=== PATIENT | male | born 1950 | race Caucasian/White ===

== ENCOUNTER 2016-11-26 15:39 | Inpatient (IN) | payer MEDICARE, MEDICAID ==
[2016-11-26] VITALS (7 sets, daily range): BP systolic 82–107; BP diastolic 47–62
[~2016-11-26] VITALS: Ht 152.4 cm; Wt 61.2 kg
[~2016-11-26 15:39] MED LIST: ALBUTEROL2.5 MG/3 M INH; ASCORBIC ACID500 MG ORAL; ASPIRIN81 M3 PO; ASPIRIN81 MG ORAL; ATORVASTATIN CA20 MG ORAL; ATORVASTATIN CA40 MG ORAL; BRIMONIDINE TART5 ML BOTH EYES; CARDIZEM5 MG/ML IV; CARVEDILOL3.125 MG ORAL; DOCUSATE SODIU250 MG ORAL; DONEPEZIL HCL5 MG ORAL; DUONEB 0.5-3(2.53 ML HHN; ENALAPRIL MALEA10 MG ORAL; FUROSEMIDE IV; GABAPENTIN100 MG ORAL; GERI-TUSSI100 MG/5 M PO; GLUCAGON EMERGEN1 MG IJ; GLUCOSE4 GM PO; ISOSORBIDE MONO60 M1 PO; LACTULOSE20 GM/301 ORAL; LEVEMIR FL100 UNIT/1 SUBQ; LEVOFLOXAC500 MG/100 IVPB; MAXIPIME2 G1 IV; MELATONIN3 M2 PO; METFORMIN HCL500 M1 ORAL; MOM30 ML ORAL; MORPHINE SU2 MG/1 M1 IV; MULTIVITAMINS1 EA11 ORAL; NEURONTIN100 MG ORAL; NITROSTAT0.4 M1 SL; NORCO 5-325 TA1 EAC1 ORAL; NOVOLOG100 UNIT/3 SUBQ; NOVOLOG100 UNIT/4 SQ; PANTOPRAZOLE SO20 MG ORAL; POLYETHYLENE GL17 GM ORAL; SORBITOL 70%30 ML GT; TEMAZEPAM15 MG ORAL; TIMOPTIC 0.25%1 DROP BOTH EYES; TIMOPTIC 0.5%1 DRO1 BOTH EYES; TRAZODONE HCL50 MG ORAL; TYLENOL650 MG/20. ORAL; VANCOMYCIN1 GM/2502 IVPB; VITAMIN A & D113 GM TP; ZOFRAN 4 MG4 MG/2 ML IV; ZOFRAN4 M3 ORAL
[2016-11-26 16:21] LABS: BASOPHILS % (AUTO) 0.6 % (0.0-2.0); EOSINOPHILS % (AUTO) 0.1 % (0.0-3.0); LYMPHOCYTES % (AUTO) 11.5 % (20.0-45.0); MEAN CORPUSCULAR HEMOGLOBIN 25.4 PG (27.0-31.0); MEAN CORPUSCULAR HGB CONC 33.5 G/DL (32.0-36.0); MEAN CORPUSCULAR VOLUME 76 FL (80-99); MEAN PLATELET VOLUME 7.5 FL (6.5-10.1); MONOCYTES % (AUTO) 5.6 % (1.0-10.0); NEUTROPHILS % (AUTO) 82.2 % (45.0-75.0); PLATELET COUNT 187 K/UL (150-450); RED BLOOD COUNT 4.94 M/UL (4.70-6.10); RED CELL DISTRIBUTION WIDTH 11.6 % (11.6-14.8); WHITE BLOOD COUNT 17.5 K/UL (4.8-10.8)
[2016-11-26 16:47] LABS: ALANINE AMINOTRANSFERASE 32 U/L (12-78); ALBUMIN/GLOBULIN RATIO 0.9 (1.0-2.7); ANION GAP 9 mmol/L (5-15); ASPARTATE AMINO TRANSFERASE 154 U/L (15-37); CALCIUM 9.1 MG/DL (8.5-10.1); CARBON DIOXIDE 20 MMOL/L (21-32); CHLORIDE 78 MMOL/L (98-107); CKMB 105.9 NG/ML (0.0-3.6); GLOMERULAR FILTRATION RATE > 60 mL/min (>60); TOTAL PROTEIN 7.4 G/DL (6.4-8.2)
[2016-11-26 16:50] LABS: SODIUM 108 MMOL/L (136-145)
[2016-11-26 17:17] LABS: BILIRUBIN,DIRECT 0.2 MG/DL (0.0-0.3)
[2016-11-26] MEDS ORDERED: DONEPEZIL HCL5 M2 ORAL (17:25)
[2016-11-26] MEDS ORDERED: VITAMIN C250 MG ORAL (17:25)
[2016-11-26] MEDS ORDERED: ALBUTEROL2.5 MG/3 M INH (17:25)
[2016-11-26] MEDS ORDERED: FUROSEMIDE20 M1 ORAL (17:25)
[2016-11-26] MEDS ORDERED: POTASSIUM40 MEQ/11 PO (17:25)
[2016-11-26] MEDS ORDERED: FAMOTIDINE20 MG ORAL (17:25)
[2016-11-26] MEDS ORDERED: MIRALAX17 G2 ORAL (17:25)
--- NOTE | 2016-11-26 17:28 | Diagnostic Imaging Report ---
Indication: Altered mental status Technique: spiral acquisitions obtained through the brain. Angled axial and coronal 5 x 5 mm slices were reconstructed. No IV contrast utilized. Radiation dose was minimized using automated exposure control Total dose length product 1439 mGycm. CTDIvol(s) 70 mGy Comparison: 06/27/2015 FINDINGS: There is some image degradation due to motion artifact No acute hemorrhage or edema. No mass effect or midline shift. There is age-related enlargement of the ventricles and extra axial CSF spaces. There is periventricular deep white matter ischemic change. Normal morse-white differentiation. Visualized orbits are unremarkable. Visualized sinuses are unremarkable. Intact calvarium. Old bilateral basal ganglia lacunar infarcts are incidentally noted. No significant change IMPRESSION: Chronic and age-related changes. Negative for acute intracranial bleed or mass effect Old bilateral basal ganglia lacunar infarcts The CT scanner at [facility] is accredited by the [employer] and the scans are performed using protocols designed to limit radiation exposure to as low as reasonably achievable to attain images of sufficient resolution adequate for diagnostic evaluation
[2016-11-26 17:44] LABS: INR 1.1 (0.9-1.1); PROTHROMBIN TIME 11.2 SEC (9.30-11.50)
[2016-11-26] MEDS ORDERED: Morphine Sulfate 2mg/ml Inj IVP PRN (18:00)
[2016-11-26] MEDS ORDERED: dilTIAZem HCl 25mg/5ml Inj IV PRN (18:00)
[2016-11-26] MEDS ORDERED: Enalaprilat 2.5mg/2ml Inj IV PRN (18:00)
[2016-11-26] MEDS ORDERED: Lactulose 20gm/30ml UDC ORAL PRN (18:00)
[2016-11-26] MEDS ORDERED: Albuterol/Ipratropium 3ml neb HHN PRN (18:00)
[2016-11-26] MEDS ORDERED: Miralax 17gm pkt ORAL PRN (18:00)
[2016-11-26] MEDS ORDERED: Nitroglycerin Subl 0.4mg tab SL PRN (18:00)
[2016-11-26] MEDS ORDERED: TraZODone 50mg tab ORAL PRN (18:00)
[2016-11-26] MEDS ORDERED: Ketorolac 30mg Inj IV PRN (18:00)
--- NOTE | 2016-11-26 18:17 | Diagnostic Imaging Report ---
Indication: Shortness of breath Technique: One view of the chest Comparison: 12/12/2015 Findings: Lungs and pleural spaces are clear. Heart size is normal . No significant interim change Impression: No acute process
[2016-11-26 18:34] LABS: APPEARANCE,URINE CLEAR; KETONES,URINE 3+ (NEGATIVE); LEUKOCYTE ESTERASE ,URINE 1+ (NEGATIVE); NITRITE,URINE NEGATIVE (NEGATIVE); PH,URINE 6 (4.5-8.0); PROTEIN,URINE 1+ (NEGATIVE); UROBILINOGEN,URINE NORMAL MG/DL (0.0-1.0)
[2016-11-26 18:53] LABS: AMORPHOUS SEDIMENT,UR FEW /LPF; BACTERIA,URINE FEW /HPF
[2016-11-26] MEDS ORDERED: Enoxaparin 60mg Inj SUBQ SCH (19:30)
--- NOTE | 2016-11-26 20:24 | Emergency Room Report ---
History of Present Illness General Chief Complaint: Altered Level of Consciousness Source: Patient, Medical Record, EMS Present Illness [facility]PI [facility] The patient himself has no complaints. The patient was sent by the staff at the jail facility for being more confused than usual. The patient himself has no complaints and is alert and oriented x4. When I did ask if the patient has any symptoms, he does state that he has had some acid reflux for the past few days. He denies abdominal pain. He denies nausea or vomiting. He has no other complaints Allergies: Coded Allergies: PENICILLINS (Unverified Allergy, Unknown, 08/18/14) Uncoded Allergies: PENCI (Allergy, Severe, 11/26/16) Patient History Past Medical History: see triage record, DM, HTN, MA, CAD, CHF, GERD, CVA/TIA Past Surgical History: other - Marah WALLER Social History: Denies: smoking, alcohol use, drug use Reviewed Nursing Documentation: PMH: Agreed, PSxH: Agreed Nursing Documentation-PMH Hx Cardiac Problems: Yes Hx COPD: Yes Hx Diabetes: Yes Hx Cancer: No Hx Gastrointestinal Problems: Yes Hx Peripheral Neuropathy: Yes Review of Systems All Other Systems: negative except mentioned in HPI Physical Exam Vital Signs Date Time Temp Pulse Resp B/P (MAP) Pulse Ox O2 Delivery O2 Flow Rate FiO2 11/26/16 15:27 97.9 96 18 116/73 98 11/26/16 16:58 Room Air 11/26/16 19:20 2.0 Sp02 EP Interpretation: reviewed, normal General Appearance: no apparent distress, alert, GCS 15, non-toxic Head: normocephalic, atraumatic Eyes: bilateral eye normal inspection, bilateral eye PERRL ENT: hearing grossly normal, normal pharynx, no angioedema, normal voice Neck: full range of motion, supple/symm/no masses Respiratory: chest non-tender, lungs clear, normal breath sounds, speaking full sentences Cardiovascular #1: regular rate, rhythm, no edema Gastrointestinal: normal bowel sounds, non tender, soft, non-distended, no guarding, no rebound Rectal: deferred Musculoskeletal: back normal, non-tender Neurologic: alert, oriented x3, responsive, motor strength/tone normal, sensory intact, speech normal Psychiatric: judgement/insight normal, memory normal, mood/affect normal, no suicidal/homicidal ideation Skin: normal color, no rash, warm/dry, well hydrated Medical Decision Making Diagnostic Impression: Primary Impression: NSTEMI (non-ST elevated myocardial infarction) Additional Impressions: Hyponatremia Hyperglycemia ER Course This patient presents with an elevated troponin that is concerning for myocardial infarction. EKG is nonspecific without ST elevations that would make me concerned for a STEMI. Further discussion with the patient and likely this patient is several days out from his myocardial infarction. He was also found to be profoundly hyponatremic. I am sure the etiology of this. The patient does have normal vital signs, however, the patient has a critically elevated troponin and is very high risk for sudden cardiac and pathologic arrhythmia, therefore, the patient is admitted to the ICU. Patient was given aspirin, Plavix and Lovenox here in the emergency department. He was admitted. This patient is critically ill. This patient required complex medical decision- making, aggressive intervention, extensive laboratory workup and monitoring. Critical care time: 40 minutes. Laboratory Tests Test 11/26/16 15:46 11/26/16 18:14 White Blood Count 17.5 K/UL (4.8-10.8) H Red Blood Count 4.94 M/UL (4.70-6.10) Hemoglobin 12.6 G/DL (14.2-18.0) L Hematocrit 37.5 % (42.0-52.0) L Mean Corpuscular Volume 76 FL (80-99) L Mean Corpuscular Hemoglobin 25.4 PG (27.0-31.0) L Mean Corpuscular Hemoglobin Concent 33.5 G/DL (32.0-36.0) Red Cell Distribution Width 11.6 % (11.6-14.8) Platelet Count 187 K/UL (150-450) Mean Platelet Volume 7.5 FL (6.5-10.1) Neutrophils (%) (Auto) 82.2 % (45.0-75.0) H Lymphocytes (%) (Auto) 11.5 % (20.0-45.0) L Monocytes (%) (Auto) 5.6 % (1.0-10.0) Eosinophils (%) (Auto) 0.1 % (0.0-3.0) Basophils (%) (Auto) 0.6 % (0.0-2.0) Prothrombin Time 11.2 SEC (9.30-11.50) Prothrombin Time INR 1.1 (0.9-1.1) PTT 35 SEC (23-33) H Sodium Level 108 MMOL/L (136-145) *L Potassium Level 5.0 MMOL/L (3.5-5.1) Chloride Level 78 MMOL/L (98-107) L Carbon Dioxide Level 20 MMOL/L (21-32) L Anion Gap 9 mmol/L (5-15) Blood Urea Nitrogen 18 mg/dL (7-18) Creatinine 1.0 MG/DL (0.55-1.30) Estimate Glomerular Filtration Rate > 60 mL/min (>60) Glucose Level 262 MG/DL (74-106) H Lactic Acid Level 1.80 mmol/L (0.66-2.22) Calcium Level 9.1 MG/DL (8.5-10.1) Total Bilirubin 3.0 MG/DL (0.2-1.0) H Direct Bilirubin 0.2 MG/DL (0.0-0.3) Aspartate Amino Transferase (AST) 154 U/L (15-37) H Alanine Aminotransferase (ALT) 32 U/L (12-78) Alkaline Phosphatase 100 U/L (46-116) Total Creatine Kinase 2146 U/L (26-308) H Creatine Kinase MB 105.9 NG/ML (0.0-3.6) H Creatine Kinase MB Relative Index 4.9 Troponin I 26.060 ng/mL (0.000-0.056) Total Protein 7.4 G/DL (6.4-8.2) Albumin 3.5 G/DL (3.4-5.0) Globulin 3.9 g/dL Albumin/Globulin Ratio 0.9 (1.0-2.7) L Urine Color Pale yellow Urine Appearance Clear Urine pH 6 (4.5-8.0) Urine Specific [place] 1.010 (1.005-1.035) Urine Protein 1+ (NEGATIVE) H Urine Glucose (UA) 3+ (NEGATIVE) H Urine Ketones 3+ (NEGATIVE) H Urine Occult Blood 2+ (NEGATIVE) H Urine Nitrite Negative (NEGATIVE) Urine Bilirubin Negative (NEGATIVE) Urine Urobilinogen Normal MG/DL (0.0-1.0) Urine Leukocyte Esterase 1+ (NEGATIVE) H Urine RBC 5-10 /HPF (0 - 0) H Urine WBC 2-4 /HPF (0 - 0) Urine Squamous Epithelial Cells None /LPF (NONE/OCC) Urine Amorphous Sediment Few /LPF (NONE) H Urine Bacteria Few /HPF (NONE) EKG Diagnostic Results Rate: normal Rhythm: NSR ST Segments: other Other Impression NSST. Q in V1, V2 Rhythm Strip Diag. Results EP Interpretation: yes Rate: 90's Rhythm: NSR, no PVC's, no ectopy Chest X-Ray Diagnostic Results Chest X-Ray Diagnostic Results : Chest X-Ray Ordered: Yes # of Views/Limited/Complete: 1 View Indication: Chest Pain EP Interpretation: No Interpretation: no consolidation, no effusion, no pneumothorax, no acute cardiopulmonary disease Impression: No acute disease Electronically Signed by: Marjorie Last Vital Signs Date Time Temp Pulse Resp B/P (MAP) Pulse Ox O2 Delivery O2 Flow Rate FiO2 11/26/16 19:20 100.0 86 26 96/56 94 Nasal Cannula 2.0 Disposition: ADMITTED INPATIENT Condition: Critical Referrals: PHILIPPE MONTEIRO (PCP) HENRY BLACK D.O. Nov 26, 2016 20:24
[2016-11-26] MEDS ORDERED: Enoxaparin 80mg Inj SUBQ SCH (21:00)
[2016-11-26] MEDS: NovoLOG Insulin Flexpen SUBQ SCH (21:21)
[2016-11-26] MEDS ORDERED: NaCl 3% 500ml 500 ML IV ONE (21:30)
[2016-11-27] VITALS (24 sets, daily range): BP systolic 86–180; BP diastolic 31–79
[2016-11-27] MEDS: NovoLOG Insulin Flexpen SUBQ SCH ×4 (05:59→20:55)
[2016-11-27 06:04] LABS: BASOPHILS % (AUTO) 0.7 % (0.0-2.0); EOSINOPHILS % (AUTO) 0.2 % (0.0-3.0); LYMPHOCYTES % (AUTO) 18.2 % (20.0-45.0); MEAN CORPUSCULAR HEMOGLOBIN 26.9 PG (27.0-31.0); MEAN CORPUSCULAR HGB CONC 35.1 G/DL (32.0-36.0); MEAN CORPUSCULAR VOLUME 77 FL (80-99); MEAN PLATELET VOLUME 8.6 FL (6.5-10.1); NEUTROPHILS % (AUTO) 73.9 % (45.0-75.0); PLATELET COUNT 138 K/UL (150-450); RED BLOOD COUNT 3.91 M/UL (4.70-6.10); RED CELL DISTRIBUTION WIDTH 11.9 % (11.6-14.8); WHITE BLOOD COUNT 9.6 K/UL (4.8-10.8)
[2016-11-27 06:22] LABS: PROTHROMBIN TIME 10.7 SEC (9.30-11.50)
[2016-11-27 06:36] LABS: CHOLESTEROL 87 MG/DL (< 200); CHOLESTEROL/HDL RATIO 1.5 (3.3-4.4); CRP QUANT 4.7 mg/dL (0.00-0.90); THYROID STIMULATING HORMONE 1.374 uiU/mL (0.360-3.740)
[2016-11-27 07:42] LABS: ALANINE AMINOTRANSFERASE 24 U/L (12-78); ALBUMIN/GLOBULIN RATIO 0.9 (1.0-2.7); ANION GAP 13 mmol/L (5-15); ASPARTATE AMINO TRANSFERASE 119 U/L (15-37); CALCIUM 8.2 MG/DL (8.5-10.1); CARBON DIOXIDE 19 MMOL/L (21-32); CHLORIDE 93 MMOL/L (98-107); CREATININE 0.9 MG/DL (0.55-1.30); GLOMERULAR FILTRATION RATE > 60 mL/min (>60); POTASSIUM 4.1 MMOL/L (3.5-5.1); SODIUM 125 MMOL/L (136-145); TOTAL PROTEIN 6.2 G/DL (6.4-8.2)
--- NOTE | 2016-11-27 08:00 | General Progress Note ---
Progress Note Progress Note [id number] patient seen and examined full note dictated VERNON ANN Nov 27, 2016 08:00
[2016-11-27 08:03] LABS: BILIRUBIN,DIRECT 0.3 MG/DL (0.0-0.3)
--- NOTE | 2016-11-27 08:06 | Cardiology Progress Note ---
Assessment/Plan Assessment/Plan The patient is seen and examined, full consult note is dictated. Objective Last 24 Hour Vital Signs Date Time Temp Pulse Resp B/P (MAP) Pulse Ox O2 Delivery O2 Flow Rate FiO2 11/27/16 07:00 85 16 98/60 100 Nasal Cannula 2.0 11/27/16 06:52 Nasal Cannula 2.0 28 11/27/16 06:52 97 Nasal Cannula 2.0 28 11/27/16 06:52 75 20 Nasal Cannula 2.0 28 11/27/16 06:00 85 15 101/58 100 Nasal Cannula 2.0 11/27/16 05:00 84 15 88/56 97 Nasal Cannula 2.0 11/27/16 04:00 98.8 93 18 95/57 96 Nasal Cannula 2.0 11/27/16 04:00 82 11/27/16 03:00 82 15 92/44 98 Nasal Cannula 2.0 11/27/16 02:00 86 15 102/54 100 Nasal Cannula 2.0 11/27/16 01:10 85 16 89/49 96 Nasal Cannula 2.0 11/27/16 00:00 83 16 96/47 99 Nasal Cannula 2.0 11/27/16 00:00 85 11/26/16 23:00 98.2 85 16 82/48 99 Nasal Cannula 2.0 11/26/16 22:00 84 16 107/62 99 Nasal Cannula 2.0 11/26/16 21:00 83 16 96/47 99 Nasal Cannula 2.0 11/26/16 21:00 95 Nasal Cannula 2.0 28 11/26/16 21:00 Nasal Cannula 2.0 28 11/26/16 20:00 88 19 106/53 99 Nasal Cannula 2.0 11/26/16 19:50 85 11/26/16 19:45 98.5 85 20 99/59 99 Nasal Cannula 2.0 11/26/16 19:34 100.0 86 26 96/56 94 Nasal Cannula 2.0 11/26/16 19:20 100.0 86 26 96/56 94 Nasal Cannula 2.0 11/26/16 16:58 100.0 87 20 105/54 94 Room Air 11/26/16 15:27 97.9 96 18 116/73 98 Laboratory Tests Test 11/26/16 15:46 11/26/16 18:14 11/26/16 22:40 10/17/17 04:50 White Blood Count 17.5 K/UL (4.8-10.8) H 9.6 K/UL (4.8-10.8) Red Blood Count 4.94 M/UL (4.70-6.10) 3.91 M/UL (4.70-6.10) L Hemoglobin 12.6 G/DL (14.2-18.0) L 10.5 G/DL (14.2-18.0) L Hematocrit 37.5 % (42.0-52.0) L 30.0 % (42.0-52.0) L Mean Corpuscular Volume 76 FL (80-99) L 77 FL (80-99) L Mean Corpuscular Hemoglobin 25.4 PG (27.0-31.0) L 26.9 PG (27.0-31.0) L Mean Corpuscular Hemoglobin Concent 33.5 G/DL (32.0-36.0) 35.1 G/DL (32.0-36.0) Red Cell Distribution Width 11.6 % (11.6-14.8) 11.9 % (11.6-14.8) Platelet Count 187 K/UL (150-450) 138 K/UL (150-450) L Mean Platelet Volume 7.5 FL (6.5-10.1) 8.6 FL (6.5-10.1) Neutrophils (%) (Auto) 82.2 % (45.0-75.0) H 73.9 % (45.0-75.0) Lymphocytes (%) (Auto) 11.5 % (20.0-45.0) L 18.2 % (20.0-45.0) L Monocytes (%) (Auto) 5.6 % (1.0-10.0) 7.0 % (1.0-10.0) Eosinophils (%) (Auto) 0.1 % (0.0-3.0) 0.2 % (0.0-3.0) Basophils (%) (Auto) 0.6 % (0.0-2.0) 0.7 % (0.0-2.0) Prothrombin Time 11.2 SEC (9.30-11.50) 10.7 SEC (9.30-11.50) Prothromb Time International Ratio 1.1 (0.9-1.1) 1.0 (0.9-1.1) Activated Partial Thromboplast Time 35 SEC (23-33) H 39 SEC (23-33) H Sodium Level 108 MMOL/L (136-145) *L 125 MMOL/L (136-145) #L Potassium Level 5.0 MMOL/L (3.5-5.1) 4.1 MMOL/L (3.5-5.1) Chloride Level 78 MMOL/L (98-107) L 93 MMOL/L (98-107) L Carbon Dioxide Level 20 MMOL/L (21-32) L 19 MMOL/L (21-32) L Anion Gap 9 mmol/L (5-15) 13 mmol/L (5-15) Blood Urea Nitrogen 18 mg/dL (7-18) 12 mg/dL (7-18) Creatinine 1.0 MG/DL (0.55-1.30) 0.9 MG/DL (0.55-1.30) Estimat Glomerular Filtration Rate > 60 mL/min (>60) > 60 mL/min (>60) Glucose Level 262 MG/DL (74-106) H 158 MG/DL (74-106) #H Lactic Acid Level 1.80 mmol/L (0.66-2.22) 1.20 mmol/L (0.66-2.22) Calcium Level 9.1 MG/DL (8.5-10.1) 8.2 MG/DL (8.5-10.1) L Total Bilirubin 3.0 MG/DL (0.2-1.0) H 2.1 MG/DL (0.2-1.0) H Direct Bilirubin 0.2 MG/DL (0.0-0.3) 0.3 MG/DL (0.0-0.3) Aspartate Amino Transf (AST/SGOT) 154 U/L (15-37) H 119 U/L (15-37) H Alanine Aminotransferase (ALT/SGPT) 32 U/L (12-78) 24 U/L (12-78) Alkaline Phosphatase 100 U/L (46-116) 76 U/L (46-116) Total Creatine Kinase 2146 U/L (26-308) H Creatine Kinase MB 105.9 NG/ML (0.0-3.6) H Creatine Kinase MB Relative Index 4.9 Troponin I 26.060 ng/mL (0.000-0.056) 20.471 ng/mL (0.000-0.056) 15.282 ng/mL (0.000-0.056) Total Protein 7.4 G/DL (6.4-8.2) 6.2 G/DL (6.4-8.2) L Albumin 3.5 G/DL (3.4-5.0) 3.0 G/DL (3.4-5.0) L Globulin 3.9 g/dL 3.2 g/dL Albumin/Globulin Ratio 0.9 (1.0-2.7) L 0.9 (1.0-2.7) L Urine Color Pale yellow Urine Appearance Clear Urine pH 6 (4.5-8.0) Urine Specific [place] 1.010 (1.005-1.035) Urine Protein 1+ (NEGATIVE) H Urine Glucose (UA) 3+ (NEGATIVE) H Urine Ketones 3+ (NEGATIVE) H Urine Occult Blood 2+ (NEGATIVE) H Urine Nitrite Negative (NEGATIVE) Urine Bilirubin Negative (NEGATIVE) Urine Urobilinogen Normal MG/DL (0.0-1.0) Urine Leukocyte Esterase 1+ (NEGATIVE) H Urine RBC 5-10 /HPF (0 - 0) H Urine WBC 2-4 /HPF (0 - 0) Urine Squamous Epithelial Cells None /LPF (NONE/OCC) Urine Amorphous Sediment Few /LPF (NONE) H Urine Bacteria Few /HPF (NONE) C-Reactive Protein, Quantitative 4.7 mg/dL (0.00-0.90) H Triglycerides Level 68 MG/DL (0-200) Cholesterol Level 87 MG/DL (< 200) LDL Cholesterol 26 mg/dL (<100) HDL Cholesterol 58 MG/DL (40-60) Cholesterol/HDL Ratio 1.5 (3.3-4.4) L Thyroid Stimulating Hormone (TSH) 1.374 uiU/mL (0.360-3.740) JESS WHITFIELD Nov 27, 2016 08:06
[2016-11-27] MEDS ORDERED: Metoprolol 5mg/5ml Inj IVP ONE (08:15)
[2016-11-27] MEDS ORDERED: Aspirin Baby 81mg ORAL SCH (09:00)
[2016-11-27] MEDS: Metoprolol Tartrate 50mg tab ORAL SCH ×2 (09:00→20:53)
--- NOTE | 2016-11-27 09:18 | Consultation ---
History of Present Illness General Date patient seen: Nov 26, 2016 Chief Complaint: Altered Level of Consciousness Referring physician: Dr Thorne Reason for Consultation: intensive care management Present Illness HPI 66 year old with hx of DM, HTN, [place], CAD, CHF, GERD, CVA/TIA presented from a senior living facility for being more confused than usual. The patient himself has no complaints and is alert and oriented x4. He has had some acid reflux for the past few days. He denies abdominal pain. He denies nausea or vomiting. He has no other complaints. His Na turned out to be very low and very high troponin. He is admitted to ICU. Allergies: Coded Allergies: PENICILLINS (Unverified Allergy, Unknown, 08/18/14) Uncoded Allergies: PENCI (Allergy, Severe, 11/26/16) Medication History Scheduled Ascorbic Acid* (Vitamin C*), 250 MG ORAL TWICE A DAY, (Reported) Aspirin (Aspirin), 81 MG PO DAILY, (Reported) Aspirin* (Aspirin*), 162 MG ORAL DAILY, (Reported) Atorvastatin Calcium* (Atorvastatin Calcium*), 40 MG ORAL BEDTIME, (Reported) Carvedilol* (Carvedilol*), 3.125 MG ORAL BID, (Reported) Carvedilol* (Carvedilol*), 3.125 MG ORAL EVERY 12 HOURS, (Reported) Cefepime Hcl (Maxipime), 2 GM IV Q12HR, (Reported) Cefepime Hcl (Maxipime), 2 GM IV Q12HR, (Reported) Diltiazem HCl (Diltiazem HCl), 10 MG IV Q1HR, (Reported) Donepezil Hcl* (Donepezil Hcl*), 5 MG ORAL QHS, (Reported) Donepezil Hcl* (Donepezil Hcl*), 5 MG ORAL DAILY, (Reported) Famotidine (Famotidine), 20 MG ORAL TWICE A DAY, (Reported) Furosemide In 0.9 % Nacl (Furosemide-0.9% Nacl 100MG/100), 20 MG IV Q8HR, ( Reported) Furosemide* (Lasix*), 10 MG ORAL BID, (Reported) Gabapentin* (Gabapentin*), 100 MG ORAL DAILY, (Reported) Insulin Aspart (Novolog), 100 UNIT SQ QID, (Reported) Insulin Aspart* (Novolog*), 0 SUBQ BEFORE MEALS AND HS, (Reported) Insulin Detemir (Levemir Flexpen), 10 SUBQ DAILY, (Reported) Levofloxacin-D5w 500 Mg/100 Ml* (Levofloxacin-D5w 500 Mg/100 Ml*), 500 MG IVPB Q24H, (Reported) Multivitamin (Multivitamins), 1 CAP ORAL DAILY, (Reported) Pantoprazole (Pantoprazole), 40 MG ORAL DAILY, (Reported) Polyethylene Glycol 3350* (Miralax*), 17 GM ORAL DAILY, (Reported) Temazepam (Temazepam*), 15 MG ORAL BEDTIME, (Reported) Vancomycin Hcl/D5w (Vancomycin-D5w 1 G/250 Ml), 1 GM IVPB Q24H, (Reported) Scheduled PRN Acetaminophen (Acetaminophen), 650 MG ORAL Q4HR PRN for Prn Headache/Temp > 101, (Reported) Acetaminophen (Acetaminophen), 650 MG ORAL Q4HR PRN for Mild Pain/Temp > 100.5, (Reported) Albuterol Sulfate* (Albuterol Sulfate Hhn*), 3 ML INH Q2HR PRN for Shortness of Breath, (Reported) Albuterol Sulfate* (Albuterol Sulfate Hhn*), 3 ML INH Q6H PRN for Shortness of Breath, (Reported) Hydrocodone Bit/Acetaminophen 5-325* ([place] 5-325 Tablet*), 1 TAB ORAL Q6HR PRN for Severe Pain (Pain Scale 7-10), (Reported) Ipratropium/Albuterol Sulfate (DuoNeb 0.5-3(2.5)mg/3ml), 3 ML HHN Q4HR PRN for Shortness of Breath, (Reported) Lactulose (Lactulose*), 30 ML ORAL TID PRN for PRN, (Reported) Morphine Sulfate (Morphine Sulfate), 2 MG IV Q4HR PRN for Severe Pain (Pain Scale 7-10), (Reported) Nitroglycerin (Nitrostat), 0.4 MG SL Q5M X3 DOSES PRN for CHEST PAIN, (Reported) Ondansetron* (Zofran*), 4 MG ORAL Q6H PRN for Nausea & Vomiting, (Reported) Ondansetron* (Zofran*), 4 MG IV Q6H PRN for Nausea & Vomiting, (Reported) Polyethylene Glycol 3350* (Polyethylene Glycol 3350*), 17 GM ORAL DAILY PRN for Constipation, (Reported) Sorbitol (Sorbitol), 30 ML GT TID PRN for PRN, (Reported) Temazepam (Temazepam*), 15 MG ORAL BEDTIME PRN for Insomnia, (Reported) Trazodone Hcl* (Desyrel*), 25 MG ORAL QHS PRN for Insomnia, (Reported) Miscellaneous Medications Insulin Aspart* (Novolog*), 0 SUBQ, (Reported) Potassium Chloride (Potassium Chloride), 40 MEQ PO, (Reported) Patient History Healthcare decision maker self Resuscitation status Full Code Advanced Directive on File No Past Medical/Surgical History Past Medical/Surgical History: (1) HTN (hypertension) (2) CHF (congestive heart failure) (3) Diabetes Review of Systems All Other Systems: negative except mentioned in HPI Physical Exam General Appearance: WD/WN Lines, tubes and drains: peripheral HEENT: normocephalic, atraumatic Neck: non-tender, normal alignment Respiratory/Chest: chest wall non-tender, lungs clear Breasts: no masses Cardiovascular/Chest: normal peripheral pulses Abdomen: normal bowel sounds, non tender Genitourinary/Rectal: normal genital exam Extremities: normal range of motion, other - bilateral amputation Skin Exam: normal pigmentation 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: 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 Last 24 Hour Vital Signs Date Time Temp Pulse Resp B/P (MAP) Pulse Ox O2 Delivery O2 Flow Rate FiO2 11/27/16 08:00 98.3 85 18 99/55 100 Nasal Cannula 2.0 11/27/16 07:00 85 16 98/60 100 Nasal Cannula 2.0 11/27/16 06:52 Nasal Cannula 2.0 28 11/27/16 06:52 97 Nasal Cannula 2.0 28 11/27/16 06:52 75 20 Nasal Cannula 2.0 28 11/27/16 06:00 85 15 101/58 100 Nasal Cannula 2.0 11/27/16 05:00 84 15 88/56 97 Nasal Cannula 2.0 11/27/16 04:00 98.8 93 18 95/57 96 Nasal Cannula 2.0 11/27/16 04:00 82 11/27/16 03:00 82 15 92/44 98 Nasal Cannula 2.0 11/27/16 02:00 86 15 102/54 100 Nasal Cannula 2.0 11/27/16 01:10 85 16 89/49 96 Nasal Cannula 2.0 11/27/16 00:00 83 16 96/47 99 Nasal Cannula 2.0 11/27/16 00:00 85 11/26/16 23:00 98.2 85 16 82/48 99 Nasal Cannula 2.0 11/26/16 22:00 84 16 107/62 99 Nasal Cannula 2.0 11/26/16 21:00 83 16 96/47 99 Nasal Cannula 2.0 11/26/16 21:00 95 Nasal Cannula 2.0 28 11/26/16 21:00 Nasal Cannula 2.0 28 11/26/16 20:00 88 19 106/53 99 Nasal Cannula 2.0 11/26/16 19:50 85 11/26/16 19:45 98.5 85 20 99/59 99 Nasal Cannula 2.0 11/26/16 19:34 100.0 86 26 96/56 94 Nasal Cannula 2.0 11/26/16 19:20 100.0 86 26 96/56 94 Nasal Cannula 2.0 11/26/16 16:58 100.0 87 20 105/54 94 Room Air 11/26/16 15:27 97.9 96 18 116/73 98 Intake and Output 11/27/16 11/28/16 19:00 07:00 Output Total 200 ml Balance -200 ml Output Urine Total 200 ml Laboratory Tests Test 11/26/16 15:46 11/26/16 18:14 11/26/16 22:40 11/27/16 04:50 White Blood Count 17.5 K/UL (4.8-10.8) H 9.6 K/UL (4.8-10.8) Red Blood Count 4.94 M/UL (4.70-6.10) 3.91 M/UL (4.70-6.10) L Hemoglobin 12.6 G/DL (14.2-18.0) L 10.5 G/DL (14.2-18.0) L Hematocrit 37.5 % (42.0-52.0) L 30.0 % (42.0-52.0) L Mean Corpuscular Volume 76 FL (80-99) L 77 FL (80-99) L Mean Corpuscular Hemoglobin 25.4 PG (27.0-31.0) L 26.9 PG (27.0-31.0) L Mean Corpuscular Hemoglobin Concent 33.5 G/DL (32.0-36.0) 35.1 G/DL (32.0-36.0) Red Cell Distribution Width 11.6 % (11.6-14.8) 11.9 % (11.6-14.8) Platelet Count 187 K/UL (150-450) 138 K/UL (150-450) L Mean Platelet Volume 7.5 FL (6.5-10.1) 8.6 FL (6.5-10.1) Neutrophils (%) (Auto) 82.2 % (45.0-75.0) H 73.9 % (45.0-75.0) Lymphocytes (%) (Auto) 11.5 % (20.0-45.0) L 18.2 % (20.0-45.0) L Monocytes (%) (Auto) 5.6 % (1.0-10.0) 7.0 % (1.0-10.0) Eosinophils (%) (Auto) 0.1 % (0.0-3.0) 0.2 % (0.0-3.0) Basophils (%) (Auto) 0.6 % (0.0-2.0) 0.7 % (0.0-2.0) Prothrombin Time 11.2 SEC (9.30-11.50) 10.7 SEC (9.30-11.50) Prothromb Time International Ratio 1.1 (0.9-1.1) 1.0 (0.9-1.1) Activated Partial Thromboplast Time 35 SEC (23-33) H 39 SEC (23-33) H Sodium Level 108 MMOL/L (136-145) *L 125 MMOL/L (136-145) #L Potassium Level 5.0 MMOL/L (3.5-5.1) 4.1 MMOL/L (3.5-5.1) Chloride Level 78 MMOL/L (98-107) L 93 MMOL/L (98-107) L Carbon Dioxide Level 20 MMOL/L (21-32) L 19 MMOL/L (21-32) L Anion Gap 9 mmol/L (5-15) 13 mmol/L (5-15) Blood Urea Nitrogen 18 mg/dL (7-18) 12 mg/dL (7-18) Creatinine 1.0 MG/DL (0.55-1.30) 0.9 MG/DL (0.55-1.30) Estimat Glomerular Filtration Rate > 60 mL/min (>60) > 60 mL/min (>60) Glucose Level 262 MG/DL (74-106) H 158 MG/DL (74-106) #H Lactic Acid Level 1.80 mmol/L (0.66-2.22) 1.20 mmol/L (0.66-2.22) Calcium Level 9.1 MG/DL (8.5-10.1) 8.2 MG/DL (8.5-10.1) L Total Bilirubin 3.0 MG/DL (0.2-1.0) H 2.1 MG/DL (0.2-1.0) H Direct Bilirubin 0.2 MG/DL (0.0-0.3) 0.3 MG/DL (0.0-0.3) Aspartate Amino Transf (AST/SGOT) 154 U/L (15-37) H 119 U/L (15-37) H Alanine Aminotransferase (ALT/SGPT) 32 U/L (12-78) 24 U/L (12-78) Alkaline Phosphatase 100 U/L (46-116) 76 U/L (46-116) Total Creatine Kinase 2146 U/L (26-308) H Creatine Kinase MB 105.9 NG/ML (0.0-3.6) H Creatine Kinase MB Relative Index 4.9 Troponin I 26.060 ng/mL (0.000-0.056) 20.471 ng/mL (0.000-0.056) 15.282 ng/mL (0.000-0.056) Total Protein 7.4 G/DL (6.4-8.2) 6.2 G/DL (6.4-8.2) L Albumin 3.5 G/DL (3.4-5.0) 3.0 G/DL (3.4-5.0) L Globulin 3.9 g/dL 3.2 g/dL Albumin/Globulin Ratio 0.9 (1.0-2.7) L 0.9 (1.0-2.7) L Urine Color Pale yellow Urine Appearance Clear Urine pH 6 (4.5-8.0) Urine Specific [place] 1.010 (1.005-1.035) Urine Protein 1+ (NEGATIVE) H Urine Glucose (UA) 3+ (NEGATIVE) H Urine Ketones 3+ (NEGATIVE) H Urine Occult Blood 2+ (NEGATIVE) H Urine Nitrite Negative (NEGATIVE) Urine Bilirubin Negative (NEGATIVE) Urine Urobilinogen Normal MG/DL (0.0-1.0) Urine Leukocyte Esterase 1+ (NEGATIVE) H Urine RBC 5-10 /HPF (0 - 0) H Urine WBC 2-4 /HPF (0 - 0) Urine Squamous Epithelial Cells None /LPF (NONE/OCC) Urine Amorphous Sediment Few /LPF (NONE) H Urine Bacteria Few /HPF (NONE) C-Reactive Protein, Quantitative 4.7 mg/dL (0.00-0.90) H Triglycerides Level 68 MG/DL (0-200) Cholesterol Level 87 MG/DL (< 200) LDL Cholesterol 26 mg/dL (<100) HDL Cholesterol 58 MG/DL (40-60) Cholesterol/HDL Ratio 1.5 (3.3-4.4) L Thyroid Stimulating Hormone (TSH) 1.374 uiU/mL (0.360-3.740) Height (Feet): 5 Height (Inches): 6.00 Weight (Pounds): 134 Medications Current Medications Medications (Trade) Dose Ordered Sig/Marsha Route PRN Reason Start Time Stop Time Status Last Admin Dose Admin Acetaminophen (Tylenol) 650 mg Q4H PRN ORAL FEVER 11/26/16 18:00 12/26/16 17:59 Albuterol/ Ipratropium (DuoNeb 0.5-3(2.5)mg/3ml) 3 ml Q4H PRN HHN Shortness of Breath 11/26/16 18:00 12/01/16 17:59 Aspirin (ASA) 81 mg DAILY ORAL 11/27/16 09:00 12/27/16 08:59 Clopidogrel Bisulfate (Plavix) 75 mg DAILY ORAL 11/27/16 09:00 12/27/16 08:59 Dextrose (Dextrose 50%) STAT PRN IV Hypoglycemia 11/26/16 18:00 12/26/16 17:59 Diltiazem HCl (Cardizem) 10 mg Q1H PRN IV HR > 120 11/26/16 18:00 12/26/16 17:59 Enalaprilat (Vasotec) 2.5 mg Q6H PRN IV sbp more than 160 11/26/16 18:00 12/26/16 17:59 Gabapentin (Neurontin) 100 mg DAILY ORAL 11/27/16 09:00 12/27/16 08:59 Insulin Aspart (NovoLOG) BEFORE MEALS AND HS SUBQ 11/26/16 21:00 12/26/16 20:59 11/27/16 05:59 Lactulose (Cephulac) 20 gm TIDPRN PRN ORAL AGITATION/CONSTIPATION 11/26/16 18:00 12/26/16 17:59 Metoprolol Tartrate (Lopressor) 50 mg Q12HR ORAL 11/27/16 09:00 12/27/16 08:59 Morphine Sulfate (Morphine Sulfate) 2 mg Q4H PRN IVP severe Pain (Pain Scale 7-10) 11/26/16 18:00 12/03/16 17:59 Nitroglycerin (Ntg) 0.4 mg Every 5 Minutes PRN SL Prn Chest Pain 11/26/16 18:00 12/26/16 17:59 Ondansetron HCl (Zofran) 4 mg Q6H PRN IVP Nausea & Vomiting 11/26/16 18:00 12/26/16 17:59 Pantoprazole (Protonix) 40 mg DAILY ORAL 11/27/16 09:00 12/27/16 08:59 Polyethylene Glycol (Miralax) 17 gm DAILYPRN PRN ORAL Constipation 11/26/16 18:00 12/26/16 17:59 Sodium Chloride 1,000 ml @ 50 mls/hr Q20H IV 11/27/16 08:15 12/27/16 08:14 11/27/16 08:34 Temazepam (Restoril) 15 mg HSPRN PRN ORAL Insomnia 11/26/16 18:00 12/03/16 17:59 Trazodone HCl (Desyrel) 25 mg HSPRN PRN ORAL Insomnia 11/26/16 18:00 12/26/16 17:59 Assessment/Plan Problem List: (1) Hyponatremia ICD Codes: E87.1 - Hypo-osmolality and hyponatremia SNOMED: 19888110 (2) NSTEMI (non-ST elevated myocardial infarction) ICD Codes: I21.4 - Non-ST elevation (NSTEMI) myocardial infarction SNOMED: 933770727 (3) Diabetes ICD Codes: E11.9 - Type 2 diabetes mellitus without complications SNOMED: 18092217 (4) Anemia ICD Codes: D64.9 - Anemia, unspecified SNOMED: 679426015 Respiratory: monitor respiratory rate, adjust FIO2 Cardiac: continue to monitor HR/BP, other - on heparing Renal: F/U I&O Infectious Disease: check cultures Gastrointestinal: continue feedings/current rate Endocrine: monitor blood sugar Hematologic: monitor H/H Neurologic: PRN Ativan Prophylaxis: Protonix, Heparin Disposition: keep in ICU Discussed with: nurses, consultants, high risk case manager CHARLOTTE DAVISON Nov 27, 2016 09:18
[2016-11-27] MEDS: Aspirin Baby 81mg ORAL SCH (09:20)
--- NOTE | 2016-11-27 09:27 | Pulmonolgy Critical Care Note ---
Critical Care - Asmt/Plan Problems: (1) Acute encephalopathy (2) NSTEMI (non-ST elevated myocardial infarction) (3) Diabetes (4) Hyponatremia Respiratory: monitor respiratory rate, adjust FIO2 Cardiac: continue to monitor HR/BP Renal: F/U I&O, keep IV fluid, other - Na is better Infectious Disease: check cultures Gastrointestinal: start feedings Endocrine: monitor blood sugar, continue sliding scale insulin Hematologic: monitor H/H Neurologic: PRN Ativan, keep patient comfortable Affect: PRN ativan Prophylaxis: Heparin Disposition: keep in ICU Notes Reviewed: cardio, renal Discussed with: nurses, consultants Critical Care - Objective Last 24 Hour Vital Signs Date Time Temp Pulse Resp B/P (MAP) Pulse Ox O2 Delivery O2 Flow Rate FiO2 11/27/16 08:00 98.3 85 18 99/55 100 Nasal Cannula 2.0 11/27/16 07:00 85 16 98/60 100 Nasal Cannula 2.0 11/27/16 06:52 Nasal Cannula 2.0 28 11/27/16 06:52 97 Nasal Cannula 2.0 28 11/27/16 06:52 75 20 Nasal Cannula 2.0 28 11/27/16 06:00 85 15 101/58 100 Nasal Cannula 2.0 11/27/16 05:00 84 15 88/56 97 Nasal Cannula 2.0 11/27/16 04:00 98.8 93 18 95/57 96 Nasal Cannula 2.0 11/27/16 04:00 82 11/27/16 03:00 82 15 92/44 98 Nasal Cannula 2.0 11/27/16 02:00 86 15 102/54 100 Nasal Cannula 2.0 11/27/16 01:10 85 16 89/49 96 Nasal Cannula 2.0 11/27/16 00:00 83 16 96/47 99 Nasal Cannula 2.0 11/27/16 00:00 85 11/26/16 23:00 98.2 85 16 82/48 99 Nasal Cannula 2.0 11/26/16 22:00 84 16 107/62 99 Nasal Cannula 2.0 11/26/16 21:00 83 16 96/47 99 Nasal Cannula 2.0 11/26/16 21:00 95 Nasal Cannula 2.0 28 11/26/16 21:00 Nasal Cannula 2.0 28 11/26/16 20:00 88 19 106/53 99 Nasal Cannula 2.0 11/26/16 19:50 85 11/26/16 19:45 98.5 85 20 99/59 99 Nasal Cannula 2.0 11/26/16 19:34 100.0 86 26 96/56 94 Nasal Cannula 2.0 11/26/16 19:20 100.0 86 26 96/56 94 Nasal Cannula 2.0 11/26/16 16:58 100.0 87 20 105/54 94 Room Air 11/26/16 15:27 97.9 96 18 116/73 98 Status: awake Condition: critical, improving HEENT: atraumatic, normocephalic Neck: full ROM Lungs: clear Heart: HR/BP stable Abdomen: soft Extremities: no C/C/E Accucheck: 162 Critical Care - Subjective ICU Day: 2 Condition: critical EKG Rhythm: Sinus Rhythm FI02: 28 I&O: Intake and Output 11/27/16 11/28/16 19:00 07:00 Output Total 200 ml Balance -200 ml Output Urine Total 200 ml CXR: SHABBIR Labs: Laboratory Tests Test 11/26/16 15:46 11/26/16 18:14 11/26/16 22:40 11/27/16 04:50 White Blood Count 17.5 K/UL (4.8-10.8) H 9.6 K/UL (4.8-10.8) Red Blood Count 4.94 M/UL (4.70-6.10) 3.91 M/UL (4.70-6.10) L Hemoglobin 12.6 G/DL (14.2-18.0) L 10.5 G/DL (14.2-18.0) L Hematocrit 37.5 % (42.0-52.0) L 30.0 % (42.0-52.0) L Mean Corpuscular Volume 76 FL (80-99) L 77 FL (80-99) L Mean Corpuscular Hemoglobin 25.4 PG (27.0-31.0) L 26.9 PG (27.0-31.0) L Mean Corpuscular Hemoglobin Concent 33.5 G/DL (32.0-36.0) 35.1 G/DL (32.0-36.0) Red Cell Distribution Width 11.6 % (11.6-14.8) 11.9 % (11.6-14.8) Platelet Count 187 K/UL (150-450) 138 K/UL (150-450) L Mean Platelet Volume 7.5 FL (6.5-10.1) 8.6 FL (6.5-10.1) Neutrophils (%) (Auto) 82.2 % (45.0-75.0) H 73.9 % (45.0-75.0) Lymphocytes (%) (Auto) 11.5 % (20.0-45.0) L 18.2 % (20.0-45.0) L Monocytes (%) (Auto) 5.6 % (1.0-10.0) 7.0 % (1.0-10.0) Eosinophils (%) (Auto) 0.1 % (0.0-3.0) 0.2 % (0.0-3.0) Basophils (%) (Auto) 0.6 % (0.0-2.0) 0.7 % (0.0-2.0) Prothrombin Time 11.2 SEC (9.30-11.50) 10.7 SEC (9.30-11.50) Prothromb Time International Ratio 1.1 (0.9-1.1) 1.0 (0.9-1.1) Activated Partial Thromboplast Time 35 SEC (23-33) H 39 SEC (23-33) H Sodium Level 108 MMOL/L (136-145) *L 125 MMOL/L (136-145) #L Potassium Level 5.0 MMOL/L (3.5-5.1) 4.1 MMOL/L (3.5-5.1) Chloride Level 78 MMOL/L (98-107) L 93 MMOL/L (98-107) L Carbon Dioxide Level 20 MMOL/L (21-32) L 19 MMOL/L (21-32) L Anion Gap 9 mmol/L (5-15) 13 mmol/L (5-15) Blood Urea Nitrogen 18 mg/dL (7-18) 12 mg/dL (7-18) Creatinine 1.0 MG/DL (0.55-1.30) 0.9 MG/DL (0.55-1.30) Estimat Glomerular Filtration Rate > 60 mL/min (>60) > 60 mL/min (>60) Glucose Level 262 MG/DL (74-106) H 158 MG/DL (74-106) #H Lactic Acid Level 1.80 mmol/L (0.66-2.22) 1.20 mmol/L (0.66-2.22) Calcium Level 9.1 MG/DL (8.5-10.1) 8.2 MG/DL (8.5-10.1) L Total Bilirubin 3.0 MG/DL (0.2-1.0) H 2.1 MG/DL (0.2-1.0) H Direct Bilirubin 0.2 MG/DL (0.0-0.3) 0.3 MG/DL (0.0-0.3) Aspartate Amino Transf (AST/SGOT) 154 U/L (15-37) H 119 U/L (15-37) H Alanine Aminotransferase (ALT/SGPT) 32 U/L (12-78) 24 U/L (12-78) Alkaline Phosphatase 100 U/L (46-116) 76 U/L (46-116) Total Creatine Kinase 2146 U/L (26-308) H Creatine Kinase MB 105.9 NG/ML (0.0-3.6) H Creatine Kinase MB Relative Index 4.9 Troponin I 26.060 ng/mL (0.000-0.056) 20.471 ng/mL (0.000-0.056) 15.282 ng/mL (0.000-0.056) Total Protein 7.4 G/DL (6.4-8.2) 6.2 G/DL (6.4-8.2) L Albumin 3.5 G/DL (3.4-5.0) 3.0 G/DL (3.4-5.0) L Globulin 3.9 g/dL 3.2 g/dL Albumin/Globulin Ratio 0.9 (1.0-2.7) L 0.9 (1.0-2.7) L Urine Color Pale yellow Urine Appearance Clear Urine pH 6 (4.5-8.0) Urine Specific [place] 1.010 (1.005-1.035) Urine Protein 1+ (NEGATIVE) H Urine Glucose (UA) 3+ (NEGATIVE) H Urine Ketones 3+ (NEGATIVE) H Urine Occult Blood 2+ (NEGATIVE) H Urine Nitrite Negative (NEGATIVE) Urine Bilirubin Negative (NEGATIVE) Urine Urobilinogen Normal MG/DL (0.0-1.0) Urine Leukocyte Esterase 1+ (NEGATIVE) H Urine RBC 5-10 /HPF (0 - 0) H Urine WBC 2-4 /HPF (0 - 0) Urine Squamous Epithelial Cells None /LPF (NONE/OCC) Urine Amorphous Sediment Few /LPF (NONE) H Urine Bacteria Few /HPF (NONE) C-Reactive Protein, Quantitative 4.7 mg/dL (0.00-0.90) H Triglycerides Level 68 MG/DL (0-200) Cholesterol Level 87 MG/DL (< 200) LDL Cholesterol 26 mg/dL (<100) HDL Cholesterol 58 MG/DL (40-60) Cholesterol/HDL Ratio 1.5 (3.3-4.4) L Thyroid Stimulating Hormone (TSH) 1.374 uiU/mL (0.360-3.740) CHARLOTTE DAVISON Nov 27, 2016 09:27
[2016-11-27] MEDS: Enoxaparin 60mg Inj SUBQ SCH ×2 (11:49→20:54)
--- NOTE | 2016-11-27 18:15 | Consultation ---
DATE OF CONSULTATION: 11/27/2016 CARDIOLOGY CONSULTATION CONSULTING PHYSICIAN: Manolo Meza M.D. REFERRING PHYSICIAN: Ramirez Thorne D.O. REASON FOR CONSULTATION: Acute myocardial infarction. HISTORY OF PRESENT ILLNESS: The patient was admitted to intensive care unit of [facility] for diagnosis of non-ST elevation myocardial infarction. The patient was brought in from a longterm facility. He did not have any complaints of chest pain or shortness of breath. He was found to be more confused than usual in the facility. On arrival to the emergency department, he was found to be alert and oriented x4. A 12-lead electrocardiogram done showed sinus rhythm with some nonspecific ST and T-wave abnormalities. Initial troponin level amongst laboratory findings was 26. The patient was admitted to ICU for further evaluation and management. At the time of arrival to the hospital, blood pressure was stable at 116/73 mmHg and pulse of 96. PAST MEDICAL HISTORY: Includes history of diabetes mellitus, hypertension, history of coronary artery disease, status post myocardial infarction, history of congestive heart failure, history of gastroesophageal reflux disease, history of CVA/TIA, and history of PAD, status post right AKA and left BKA, and COPD. 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 ALLERGIES: Penicillin. MEDICATIONS: List of medications from the nursing facility includes: 1. Acetaminophen 650 mg p.o. q.4 h. p.r.n. for headache and temperature. 2. Albuterol 3 mL inhaler q.2 h. p.r.n. shortness of breath. 3. Ascorbic acid 250 mg twice daily. 4. Aspirin 81 mg p.o. daily. 5. Atorvastatin 40 mg p.o. nightly. 6. Carvedilol 3.125 mg twice daily. 7. Cefepime 2 g IV piggyback q.12 h. 8. Diltiazem 10 mg IV q.1 h. p.r.n. systolic blood pressure of 160. 9. Donepezil 5 mg p.o. nightly. 10. Famotidine 20 mg p.o. twice daily. 11. Furosemide 10 mg p.o. twice daily. 12. Gabapentin 100 mg p.o. daily. 13. [place] 5/325 one tablet q.6 h. p.r.n. severe pain. 14. Insulin aspart sliding scale. 15. Insulin Levemir 10 units subcutaneous daily. 16. DuoNeb 3 mL HHN q.4 h. p.r.n. shortness of breath. 17. Lactulose 30 mL 3 times daily p.r.n. constipation. 18. Morphine sulfate 2 mg IV q.4 h. p.r.n. severe pain. 19. Multivitamin 1 tablet p.o. daily. 20. Nitroglycerin 0.4 mg sublingual every 5 minutes x3 doses. 21. Zofran 4 mg IV q.6 h. p.r.n. nausea and vomiting. 22. Pantoprazole 40 mg p.o. daily. 23. MiraLAX 17 g p.o. daily. 24. Potassium chloride 40 mEq p.o. daily. 25. Sorbitol 30 mL p.o. t.i.d. p.r.n. 26. Temazepam 15 mg p.o. nightly. 27. Trazodone 25 mg nightly p.r.n. insomnia. SOCIAL HISTORY: Denies any use of tobacco, alcohol, or illicit drug use. REVIEW OF SYSTEMS: HEENT: Denies any headache, diplopia, or blurred vision. CONSTITUTIONAL: Denies any fever, chills, night sweats, or weight loss. CARDIOVASCULAR: Denies any chest pain, shortness breath, PND, orthopnea, or syncope. PULMONARY: Denies any cough, hemoptysis, or wheezing. GASTROINTESTINAL: Denies any nausea, vomiting, diarrhea, constipation, abdominal pain, or GI bleed. GENITOURINARY: Denies any hematuria, dysuria, or incontinence. NEUROLOGY: Denies any motor dysfunction, sensory deficit, or altered speech. MUSCULOSKELETAL: Has lost both legs. Nonambulatory. PHYSICAL EXAMINATION: VITAL SIGNS: Blood pressure is 116/73, respirations 18, pulse of 96, temperature 97.9 degrees Fahrenheit, and O2 saturation 98% on room air. GENERAL: The patient is a very unfortunate and anxious 66-year-old gentleman, who was seen in intensive care unit of [facility] in no acute distress, alert and oriented, speaking in Cambodian words. HEENT: Atraumatic and normocephalic. Anicteric. Pupils are equal, round, and reactive to light and accommodation. Extraocular muscles intact. NECK: JVP is less than 5 cm. No carotid bruit. Carotid upstroke is 2+ bilaterally. CARDIOVASCULAR: Normal S1 and S2. Tachycardic. No murmurs, gallops, or rubs. PMI is at 4th intercostal space at midclavicular line. LUNGS: Clear to auscultation bilaterally. ABDOMEN: Soft, nontender, and nondistended. No hepatosplenomegaly. Positive bowel sounds. 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 LABORATORY AND DIAGNOSTIC DATA: Chest x-ray shows no acute cardiopulmonary disease. A 12-lead electrocardiogram shows sinus rhythm at a rate of [address] and T-wave abnormality. There is questionable [address]-segment elevation in the lead V1, questionable RV infarct. No reciprocal changes are seen. Laboratory findings, WBC 17.5, hemoglobin 12.6, hematocrit 37.5, and platelet count is 187,000. Sodium is 108, potassium is 5.0, chloride 78, bicarbonate 20, BUN of 18, creatinine 1.0, and glucose is 262. Calcium is 9.1. Troponin I was 26. Second troponin I was 15.2. Total cholesterol was 87, triglycerides 68, LDL was 76, and HDL of 58. INR is 1.1. ASSESSMENT AND PLAN: The patient is a very unfortunate 66-year-old gentleman, who is brought in to this facility for some altered mental status. 1. Possible non-ST elevation myocardial infarction with troponin I at 26. It has downtrended to around 15. The patient is completely asymptomatic. Despite being asymptomatic, the patient was started on Lovenox 1 mg/kg subcutaneous twice daily, was loaded with Plavix 300 mg in the emergency department and to be continued on 75 mg daily, aspirin 325 mg 1 dose was given and will continue 81 mg daily. A 12-lead electrocardiogram will be done this morning. The patient is chest pain-free this morning. A 2D echocardiography in June 2015, one of his admission to this facility, had shown normal left ventricular systolic function, although the test was technically difficult. The left ventricular ejection fraction value was not determined. There were no other abnormalities. The right ventricular systolic pressure was also measured at 9 mmHg. 2. We will repeat 2D echocardiography for assessment of wall motion and left ventricular ejection fraction. We will discuss with the patient with a enterprise solutions architect whether the patient would agree to left heart catheterization with coronary angiography to assess the coronary anatomy. If agreeable, the patient will be transferred to [facility] [place] for the above procedure. 3. History of diabetes mellitus. 4. History of coronary artery disease, status post myocardial infarction, the details of which is unknown. 5. History of hypertension. 6. History of peripheral artery disease, status post bilateral amputation. 7. The total amount of time spent in the intensive care unit of [facility] for assessment of this patient in cardiology consultation is 45 minutes. I would like to thank, Dr. Thorne, for the courtesy of this consultation. Manolo Meza M.D. DR: TERRENCE JOB#: [id number] CC:
--- NOTE | 2016-11-27 20:54 | Cardiology Report ---
APPROVED REPORT EXAM: Two-dimensional and M-mode echocardiogram with Doppler and color Doppler. INDICATION Left ventricular function M-Mode DIMENSIONS Aortic Root3.0 (2.0-3.7cm) Aortic Cusp Exc.1.8 (1.5-2.0cm) Technically difficult study due to poor acoustical windows. Pt moving. Normal left ventricular chamber size, systolic function and wall motion. M-mode measurements not obtainable due to cardiac structure. Left ventricular ejection fraction estimated to be 60-65%. No evidence of left ventricular hypertrophy. No evidence of pericardial or pleural effusion. Right cardiac chamber sizes are within normal limits. Mild left atrial enlargement by 2D. Focal aortic valve sclerosis with adequate cusp excursion. Calcified mitral valve leaflets with mild reduced excursion. Mild mitral annulus and aortic root calcification. Pulmonic valve not well visualized. Normal tricuspid valve structure. IVC is not obtainable. A color flow and spectral Doppler study was performed and revealed: No aortic regurgitation. Trace mitral regurgitation.PG of 5 mmhg Mitral diastolic velocities suggest reduced left ventricular relaxation c/w diastolic dysfunction grade 2. No tricuspid regurgitation.
[2016-11-28] VITALS (19 sets, daily range): BP systolic 90–142; BP diastolic 27–84
[2016-11-28 05:56] LABS: BASOPHILS % (AUTO) 0.8 % (0.0-2.0); EOSINOPHILS % (AUTO) 0.8 % (0.0-3.0); LYMPHOCYTES % (AUTO) 20.4 % (20.0-45.0); MEAN CORPUSCULAR HEMOGLOBIN 26.1 PG (27.0-31.0); MEAN CORPUSCULAR HGB CONC 33.4 G/DL (32.0-36.0); MEAN CORPUSCULAR VOLUME 78 FL (80-99); MEAN PLATELET VOLUME 7.8 FL (6.5-10.1); PLATELET COUNT 120 K/UL (150-450); RED BLOOD COUNT 3.68 M/UL (4.70-6.10); RED CELL DISTRIBUTION WIDTH 12.2 % (11.6-14.8); WHITE BLOOD COUNT 6.4 K/UL (4.8-10.8)
[2016-11-28 06:03] LABS: ALANINE AMINOTRANSFERASE 28 U/L (12-78); ALBUMIN/GLOBULIN RATIO 0.9 (1.0-2.7); ANION GAP 10 mmol/L (5-15); ASPARTATE AMINO TRANSFERASE 77 U/L (15-37); CALCIUM 8.3 MG/DL (8.5-10.1); CARBON DIOXIDE 21 MMOL/L (21-32); CHLORIDE 99 MMOL/L (98-107); CREATININE 0.7 MG/DL (0.55-1.30); GLOMERULAR FILTRATION RATE > 60 mL/min (>60); POTASSIUM 3.5 MMOL/L (3.5-5.1); SODIUM 130 MMOL/L (136-145)
[2016-11-28 06:34] LABS: BILIRUBIN,DIRECT 0.3 MG/DL (0.0-0.3)
[2016-11-28] MEDS: NovoLOG Insulin Flexpen SUBQ SCH ×4 (06:40→21:46)
--- NOTE | 2016-11-28 07:14 | Wound Care Consultation ---
Wound Assessment Wound Assessment #1: Wound Number: 1 Wound Present on Admission: Yes New Wound: No Status Change of Wound: No Wound Location Body Site Modif: mid Wound Location Body Site: sacral Wound Type: pressure ulcer Fabby Test: Does not Fabby Pressure Ulcer Stage: Deep Tissue Injury Wound Thickness: Full Thickness Wound Length: 5.0 Wound Width: 4.0 Wound Depth: utd Percent of Wound Purple/Maroon: 100 Wound Drainage Amount: None Wound Drainage Odor: None/Absent Tissue Surrounding Wound: Erythemic Wound General Appearance: Reddened - purple Wound Assessment #2: Wound Number: 2 Wound Present on Admission: Yes New Wound: No Status Change of Wound: No Wound Location Body Site Modif: right, upper Wound Location Body Site: back Wound Type: pressure ulcer Fabby Test: Does not Fabby Pressure Ulcer Stage: Deep Tissue Injury - scattered Wound Thickness: Full Thickness Percent of Wound Purple/Maroon: 100 Wound Drainage Amount: None Wound Drainage Odor: None/Absent Tissue Surrounding Wound: Intact Wound General Appearance: Reddened - maroon Wound Assessment #3: Wound Number: 3 Wound Present on Admission: Yes New Wound: No Status Change of Wound: No Wound Location Body Site Modif: right Wound Location Body Site: elbow Wound Type: scab Fabyb Test: Does not Fabby Wound Length: 2.0 Wound Width: 2.5 Percent of Wound Purple/Maroon: 100 Wound Drainage Amount: None Wound Drainage Odor: None/Absent Tissue Surrounding Wound: Erythemic Wound General Appearance: Reddened - maroon Wound Assessment #4: Wound Number: 4 Wound Present on Admission: Yes New Wound: No Status Change of Wound: No Wound Location Body Site Modif: left Wound Location Body Site: elbow Wound Type: scab Fabby Test: Does not Fabby Wound Length: 2.5 Wound Width: 2.5 Percent of Wound Purple/Maroon: 100 Wound Drainage Amount: None Wound Drainage Odor: None/Absent Tissue Surrounding Wound: Erythemic Wound General Appearance: Reddened - maroon Wound Assessment #5: Wound Number: 5 Wound Present on Admission: Yes New Wound: No Status Change of Wound: No Wound Location Body Site Modif: right, anterior Wound Location Body Site: knee Wound Type: scab Fabby Test: Does not Fabby Wound Thickness: Full Thickness Wound Length: 1.0 Wound Width: 1.0 Wound Drainage Amount: None Wound Drainage Odor: None/Absent Tissue Surrounding Wound: Intact Wound General Appearance: Asymptomatic Wound Assessment #6: Wound Number: 6 Wound Present on Admission: Yes New Wound: No Status Change of Wound: No Wound Location Body Site Modif: left, upper Wound Location Body Site: arm Wound Type: ecchymosis - open Fabby Test: Does not Fabby Wound Thickness: Partial Thickness Wound Length: 1.5 Wound Width: 1.5 Wound Depth: 0.1 Percent of Wound [place]/Red: 100 Wound Drainage Description: Serosanguineous Wound Drainage Amount: Scant Wound Drainage Odor: None/Absent Tissue Surrounding Wound: Erythemic Wound General Appearance: Reddened Wound Comment #1 Sacral DTI pressure ulcer #2 Right upper back DTI pressure ulcer #3 Left and right elbow skin tear with dry scab #4 Left arm open ecchymosis #5 Right knee dry scab #6 Right and left stump site with scattered purple/maroon discoloration. At risk for skin breakdown. Recommendation -Local wound care per protocol -Keep clean and dry -Optimize nutrition -Turn and reposition -Avoid shear and friction -Low air loss mattress -Assess and f/u accordingly for any changes TIMUR WISEMAN RN Nov 28, 2016 07:14
--- NOTE | 2016-11-28 07:37 | Infectious Diseases Prog Note ---
Assessment/Plan Problems: (1) SIRS (systemic inflammatory response syndrome) Assessment & Plan: Does have pyuria. Leukocytosis resolved though off antibiotics. Clinically appears stable. (2) Pyuria Assessment & Plan: Follow-up UCx. Asymptomatic bacteriuria? Hold off on antibiotics given WBC normalized. (3) Diabetes mellitus (4) NSTEMI (non-ST elevated myocardial infarction) Assessment/Plan (Late entry for 11/27/2016) Subjective Allergies: Coded Allergies: PENICILLINS (Unverified Allergy, Unknown, 08/18/14) Uncoded Allergies: PENCI (Allergy, Severe, 11/26/16) Objective Vital Signs Last 24 Hour Vital Signs Date Time Temp Pulse Resp B/P (MAP) Pulse Ox O2 Delivery O2 Flow Rate FiO2 11/28/16 07:00 75 16 116/74 98 Nasal Cannula 2.0 11/28/16 06:00 77 15 99/56 98 Nasal Cannula 2.0 11/28/16 05:00 74 15 108/61 100 Nasal Cannula 2.0 11/28/16 04:00 71 11/28/16 04:00 98.3 71 21 90/73 99 Nasal Cannula 2.0 11/28/16 03:00 71 18 132/47 100 Nasal Cannula 2.0 11/28/16 02:00 76 21 125/38 99 Nasal Cannula 2.0 11/28/16 01:00 70 17 131/27 100 Nasal Cannula 2.0 11/28/16 00:00 98.4 70 17 104/45 95 Nasal Cannula 2.0 11/28/16 00:00 70 11/27/16 23:00 67 19 117/31 99 Nasal Cannula 2.0 11/27/16 22:00 70 18 104/45 98 Room Air 11/27/16 21:00 98.7 76 18 87/53 98 Room Air 11/27/16 20:53 77 91/50 11/27/16 20:00 98.7 79 19 91/50 100 Room Air 11/27/16 20:00 79 11/27/16 19:16 97 Room Air 11/27/16 19:16 Room Air 11/27/16 19:16 78 20 Room Air 11/27/16 19:00 75 20 180/62 97 Room Air 11/27/16 18:00 79 21 97/52 97 Room Air 11/27/16 17:00 77 21 108/79 99 Nasal Cannula 2.0 11/27/16 16:00 98.9 83 15 109/58 100 Nasal Cannula 2.0 11/27/16 16:00 82 11/27/16 15:00 82 21 106/62 99 Nasal Cannula 2.0 11/27/16 14:00 79 22 94/56 99 Nasal Cannula 2.0 11/27/16 13:00 87 23 97/56 99 Nasal Cannula 2.0 11/27/16 12:00 77 11/27/16 12:00 98.8 86 18 86/50 97 Nasal Cannula 2.0 11/27/16 11:00 84 20 94/57 100 Nasal Cannula 2.0 11/27/16 10:00 91 16 109/64 100 Nasal Cannula 2.0 11/27/16 09:22 89 97/48 11/27/16 09:00 89 97/55 11/27/16 09:00 91 16 97/48 100 Nasal Cannula 2.0 11/27/16 08:00 98.3 85 18 99/55 100 Nasal Cannula 2.0 11/27/16 08:00 82 Height (Feet): 5 Height (Inches): 6.00 Weight (Pounds): 138 Microbiology Date/Time Source Procedure Growth Status 11/26/16 17:01 Blood Blood Culture - Preliminary NO GROWTH AFTER 24 HOURS Resulted 11/26/16 16:45 Blood Blood Culture - Preliminary NO GROWTH AFTER 24 HOURS Resulted 11/26/16 17:33 Rectum VRE Culture - Final NO VANCOMYCIN RESISTANT ENTEROCOCCUS ... Complete Laboratory Tests Test 11/27/16 12:10 11/28/16 03:10 11/28/16 04:00 Osmolality 273 mOsm/kg (297-317) L Troponin I 11.307 ng/mL (0.000-0.056) 7.613 ng/mL (0.000-0.056) White Blood Count 6.4 K/UL (4.8-10.8) Red Blood Count 3.68 M/UL (4.70-6.10) L Hemoglobin 9.6 G/DL (14.2-18.0) L Hematocrit 28.8 % (42.0-52.0) L Mean Corpuscular Volume 78 FL (80-99) L Mean Corpuscular Hemoglobin 26.1 PG (27.0-31.0) L Mean Corpuscular Hemoglobin Concent 33.4 G/DL (32.0-36.0) Red Cell Distribution Width 12.2 % (11.6-14.8) Platelet Count 120 K/UL (150-450) L Mean Platelet Volume 7.8 FL (6.5-10.1) Neutrophils (%) (Auto) 71.0 % (45.0-75.0) Lymphocytes (%) (Auto) 20.4 % (20.0-45.0) Monocytes (%) (Auto) 7.0 % (1.0-10.0) Eosinophils (%) (Auto) 0.8 % (0.0-3.0) Basophils (%) (Auto) 0.8 % (0.0-2.0) Sodium Level 130 MMOL/L (136-145) L Potassium Level 3.5 MMOL/L (3.5-5.1) Chloride Level 99 MMOL/L (98-107) Carbon Dioxide Level 21 MMOL/L (21-32) Anion Gap 10 mmol/L (5-15) Blood Urea Nitrogen 8 mg/dL (7-18) Creatinine 0.7 MG/DL (0.55-1.30) Estimat Glomerular Filtration Rate > 60 mL/min (>60) Glucose Level 106 MG/DL (74-106) Calcium Level 8.3 MG/DL (8.5-10.1) L Total Bilirubin 1.4 MG/DL (0.2-1.0) H Direct Bilirubin 0.3 MG/DL (0.0-0.3) Aspartate Amino Transf (AST/SGOT) 77 U/L (15-37) H Alanine Aminotransferase (ALT/SGPT) 28 U/L (12-78) Alkaline Phosphatase 65 U/L (46-116) Pro-B-Type Natriuretic Peptide 9044 pg/mL (0-125) H Total Protein 6.0 G/DL (6.4-8.2) L Albumin 2.8 G/DL (3.4-5.0) L Globulin 3.2 g/dL Albumin/Globulin Ratio 0.9 (1.0-2.7) L Urine Eosinophils Pending Urine Osmolality Pending Urine Random Creatinine Pending Urine Random Microalbumin Pending Urine Random Total Protein 6 MG/DL (< 11.9) Urine Random Sodium 24 MEQ/L (20-110) Urine Creatinine Pending Urine Microalbumin/Creatinine Ratio Pending Current Medications Medications (Trade) Dose Ordered Sig/Marsha Route PRN Reason Start Time Stop Time Status Last Admin Dose Admin Acetaminophen (Tylenol) 650 mg Q4H PRN ORAL FEVER 11/26/16 18:00 12/26/16 17:59 Albuterol/ Ipratropium (DuoNeb 0.5-3(2.5)mg/3ml) 3 ml Q4H PRN HHN Shortness of Breath 11/26/16 18:00 12/01/16 17:59 Aspirin (ASA) 81 mg DAILY ORAL 11/27/16 09:00 12/27/16 08:59 11/27/16 09:20 Clopidogrel Bisulfate (Plavix) 75 mg DAILY ORAL 11/27/16 09:00 12/27/16 08:59 11/27/16 09:21 Dextrose (Dextrose 50%) STAT PRN IV Hypoglycemia 11/26/16 18:00 12/26/16 17:59 Diltiazem HCl (Cardizem) 10 mg Q1H PRN IV HR > 120 11/26/16 18:00 12/26/16 17:59 Enalaprilat (Vasotec) 2.5 mg Q6H PRN IV sbp more than 160 11/26/16 18:00 12/26/16 17:59 Enoxaparin Sodium (Lovenox) 60 mg EVERY 12 HOURS SUBQ 11/27/16 11:00 12/27/16 10:59 11/27/16 20:54 Gabapentin (Neurontin) 100 mg DAILY ORAL 11/27/16 09:00 12/27/16 08:59 11/27/16 09:20 Insulin Aspart (NovoLOG) BEFORE MEALS AND HS SUBQ 11/26/16 21:00 12/26/16 20:59 11/28/16 06:40 Lactulose (Cephulac) 20 gm TIDPRN PRN ORAL AGITATION/CONSTIPATION 11/26/16 18:00 12/26/16 17:59 Metoprolol Tartrate (Lopressor) 50 mg Q12HR ORAL 11/27/16 09:00 12/27/16 08:59 11/27/16 20:53 Morphine Sulfate (Morphine Sulfate) 2 mg Q4H PRN IVP severe Pain (Pain Scale 7-10) 11/26/16 18:00 12/03/16 17:59 Nitroglycerin (Ntg) 0.4 mg Every 5 Minutes PRN SL Prn Chest Pain 11/26/16 18:00 12/26/16 17:59 Ondansetron HCl (Zofran) 4 mg Q6H PRN IVP Nausea & Vomiting 11/26/16 18:00 12/26/16 17:59 Pantoprazole (Protonix) 40 mg DAILY ORAL 11/27/16 09:00 12/27/16 08:59 11/27/16 09:21 Polyethylene Glycol (Miralax) 17 gm DAILYPRN PRN ORAL Constipation 11/26/16 18:00 12/26/16 17:59 Sodium Chloride 1,000 ml @ 50 mls/hr Q20H IV 11/27/16 08:15 12/27/16 08:14 11/28/16 01:52 Temazepam (Restoril) 15 mg HSPRN PRN ORAL Insomnia 11/26/16 18:00 12/03/16 17:59 11/27/16 18:52 Trazodone HCl (Desyrel) 25 mg HSPRN PRN ORAL Insomnia 11/26/16 18:00 12/26/16 17:59 11/27/16 18:57 ABIEL HERR Nov 28, 2016 07:37
--- NOTE | 2016-11-28 08:30 | Consultation ---
DATE OF CONSULTATION: 11/27/2016 NEPHROLOGY CONSULTATION CONSULTING PHYSICIAN: Rosalina Mckeon M.D. REFERRING PHYSICIAN: Ramirez Thorne D.O. REASON FOR CONSULTATION: Severe hyponatremia. HISTORY OF PRESENT ILLNESS: The patient is an unfortunate Upper Sor[place]-speaking male with past medical history significant for history of diabetes, hypertension, history of peripheral vascular disease, status post bilateral amputation, history of GERD, CVA, TIA, who originally was transferred [facility] to [facility]. Apparently per nursing staff at the facility, the patient was more confused than his normal. The patient although found to be alert and oriented x4 in the emergency room. Upon initial workup in the ER, the patient was found to have a sodium of 108. The patient also denies having any chest pain, any palpitation, any nausea or vomiting, or any other complaint on admission. As a matter of fact, he is basically symptom-free. The patient was admitted in the ICU. I was called for management of renal function and electrolyte imbalance. PAST MEDICAL HISTORY: 1. Diabetes. 2. Hypertension. 3. Peripheral vascular disease. 4. History of TIA. 5. History of GERD. 6. History of CHF. 7. CAD. PAST SURGICAL HISTORY: History of right and left BKA. MEDICATIONS: Medications at the intermediate are includin. Albuterol and Atrovent. 2. Aricept 5 mg p.o. daily. 3. Lasix 10 mg p.o. daily. 4. Sliding scale. 5. MiraLAX p.r.n. 6. Vitamin C 250 mg p.o. daily. 7. Trazodone 25 mg p.o. at bedtime p.r.n. 8. Aspirin 81 mg p.o. daily. 9. Atorvastatin 40 mg p.o. daily. 10. Carvedilol 3.125 mg p.o. daily. 11. Famotidine 20 mg p.o. daily. 12. Potassium 40 mEq daily. FAMILY HISTORY: Negative for any history of premature heart disease. SOCIAL HISTORY: Remote smoker. Denies any current history of tobacco, alcohol, or drug use. He is a intermediate resident. REVIEW OF SYSTEMS: GENERAL: He complained of generalized weakness. Denied any fever, chills, or night sweats. HEAD AND NECK: Denies any dysphagia, odynophagia, blurry vision, headache, or neck stiffness. PULMONARY: No shortness of breath, cough, or sputum. CARDIOVASCULAR: Denies any chest pain, palpitations, orthopnea, PND, or leg swelling. GASTROINTESTINAL: Denies any nausea, vomiting, diarrhea, hematemesis, or hematochezia. GENITOURINARY: Denies any dysuria, frequency, or hematuria. MUSCULOSKELETAL: Denies any localized weakness or numbness. PHYSICAL EXAMINATION: VITAL SIGNS: The patient has a temperature of 98, pulse of 96, respiratory rate of 18, and blood pressure of 98/75. HEAD AND NECK: No JVP. No LAD. No thyromegaly. Extraocular movement intact. Pupils are reactive to light and accommodation. He has dry mucous membranes. LUNGS: Clear to auscultation. CARDIAC: Regular rate and rhythm. S1, S2. No murmur. No rub. ABDOMEN: Soft, nontender, and nondistended. EXTREMITIES: Bilateral BKA. No clubbing. No cyanosis. LABORATORY AND DIAGNOSTIC DATA: On admission, the patient has a troponin of 26. Chemistry reveals sodium of 108, potassium of 5, 78 chloride, 20 bicarb, BUN of 18, creatinine of 1, and glucose of 262. Total bilirubin of 3. AST of 154 and ALT of 32. Total CPK of 215. Total protein of 7.9, albumin of 3.5, and globulin of 0.9. CBC revealed WBC count of 17,000, hemoglobin of 11.2, hematocrit of 37, and platelet count 186,000. INR was normal. UA revealed specific gravity of 1.010, pH of 6, glucose 3+, ketones 3+, blood 2+, wbc of 2 to 4, and rbc of 5 to 10. ASSESSMENT: 1. Hypovolemic hyponatremia. 2. Non-anion gap acidosis. 3. Non-ST elevation myocardial infarction. 4. Proteinuria. 5. Hematuria. 6. Glucosuria. PLAN: Plan for the patient to repeat the chemistry. Start the patient on normal saline at 100 mL and taken sodium level every four hours. I would check the urine sodium and potassium. urine sodium and potassium less than 150, the patient would benefit from normal saline. Check the urine sodium and creatinine to calculate fractional excretion of sodium. Check the urine osmolality and serum osmolality. Hold the Lasix for now. I will check the TSH level. Again, I would like to thank, Dr. Ramirez Thorne for allowing me to participate in the care of this patient. Rosalina Mckeon M.D. DR: SAV JOB#: [id number] CC:
--- NOTE | 2016-11-28 08:31 | History and Physical Report ---
DATE OF ADMISSION: 11/26/2016 TIME SEEN: 1 p.m. CONSULTANTS: 1. Bonny Wilson M.D. 2. Manolo Meza M.D. 3. Rosalina Mckeon M.D. CHIEF COMPLAINT: Confusion, elevated troponin, NSTEMI. BRIEF HISTORY: This is a 66-year-old male from [facility] presented with above-mentioned diagnoses. The patient was slightly confused and urinated on self. The patient sent to [place], diagnosed with NSTEMI, and admitted to ICU. Currently more alert, O2, NC, slightly anxious in bed, oriented x2, no acute distress. PAST MEDICAL HISTORY: Diabetes, hypertension, CHF. PAST SURGICAL HISTORY: Right BKA, left AKA. MEDICATIONS: Lovenox, Neurontin, Protonix, aspirin, Plavix, Lopressor, insulin, , DuoNeb, nitroglycerin, Tylenol. ALLERGIES: Penicillin. SOCIAL HISTORY: No smoking. No alcohol. No intravenous drug abuse. FAMILY HISTORY: Noncontributory. REVIEW OF SYSTEMS: No chest pain. Slight shortness of breath. No nausea, vomiting, or diarrhea. PHYSICAL EXAMINATION: GENERAL: Calm, slightly anxious in bed, oriented x2, in no acute distress. VITAL SIGNS: Temperature is 98 degrees, pulse 87, respirations 23, and blood pressure 97/56. CARDIOVASCULAR: No murmurs. LUNGS: Poor exchange. ABDOMEN: Bowel sounds are positive. Nontender and nondistended. EXTREMITIES: No cyanosis, clubbing, or edema. NEUROLOGICAL: The patient moves all extremities but slightly weak. LABORATORY AND DIAGNOSTIC DATA: Hemoglobin 10.5, platelets 138 otherwise CBC is normal. BMP shows sodium 125, chloride 93, glucose 158, BUN and creatinine 12 and 0.9. Troponin initially was 15.2 now it 11.3. Albumin 3.0. PTT 39 and INR 1.0. Urinalysis shows 2+ occult blood, 3+ glucose, 1+ leukocyte esterase. ASSESSMENT: 1. Confusion. 2. Non-ST elevation myocardial infarction. 3. Reflux. 4. Anemia. 5. Malnutrition. 6. Hyponatremia. 7. Diabetes. 8. Hypertension. 9. Congestive heart failure. 10. Urinary tract infection. PLAN: 1. Continue premedications. 2. O2, pulmonary treatment. 3. Troponin q. 8 h x3. 4. EKG in the morning. 5. Pain control. 6. OT/PT. 7. Dietary evaluation. 8. CBC and BMP in the morning. 9. Blood pressure and blood sugar control. 10. Nephrology to follow. 11. Dr. Wilson, Dr. Meza, Dr. Brennan, and Linda to consult. 12. We will continue to follow this patient medically. Ramirez Thorne D.O. DR: Jamaal JOB#: [id number] CC:
[2016-11-28] MEDS: Aspirin Baby 81mg ORAL SCH (08:53)
[2016-11-28] MEDS: Enoxaparin 60mg Inj SUBQ SCH (08:55)
[2016-11-28] MEDS: Metoprolol Tartrate 50mg tab ORAL SCH (09:00)
--- NOTE | 2016-11-28 10:37 | Pulmonolgy Critical Care Note ---
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 - Objective Last 24 Hour Vital Signs Date Time Temp Pulse Resp B/P (MAP) Pulse Ox O2 Delivery O2 Flow Rate FiO2 11/28/16 10:00 71 20 110/60 100 Nasal Cannula 2.0 11/28/16 09:00 77 91/59 11/28/16 09:00 82 20 101/37 100 Nasal Cannula 2.0 11/28/16 08:00 83 11/28/16 08:00 82 20 108/64 99 Nasal Cannula 2.0 11/28/16 07:00 75 16 116/74 98 Nasal Cannula 2.0 11/28/16 06:00 77 15 99/56 98 Nasal Cannula 2.0 11/28/16 05:00 74 15 108/61 100 Nasal Cannula 2.0 11/28/16 04:00 71 11/28/16 04:00 98.3 71 21 90/73 99 Nasal Cannula 2.0 11/28/16 03:00 71 18 132/47 100 Nasal Cannula 2.0 11/28/16 02:00 76 21 125/38 99 Nasal Cannula 2.0 11/28/16 01:00 70 17 131/27 100 Nasal Cannula 2.0 11/28/16 00:00 98.4 70 17 104/45 95 Nasal Cannula 2.0 11/28/16 00:00 70 11/27/16 23:00 67 19 117/31 99 Nasal Cannula 2.0 11/27/16 22:00 70 18 104/45 98 Room Air 11/27/16 21:00 98.7 76 18 87/53 98 Room Air 11/27/16 20:53 77 91/50 11/27/16 20:00 98.7 79 19 91/50 100 Room Air 11/27/16 20:00 79 11/27/16 19:16 97 Room Air 11/27/16 19:16 Room Air 11/27/16 19:16 78 20 Room Air 11/27/16 19:00 75 20 180/62 97 Room Air 11/27/16 18:00 79 21 97/52 97 Room Air 11/27/16 17:00 77 21 108/79 99 Nasal Cannula 2.0 11/27/16 16:00 98.9 83 15 109/58 100 Nasal Cannula 2.0 11/27/16 16:00 82 11/27/16 15:00 82 21 106/62 99 Nasal Cannula 2.0 11/27/16 14:00 79 22 94/56 99 Nasal Cannula 2.0 11/27/16 13:00 87 23 97/56 99 Nasal Cannula 2.0 11/27/16 12:00 77 11/27/16 12:00 98.8 86 18 86/50 97 Nasal Cannula 2.0 11/27/16 11:00 84 20 94/57 100 Nasal Cannula 2.0 Status: awake Condition: critical HEENT: atraumatic Lungs: clear Heart: HR/BP stable, regular Abdomen: soft, non-tender, active bowel sounds, feeding tube Extremities: edema Decubiti: location, stage Micro: Microbiology Date/Time Source Procedure Growth Status 11/26/16 17:01 Blood Blood Culture - Preliminary NO GROWTH AFTER 24 HOURS Resulted 11/26/16 16:45 Blood Blood Culture - Preliminary NO GROWTH AFTER 24 HOURS Resulted 11/26/16 17:33 Nasal Nares MRSA Culture - Final NO METHICILLIN RESISTANT STAPH AUREUS... Complete 11/26/16 17:33 Rectum VRE Culture - Final NO VANCOMYCIN RESISTANT ENTEROCOCCUS ... Complete Accucheck: 128 Critical Care - Subjective ROS Limited/Unobtainable: No ICU Day: 3 Condition: critical EKG Rhythm: Sinus Rhythm FI02: 28 Sputum Amount: None Fluids: NS 50 cc/hour I&O: Intake and Output 11/28/16 11/29/16 19:00 07:00 Intake Total 0 ml Balance 0 ml Intake Oral 0 ml CXR: no change Labs: Laboratory Tests Test 11/27/16 12:10 11/28/16 03:10 11/28/16 04:00 Osmolality 273 mOsm/kg (297-317) L Troponin I 11.307 ng/mL (0.000-0.056) 7.613 ng/mL (0.000-0.056) White Blood Count 6.4 K/UL (4.8-10.8) Red Blood Count 3.68 M/UL (4.70-6.10) L Hemoglobin 9.6 G/DL (14.2-18.0) L Hematocrit 28.8 % (42.0-52.0) L Mean Corpuscular Volume 78 FL (80-99) L Mean Corpuscular Hemoglobin 26.1 PG (27.0-31.0) L Mean Corpuscular Hemoglobin Concent 33.4 G/DL (32.0-36.0) Red Cell Distribution Width 12.2 % (11.6-14.8) Platelet Count 120 K/UL (150-450) L Mean Platelet Volume 7.8 FL (6.5-10.1) Neutrophils (%) (Auto) 71.0 % (45.0-75.0) Lymphocytes (%) (Auto) 20.4 % (20.0-45.0) Monocytes (%) (Auto) 7.0 % (1.0-10.0) Eosinophils (%) (Auto) 0.8 % (0.0-3.0) Basophils (%) (Auto) 0.8 % (0.0-2.0) Sodium Level 130 MMOL/L (136-145) L Potassium Level 3.5 MMOL/L (3.5-5.1) Chloride Level 99 MMOL/L (98-107) Carbon Dioxide Level 21 MMOL/L (21-32) Anion Gap 10 mmol/L (5-15) Blood Urea Nitrogen 8 mg/dL (7-18) Creatinine 0.7 MG/DL (0.55-1.30) Estimat Glomerular Filtration Rate > 60 mL/min (>60) Glucose Level 106 MG/DL (74-106) Calcium Level 8.3 MG/DL (8.5-10.1) L Total Bilirubin 1.4 MG/DL (0.2-1.0) H Direct Bilirubin 0.3 MG/DL (0.0-0.3) Aspartate Amino Transf (AST/SGOT) 77 U/L (15-37) H Alanine Aminotransferase (ALT/SGPT) 28 U/L (12-78) Alkaline Phosphatase 65 U/L (46-116) Pro-B-Type Natriuretic Peptide 9044 pg/mL (0-125) H Total Protein 6.0 G/DL (6.4-8.2) L Albumin 2.8 G/DL (3.4-5.0) L Globulin 3.2 g/dL Albumin/Globulin Ratio 0.9 (1.0-2.7) L Urine Eosinophils None seen Urine Osmolality 175 mOsm/kg (429-449) L Urine Random Creatinine Pending Urine Random Microalbumin Pending Urine Random Total Protein 6 MG/DL (< 11.9) Urine Random Sodium 24 MEQ/L (20-110) Urine Creatinine 29.5 MG/DL (30.0-125.0) L Urine Microalbumin/Creatinine Ratio Pending CHARLOTTE DAVISON Nov 28, 2016 10:37
--- NOTE | 2016-11-28 12:00 | Diagnostic Imaging Report ---
Indication: DYSPNEA Technique: One view of the chest Comparison: 11/26/2016 Findings: Lung bases remain clear. Heart size is normal. No significant interim change Impression: Acute process
--- NOTE | 2016-11-28 13:49 | Nephrology Progress Note ---
Assessment/Plan Assessment 1. Hypovolemic hyponatremia. 2. Non-anion gap acidosis. 3. Non-ST elevation myocardial infarction. 4. Proteinuria. 5. Hematuria. 6. Glucosuria. Plan plan to continue ns .9 mix all ivpb with ns replace electrolyte as need it avoid NSAID Subjective Constitutional: Reports: no symptoms HEENT: Reports: no symptoms Genitourinary: Reports: no symptoms Neurologic/Psychiatric: Reports: no symptoms Subjective alert and awake c/o constipation Objective Objective Last 24 Hour Vital Signs Date Time Temp Pulse Resp B/P (MAP) Pulse Ox O2 Delivery O2 Flow Rate FiO2 11/28/16 13:00 74 20 142/84 100 Nasal Cannula 2.0 11/28/16 12:00 98.6 88 20 106/57 99 Nasal Cannula 2.0 11/28/16 12:00 81 11/28/16 11:00 89 20 106/57 100 Nasal Cannula 2.0 11/28/16 10:00 71 20 110/60 100 Nasal Cannula 2.0 11/28/16 09:00 77 91/59 11/28/16 09:00 82 20 101/37 100 Nasal Cannula 2.0 11/28/16 08:00 83 11/28/16 08:00 98.6 82 20 108/64 99 Nasal Cannula 2.0 11/28/16 07:00 75 16 116/74 98 Nasal Cannula 2.0 11/28/16 06:00 77 15 99/56 98 Nasal Cannula 2.0 11/28/16 05:00 74 15 108/61 100 Nasal Cannula 2.0 11/28/16 04:00 71 11/28/16 04:00 98.3 71 21 90/73 99 Nasal Cannula 2.0 11/28/16 03:00 71 18 132/47 100 Nasal Cannula 2.0 11/28/16 02:00 76 21 125/38 99 Nasal Cannula 2.0 11/28/16 01:00 70 17 131/27 100 Nasal Cannula 2.0 11/28/16 00:00 98.4 70 17 104/45 95 Nasal Cannula 2.0 11/28/16 00:00 70 11/27/16 23:00 67 19 117/31 99 Nasal Cannula 2.0 11/27/16 22:00 70 18 104/45 98 Room Air 11/27/16 21:00 98.7 76 18 87/53 98 Room Air 11/27/16 20:53 77 91/50 11/27/16 20:00 98.7 79 19 91/50 100 Room Air 11/27/16 20:00 79 11/27/16 19:16 97 Room Air 11/27/16 19:16 Room Air 11/27/16 19:16 78 20 Room Air 11/27/16 19:00 75 20 180/62 97 Room Air 11/27/16 18:00 79 21 97/52 97 Room Air 11/27/16 17:00 77 21 108/79 99 Nasal Cannula 2.0 11/27/16 16:00 98.9 83 15 109/58 100 Nasal Cannula 2.0 11/27/16 16:00 82 11/27/16 15:00 82 21 106/62 99 Nasal Cannula 2.0 11/27/16 14:00 79 22 94/56 99 Nasal Cannula 2.0 Intake and Output 11/28/16 11/29/16 19:00 07:00 Intake Total 500 ml Output Total 350 ml Balance 150 ml Intake Oral 300 ml IV Total 200 ml Output Urine Total 350 ml # Voids 1 Laboratory Tests 11/28/16 03:10: White Blood Count 6.4, Red Blood Count 3.68L, Hemoglobin 9.6L, Hematocrit 28.8L , Mean Corpuscular Volume 78L, Mean Corpuscular Hemoglobin 26.1L, Mean Corpuscular Hemoglobin Concent 33.4, Red Cell Distribution Width 12.2, Platelet Count 120L, Mean Platelet Volume 7.8, Neutrophils (%) (Auto) 71.0, Lymphocytes ( %) (Auto) 20.4, Monocytes (%) (Auto) 7.0, Eosinophils (%) (Auto) 0.8, Basophils (%) (Auto) 0.8, Sodium Level 130L, Potassium Level 3.5, Chloride Level 99, Carbon Dioxide Level 21, Anion Gap 10, Blood Urea Nitrogen 8, Creatinine 0.7, Estimat Glomerular Filtration Rate > 60, Glucose Level 106, Calcium Level 8.3L, Total Bilirubin 1.4H, Direct Bilirubin 0.3, Aspartate Amino Transf (AST/SGOT) 77H, Alanine Aminotransferase (ALT/SGPT) 28, Alkaline Phosphatase 65, Troponin I 7.613H, Pro-B-Type Natriuretic Peptide 9044H, Total Protein 6.0L, Albumin 2.8L , Globulin 3.2, Albumin/Globulin Ratio 0.9L 11/28/16 04:00: Urine Eosinophils None seen, Urine Osmolality 175L, Urine Random Creatinine [ Pending], Urine Random Microalbumin [Pending], Urine Random Total Protein 6, Urine Random Sodium 24, Urine Creatinine 29.5L, Urine Microalbumin/Creatinine Ratio [Pending] Height (Feet): 5 Height (Inches): 6.00 Weight (Pounds): 138 Objective HEAD AND NECK: No JVP. No LAD. No thyromegaly. Extraocular movement intact. Pupils are reactive to light and accommodation. He has dry mucous membranes. LUNGS: Clear to auscultation. CARDIAC: Regular rate and rhythm. S1, S2. No murmur. No rub. ABDOMEN: Soft, nontender, and nondistended. EXTREMITIES: Bilateral BKA. No clubbing. No cyanosis. VERNON ANN Nov 28, 2016 13:49
--- NOTE | 2016-11-28 14:59 | General Progress Note ---
Assessment/Plan Problem List: (1) NSTEMI (non-ST elevated myocardial infarction) ICD Codes: I21.4 - Non-ST elevation (NSTEMI) myocardial infarction SNOMED: 225140327 (2) CHF (congestive heart failure) ICD Codes: I50.9 - Heart failure, unspecified SNOMED: 24564762 (3) Anemia ICD Codes: D64.9 - Anemia, unspecified SNOMED: 914745229 (4) HTN (hypertension) ICD Codes: I10 - Essential (primary) hypertension SNOMED: 62847317 (5) Acute encephalopathy ICD Codes: G93.40 - Encephalopathy, unspecified SNOMED: 8231854 (6) Diabetes mellitus ICD Codes: E11.9 - Type 2 diabetes mellitus without complications SNOMED: 11391337 (7) Sepsis ICD Codes: A41.9 - Sepsis, unspecified organism SNOMED: 01191052 Status: unchanged Assessment/Plan o2 pulm tx abx cardio f/u ot pt diet cbc bmp am Subjective Constitutional: Reports: weakness Allergies: Coded Allergies: PENICILLINS (Unverified Allergy, Unknown, 08/18/14) Uncoded Allergies: PENCI (Allergy, Severe, 11/26/16) All Systems: reviewed and negative except above Subjective o2nc sleepy in icu Objective Last 24 Hour Vital Signs Date Time Temp Pulse Resp B/P (MAP) Pulse Ox O2 Delivery O2 Flow Rate FiO2 11/28/16 14:00 77 20 115/59 100 Nasal Cannula 2.0 11/28/16 13:00 74 20 142/84 100 Nasal Cannula 2.0 11/28/16 12:00 98.6 88 20 106/57 99 Nasal Cannula 2.0 11/28/16 12:00 81 11/28/16 11:00 89 20 106/57 100 Nasal Cannula 2.0 11/28/16 10:00 71 20 110/60 100 Nasal Cannula 2.0 11/28/16 09:00 77 91/59 11/28/16 09:00 82 20 101/37 100 Nasal Cannula 2.0 11/28/16 08:00 83 11/28/16 08:00 98.6 82 20 108/64 99 Nasal Cannula 2.0 11/28/16 07:00 75 16 116/74 98 Nasal Cannula 2.0 11/28/16 06:00 77 15 99/56 98 Nasal Cannula 2.0 11/28/16 05:00 74 15 108/61 100 Nasal Cannula 2.0 11/28/16 04:00 71 11/28/16 04:00 98.3 71 21 90/73 99 Nasal Cannula 2.0 11/28/16 03:00 71 18 132/47 100 Nasal Cannula 2.0 11/28/16 02:00 76 21 125/38 99 Nasal Cannula 2.0 11/28/16 01:00 70 17 131/27 100 Nasal Cannula 2.0 11/28/16 00:00 98.4 70 17 104/45 95 Nasal Cannula 2.0 11/28/16 00:00 70 11/27/16 23:00 67 19 117/31 99 Nasal Cannula 2.0 11/27/16 22:00 70 18 104/45 98 Room Air 11/27/16 21:00 98.7 76 18 87/53 98 Room Air 11/27/16 20:53 77 91/50 11/27/16 20:00 98.7 79 19 91/50 100 Room Air 11/27/16 20:00 79 11/27/16 19:16 97 Room Air 11/27/16 19:16 Room Air 11/27/16 19:16 78 20 Room Air 11/27/16 19:00 75 20 180/62 97 Room Air 11/27/16 18:00 79 21 97/52 97 Room Air 11/27/16 17:00 77 21 108/79 99 Nasal Cannula 2.0 11/27/16 16:00 98.9 83 15 109/58 100 Nasal Cannula 2.0 11/27/16 16:00 82 11/27/16 15:00 82 21 106/62 99 Nasal Cannula 2.0 Intake and Output 11/28/16 11/29/16 19:00 07:00 Intake Total 600 ml Output Total 350 ml Balance 250 ml Intake Oral 300 ml IV Total 300 ml Output Urine Total 350 ml # Voids 1 Laboratory Tests 11/28/16 03:10: White Blood Count 6.4, Red Blood Count 3.68L, Hemoglobin 9.6L, Hematocrit 28.8L , Mean Corpuscular Volume 78L, Mean Corpuscular Hemoglobin 26.1L, Mean Corpuscular Hemoglobin Concent 33.4, Red Cell Distribution Width 12.2, Platelet Count 120L, Mean Platelet Volume 7.8, Neutrophils (%) (Auto) 71.0, Lymphocytes ( %) (Auto) 20.4, Monocytes (%) (Auto) 7.0, Eosinophils (%) (Auto) 0.8, Basophils (%) (Auto) 0.8, Sodium Level 130L, Potassium Level 3.5, Chloride Level 99, Carbon Dioxide Level 21, Anion Gap 10, Blood Urea Nitrogen 8, Creatinine 0.7, Estimat Glomerular Filtration Rate > 60, Glucose Level 106, Calcium Level 8.3L, Total Bilirubin 1.4H, Direct Bilirubin 0.3, Aspartate Amino Transf (AST/SGOT) 77H, Alanine Aminotransferase (ALT/SGPT) 28, Alkaline Phosphatase 65, Troponin I 7.613H, Pro-B-Type Natriuretic Peptide 9044H, Total Protein 6.0L, Albumin 2.8L , Globulin 3.2, Albumin/Globulin Ratio 0.9L 11/28/16 04:00: Urine Eosinophils None seen, Urine Osmolality 175L, Urine Random Creatinine [ Pending], Urine Random Microalbumin [Pending], Urine Random Total Protein 6, Urine Random Sodium 24, Urine Creatinine 29.5L, Urine Microalbumin/Creatinine Ratio [Pending] Height (Feet): 5 Height (Inches): 6.00 Weight (Pounds): 138 General Appearance: lethargic EENT: normal ENT inspection Neck: normal alignment Cardiovascular: normal peripheral pulses, normal rate, regular rhythm Respiratory/Chest: chest wall non-tender, lungs clear, normal breath sounds Abdomen: normal bowel sounds, non tender, soft Extremities: normal inspection Edema: no edema noted Arm (L), no edema noted Arm (R), no edema noted Leg (L), no edema noted Leg (R), no edema noted Pedal (L), no edema noted Pedal (R), no edema noted Generalized Neurologic: motor weakness Skin: normal pigmentation, warm/dry PHILIPPE MONTEIRO Nov 28, 2016 14:59
--- NOTE | 2016-11-28 15:24 | Cardiology Report ---
APPROVED REPORT EKG Measurement Heart [id number] Normal sinus rhythm Prolonged QT Abnormal ECG
--- NOTE | 2016-11-28 15:51 | Cardiology Report ---
APPROVED REPORT EKG Measurement Heart [id number] Normal sinus rhythm Prolonged QT Abnormal ECG
[2016-11-28] MEDS ORDERED: Nitroglycerin Subl 0.4mg tab SL PRN (16:30)
[2016-11-28] MEDS ORDERED: Enalaprilat 2.5mg/2ml Inj IV PRN (17:00)
[2016-11-28] MEDS ORDERED: dilTIAZem HCl 25mg/5ml Inj IV PRN (17:00)
[2016-11-28] MEDS ORDERED: Albuterol/Ipratropium 3ml neb HHN PRN (17:00)
[2016-11-28] MEDS ORDERED: Morphine Sulfate 2mg/ml Inj IVP PRN (18:00)
[2016-11-28] MEDS ORDERED: TraZODone 50mg tab ORAL PRN (18:00)
[2016-11-28] MEDS ORDERED: Lactulose 20gm/30ml UDC ORAL PRN (18:00)
[2016-11-28] MEDS: Miralax 17gm pkt ORAL PRN (18:11)
[2016-11-28] MEDS ORDERED: Enoxaparin 60mg Inj SUBQ SCH (21:00)
[2016-11-28] MEDS ORDERED: Metoprolol Tartrate 50mg tab ORAL SCH (21:00)
[2016-11-28] MEDS ORDERED: Milk of Magnesia 30ml Ud ORAL PRN (21:30)
--- NOTE | 2016-11-28 23:06 | Infectious Diseases Prog Note ---
Assessment/Plan Problems: (1) SIRS (systemic inflammatory response syndrome) Assessment & Plan: Does have pyuria. Resolved. Clinically appears stable. (2) Pyuria Assessment & Plan: Follow-up UCx. Asymptomatic bacteriuria? Hold off on antibiotics given WBC normalized. (3) Diabetes mellitus (4) NSTEMI (non-ST elevated myocardial infarction) Subjective Allergies: Coded Allergies: PENICILLINS (Unverified Allergy, Unknown, 08/18/14) Uncoded Allergies: PENCI (Allergy, Severe, 11/26/16) Objective Vital Signs Last 24 Hour Vital Signs Date Time Temp Pulse Resp B/P (MAP) Pulse Ox O2 Delivery O2 Flow Rate FiO2 11/28/16 21:44 85 118/67 11/28/16 20:51 Room Air 11/28/16 20:51 82 18 Room Air 11/28/16 20:51 96 Room Air 11/28/16 20:00 97.9 78 20 113/61 99 Room Air 11/28/16 20:00 76 11/28/16 17:54 98.1 83 20 117/72 98 Nasal Cannula 2.0 11/28/16 16:00 98.8 85 20 123/68 99 Nasal Cannula 2.0 11/28/16 16:00 93 11/28/16 15:00 81 20 98/52 100 Nasal Cannula 2.0 11/28/16 14:00 77 20 115/59 100 Nasal Cannula 2.0 11/28/16 13:00 74 20 142/84 100 Nasal Cannula 2.0 11/28/16 12:00 98.6 88 20 106/57 99 Nasal Cannula 2.0 11/28/16 12:00 81 11/28/16 11:00 89 20 106/57 100 Nasal Cannula 2.0 11/28/16 10:00 71 20 110/60 100 Nasal Cannula 2.0 11/28/16 09:00 77 91/59 11/28/16 09:00 82 20 101/37 100 Nasal Cannula 2.0 11/28/16 08:00 83 11/28/16 08:00 98.6 82 20 108/64 99 Nasal Cannula 2.0 11/28/16 07:00 75 16 116/74 98 Nasal Cannula 2.0 11/28/16 06:00 77 15 99/56 98 Nasal Cannula 2.0 11/28/16 05:00 74 15 108/61 100 Nasal Cannula 2.0 11/28/16 04:00 71 11/28/16 04:00 98.3 71 21 90/73 99 Nasal Cannula 2.0 11/28/16 03:00 71 18 132/47 100 Nasal Cannula 2.0 11/28/16 02:00 76 21 125/38 99 Nasal Cannula 2.0 11/28/16 01:00 70 17 131/27 100 Nasal Cannula 2.0 11/28/16 00:00 98.4 70 17 104/45 95 Nasal Cannula 2.0 11/28/16 00:00 70 Height (Feet): 5 Height (Inches): 6.00 Weight (Pounds): 138 Microbiology Date/Time Source Procedure Growth Status 11/26/16 17:01 Blood Blood Culture - Preliminary NO GROWTH AFTER 24 HOURS Resulted 11/26/16 16:45 Blood Blood Culture - Preliminary NO GROWTH AFTER 24 HOURS Resulted 11/26/16 17:33 Nasal Nares MRSA Culture - Final NO METHICILLIN RESISTANT STAPH AUREUS... Complete 11/26/16 17:33 Rectum VRE Culture - Final NO VANCOMYCIN RESISTANT ENTEROCOCCUS ... Complete Laboratory Tests Test 11/28/16 03:10 11/28/16 04:00 11/28/16 18:15 White Blood Count 6.4 K/UL (4.8-10.8) Red Blood Count 3.68 M/UL (4.70-6.10) L Hemoglobin 9.6 G/DL (14.2-18.0) L Hematocrit 28.8 % (42.0-52.0) L Mean Corpuscular Volume 78 FL (80-99) L Mean Corpuscular Hemoglobin 26.1 PG (27.0-31.0) L Mean Corpuscular Hemoglobin Concent 33.4 G/DL (32.0-36.0) Red Cell Distribution Width 12.2 % (11.6-14.8) Platelet Count 120 K/UL (150-450) L Mean Platelet Volume 7.8 FL (6.5-10.1) Neutrophils (%) (Auto) 71.0 % (45.0-75.0) Lymphocytes (%) (Auto) 20.4 % (20.0-45.0) Monocytes (%) (Auto) 7.0 % (1.0-10.0) Eosinophils (%) (Auto) 0.8 % (0.0-3.0) Basophils (%) (Auto) 0.8 % (0.0-2.0) Sodium Level 130 MMOL/L (136-145) L Potassium Level 3.5 MMOL/L (3.5-5.1) Chloride Level 99 MMOL/L (98-107) Carbon Dioxide Level 21 MMOL/L (21-32) Anion Gap 10 mmol/L (5-15) Blood Urea Nitrogen 8 mg/dL (7-18) Creatinine 0.7 MG/DL (0.55-1.30) Estimat Glomerular Filtration Rate > 60 mL/min (>60) Glucose Level 106 MG/DL (74-106) Calcium Level 8.3 MG/DL (8.5-10.1) L Total Bilirubin 1.4 MG/DL (0.2-1.0) H Direct Bilirubin 0.3 MG/DL (0.0-0.3) Aspartate Amino Transf (AST/SGOT) 77 U/L (15-37) H Alanine Aminotransferase (ALT/SGPT) 28 U/L (12-78) Alkaline Phosphatase 65 U/L (46-116) Troponin I 7.613 ng/mL (0.000-0.056) 5.471 ng/mL (0.000-0.056) Pro-B-Type Natriuretic Peptide 9044 pg/mL (0-125) H Total Protein 6.0 G/DL (6.4-8.2) L Albumin 2.8 G/DL (3.4-5.0) L Globulin 3.2 g/dL Albumin/Globulin Ratio 0.9 (1.0-2.7) L Urine Eosinophils None seen Urine Osmolality 175 mOsm/kg (429-449) L Urine Random Creatinine Pending Urine Random Microalbumin Pending Urine Random Total Protein 6 MG/DL (< 11.9) Urine Random Sodium 24 MEQ/L (20-110) Urine Creatinine 29.5 MG/DL (30.0-125.0) L Urine Microalbumin/Creatinine Ratio Pending Current Medications Medications (Trade) Dose Ordered Sig/Marsha Route PRN Reason Start Time Stop Time Status Last Admin Dose Admin Acetaminophen (Tylenol) 650 mg Q4H PRN ORAL FEVER 11/28/16 18:00 12/26/16 17:59 Albuterol/ Ipratropium (DuoNeb 0.5-3(2.5)mg/3ml) 3 ml Q4H PRN HHN Shortness of Breath 11/28/16 17:00 12/01/16 16:59 Aspirin (ASA) 81 mg DAILY ORAL 11/29/16 09:00 12/27/16 08:59 Clopidogrel Bisulfate (Plavix) 75 mg DAILY ORAL 11/29/16 09:00 12/27/16 08:59 Dextrose (Dextrose 50%) STAT PRN IV Hypoglycemia 11/28/16 18:00 12/26/16 17:59 Diltiazem HCl (Cardizem) 10 mg Q1H PRN IV HR > 120 11/28/16 17:00 12/26/16 17:59 Enalaprilat (Vasotec) 2.5 mg Q6H PRN IV sbp more than 160 11/28/16 17:00 12/26/16 16:59 Enoxaparin Sodium (Lovenox) 60 mg EVERY 12 HOURS SUBQ 11/28/16 21:00 12/27/16 10:59 11/28/16 21:47 Gabapentin (Neurontin) 100 mg DAILY ORAL 11/29/16 09:00 12/27/16 08:59 Insulin Aspart (NovoLOG) BEFORE MEALS AND HS SUBQ 11/28/16 21:00 12/26/16 20:59 11/28/16 21:46 Lactulose (Cephulac) 20 gm TIDPRN PRN ORAL AGITATION/CONSTIPATION 11/28/16 18:00 12/26/16 17:59 Metoprolol Tartrate (Lopressor) 50 mg Q12HR ORAL 11/28/16 21:00 12/27/16 08:59 11/28/16 21:44 Morphine Sulfate (Morphine Sulfate) 2 mg Q4H PRN IVP severe Pain (Pain Scale 7-10) 11/28/16 18:00 12/03/16 17:59 Nitroglycerin (Ntg) 0.4 mg Every 5 Minutes PRN SL Prn Chest Pain 11/28/16 16:30 12/26/16 17:59 Ondansetron HCl (Zofran) 4 mg Q6H PRN IVP Nausea & Vomiting 11/28/16 18:00 12/26/16 17:59 Pantoprazole (Protonix) 40 mg DAILY ORAL 11/29/16 09:00 12/27/16 08:59 Polyethylene Glycol (Miralax) 17 gm DAILYPRN PRN ORAL Constipation 11/28/16 18:00 12/26/16 17:59 11/28/16 18:11 Sodium Chloride 1,000 ml @ 50 mls/hr Q20H IV 11/28/16 17:30 12/27/16 17:29 11/28/16 17:30 Temazepam (Restoril) 15 mg HSPRN PRN ORAL Insomnia 11/28/16 18:00 12/03/16 17:59 Trazodone HCl (Desyrel) 25 mg HSPRN PRN ORAL Unrelieved Insomnia 11/28/16 18:00 12/26/16 17:59 ABIEL HERR Nov 28, 2016 23:06
--- NOTE | 2016-11-28 23:31 | Diagnostic Imaging Report ---
APPROVED REPORT CPT Code: 02424 Present Symptoms Shortness of breath Comments: R/O DVT. Bilateral amputee, right mid calf and left knee. Limited study due to bilateral amputation at the right mid-calf and left knee. RIGHT LEG: Venous imaging reveals a patent deep venous system. There is no evidence of thrombus within the femoral, popliteal or proximal tibial segments. The greater saphenous vein is also within normal limits. Doppler indicates normal spontaneous flow within these segments. LEFT LEG: Venous imaging reveals a patent deep venous system. There is no evidence of thrombus within the femoral or proximal popliteal segments. The greater saphenous vein is also within normal limits. Doppler indicates normal spontaneous flow within these segments.
--- NOTE | 2016-11-28 23:40 | Cardiology Progress Note ---
Assessment/Plan Assessment/Plan 1. Possible non-ST elevation myocardial infarction with trop I trending down, no wall motion abnormalities on the echocardiogram, refusing heart cath at this time. 2. History of diabetes mellitus. 3. History of coronary artery disease, status post myocardial infarction, the details of which is unknown. 4. History of hypertension. 5. History of peripheral artery disease, status post bilateralamputation. Subjective Subjective Sinus rhythm at 82. Transferred to the telemetry. Denies chest pain or SOB. Wishes to go back to the [facility]. Objective Last 24 Hour Vital Signs Date Time Temp Pulse Resp B/P (MAP) Pulse Ox O2 Delivery O2 Flow Rate FiO2 11/28/16 21:44 85 118/67 11/28/16 20:51 Room Air 11/28/16 20:51 82 18 Room Air 11/28/16 20:51 96 Room Air 11/28/16 20:00 97.9 78 20 113/61 99 Room Air 11/28/16 20:00 76 11/28/16 17:54 98.1 83 20 117/72 98 Nasal Cannula 2.0 11/28/16 16:00 98.8 85 20 123/68 99 Nasal Cannula 2.0 11/28/16 16:00 93 11/28/16 15:00 81 20 98/52 100 Nasal Cannula 2.0 11/28/16 14:00 77 20 115/59 100 Nasal Cannula 2.0 11/28/16 13:00 74 20 142/84 100 Nasal Cannula 2.0 11/28/16 12:00 98.6 88 20 106/57 99 Nasal Cannula 2.0 11/28/16 12:00 81 11/28/16 11:00 89 20 106/57 100 Nasal Cannula 2.0 11/28/16 10:00 71 20 110/60 100 Nasal Cannula 2.0 11/28/16 09:00 77 91/59 11/28/16 09:00 82 20 101/37 100 Nasal Cannula 2.0 11/28/16 08:00 83 11/28/16 08:00 98.6 82 20 108/64 99 Nasal Cannula 2.0 11/28/16 07:00 75 16 116/74 98 Nasal Cannula 2.0 11/28/16 06:00 77 15 99/56 98 Nasal Cannula 2.0 11/28/16 05:00 74 15 108/61 100 Nasal Cannula 2.0 11/28/16 04:00 71 11/28/16 04:00 98.3 71 21 90/73 99 Nasal Cannula 2.0 11/28/16 03:00 71 18 132/47 100 Nasal Cannula 2.0 11/28/16 02:00 76 21 125/38 99 Nasal Cannula 2.0 11/28/16 01:00 70 17 131/27 100 Nasal Cannula 2.0 11/28/16 00:00 98.4 70 17 104/45 95 Nasal Cannula 2.0 11/28/16 00:00 70 Intake and Output 11/28/16 11/29/16 19:00 07:00 Intake Total 936 ml Output Total 886 ml Balance 50 ml Intake Oral 536 ml IV Total 400 ml Output Urine Total 886 ml # Voids 1 2D Echo: LVEF 60-65%, MIld LAE, Grade II LVDD Laboratory Tests Test 11/28/16 03:10 11/28/16 04:00 11/28/16 18:15 White Blood Count 6.4 K/UL (4.8-10.8) Red Blood Count 3.68 M/UL (4.70-6.10) L Hemoglobin 9.6 G/DL (14.2-18.0) L Hematocrit 28.8 % (42.0-52.0) L Mean Corpuscular Volume 78 FL (80-99) L Mean Corpuscular Hemoglobin 26.1 PG (27.0-31.0) L Mean Corpuscular Hemoglobin Concent 33.4 G/DL (32.0-36.0) Red Cell Distribution Width 12.2 % (11.6-14.8) Platelet Count 120 K/UL (150-450) L Mean Platelet Volume 7.8 FL (6.5-10.1) Neutrophils (%) (Auto) 71.0 % (45.0-75.0) Lymphocytes (%) (Auto) 20.4 % (20.0-45.0) Monocytes (%) (Auto) 7.0 % (1.0-10.0) Eosinophils (%) (Auto) 0.8 % (0.0-3.0) Basophils (%) (Auto) 0.8 % (0.0-2.0) Sodium Level 130 MMOL/L (136-145) L Potassium Level 3.5 MMOL/L (3.5-5.1) Chloride Level 99 MMOL/L (98-107) Carbon Dioxide Level 21 MMOL/L (21-32) Anion Gap 10 mmol/L (5-15) Blood Urea Nitrogen 8 mg/dL (7-18) Creatinine 0.7 MG/DL (0.55-1.30) Estimat Glomerular Filtration Rate > 60 mL/min (>60) Glucose Level 106 MG/DL (74-106) Calcium Level 8.3 MG/DL (8.5-10.1) L Total Bilirubin 1.4 MG/DL (0.2-1.0) H Direct Bilirubin 0.3 MG/DL (0.0-0.3) Aspartate Amino Transf (AST/SGOT) 77 U/L (15-37) H Alanine Aminotransferase (ALT/SGPT) 28 U/L (12-78) Alkaline Phosphatase 65 U/L (46-116) Troponin I 7.613 ng/mL (0.000-0.056) 5.471 ng/mL (0.000-0.056) Pro-B-Type Natriuretic Peptide 9044 pg/mL (0-125) H Total Protein 6.0 G/DL (6.4-8.2) L Albumin 2.8 G/DL (3.4-5.0) L Globulin 3.2 g/dL Albumin/Globulin Ratio 0.9 (1.0-2.7) L Urine Eosinophils None seen Urine Osmolality 175 mOsm/kg (429-449) L Urine Random Creatinine Pending Urine Random Microalbumin Pending Urine Random Total Protein 6 MG/DL (< 11.9) Urine Random Sodium 24 MEQ/L (20-110) Urine Creatinine 29.5 MG/DL (30.0-125.0) L Urine Microalbumin/Creatinine Ratio Pending Microbiology Date/Time Source Procedure Growth Status 11/26/16 17:01 Blood Blood Culture - Preliminary NO GROWTH AFTER 24 HOURS Resulted 11/26/16 16:45 Blood Blood Culture - Preliminary NO GROWTH AFTER 24 HOURS Resulted 11/26/16 17:33 Nasal Nares MRSA Culture - Final NO METHICILLIN RESISTANT STAPH AUREUS... Complete 11/26/16 17:33 Rectum VRE Culture - Final NO VANCOMYCIN RESISTANT ENTEROCOCCUS ... Complete Objective HEENT: Atraumatic and normocephalic. Anicteric. Pupils are equal, round, and reactive to light and accommodation. Extraocular muscles intact. NECK: JVP is less than 5 cm. No carotid bruit. Carotid upstroke is 2+ bilaterally. CARDIOVASCULAR: Normal S1 and S2. Tachycardic. No murmurs, gallops, or rubs. PMI is at 4th intercostal space at midclavicular line. LUNGS: Clear to auscultation bilaterally. ABDOMEN: Soft, nontender, and nondistended. No hepatosplenomegaly. Positive bowel sounds. 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 JESS WHITFIELD Nov 28, 2016 23:40
[2016-11-29 00:27] VITALS: BP 120/68
[2016-11-29 04:11] VITALS: BP 115/66
[2016-11-29] MEDS: NovoLOG Insulin Flexpen SUBQ SCH ×4 (06:37→20:14)
[2016-11-29 08:08] LABS: BASOPHILS % (AUTO) 0.8 % (0.0-2.0); EOSINOPHILS % (AUTO) 0.7 % (0.0-3.0); LYMPHOCYTES % (AUTO) 17.1 % (20.0-45.0); MEAN CORPUSCULAR HEMOGLOBIN 25.8 PG (27.0-31.0); MEAN CORPUSCULAR HGB CONC 32.3 G/DL (32.0-36.0); MEAN CORPUSCULAR VOLUME 80 FL (80-99); MEAN PLATELET VOLUME 8.3 FL (6.5-10.1); MONOCYTES % (AUTO) 6.4 % (1.0-10.0); PLATELET COUNT 134 K/UL (150-450); RED BLOOD COUNT 3.94 M/UL (4.70-6.10); RED CELL DISTRIBUTION WIDTH 12.7 % (11.6-14.8); WHITE BLOOD COUNT 6.4 K/UL (4.8-10.8)
--- NOTE | 2016-11-29 08:10 | Nephrology Progress Note ---
Assessment/Plan Assessment 1. Hypovolemic hyponatremia. 2. Non-anion gap acidosis. 3. Non-ST elevation myocardial infarction. 4. Proteinuria. 5. Hematuria. 6. Glucosuria. Plan plan to continue ns .9 mix all ivpb with ns replace electrolyte as need it avoid NSAID Subjective Constitutional: Reports: no symptoms HEENT: Reports: no symptoms Genitourinary: Reports: no symptoms Neurologic/Psychiatric: Reports: no symptoms Subjective alert and awake c/o constipation Objective Objective Last 24 Hour Vital Signs Date Time Temp Pulse Resp B/P (MAP) Pulse Ox O2 Delivery O2 Flow Rate FiO2 11/29/16 04:11 97.0 75 20 115/66 94 Nasal Cannula 2.0 11/29/16 04:00 72 11/29/16 00:27 98.0 83 20 120/68 97 Room Air 1.0 11/29/16 00:00 83 11/28/16 21:44 85 118/67 11/28/16 20:51 Room Air 11/28/16 20:51 82 18 Room Air 11/28/16 20:51 96 Room Air 11/28/16 20:00 97.9 78 20 113/61 99 Room Air 11/28/16 20:00 76 11/28/16 17:54 98.1 83 20 117/72 98 Nasal Cannula 2.0 11/28/16 16:00 98.8 85 20 123/68 99 Nasal Cannula 2.0 11/28/16 16:00 93 11/28/16 15:00 81 20 98/52 100 Nasal Cannula 2.0 11/28/16 14:00 77 20 115/59 100 Nasal Cannula 2.0 11/28/16 13:00 74 20 142/84 100 Nasal Cannula 2.0 11/28/16 12:00 98.6 88 20 106/57 99 Nasal Cannula 2.0 11/28/16 12:00 81 11/28/16 11:00 89 20 106/57 100 Nasal Cannula 2.0 11/28/16 10:00 71 20 110/60 100 Nasal Cannula 2.0 11/28/16 09:00 77 91/59 11/28/16 09:00 82 20 101/37 100 Nasal Cannula 2.0 Laboratory Tests 11/28/16 18:15: Troponin I 5.471H 11/29/16 07:10: White Blood Count [Pending], Red Blood Count [Pending], Hemoglobin [Pending], Hematocrit [Pending], Mean Corpuscular Volume [Pending], Mean Corpuscular Hemoglobin [Pending], Mean Corpuscular Hemoglobin Concent [Pending], Red Cell Distribution Width [Pending], Platelet Count [Pending], Mean Platelet Volume [ Pending], Neutrophils (%) (Auto) [Pending], Lymphocytes (%) (Auto) [Pending], Monocytes (%) (Auto) [Pending], Eosinophils (%) (Auto) [Pending], Basophils (%) (Auto) [Pending], Sodium Level [Pending], Potassium Level [Pending], Chloride Level [Pending], Carbon Dioxide Level [Pending], Blood Urea Nitrogen [Pending], Creatinine [Pending], Estimat Glomerular Filtration Rate [Pending], Glucose Level [Pending], Calcium Level [Pending], Total Bilirubin [Pending], Aspartate Amino Transf (AST/SGOT) [Pending], Alanine Aminotransferase (ALT/SGPT) [Pending] , Alkaline Phosphatase [Pending], Pro-B-Type Natriuretic Peptide [Pending], Total Protein [Pending], Albumin [Pending], Globulin [Pending] Height (Feet): 5 Height (Inches): 6.00 Weight (Pounds): 138 Objective HEAD AND NECK: No JVP. No LAD. No thyromegaly. Extraocular movement intact. Pupils are reactive to light and accommodation. He has dry mucous membranes. LUNGS: Clear to auscultation. CARDIAC: Regular rate and rhythm. S1, S2. No murmur. No rub. ABDOMEN: Soft, nontender, and nondistended. EXTREMITIES: Bilateral BKA. No clubbing. No cyanosis. DEWAYNE ANNH Nov 29, 2016 08:10
[2016-11-29 08:16] VITALS: BP 119/73
[2016-11-29 08:31] LABS: ALANINE AMINOTRANSFERASE 32 U/L (12-78); ALBUMIN/GLOBULIN RATIO 0.9 (1.0-2.7); ANION GAP 10 mmol/L (5-15); ASPARTATE AMINO TRANSFERASE 81 U/L (15-37); CALCIUM 8.7 MG/DL (8.5-10.1); CARBON DIOXIDE 24 MMOL/L (21-32); CHLORIDE 100 MMOL/L (98-107); CREATININE 0.8 MG/DL (0.55-1.30); GLOMERULAR FILTRATION RATE > 60 mL/min (>60); SODIUM 134 MMOL/L (136-145); TOTAL PROTEIN 6.6 G/DL (6.4-8.2)
[2016-11-29 08:33] LABS: BILIRUBIN,DIRECT 0.4 MG/DL (0.0-0.3)
[2016-11-29] MEDS: Enoxaparin 40mg Inj SUBQ SCH (10:03)
[2016-11-29] MEDS: Aspirin Baby 81mg ORAL SCH (10:04)
[2016-11-29 11:22] VITALS: BP 121/68
--- NOTE | 2016-11-29 12:38 | Diagnostic Imaging Report ---
Indication: Dyspnea Comparison: None A single view chest radiograph was obtained. Findings: Cardiomediastinal appearance is within normal limits for age. Pulmonary vascularity is appropriate. The diaphragmatic contour is smooth and costophrenic angles are sharp. No pleural effusions are identified. The bones are osteopenic. Impression: No acute findings
--- NOTE | 2016-11-29 15:21 | General Progress Note ---
Assessment/Plan Problem List: (1) NSTEMI (non-ST elevated myocardial infarction) ICD Codes: I21.4 - Non-ST elevation (NSTEMI) myocardial infarction SNOMED: 849845818 (2) CHF (congestive heart failure) ICD Codes: I50.9 - Heart failure, unspecified SNOMED: 03612381 (3) Anemia ICD Codes: D64.9 - Anemia, unspecified SNOMED: 665978393 (4) HTN (hypertension) ICD Codes: I10 - Essential (primary) hypertension SNOMED: 75786454 (5) Acute encephalopathy ICD Codes: G93.40 - Encephalopathy, unspecified SNOMED: 1747016 (6) Diabetes mellitus ICD Codes: E11.9 - Type 2 diabetes mellitus without complications SNOMED: 21373617 (7) Sepsis ICD Codes: A41.9 - Sepsis, unspecified organism SNOMED: 69963591 Status: stable, progressing, tolerating diet Assessment/Plan o2 pulm tx abx cardio f/u ot pt diet cbc bmp am promsie ltach eval Subjective Constitutional: Reports: weakness Allergies: Coded Allergies: PENICILLINS (Unverified Allergy, Unknown, 08/18/14) Uncoded Allergies: PENCI (Allergy, Severe, 11/26/16) All Systems: reviewed and negative except above Subjective o2nc sleepy Objective Last 24 Hour Vital Signs Date Time Temp Pulse Resp B/P (MAP) Pulse Ox O2 Delivery O2 Flow Rate FiO2 11/29/16 11:31 81 11/29/16 11:22 98.6 88 20 121/68 100 Room Air 11/29/16 10:06 99 Nasal Cannula 2.0 28 11/29/16 10:06 101 18 Nasal Cannula 2.0 28 11/29/16 10:06 Nasal Cannula 2.0 28 11/29/16 10:04 81 119/73 11/29/16 08:16 98.2 81 20 119/73 99 Room Air 11/29/16 07:58 89 11/29/16 04:11 97.0 75 20 115/66 94 Nasal Cannula 2.0 11/29/16 04:00 72 11/29/16 00:27 98.0 83 20 120/68 97 Room Air 1.0 11/29/16 00:00 83 11/28/16 21:44 85 118/67 11/28/16 20:51 Room Air 11/28/16 20:51 82 18 Room Air 11/28/16 20:51 96 Room Air 11/28/16 20:00 97.9 78 20 113/61 99 Room Air 11/28/16 20:00 76 11/28/16 17:54 98.1 83 20 117/72 98 Nasal Cannula 2.0 11/28/16 16:00 98.8 85 20 123/68 99 Nasal Cannula 2.0 11/28/16 16:00 93 Intake and Output 11/29/16 11/30/16 19:00 07:00 Intake Total 520 ml Output Total 200 ml Balance 320 ml Intake Oral 320 ml IV Total 200 ml Output Urine Total 200 ml # Voids 1 Laboratory Tests 11/28/16 18:15: Troponin I 5.471H 11/29/16 07:10: Troponin I 3.424H, White Blood Count 6.4, Red Blood Count 3.94L, Hemoglobin 10.2L, Hematocrit 31.5L, Mean Corpuscular Volume 80, Mean Corpuscular Hemoglobin 25.8L, Mean Corpuscular Hemoglobin Concent 32.3, Red Cell Distribution Width 12.7, Platelet Count 134L, Mean Platelet Volume 8.3, Neutrophils (%) (Auto) 75.0, Lymphocytes (%) (Auto) 17.1L, Monocytes (%) (Auto) 6.4, Eosinophils (%) (Auto) 0.7, Basophils (%) (Auto) 0.8, Sodium Level 134L, Potassium Level 4.0, Chloride Level 100, Carbon Dioxide Level 24, Anion Gap 10, Blood Urea Nitrogen 5L, Creatinine 0.8, Estimat Glomerular Filtration Rate > 60 , Glucose Level 123H, Calcium Level 8.7, Total Bilirubin 1.5H, Direct Bilirubin 0.4H, Aspartate Amino Transf (AST/SGOT) 81H, Alanine Aminotransferase (ALT/SGPT ) 32, Alkaline Phosphatase 69, Pro-B-Type Natriuretic Peptide 62995R, Total Protein 6.6, Albumin 3.1L, Globulin 3.5, Albumin/Globulin Ratio 0.9L Height (Feet): 5 Height (Inches): 6.00 Weight (Pounds): 138 General Appearance: lethargic EENT: normal ENT inspection Neck: normal alignment Cardiovascular: normal peripheral pulses, normal rate, regular rhythm Respiratory/Chest: chest wall non-tender, lungs clear, normal breath sounds Abdomen: normal bowel sounds, non tender, soft Extremities: normal inspection Edema: no edema noted Arm (L), no edema noted Arm (R), no edema noted Leg (L), no edema noted Leg (R), no edema noted Pedal (L), no edema noted Pedal (R), no edema noted Generalized Neurologic: responsive, motor weakness Skin: normal pigmentation, warm/dry PHILIPPE MONTEIRO Nov 29, 2016 15:21
--- NOTE | 2016-11-29 15:39 | Pulmonology Progress Note ---
Assessment/Plan Problems: (1) Hyponatremia (2) NSTEMI (non-ST elevated myocardial infarction) (3) Diabetes (4) Anemia Assessment/Plan troponin trending down improving sliding scale wants to go back to [facility] prophylaxis all notes and meds reviewed. Subjective ROS Limited/Unobtainable: No Constitutional: Reports: no symptoms HEENT: Repors: no symptoms Respiratory: Reports: no symptoms Allergies: Coded Allergies: PENICILLINS (Unverified Allergy, Unknown, 08/18/14) Uncoded Allergies: PENCI (Allergy, Severe, 11/26/16) Objective Last 24 Hour Vital Signs Date Time Temp Pulse Resp B/P (MAP) Pulse Ox O2 Delivery O2 Flow Rate FiO2 11/29/16 11:31 81 11/29/16 11:22 98.6 88 20 121/68 100 Room Air 11/29/16 10:06 99 Nasal Cannula 2.0 28 11/29/16 10:06 101 18 Nasal Cannula 2.0 28 11/29/16 10:06 Nasal Cannula 2.0 28 11/29/16 10:04 81 119/73 11/29/16 08:16 98.2 81 20 119/73 99 Room Air 11/29/16 07:58 89 11/29/16 04:11 97.0 75 20 115/66 94 Nasal Cannula 2.0 11/29/16 04:00 72 11/29/16 00:27 98.0 83 20 120/68 97 Room Air 1.0 11/29/16 00:00 83 11/28/16 21:44 85 118/67 11/28/16 20:51 Room Air 11/28/16 20:51 82 18 Room Air 11/28/16 20:51 96 Room Air 11/28/16 20:00 97.9 78 20 113/61 99 Room Air 11/28/16 20:00 76 11/28/16 17:54 98.1 83 20 117/72 98 Nasal Cannula 2.0 11/28/16 16:00 98.8 85 20 123/68 99 Nasal Cannula 2.0 11/28/16 16:00 93 Intake and Output 11/29/16 11/30/16 19:00 07:00 Intake Total 520 ml Output Total 200 ml Balance 320 ml Intake Oral 320 ml IV Total 200 ml Output Urine Total 200 ml # Voids 1 Objective no new complains Respiratory/Chest: chest wall non-tender, lungs clear, normal breath sounds Cardiovascular: normal peripheral pulses, regular rhythm Abdomen: normal bowel sounds, no organomegaly Genitourinary: normal external genitalia Skin: no rash, no lesions Microbiology Date/Time Source Procedure Growth Status 11/26/16 17:01 Blood Blood Culture - Preliminary NO GROWTH AFTER 48 HOURS Resulted 11/26/16 16:45 Blood Blood Culture - Preliminary NO GROWTH AFTER 48 HOURS Resulted 11/26/16 17:33 Nasal Nares MRSA Culture - Final NO METHICILLIN RESISTANT STAPH AUREUS... Complete 11/28/16 04:00 Urine,Clean Catch Urine Culture - Preliminary Mixed Urogenital Contaminants Resulted 11/26/16 17:33 Rectum VRE Culture - Final NO VANCOMYCIN RESISTANT ENTEROCOCCUS ... Complete Laboratory Tests 11/28/16 18:15: Troponin I 5.471H 11/29/16 07:10: Troponin I 3.424H, White Blood Count 6.4, Red Blood Count 3.94L, Hemoglobin 10.2L, Hematocrit 31.5L, Mean Corpuscular Volume 80, Mean Corpuscular Hemoglobin 25.8L, Mean Corpuscular Hemoglobin Concent 32.3, Red Cell Distribution Width 12.7, Platelet Count 134L, Mean Platelet Volume 8.3, Neutrophils (%) (Auto) 75.0, Lymphocytes (%) (Auto) 17.1L, Monocytes (%) (Auto) 6.4, Eosinophils (%) (Auto) 0.7, Basophils (%) (Auto) 0.8, Sodium Level 134L, Potassium Level 4.0, Chloride Level 100, Carbon Dioxide Level 24, Anion Gap 10, Blood Urea Nitrogen 5L, Creatinine 0.8, Estimat Glomerular Filtration Rate > 60 , Glucose Level 123H, Calcium Level 8.7, Total Bilirubin 1.5H, Direct Bilirubin 0.4H, Aspartate Amino Transf (AST/SGOT) 81H, Alanine Aminotransferase (ALT/SGPT ) 32, Alkaline Phosphatase 69, Pro-B-Type Natriuretic Peptide 36499X, Total Protein 6.6, Albumin 3.1L, Globulin 3.5, Albumin/Globulin Ratio 0.9L Current Medications Medications (Trade) Dose Ordered Sig/Marsha Route PRN Reason Start Time Stop Time Status Last Admin Dose Admin Acetaminophen (Tylenol) 650 mg Q4H PRN ORAL FEVER 11/28/16 18:00 12/26/16 17:59 Albuterol/ Ipratropium (DuoNeb 0.5-3(2.5)mg/3ml) 3 ml Q4H PRN HHN Shortness of Breath 11/28/16 17:00 12/01/16 16:59 Aspirin (ASA) 81 mg DAILY ORAL 11/29/16 09:00 12/27/16 08:59 11/29/16 10:04 Clopidogrel Bisulfate (Plavix) 75 mg DAILY ORAL 11/29/16 09:00 12/27/16 08:59 11/29/16 10:04 Dextrose (Dextrose 50%) STAT PRN IV Hypoglycemia 11/28/16 18:00 12/26/16 17:59 Diltiazem HCl (Cardizem) 10 mg Q1H PRN IV HR > 120 11/28/16 17:00 12/26/16 17:59 Enalaprilat (Vasotec) 2.5 mg Q6H PRN IV sbp more than 160 11/28/16 17:00 12/26/16 16:59 Enoxaparin Sodium (Lovenox) 40 mg DAILY SUBQ 11/29/16 09:00 12/29/16 08:59 11/29/16 10:03 Gabapentin (Neurontin) 100 mg DAILY ORAL 11/29/16 09:00 12/27/16 08:59 11/29/16 10:04 Insulin Aspart (NovoLOG) BEFORE MEALS AND HS SUBQ 11/28/16 21:00 12/26/16 20:59 11/29/16 06:37 Lactulose (Cephulac) 20 gm TIDPRN PRN ORAL AGITATION/CONSTIPATION 11/28/16 18:00 12/26/16 17:59 Metoprolol Tartrate (Lopressor) 100 mg Q12HR ORAL 11/29/16 09:00 12/29/16 08:59 11/29/16 10:04 Morphine Sulfate (Morphine Sulfate) 2 mg Q4H PRN IVP severe Pain (Pain Scale 7-10) 11/28/16 18:00 12/03/16 17:59 Nitroglycerin (Ntg) 0.4 mg Every 5 Minutes PRN SL Prn Chest Pain 11/28/16 16:30 12/26/16 17:59 Ondansetron HCl (Zofran) 4 mg Q6H PRN IVP Nausea & Vomiting 11/28/16 18:00 12/26/16 17:59 Pantoprazole (Protonix) 40 mg DAILY ORAL 11/29/16 09:00 12/27/16 08:59 11/29/16 10:04 Polyethylene Glycol (Miralax) 17 gm DAILYPRN PRN ORAL Constipation 11/28/16 18:00 12/26/16 17:59 11/28/16 18:11 Sodium Chloride 1,000 ml @ 50 mls/hr Q20H IV 11/28/16 17:30 12/27/16 17:29 11/29/16 12:45 Temazepam (Restoril) 15 mg HSPRN PRN ORAL Insomnia 11/28/16 18:00 12/03/16 17:59 Trazodone HCl (Desyrel) 25 mg HSPRN PRN ORAL Unrelieved Insomnia 11/28/16 18:00 12/26/16 17:59 CHARLOTTE DAVISON Nov 29, 2016 15:39
[2016-11-29 16:00] VITALS: BP 109/62
[2016-11-29] MEDS ORDERED: Morphine Sulfate 4mg/ml Inj IVP PRN (16:00)
[2016-11-29] MEDS ORDERED: Tubing IV Secondary IV ONE (16:29)
[2016-11-29] MEDS ORDERED: 1/2 NS 1000ml IV ONE (16:29)
[2016-11-29 20:00] VITALS: BP 112/60
--- NOTE | 2016-11-29 21:33 | Cardiology Progress Note ---
Assessment/Plan Assessment/Plan 1. Possible non-ST elevation myocardial infarction with trop I trending down, no wall motion abnormalities on the echocardiogram, refusing heart cath at this time. Will discuss again with him regarding transferring to [facility] for heart cath. 2. History of diabetes mellitus. 3. History of coronary artery disease, status post myocardial infarction in the past, the details of which is unknown. 4. History of hypertension.a Subjective Subjective Sinus rhythm at 74. Denies chest pain or SOB. Objective Last 24 Hour Vital Signs Date Time Temp Pulse Resp B/P (MAP) Pulse Ox O2 Delivery O2 Flow Rate FiO2 11/29/16 20:13 89 119/68 11/29/16 20:00 98 Nasal Cannula 2.0 28 11/29/16 20:00 Nasal Cannula 2.0 28 11/29/16 19:59 79 20 Nasal Cannula 2.0 28 11/29/16 16:00 98.1 74 20 109/62 99 Nasal Cannula 2.0 11/29/16 15:47 77 11/29/16 11:31 81 11/29/16 11:22 98.6 88 20 121/68 100 Room Air 11/29/16 10:06 99 Nasal Cannula 2.0 28 11/29/16 10:06 101 18 Nasal Cannula 2.0 28 11/29/16 10:06 Nasal Cannula 2.0 28 11/29/16 10:04 81 119/73 11/29/16 08:16 98.2 81 20 119/73 99 Room Air 11/29/16 07:58 89 11/29/16 04:11 97.0 75 20 115/66 94 Nasal Cannula 2.0 11/29/16 04:00 72 11/29/16 00:27 98.0 83 20 120/68 97 Room Air 1.0 11/29/16 00:00 83 11/28/16 21:44 85 118/67 Intake and Output 11/29/16 11/30/16 19:00 07:00 Intake Total 1400 ml 320 ml Output Total 500 ml 150 ml Balance 900 ml 170 ml Intake Oral 800 ml 320 ml IV Total 600 ml Output Urine Total 500 ml 150 ml # Voids 2 1 2D Echo: LVEF 60-65%, Mild LAE, Grade II LVDD Laboratory Tests Test 11/29/16 07:10 White Blood Count 6.4 K/UL (4.8-10.8) Red Blood Count 3.94 M/UL (4.70-6.10) L Hemoglobin 10.2 G/DL (14.2-18.0) L Hematocrit 31.5 % (42.0-52.0) L Mean Corpuscular Volume 80 FL (80-99) Mean Corpuscular Hemoglobin 25.8 PG (27.0-31.0) L Mean Corpuscular Hemoglobin Concent 32.3 G/DL (32.0-36.0) Red Cell Distribution Width 12.7 % (11.6-14.8) Platelet Count 134 K/UL (150-450) L Mean Platelet Volume 8.3 FL (6.5-10.1) Neutrophils (%) (Auto) 75.0 % (45.0-75.0) Lymphocytes (%) (Auto) 17.1 % (20.0-45.0) L Monocytes (%) (Auto) 6.4 % (1.0-10.0) Eosinophils (%) (Auto) 0.7 % (0.0-3.0) Basophils (%) (Auto) 0.8 % (0.0-2.0) Sodium Level 134 MMOL/L (136-145) L Potassium Level 4.0 MMOL/L (3.5-5.1) Chloride Level 100 MMOL/L (98-107) Carbon Dioxide Level 24 MMOL/L (21-32) Anion Gap 10 mmol/L (5-15) Blood Urea Nitrogen 5 mg/dL (7-18) L Creatinine 0.8 MG/DL (0.55-1.30) Estimat Glomerular Filtration Rate > 60 mL/min (>60) Glucose Level 123 MG/DL (74-106) H Calcium Level 8.7 MG/DL (8.5-10.1) Total Bilirubin 1.5 MG/DL (0.2-1.0) H Direct Bilirubin 0.4 MG/DL (0.0-0.3) H Aspartate Amino Transf (AST/SGOT) 81 U/L (15-37) H Alanine Aminotransferase (ALT/SGPT) 32 U/L (12-78) Alkaline Phosphatase 69 U/L (46-116) Troponin I 3.424 ng/mL (0.000-0.056) Pro-B-Type Natriuretic Peptide 93998 pg/mL (0-125) H Total Protein 6.6 G/DL (6.4-8.2) Albumin 3.1 G/DL (3.4-5.0) L Globulin 3.5 g/dL Albumin/Globulin Ratio 0.9 (1.0-2.7) L Microbiology Date/Time Source Procedure Growth Status 11/28/16 04:00 Urine,Clean Catch Urine Culture - Preliminary Mixed Urogenital Contaminants Resulted Objective HEENT: Atraumatic and normocephalic. Anicteric. Pupils are equal, round, and reactive to light and accommodation. Extraocular muscles intact. NECK: JVP is less than 5 cm. No carotid bruit. Carotid upstroke is 2+ bilaterally. CARDIOVASCULAR: Normal S1 and S2. Tachycardic. No murmurs, gallops, or rubs. PMI is at 4th intercostal space at midclavicular line. LUNGS: Clear to auscultation bilaterally. ABDOMEN: Soft, nontender, and nondistended. No hepatosplenomegaly. Positive bowel sounds. 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 JESS WHITFIELD Nov 29, 2016 21:33
[2016-11-30] VITALS (7 sets, daily range): BP systolic 97–118; BP diastolic 58–70
[2016-11-30] MEDS: NovoLOG Insulin Flexpen SUBQ SCH ×4 (06:12→20:26)
[2016-11-30 07:55] LABS: BASOPHILS % (AUTO) 0.8 % (0.0-2.0); LYMPHOCYTES % (AUTO) 24.3 % (20.0-45.0); MEAN CORPUSCULAR HEMOGLOBIN 26.4 PG (27.0-31.0); MEAN CORPUSCULAR HGB CONC 33.1 G/DL (32.0-36.0); MEAN CORPUSCULAR VOLUME 80 FL (80-99); MEAN PLATELET VOLUME 8.3 FL (6.5-10.1); MONOCYTES % (AUTO) 8.4 % (1.0-10.0); NEUTROPHILS % (AUTO) 65.5 % (45.0-75.0); PLATELET COUNT 152 K/UL (150-450); RED BLOOD COUNT 3.85 M/UL (4.70-6.10); RED CELL DISTRIBUTION WIDTH 12.5 % (11.6-14.8); WHITE BLOOD COUNT 6.4 K/UL (4.8-10.8)
[2016-11-30 08:10] LABS: ANION GAP 10 mmol/L (5-15); CALCIUM 8.7 MG/DL (8.5-10.1); CARBON DIOXIDE 23 MMOL/L (21-32); CHLORIDE 101 MMOL/L (98-107); CREATININE 0.8 MG/DL (0.55-1.30); GLOMERULAR FILTRATION RATE > 60 mL/min (>60); POTASSIUM 3.8 MMOL/L (3.5-5.1); SODIUM 134 MMOL/L (136-145)
[2016-11-30] MEDS: Miralax 17gm pkt ORAL PRN (10:42)
[2016-11-30] MEDS: Aspirin Baby 81mg ORAL SCH (10:42)
[2016-11-30] MEDS: Enoxaparin 40mg Inj SUBQ SCH (10:50)
--- NOTE | 2016-11-30 11:31 | Nephrology Progress Note ---
Assessment/Plan Assessment 1. Hypovolemic hyponatremia. 2. Non-anion gap acidosis. 3. Non-ST elevation myocardial infarction. 4. Proteinuria. 5. Hematuria. 6. Glucosuria. Plan plan to continue ns .9 mix all ivpb with ns replace electrolyte as need it avoid NSAID Subjective Subjective alert and awake c/o constipation Objective Objective Last 24 Hour Vital Signs Date Time Temp Pulse Resp B/P (MAP) Pulse Ox O2 Delivery O2 Flow Rate FiO2 11/30/16 10:41 69 97/58 11/30/16 08:48 97.3 69 18 97/58 97 Nasal Cannula 2.0 11/30/16 08:25 71 18 Nasal Cannula 2.0 11/30/16 08:24 Nasal Cannula 2.0 28 11/30/16 08:23 100 Nasal Cannula 2.0 28 11/30/16 08:00 97.3 69 18 97/58 97 Nasal Cannula 2.0 11/30/16 04:29 97.0 80 20 111/64 94 Room Air 11/30/16 04:00 67 11/30/16 00:28 98.0 78 20 100/58 98 Room Air 11/30/16 00:00 70 11/29/16 20:13 89 119/68 11/29/16 20:00 72 11/29/16 20:00 98 Nasal Cannula 2.0 28 11/29/16 20:00 99.5 80 20 112/60 99 11/29/16 20:00 Nasal Cannula 2.0 28 11/29/16 19:59 79 20 Nasal Cannula 2.0 28 11/29/16 16:00 98.1 74 20 109/62 99 Nasal Cannula 2.0 11/29/16 15:47 77 Intake and Output 11/30/16 12/01/16 19:00 07:00 Intake Total 120 ml Balance 120 ml Intake Oral 120 ml Laboratory Tests 11/30/16 07:25: White Blood Count 6.4, Red Blood Count 3.85L, Hemoglobin 10.2L, Hematocrit 30.7L , Mean Corpuscular Volume 80, Mean Corpuscular Hemoglobin 26.4L, Mean Corpuscular Hemoglobin Concent 33.1, Red Cell Distribution Width 12.5, Platelet Count 152, Mean Platelet Volume 8.3, Neutrophils (%) (Auto) 65.5, Lymphocytes (% ) (Auto) 24.3, Monocytes (%) (Auto) 8.4, Eosinophils (%) (Auto) 1.0, Basophils ( %) (Auto) 0.8, Sodium Level 134L, Potassium Level 3.8, Chloride Level 101, Carbon Dioxide Level 23, Anion Gap 10, Blood Urea Nitrogen 7, Creatinine 0.8, Estimat Glomerular Filtration Rate > 60, Glucose Level 157H, Calcium Level 8.7 Height (Feet): 5 Height (Inches): 6.00 Weight (Pounds): 137 Objective HEAD AND NECK: No JVP. No LAD. No thyromegaly. Extraocular movement intact. Pupils are reactive to light and accommodation. He has dry mucous membranes. LUNGS: Clear to auscultation. CARDIAC: Regular rate and rhythm. S1, S2. No murmur. No rub. ABDOMEN: Soft, nontender, and nondistended. EXTREMITIES: Bilateral BKA. No clubbing. No cyanosis. VERNON ANN Nov 30, 2016 11:31
--- NOTE | 2016-11-30 13:28 | General Progress Note ---
Assessment/Plan Problem List: (1) NSTEMI (non-ST elevated myocardial infarction) ICD Codes: I21.4 - Non-ST elevation (NSTEMI) myocardial infarction SNOMED: 208521784 (2) CHF (congestive heart failure) ICD Codes: I50.9 - Heart failure, unspecified SNOMED: 89328185 (3) Anemia ICD Codes: D64.9 - Anemia, unspecified SNOMED: 376318916 (4) HTN (hypertension) ICD Codes: I10 - Essential (primary) hypertension SNOMED: 99693829 (5) Acute encephalopathy ICD Codes: G93.40 - Encephalopathy, unspecified SNOMED: 4031817 (6) Diabetes mellitus ICD Codes: E11.9 - Type 2 diabetes mellitus without complications SNOMED: 93187440 (7) Sepsis ICD Codes: A41.9 - Sepsis, unspecified organism SNOMED: 30716996 Status: stable Assessment/Plan o2 pulm tx abx cardio f/u ot pt diet cbc bmp am dc plan snf if cardio clear Subjective Constitutional: Reports: weakness Allergies: Coded Allergies: PENICILLINS (Unverified Allergy, Unknown, 08/18/14) Uncoded Allergies: PENCI (Allergy, Severe, 11/26/16) All Systems: reviewed and negative except above Subjective o2nc sleepy Objective Last 24 Hour Vital Signs Date Time Temp Pulse Resp B/P (MAP) Pulse Ox O2 Delivery O2 Flow Rate FiO2 11/30/16 12:10 97.3 75 20 118/70 98 Nasal Cannula 2.0 11/30/16 10:41 69 97/58 11/30/16 09:00 67 11/30/16 08:48 97.3 69 18 97/58 97 Nasal Cannula 2.0 11/30/16 08:25 71 18 Nasal Cannula 2.0 11/30/16 08:24 Nasal Cannula 2.0 28 11/30/16 08:23 100 Nasal Cannula 2.0 28 11/30/16 08:00 97.3 69 18 97/58 97 Nasal Cannula 2.0 11/30/16 04:29 97.0 80 20 111/64 94 Room Air 11/30/16 04:00 67 11/30/16 00:28 98.0 78 20 100/58 98 Room Air 11/30/16 00:00 70 11/29/16 20:13 89 119/68 11/29/16 20:00 72 11/29/16 20:00 98 Nasal Cannula 2.0 28 11/29/16 20:00 99.5 80 20 112/60 99 11/29/16 20:00 Nasal Cannula 2.0 28 11/29/16 19:59 79 20 Nasal Cannula 2.0 28 11/29/16 16:00 98.1 74 20 109/62 99 Nasal Cannula 2.0 11/29/16 15:47 77 Intake and Output 11/30/16 12/01/16 19:00 07:00 Intake Total 240 ml Output Total 150 ml Balance 90 ml Intake Oral 240 ml Output Urine Total 150 ml Laboratory Tests 11/30/16 07:25: White Blood Count 6.4, Red Blood Count 3.85L, Hemoglobin 10.2L, Hematocrit 30.7L , Mean Corpuscular Volume 80, Mean Corpuscular Hemoglobin 26.4L, Mean Corpuscular Hemoglobin Concent 33.1, Red Cell Distribution Width 12.5, Platelet Count 152, Mean Platelet Volume 8.3, Neutrophils (%) (Auto) 65.5, Lymphocytes (% ) (Auto) 24.3, Monocytes (%) (Auto) 8.4, Eosinophils (%) (Auto) 1.0, Basophils ( %) (Auto) 0.8, Sodium Level 134L, Potassium Level 3.8, Chloride Level 101, Carbon Dioxide Level 23, Anion Gap 10, Blood Urea Nitrogen 7, Creatinine 0.8, Estimat Glomerular Filtration Rate > 60, Glucose Level 157H, Calcium Level 8.7 Height (Feet): 5 Height (Inches): 6.00 Weight (Pounds): 137 General Appearance: lethargic EENT: normal ENT inspection Neck: normal alignment Cardiovascular: normal peripheral pulses, normal rate, regular rhythm Respiratory/Chest: chest wall non-tender, lungs clear, normal breath sounds Abdomen: normal bowel sounds, non tender, soft Extremities: normal inspection Edema: no edema noted Arm (L), no edema noted Arm (R), no edema noted Leg (L), no edema noted Leg (R), no edema noted Pedal (L), no edema noted Pedal (R), no edema noted Generalized Neurologic: responsive, motor weakness Skin: normal pigmentation, warm/dry PHILIPPE MONTEIRO Nov 30, 2016 13:28
--- NOTE | 2016-11-30 14:54 | Pulmonology Progress Note ---
Assessment/Plan Problems: (1) Hyponatremia (2) NSTEMI (non-ST elevated myocardial infarction) (3) Diabetes (4) Anemia Assessment/Plan troponin trending down improving sliding scale wants to go back to long term dvt prophylaxis all notes and meds reviewed. refusing cardiac cath. Subjective ROS Limited/Unobtainable: No Constitutional: Reports: no symptoms HEENT: Repors: no symptoms Respiratory: Reports: no symptoms Allergies: Coded Allergies: PENICILLINS (Unverified Allergy, Unknown, 08/18/14) Uncoded Allergies: PENCI (Allergy, Severe, 11/26/16) Objective Last 24 Hour Vital Signs Date Time Temp Pulse Resp B/P (MAP) Pulse Ox O2 Delivery O2 Flow Rate FiO2 11/30/16 12:10 97.3 75 20 118/70 98 Nasal Cannula 2.0 11/30/16 10:41 69 97/58 11/30/16 09:00 67 11/30/16 08:48 97.3 69 18 97/58 97 Nasal Cannula 2.0 11/30/16 08:25 71 18 Nasal Cannula 2.0 11/30/16 08:24 Nasal Cannula 2.0 28 11/30/16 08:23 100 Nasal Cannula 2.0 28 11/30/16 08:00 97.3 69 18 97/58 97 Nasal Cannula 2.0 11/30/16 04:29 97.0 80 20 111/64 94 Room Air 11/30/16 04:00 67 11/30/16 00:28 98.0 78 20 100/58 98 Room Air 11/30/16 00:00 70 11/29/16 20:13 89 119/68 11/29/16 20:00 72 11/29/16 20:00 98 Nasal Cannula 2.0 28 11/29/16 20:00 99.5 80 20 112/60 99 11/29/16 20:00 Nasal Cannula 2.0 28 11/29/16 19:59 79 20 Nasal Cannula 2.0 28 11/29/16 16:00 98.1 74 20 109/62 99 Nasal Cannula 2.0 11/29/16 15:47 77 Intake and Output 11/30/16 12/01/16 19:00 07:00 Intake Total 240 ml Output Total 150 ml Balance 90 ml Intake Oral 240 ml Output Urine Total 150 ml Objective no new complains General Appearance: WD/WN HEENT: normocephalic, atraumatic Respiratory/Chest: chest wall non-tender, normal breath sounds Cardiovascular: normal peripheral pulses, normal rate Abdomen: normal bowel sounds, soft, non tender Genitourinary: normal external genitalia Skin: no rash, no lesions Microbiology Date/Time Source Procedure Growth Status 11/28/16 04:00 Urine,Clean Catch Urine Culture - Final Mixed Urogenital Contaminants Complete Laboratory Tests 11/30/16 07:25: White Blood Count 6.4, Red Blood Count 3.85L, Hemoglobin 10.2L, Hematocrit 30.7L , Mean Corpuscular Volume 80, Mean Corpuscular Hemoglobin 26.4L, Mean Corpuscular Hemoglobin Concent 33.1, Red Cell Distribution Width 12.5, Platelet Count 152, Mean Platelet Volume 8.3, Neutrophils (%) (Auto) 65.5, Lymphocytes (% ) (Auto) 24.3, Monocytes (%) (Auto) 8.4, Eosinophils (%) (Auto) 1.0, Basophils ( %) (Auto) 0.8, Sodium Level 134L, Potassium Level 3.8, Chloride Level 101, Carbon Dioxide Level 23, Anion Gap 10, Blood Urea Nitrogen 7, Creatinine 0.8, Estimat Glomerular Filtration Rate > 60, Glucose Level 157H, Calcium Level 8.7 Current Medications Medications (Trade) Dose Ordered Sig/Marsha Route PRN Reason Start Time Stop Time Status Last Admin Dose Admin Acetaminophen (Tylenol) 650 mg Q4H PRN ORAL FEVER 11/28/16 18:00 12/26/16 17:59 Albuterol/ Ipratropium (DuoNeb 0.5-3(2.5)mg/3ml) 3 ml Q4H PRN HHN Shortness of Breath 11/28/16 17:00 12/01/16 16:59 Aspirin (ASA) 81 mg DAILY ORAL 11/29/16 09:00 12/27/16 08:59 11/30/16 10:42 Clopidogrel Bisulfate (Plavix) 75 mg DAILY ORAL 11/29/16 09:00 12/27/16 08:59 11/30/16 10:41 Dextrose (Dextrose 50%) STAT PRN IV Hypoglycemia 11/28/16 18:00 12/26/16 17:59 Diltiazem HCl (Cardizem) 10 mg Q1H PRN IV HR > 120 11/28/16 17:00 12/26/16 17:59 Enalaprilat (Vasotec) 2.5 mg Q6H PRN IV sbp more than 160 11/28/16 17:00 12/26/16 16:59 Enoxaparin Sodium (Lovenox) 40 mg DAILY SUBQ 11/29/16 09:00 12/29/16 08:59 11/30/16 10:50 Gabapentin (Neurontin) 100 mg DAILY ORAL 11/29/16 09:00 12/27/16 08:59 11/30/16 10:42 Insulin Aspart (NovoLOG) BEFORE MEALS AND HS SUBQ 11/28/16 21:00 12/26/16 20:59 11/29/16 06:37 Lactulose (Cephulac) 20 gm TIDPRN PRN ORAL AGITATION/CONSTIPATION 11/28/16 18:00 12/26/16 17:59 11/30/16 10:42 Metoprolol Tartrate (Lopressor) 100 mg Q12HR ORAL 11/29/16 09:00 12/29/16 08:59 11/30/16 10:41 Morphine Sulfate (Morphine Sulfate) 2 mg Q4H PRN IVP severe Pain (Pain Scale 7-10) 11/29/16 16:00 12/06/16 15:59 Nitroglycerin (Ntg) 0.4 mg Every 5 Minutes PRN SL Prn Chest Pain 11/28/16 16:30 12/26/16 17:59 Ondansetron HCl (Zofran) 4 mg Q6H PRN IVP Nausea & Vomiting 11/28/16 18:00 12/26/16 17:59 Pantoprazole (Protonix) 40 mg DAILY ORAL 11/29/16 09:00 12/27/16 08:59 11/30/16 10:42 Polyethylene Glycol (Miralax) 17 gm DAILYPRN PRN ORAL Constipation 11/28/16 18:00 12/26/16 17:59 11/30/16 10:42 Sodium Chloride 1,000 ml @ 50 mls/hr Q20H IV 11/28/16 17:30 12/27/16 17:29 11/30/16 10:43 Temazepam (Restoril) 15 mg HSPRN PRN ORAL Insomnia 11/28/16 18:00 12/03/16 17:59 Trazodone HCl (Desyrel) 25 mg HSPRN PRN ORAL Unrelieved Insomnia 11/28/16 18:00 12/26/16 17:59 CHARLOTTE DAVISON Nov 30, 2016 14:54
--- NOTE | 2016-11-30 22:39 | Infectious Diseases Prog Note ---
Assessment/Plan Problems: (1) SIRS (systemic inflammatory response syndrome) Assessment & Plan: Does have pyuria. Resolved. Clinically appears stable. (2) Pyuria Assessment & Plan: Follow-up UCx. Asymptomatic bacteriuria? Hold off on antibiotics given WBC normalized. (3) Diabetes mellitus (4) NSTEMI (non-ST elevated myocardial infarction) Subjective Allergies: Coded Allergies: PENICILLINS (Unverified Allergy, Unknown, 08/18/14) Uncoded Allergies: PENCI (Allergy, Severe, 11/26/16) Objective Vital Signs Last 24 Hour Vital Signs Date Time Temp Pulse Resp B/P (MAP) Pulse Ox O2 Delivery O2 Flow Rate FiO2 11/30/16 21:18 99 2.0 28 11/30/16 21:18 66 18 Nasal Cannula 2.0 11/30/16 21:18 Nasal Cannula 2.0 28 11/30/16 20:28 71 116/66 11/30/16 20:00 68 11/30/16 20:00 97.3 71 18 116/66 96 Nasal Cannula 2.0 28 11/30/16 16:00 66 11/30/16 15:57 98.1 67 18 117/64 99 Nasal Cannula 2.0 11/30/16 12:10 97.3 75 20 118/70 98 Nasal Cannula 2.0 11/30/16 12:00 63 11/30/16 10:41 69 97/58 11/30/16 09:00 67 11/30/16 08:48 97.3 69 18 97/58 97 Nasal Cannula 2.0 11/30/16 08:25 71 18 Nasal Cannula 2.0 11/30/16 08:24 Nasal Cannula 2.0 28 11/30/16 08:23 100 Nasal Cannula 2.0 28 11/30/16 08:00 97.3 69 18 97/58 97 Nasal Cannula 2.0 11/30/16 04:29 97.0 80 20 111/64 94 Room Air 11/30/16 04:00 67 11/30/16 00:28 98.0 78 20 100/58 98 Room Air 11/30/16 00:00 70 Height (Feet): 5 Height (Inches): 6.00 Weight (Pounds): 137 Microbiology Date/Time Source Procedure Growth Status 11/28/16 04:00 Urine,Clean Catch Urine Culture - Final Mixed Urogenital Contaminants Complete Laboratory Tests Test 11/30/16 07:25 White Blood Count 6.4 K/UL (4.8-10.8) Red Blood Count 3.85 M/UL (4.70-6.10) L Hemoglobin 10.2 G/DL (14.2-18.0) L Hematocrit 30.7 % (42.0-52.0) L Mean Corpuscular Volume 80 FL (80-99) Mean Corpuscular Hemoglobin 26.4 PG (27.0-31.0) L Mean Corpuscular Hemoglobin Concent 33.1 G/DL (32.0-36.0) Red Cell Distribution Width 12.5 % (11.6-14.8) Platelet Count 152 K/UL (150-450) Mean Platelet Volume 8.3 FL (6.5-10.1) Neutrophils (%) (Auto) 65.5 % (45.0-75.0) Lymphocytes (%) (Auto) 24.3 % (20.0-45.0) Monocytes (%) (Auto) 8.4 % (1.0-10.0) Eosinophils (%) (Auto) 1.0 % (0.0-3.0) Basophils (%) (Auto) 0.8 % (0.0-2.0) Sodium Level 134 MMOL/L (136-145) L Potassium Level 3.8 MMOL/L (3.5-5.1) Chloride Level 101 MMOL/L (98-107) Carbon Dioxide Level 23 MMOL/L (21-32) Anion Gap 10 mmol/L (5-15) Blood Urea Nitrogen 7 mg/dL (7-18) Creatinine 0.8 MG/DL (0.55-1.30) Estimat Glomerular Filtration Rate > 60 mL/min (>60) Glucose Level 157 MG/DL (74-106) H Calcium Level 8.7 MG/DL (8.5-10.1) Current Medications Medications (Trade) Dose Ordered Sig/Marsha Route PRN Reason Start Time Stop Time Status Last Admin Dose Admin Acetaminophen (Tylenol) 650 mg Q4H PRN ORAL FEVER 11/28/16 18:00 12/26/16 17:59 Albuterol/ Ipratropium (DuoNeb 0.5-3(2.5)mg/3ml) 3 ml Q4H PRN HHN Shortness of Breath 11/28/16 17:00 12/01/16 16:59 Aspirin (ASA) 81 mg DAILY ORAL 11/29/16 09:00 12/27/16 08:59 11/30/16 10:42 Clopidogrel Bisulfate (Plavix) 75 mg DAILY ORAL 11/29/16 09:00 12/27/16 08:59 11/30/16 10:41 Dextrose (Dextrose 50%) STAT PRN IV Hypoglycemia 11/28/16 18:00 12/26/16 17:59 Diltiazem HCl (Cardizem) 10 mg Q1H PRN IV HR > 120 11/28/16 17:00 12/26/16 17:59 Enalaprilat (Vasotec) 2.5 mg Q6H PRN IV sbp more than 160 11/28/16 17:00 12/26/16 16:59 Enoxaparin Sodium (Lovenox) 40 mg DAILY SUBQ 11/29/16 09:00 12/29/16 08:59 11/30/16 10:50 Gabapentin (Neurontin) 100 mg DAILY ORAL 11/29/16 09:00 12/27/16 08:59 11/30/16 10:42 Insulin Aspart (NovoLOG) BEFORE MEALS AND HS SUBQ 11/28/16 21:00 12/26/16 20:59 11/29/16 06:37 Lactulose (Cephulac) 20 gm TIDPRN PRN ORAL AGITATION/CONSTIPATION 11/28/16 18:00 12/26/16 17:59 11/30/16 10:42 Metoprolol Tartrate (Lopressor) 100 mg Q12HR ORAL 11/29/16 09:00 12/29/16 08:59 11/30/16 20:28 Morphine Sulfate (Morphine Sulfate) 2 mg Q4H PRN IVP severe Pain (Pain Scale 7-10) 11/29/16 16:00 12/06/16 15:59 Nitroglycerin (Ntg) 0.4 mg Every 5 Minutes PRN SL Prn Chest Pain 11/28/16 16:30 12/26/16 17:59 Ondansetron HCl (Zofran) 4 mg Q6H PRN IVP Nausea & Vomiting 11/28/16 18:00 12/26/16 17:59 Pantoprazole (Protonix) 40 mg DAILY ORAL 11/29/16 09:00 12/27/16 08:59 11/30/16 10:42 Polyethylene Glycol (Miralax) 17 gm DAILYPRN PRN ORAL Constipation 11/28/16 18:00 12/26/16 17:59 11/30/16 10:42 Sodium Chloride 1,000 ml @ 50 mls/hr Q20H IV 11/28/16 17:30 12/27/16 17:29 11/30/16 10:43 Temazepam (Restoril) 15 mg HSPRN PRN ORAL Insomnia 11/28/16 18:00 12/03/16 17:59 11/30/16 20:31 Trazodone HCl (Desyrel) 25 mg HSPRN PRN ORAL Unrelieved Insomnia 11/28/16 18:00 12/26/16 17:59 ABIEL HERR Nov 30, 2016 22:39
--- NOTE | 2016-11-30 23:47 | Cardiology Progress Note ---
Assessment/Plan Assessment/Plan 1. Possible non-ST elevation myocardial infarction with trop I trending down, no wall motion abnormalities on the echocardiogram, refusing heart cath at this time. Will discuss again with him regarding transferring to [facility] for heart cath. 2. History of diabetes mellitus. 3. History of coronary artery disease, status post myocardial infarction in the past, the details of which is unknown. 4. History of hypertension.a Subjective Subjective Sinus rhythm at 66. Denies chest pain or SOB. Objective Last 24 Hour Vital Signs Date Time Temp Pulse Resp B/P (MAP) Pulse Ox O2 Delivery O2 Flow Rate FiO2 11/30/16 21:18 99 2.0 28 11/30/16 21:18 66 18 Nasal Cannula 2.0 11/30/16 21:18 Nasal Cannula 2.0 28 11/30/16 20:28 71 116/66 11/30/16 20:00 68 11/30/16 20:00 97.3 71 18 116/66 96 Nasal Cannula 2.0 28 11/30/16 16:00 66 11/30/16 15:57 98.1 67 18 117/64 99 Nasal Cannula 2.0 11/30/16 12:10 97.3 75 20 118/70 98 Nasal Cannula 2.0 11/30/16 12:00 63 11/30/16 10:41 69 97/58 11/30/16 09:00 67 11/30/16 08:48 97.3 69 18 97/58 97 Nasal Cannula 2.0 11/30/16 08:25 71 18 Nasal Cannula 2.0 11/30/16 08:24 Nasal Cannula 2.0 28 11/30/16 08:23 100 Nasal Cannula 2.0 28 11/30/16 08:00 97.3 69 18 97/58 97 Nasal Cannula 2.0 11/30/16 04:29 97.0 80 20 111/64 94 Room Air 11/30/16 04:00 67 11/30/16 00:28 98.0 78 20 100/58 98 Room Air 11/30/16 00:00 70 Intake and Output 11/30/16 12/01/16 19:00 07:00 Intake Total 410 ml 1350 ml Output Total 150 ml 1360 ml Balance 260 ml -10 ml Intake Oral 360 ml 550 ml IV Total 50 ml 200 ml Other 600 ml Output Urine Total 150 ml 1360 ml 2D Echo: LVEF 60-65%, Mild LAE, Grade II LVDD Laboratory Tests Test 11/30/16 07:25 White Blood Count 6.4 K/UL (4.8-10.8) Red Blood Count 3.85 M/UL (4.70-6.10) L Hemoglobin 10.2 G/DL (14.2-18.0) L Hematocrit 30.7 % (42.0-52.0) L Mean Corpuscular Volume 80 FL (80-99) Mean Corpuscular Hemoglobin 26.4 PG (27.0-31.0) L Mean Corpuscular Hemoglobin Concent 33.1 G/DL (32.0-36.0) Red Cell Distribution Width 12.5 % (11.6-14.8) Platelet Count 152 K/UL (150-450) Mean Platelet Volume 8.3 FL (6.5-10.1) Neutrophils (%) (Auto) 65.5 % (45.0-75.0) Lymphocytes (%) (Auto) 24.3 % (20.0-45.0) Monocytes (%) (Auto) 8.4 % (1.0-10.0) Eosinophils (%) (Auto) 1.0 % (0.0-3.0) Basophils (%) (Auto) 0.8 % (0.0-2.0) Sodium Level 134 MMOL/L (136-145) L Potassium Level 3.8 MMOL/L (3.5-5.1) Chloride Level 101 MMOL/L (98-107) Carbon Dioxide Level 23 MMOL/L (21-32) Anion Gap 10 mmol/L (5-15) Blood Urea Nitrogen 7 mg/dL (7-18) Creatinine 0.8 MG/DL (0.55-1.30) Estimat Glomerular Filtration Rate > 60 mL/min (>60) Glucose Level 157 MG/DL (74-106) H Calcium Level 8.7 MG/DL (8.5-10.1) Microbiology Date/Time Source Procedure Growth Status 11/28/16 04:00 Urine,Clean Catch Urine Culture - Final Mixed Urogenital Contaminants Complete Objective HEENT: Atraumatic and normocephalic. Anicteric. Pupils are equal, round, and reactive to light and accommodation. Extraocular muscles intact. NECK: JVP is less than 5 cm. No carotid bruit. Carotid upstroke is 2+ bilaterally. CARDIOVASCULAR: Normal S1 and S2. Tachycardic. No murmurs, gallops, or rubs. PMI is at 4th intercostal space at midclavicular line. LUNGS: Clear to auscultation bilaterally. ABDOMEN: Soft, nontender, and nondistended. No hepatosplenomegaly. Positive bowel sounds. 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 JESS WHITFIELD Nov 30, 2016 23:47
[2016-12-01] VITALS: BP 119/68
[2016-12-01 04:00] VITALS: BP 116/63
--- NOTE | 2016-12-01 04:30 | Consultation ---
DATE OF CONSULTATION: 11/30/2016 PSYCHOTHERAPY CONSULTATION AND PROGRESS NOTE TREATING ATTENDING PHYSICIAN: Ramirez Thorne D.O. CONSULTING PHYSICIAN: Ana oRque M.D. HISTORY OF PRESENT ILLNESS: The patient is a 66-year-old male. The patient is from [facility]. The patient was initially brought to the hospital for increased confusion, disorganization, elevated troponin, and NSTEMI. He had urinated on himself as well. The patient was admitted to the ICU. The patient was referred for psychotherapeutic services and for treatment for capacity to make medical decisions at this time because of his confusion. This clinician assessed this patient. The patient was able to state his name and his date of ; however, unable to state why he was brought into the hospital. He is very confused and disoriented, altered in his mental status. The patient did not know his symptoms. When told his symptoms, the patient was very forgetful and was unable to repeat back of any symptoms or recall any other symptoms after a period of time. The patient has been refusing some of his treatment, has very poor insight, and no understanding of his current condition or situation. The patient has no appreciation at this time for his diagnosis or any other treatment or medication given to him. The patient has poor insight and poor judgement at this time, very confused, disorganized in thought processes. At this time, the patient does not have the capacity to make medical decisions for himself. PAST MEDICAL HISTORY: History of hypertension, CHF, and diabetes. ALLERGIES: The patient is allergic to penicillin. SUBSTANCE ABUSE HISTORY: The patient denies history of alcohol, illicit substances, or smoking cigarettes. PSYCHIATRIC HISTORY: The patient at this time does not indicate that he has mental illness; however, he is confused at this time. SOCIAL HISTORY: The patient is a 66-year-old male patient from [facility], financially sustained through [employer]. MENTAL STATUS EXAMINATION: The patient is alert and oriented to person and place. Mood is anxious. Affect is congruent. Thought process disorganized. Thought content, confused. The patient has poor attention and concentration. Poor insight, judgment, and impulse control. There is no indication of suicidal or homicidal thoughts or ideation. There is no indication of auditory or visual hallucinations at this time. site interpreter was utilized as the patient is [place]ian-speaking primarily. DIAGNOSES: AXIS I Rule out generalized anxiety disorder, rule out neurocognitive disorder, Alzheimer type without behavioral disturbance. AXIS II Deferred. AXIS III Per History and Physical. PLAN: This clinician assessed this patient. Provided the patient with reality orientation and supportive psychotherapy. Continue with medication management and behavioral management. This clinician has reviewed the patient's chart and discussed the treatment with nursing staff. Ana Roque PsyD. DR: BRITTANY JOB#: [id number] CC:
[2016-12-01] MEDS: NovoLOG Insulin Flexpen SUBQ SCH ×4 (05:52→20:17)
[2016-12-01 07:21] LABS: BASOPHILS % (AUTO) 1.3 % (0.0-2.0); EOSINOPHILS % (AUTO) 2.7 % (0.0-3.0); LYMPHOCYTES % (AUTO) 21.4 % (20.0-45.0); MEAN CORPUSCULAR HEMOGLOBIN 26.2 PG (27.0-31.0); MEAN CORPUSCULAR HGB CONC 32.5 G/DL (32.0-36.0); MEAN CORPUSCULAR VOLUME 81 FL (80-99); NEUTROPHILS % (AUTO) 67.6 % (45.0-75.0); PLATELET COUNT 152 K/UL (150-450); RED BLOOD COUNT 3.64 M/UL (4.70-6.10); RED CELL DISTRIBUTION WIDTH 13.1 % (11.6-14.8); WHITE BLOOD COUNT 5.4 K/UL (4.8-10.8)
[2016-12-01 07:49] LABS: ANION GAP 9 mmol/L (5-15); CARBON DIOXIDE 26 MMOL/L (21-32); CHLORIDE 102 MMOL/L (98-107); CREATININE 0.7 MG/DL (0.55-1.30); GLOMERULAR FILTRATION RATE > 60 mL/min (>60); POTASSIUM 4.5 MMOL/L (3.5-5.1); SODIUM 137 MMOL/L (136-145)
[2016-12-01 08:00] VITALS: BP 103/60
[2016-12-01] MEDS: Aspirin Baby 81mg ORAL SCH (08:54)
[2016-12-01] MEDS: Enoxaparin 40mg Inj SUBQ SCH (08:55)
--- NOTE | 2016-12-01 11:39 | General Progress Note ---
Assessment/Plan Problem List: (1) NSTEMI (non-ST elevated myocardial infarction) ICD Codes: I21.4 - Non-ST elevation (NSTEMI) myocardial infarction SNOMED: 185813730 (2) CHF (congestive heart failure) ICD Codes: I50.9 - Heart failure, unspecified SNOMED: 87867152 (3) Anemia ICD Codes: D64.9 - Anemia, unspecified SNOMED: 303988635 (4) HTN (hypertension) ICD Codes: I10 - Essential (primary) hypertension SNOMED: 75899486 (5) Acute encephalopathy ICD Codes: G93.40 - Encephalopathy, unspecified SNOMED: 8357144 (6) Diabetes mellitus ICD Codes: E11.9 - Type 2 diabetes mellitus without complications SNOMED: 40962025 (7) Sepsis ICD Codes: A41.9 - Sepsis, unspecified organism SNOMED: 23991398 Status: stable, progressing, tolerating diet Assessment/Plan o2 pulm tx abx cardio f/u ot pt diet cbc bmp am dc plan snf if cardio clear Subjective Constitutional: Reports: weakness Allergies: Coded Allergies: PENICILLINS (Unverified Allergy, Unknown, 08/18/14) Uncoded Allergies: PENCI (Allergy, Severe, 11/26/16) All Systems: reviewed and negative except above Subjective o2nc sleepy Objective Last 24 Hour Vital Signs Date Time Temp Pulse Resp B/P (MAP) Pulse Ox O2 Delivery O2 Flow Rate FiO2 12/01/16 08:54 75 116/63 12/01/16 08:12 75 18 Nasal Cannula 2.0 12/01/16 08:12 Nasal Cannula 2.0 28 12/01/16 08:12 99 2.0 28 12/01/16 08:00 97.0 70 20 103/60 99 Nasal Cannula 2.0 12/01/16 04:00 97.0 71 18 116/63 100 Nasal Cannula 2.0 28 12/01/16 04:00 71 12/01/16 00:04 71 12/01/16 00:00 97.0 66 18 119/68 100 Nasal Cannula 2.0 28 11/30/16 21:18 99 2.0 28 11/30/16 21:18 66 18 Nasal Cannula 2.0 11/30/16 21:18 Nasal Cannula 2.0 28 11/30/16 20:28 71 116/66 11/30/16 20:00 68 11/30/16 20:00 97.3 71 18 116/66 96 Nasal Cannula 2.0 28 11/30/16 16:00 66 11/30/16 15:57 98.1 67 18 117/64 99 Nasal Cannula 2.0 11/30/16 12:10 97.3 75 20 118/70 98 Nasal Cannula 2.0 11/30/16 12:00 63 Laboratory Tests 12/01/16 06:00: White Blood Count 5.4, Red Blood Count 3.64L, Hemoglobin 9.5L, Hematocrit 29.4L , Mean Corpuscular Volume 81, Mean Corpuscular Hemoglobin 26.2L, Mean Corpuscular Hemoglobin Concent 32.5, Red Cell Distribution Width 13.1, Platelet Count 152, Mean Platelet Volume 8.0, Neutrophils (%) (Auto) 67.6, Lymphocytes (% ) (Auto) 21.4, Monocytes (%) (Auto) 7.0, Eosinophils (%) (Auto) 2.7, Basophils ( %) (Auto) 1.3, Sodium Level 137, Potassium Level 4.5, Chloride Level 102, Carbon Dioxide Level 26, Anion Gap 9, Blood Urea Nitrogen 6L, Creatinine 0.7, Estimat Glomerular Filtration Rate > 60, Glucose Level 123H, Calcium Level 9.0 Height (Feet): 5 Height (Inches): 6.00 Weight (Pounds): 137 General Appearance: lethargic EENT: normal ENT inspection Neck: normal alignment Cardiovascular: normal peripheral pulses, normal rate, regular rhythm Respiratory/Chest: chest wall non-tender, lungs clear, normal breath sounds Abdomen: normal bowel sounds, non tender, soft Extremities: normal inspection Edema: no edema noted Arm (L), no edema noted Arm (R), no edema noted Leg (L), no edema noted Leg (R), no edema noted Pedal (L), no edema noted Pedal (R), no edema noted Generalized Neurologic: responsive, motor weakness Skin: normal pigmentation, warm/dry PHILIPPE MONTEIRO Dec 01, 2016 11:39
[2016-12-01 12:00] VITALS: BP 133/68
[2016-12-01 16:00] VITALS: BP 135/64
--- NOTE | 2016-12-01 16:35 | Pulmonology Progress Note ---
Assessment/Plan Problems: (1) Hyponatremia (2) NSTEMI (non-ST elevated myocardial infarction) (3) Diabetes (4) Anemia Assessment/Plan troponin trending down improving sliding scale wants to go back to detention dvt prophylaxis all notes and meds reviewed. refusing cardiac cath. f/u cardiac recommendations Subjective ROS Limited/Unobtainable: No Constitutional: Reports: no symptoms HEENT: Repors: no symptoms Respiratory: Reports: no symptoms Allergies: Coded Allergies: PENICILLINS (Unverified Allergy, Unknown, 08/18/14) Uncoded Allergies: PENCI (Allergy, Severe, 11/26/16) Objective Last 24 Hour Vital Signs Date Time Temp Pulse Resp B/P (MAP) Pulse Ox O2 Delivery O2 Flow Rate FiO2 12/01/16 16:00 97.0 75 18 135/64 100 Nasal Cannula 2.0 12/01/16 12:00 97.0 77 18 133/68 99 Nasal Cannula 2.0 12/01/16 12:00 74 12/01/16 08:54 75 116/63 12/01/16 08:12 75 18 Nasal Cannula 2.0 12/01/16 08:12 Nasal Cannula 2.0 28 12/01/16 08:12 99 2.0 28 12/01/16 08:00 97.0 70 20 103/60 99 Nasal Cannula 2.0 12/01/16 08:00 71 12/01/16 04:00 97.0 71 18 116/63 100 Nasal Cannula 2.0 28 12/01/16 04:00 71 12/01/16 00:04 71 12/01/16 00:00 97.0 66 18 119/68 100 Nasal Cannula 2.0 28 11/30/16 21:18 99 2.0 28 11/30/16 21:18 66 18 Nasal Cannula 2.0 11/30/16 21:18 Nasal Cannula 2.0 28 11/30/16 20:28 71 116/66 11/30/16 20:00 68 11/30/16 20:00 97.3 71 18 116/66 96 Nasal Cannula 2.0 28 Objective no new complains General Appearance: WD/WN HEENT: normocephalic, atraumatic, anicteric Respiratory/Chest: chest wall non-tender, lungs clear Cardiovascular: normal peripheral pulses, normal rate Abdomen: normal bowel sounds, no organomegaly Genitourinary: normal external genitalia Skin: no lesions Neurologic/Psychiatric: shoer II-XII grossly normal Laboratory Tests 12/01/16 06:00: White Blood Count 5.4, Red Blood Count 3.64L, Hemoglobin 9.5L, Hematocrit 29.4L , Mean Corpuscular Volume 81, Mean Corpuscular Hemoglobin 26.2L, Mean Corpuscular Hemoglobin Concent 32.5, Red Cell Distribution Width 13.1, Platelet Count 152, Mean Platelet Volume 8.0, Neutrophils (%) (Auto) 67.6, Lymphocytes (% ) (Auto) 21.4, Monocytes (%) (Auto) 7.0, Eosinophils (%) (Auto) 2.7, Basophils ( %) (Auto) 1.3, Sodium Level 137, Potassium Level 4.5, Chloride Level 102, Carbon Dioxide Level 26, Anion Gap 9, Blood Urea Nitrogen 6L, Creatinine 0.7, Estimat Glomerular Filtration Rate > 60, Glucose Level 123H, Calcium Level 9.0 Current Medications Medications (Trade) Dose Ordered Sig/Marsha Route PRN Reason Start Time Stop Time Status Last Admin Dose Admin Acetaminophen (Tylenol) 650 mg Q4H PRN ORAL FEVER 11/28/16 18:00 12/26/16 17:59 Albuterol/ Ipratropium (DuoNeb 0.5-3(2.5)mg/3ml) 3 ml Q4H PRN HHN Shortness of Breath 11/28/16 17:00 12/01/16 16:59 Aspirin (ASA) 81 mg DAILY ORAL 11/29/16 09:00 12/27/16 08:59 12/01/16 08:54 Clopidogrel Bisulfate (Plavix) 75 mg DAILY ORAL 11/29/16 09:00 12/27/16 08:59 12/01/16 08:54 Dextrose (Dextrose 50%) STAT PRN IV Hypoglycemia 11/28/16 18:00 12/26/16 17:59 Diltiazem HCl (Cardizem) 10 mg Q1H PRN IV HR > 120 11/28/16 17:00 12/26/16 17:59 Enalaprilat (Vasotec) 2.5 mg Q6H PRN IV sbp more than 160 11/28/16 17:00 12/26/16 16:59 Enoxaparin Sodium (Lovenox) 40 mg DAILY SUBQ 11/29/16 09:00 12/29/16 08:59 12/01/16 08:55 Gabapentin (Neurontin) 100 mg DAILY ORAL 11/29/16 09:00 12/27/16 08:59 12/01/16 08:54 Insulin Aspart (NovoLOG) BEFORE MEALS AND HS SUBQ 11/28/16 21:00 12/26/16 20:59 12/01/16 12:18 Lactulose (Cephulac) 20 gm TIDPRN PRN ORAL AGITATION/CONSTIPATION 11/28/16 18:00 12/26/16 17:59 11/30/16 10:42 Metoprolol Tartrate (Lopressor) 100 mg Q12HR ORAL 11/29/16 09:00 12/29/16 08:59 12/01/16 08:54 Morphine Sulfate (Morphine Sulfate) 2 mg Q4H PRN IVP severe Pain (Pain Scale 7-10) 11/29/16 16:00 12/06/16 15:59 Nitroglycerin (Ntg) 0.4 mg Every 5 Minutes PRN SL Prn Chest Pain 11/28/16 16:30 12/26/16 17:59 Ondansetron HCl (Zofran) 4 mg Q6H PRN IVP Nausea & Vomiting 11/28/16 18:00 12/26/16 17:59 Pantoprazole (Protonix) 40 mg DAILY ORAL 11/29/16 09:00 12/27/16 08:59 12/01/16 08:54 Polyethylene Glycol (Miralax) 17 gm DAILYPRN PRN ORAL Constipation 11/28/16 18:00 12/26/16 17:59 11/30/16 10:42 Sodium Chloride 1,000 ml @ 50 mls/hr Q20H IV 11/28/16 17:30 12/27/16 17:29 12/01/16 05:03 Temazepam (Restoril) 15 mg HSPRN PRN ORAL Insomnia 11/28/16 18:00 12/03/16 17:59 11/30/16 20:31 Trazodone HCl (Desyrel) 25 mg HSPRN PRN ORAL Unrelieved Insomnia 11/28/16 18:00 12/26/16 17:59 CHARLOTTE DAVISON 21, 2017 16:35
[2016-12-01 20:00] VITALS: BP 135/82
--- NOTE | 2016-12-01 20:36 | Nephrology Progress Note ---
Assessment/Plan Assessment 1. Hypovolemic hyponatremia. 2. Non-anion gap acidosis. 3. Non-ST elevation myocardial infarction. 4. Proteinuria. 5. Hematuria. 6. Glucosuria. Plan plan to continue ns .9 mix all ivpb with ns replace electrolyte as need it avoid NSAID Subjective Constitutional: Reports: no symptoms HEENT: Reports: no symptoms Genitourinary: Reports: no symptoms Neurologic/Psychiatric: Reports: no symptoms Subjective alert and awake no complaints Objective Objective Last 24 Hour Vital Signs Date Time Temp Pulse Resp B/P (MAP) Pulse Ox O2 Delivery O2 Flow Rate FiO2 12/01/16 20:17 79 135/82 12/01/16 20:00 97.5 79 18 135/82 100 Nasal Cannula 2.0 28 12/01/16 16:00 97.0 75 18 135/64 100 Nasal Cannula 2.0 12/01/16 16:00 71 12/01/16 12:00 97.0 77 18 133/68 99 Nasal Cannula 2.0 12/01/16 12:00 74 12/01/16 08:54 75 116/63 12/01/16 08:12 75 18 Nasal Cannula 2.0 12/01/16 08:12 Nasal Cannula 2.0 28 12/01/16 08:12 99 2.0 28 12/01/16 08:00 97.0 70 20 103/60 99 Nasal Cannula 2.0 12/01/16 08:00 71 12/01/16 04:00 97.0 71 18 116/63 100 Nasal Cannula 2.0 28 12/01/16 04:00 71 12/01/16 00:04 71 12/01/16 00:00 97.0 66 18 119/68 100 Nasal Cannula 2.0 28 11/30/16 21:18 99 2.0 28 11/30/16 21:18 66 18 Nasal Cannula 2.0 11/30/16 21:18 Nasal Cannula 2.0 28 Laboratory Tests 12/01/16 06:00: White Blood Count 5.4, Red Blood Count 3.64L, Hemoglobin 9.5L, Hematocrit 29.4L , Mean Corpuscular Volume 81, Mean Corpuscular Hemoglobin 26.2L, Mean Corpuscular Hemoglobin Concent 32.5, Red Cell Distribution Width 13.1, Platelet Count 152, Mean Platelet Volume 8.0, Neutrophils (%) (Auto) 67.6, Lymphocytes (% ) (Auto) 21.4, Monocytes (%) (Auto) 7.0, Eosinophils (%) (Auto) 2.7, Basophils ( %) (Auto) 1.3, Sodium Level 137, Potassium Level 4.5, Chloride Level 102, Carbon Dioxide Level 26, Anion Gap 9, Blood Urea Nitrogen 6L, Creatinine 0.7, Estimat Glomerular Filtration Rate > 60, Glucose Level 123H, Calcium Level 9.0 Height (Feet): 5 Height (Inches): 6.00 Weight (Pounds): 137 Objective HEAD AND NECK: No JVP. No LAD. No thyromegaly. Extraocular movement intact. Pupils are reactive to light and accommodation. He has dry mucous membranes. LUNGS: Clear to auscultation. CARDIAC: Regular rate and rhythm. S1, S2. No murmur. No rub. ABDOMEN: Soft, nontender, and nondistended. EXTREMITIES: Bilateral BKA. No clubbing. No cyanosis. VERNON ANN Dec 01, 2016 20:36
--- NOTE | 2016-12-01 23:03 | Infectious Diseases Prog Note ---
Assessment/Plan Problems: (1) SIRS (systemic inflammatory response syndrome) Assessment & Plan: Does have pyuria. Resolved. Clinically appears stable. (2) Pyuria Assessment & Plan: UCx noted. No symptoms. Does not appear to be UTI. Monitor off antibiotics. (3) Diabetes mellitus (4) NSTEMI (non-ST elevated myocardial infarction) Subjective Allergies: Coded Allergies: PENICILLINS (Unverified Allergy, Unknown, 08/18/14) Uncoded Allergies: PENCI (Allergy, Severe, 11/26/16) Objective Vital Signs Last 24 Hour Vital Signs Date Time Temp Pulse Resp B/P (MAP) Pulse Ox O2 Delivery O2 Flow Rate FiO2 12/01/16 20:39 99 Room Air 12/01/16 20:39 Room Air 12/01/16 20:38 78 18 Room Air 12/01/16 20:17 79 135/82 12/01/16 20:00 97.5 79 18 135/82 100 Nasal Cannula 2.0 28 12/01/16 16:00 97.0 75 18 135/64 100 Nasal Cannula 2.0 12/01/16 16:00 71 12/01/16 12:00 97.0 77 18 133/68 99 Nasal Cannula 2.0 12/01/16 12:00 74 12/01/16 08:54 75 116/63 12/01/16 08:12 75 18 Nasal Cannula 2.0 12/01/16 08:12 Nasal Cannula 2.0 28 12/01/16 08:12 99 2.0 28 12/01/16 08:00 97.0 70 20 103/60 99 Nasal Cannula 2.0 12/01/16 08:00 71 12/01/16 04:00 97.0 71 18 116/63 100 Nasal Cannula 2.0 28 12/01/16 04:00 71 12/01/16 00:04 71 12/01/16 00:00 97.0 66 18 119/68 100 Nasal Cannula 2.0 28 Height (Feet): 5 Height (Inches): 6.00 Weight (Pounds): 137 Laboratory Tests Test 12/01/16 06:00 White Blood Count 5.4 K/UL (4.8-10.8) Red Blood Count 3.64 M/UL (4.70-6.10) L Hemoglobin 9.5 G/DL (14.2-18.0) L Hematocrit 29.4 % (42.0-52.0) L Mean Corpuscular Volume 81 FL (80-99) Mean Corpuscular Hemoglobin 26.2 PG (27.0-31.0) L Mean Corpuscular Hemoglobin Concent 32.5 G/DL (32.0-36.0) Red Cell Distribution Width 13.1 % (11.6-14.8) Platelet Count 152 K/UL (150-450) Mean Platelet Volume 8.0 FL (6.5-10.1) Neutrophils (%) (Auto) 67.6 % (45.0-75.0) Lymphocytes (%) (Auto) 21.4 % (20.0-45.0) Monocytes (%) (Auto) 7.0 % (1.0-10.0) Eosinophils (%) (Auto) 2.7 % (0.0-3.0) Basophils (%) (Auto) 1.3 % (0.0-2.0) Sodium Level 137 MMOL/L (136-145) Potassium Level 4.5 MMOL/L (3.5-5.1) Chloride Level 102 MMOL/L (98-107) Carbon Dioxide Level 26 MMOL/L (21-32) Anion Gap 9 mmol/L (5-15) Blood Urea Nitrogen 6 mg/dL (7-18) L Creatinine 0.7 MG/DL (0.55-1.30) Estimat Glomerular Filtration Rate > 60 mL/min (>60) Glucose Level 123 MG/DL (74-106) H Calcium Level 9.0 MG/DL (8.5-10.1) Current Medications Medications (Trade) Dose Ordered Sig/Marsha Route PRN Reason Start Time Stop Time Status Last Admin Dose Admin Acetaminophen (Tylenol) 650 mg Q4H PRN ORAL FEVER 11/28/16 18:00 12/26/16 17:59 Aspirin (ASA) 81 mg DAILY ORAL 11/29/16 09:00 12/27/16 08:59 12/01/16 08:54 Clopidogrel Bisulfate (Plavix) 75 mg DAILY ORAL 11/29/16 09:00 12/27/16 08:59 12/01/16 08:54 Dextrose (Dextrose 50%) STAT PRN IV Hypoglycemia 11/28/16 18:00 12/26/16 17:59 Diltiazem HCl (Cardizem) 10 mg Q1H PRN IV HR > 120 11/28/16 17:00 12/26/16 17:59 Enalaprilat (Vasotec) 2.5 mg Q6H PRN IV sbp more than 160 11/28/16 17:00 12/26/16 16:59 Enoxaparin Sodium (Lovenox) 40 mg DAILY SUBQ 11/29/16 09:00 12/29/16 08:59 12/01/16 08:55 Gabapentin (Neurontin) 100 mg DAILY ORAL 11/29/16 09:00 12/27/16 08:59 12/01/16 08:54 Insulin Aspart (NovoLOG) BEFORE MEALS AND HS SUBQ 11/28/16 21:00 12/26/16 20:59 12/01/16 12:18 Lactulose (Cephulac) 20 gm TIDPRN PRN ORAL AGITATION/CONSTIPATION 11/28/16 18:00 12/26/16 17:59 11/30/16 10:42 Metoprolol Tartrate (Lopressor) 100 mg Q12HR ORAL 11/29/16 09:00 12/29/16 08:59 12/01/16 20:17 Morphine Sulfate (Morphine Sulfate) 2 mg Q4H PRN IVP severe Pain (Pain Scale 7-10) 11/29/16 16:00 12/06/16 15:59 Nitroglycerin (Ntg) 0.4 mg Every 5 Minutes PRN SL Prn Chest Pain 11/28/16 16:30 12/26/16 17:59 Ondansetron HCl (Zofran) 4 mg Q6H PRN IVP Nausea & Vomiting 11/28/16 18:00 12/26/16 17:59 Pantoprazole (Protonix) 40 mg DAILY ORAL 11/29/16 09:00 12/27/16 08:59 12/01/16 08:54 Polyethylene Glycol (Miralax) 17 gm DAILYPRN PRN ORAL Constipation 11/28/16 18:00 12/26/16 17:59 11/30/16 10:42 Sodium Chloride 1,000 ml @ 50 mls/hr Q20H IV 11/28/16 17:30 12/27/16 17:29 12/01/16 05:03 Temazepam (Restoril) 15 mg HSPRN PRN ORAL Insomnia 11/28/16 18:00 12/03/16 17:59 12/01/16 20:17 Trazodone HCl (Desyrel) 25 mg HSPRN PRN ORAL Unrelieved Insomnia 11/28/16 18:00 12/26/16 17:59 ABIEL HERR Dec 01, 2016 23:03
[2016-12-02] VITALS: BP 131/69
[2016-12-02 04:00] VITALS: BP 129/68
[2016-12-02] MEDS: NovoLOG Insulin Flexpen SUBQ SCH ×4 (06:30→21:00)
[2016-12-02 07:43] LABS: BASOPHILS % (AUTO) 1.5 % (0.0-2.0); EOSINOPHILS % (AUTO) 2.6 % (0.0-3.0); LYMPHOCYTES % (AUTO) 22.2 % (20.0-45.0); MEAN CORPUSCULAR HEMOGLOBIN 26.2 PG (27.0-31.0); MEAN CORPUSCULAR HGB CONC 32.9 G/DL (32.0-36.0); MEAN CORPUSCULAR VOLUME 80 FL (80-99); MONOCYTES % (AUTO) 7.7 % (1.0-10.0); PLATELET COUNT 180 K/UL (150-450); RED BLOOD COUNT 3.99 M/UL (4.70-6.10); RED CELL DISTRIBUTION WIDTH 12.6 % (11.6-14.8)
[2016-12-02] MEDS: Aspirin Baby 81mg ORAL SCH (08:12)
[2016-12-02 08:14] LABS: ANION GAP 9 mmol/L (5-15); CALCIUM 9.4 MG/DL (8.5-10.1); CARBON DIOXIDE 28 MMOL/L (21-32); CHLORIDE 100 MMOL/L (98-107); CREATININE 0.8 MG/DL (0.55-1.30); GLOMERULAR FILTRATION RATE > 60 mL/min (>60); POTASSIUM 4.5 MMOL/L (3.5-5.1); SODIUM 137 MMOL/L (136-145)
[2016-12-02] MEDS: Enoxaparin 40mg Inj SUBQ SCH (08:15)
[2016-12-02 08:17] VITALS: BP 111/55
--- NOTE | 2016-12-02 09:59 | General Progress Note ---
Assessment/Plan Problem List: (1) NSTEMI (non-ST elevated myocardial infarction) ICD Codes: I21.4 - Non-ST elevation (NSTEMI) myocardial infarction SNOMED: 066232901 (2) CHF (congestive heart failure) ICD Codes: I50.9 - Heart failure, unspecified SNOMED: 48411752 (3) Anemia ICD Codes: D64.9 - Anemia, unspecified SNOMED: 808726658 (4) HTN (hypertension) ICD Codes: I10 - Essential (primary) hypertension SNOMED: 30809899 (5) Acute encephalopathy ICD Codes: G93.40 - Encephalopathy, unspecified SNOMED: 7773153 (6) Diabetes mellitus ICD Codes: E11.9 - Type 2 diabetes mellitus without complications SNOMED: 48960315 (7) Sepsis ICD Codes: A41.9 - Sepsis, unspecified organism SNOMED: 99661328 Status: stable Assessment/Plan o2 pulm tx abx cardio f/u ot pt diet cbc bmp am dc snf if cardio clear Subjective Constitutional: Reports: weakness Allergies: Coded Allergies: PENICILLINS (Unverified Allergy, Unknown, 08/18/14) Uncoded Allergies: PENCI (Allergy, Severe, 11/26/16) All Systems: reviewed and negative except above Subjective calm in bed Objective Last 24 Hour Vital Signs Date Time Temp Pulse Resp B/P (MAP) Pulse Ox O2 Delivery O2 Flow Rate FiO2 12/02/16 08:17 97.3 69 18 111/55 99 Room Air 12/02/16 08:12 70 124/67 12/02/16 07:51 99 Room Air 12/02/16 07:51 Room Air 12/02/16 07:50 74 18 Room Air 12/02/16 04:00 73 12/02/16 04:00 97.0 67 18 129/68 98 Room Air 2.0 28 12/02/16 00:00 97.5 71 18 131/69 98 Room Air 2.0 28 12/02/16 00:00 68 12/01/16 20:39 99 Room Air 12/01/16 20:39 Room Air 12/01/16 20:38 78 18 Room Air 12/01/16 20:17 79 135/82 12/01/16 20:00 97.5 79 18 135/82 100 Nasal Cannula 2.0 28 12/01/16 20:00 72 12/01/16 16:00 97.0 75 18 135/64 100 Nasal Cannula 2.0 12/01/16 16:00 71 12/01/16 12:00 97.0 77 18 133/68 99 Nasal Cannula 2.0 12/01/16 12:00 74 Intake and Output 12/02/16 12/03/16 19:00 07:00 Intake Total 120 ml Balance 120 ml Intake Oral 120 ml Laboratory Tests 12/02/16 06:45: White Blood Count 5.0, Red Blood Count 3.99L, Hemoglobin 10.5L, Hematocrit 31.8L , Mean Corpuscular Volume 80, Mean Corpuscular Hemoglobin 26.2L, Mean Corpuscular Hemoglobin Concent 32.9, Red Cell Distribution Width 12.6, Platelet Count 180, Mean Platelet Volume 8.0, Neutrophils (%) (Auto) 66.0, Lymphocytes (% ) (Auto) 22.2, Monocytes (%) (Auto) 7.7, Eosinophils (%) (Auto) 2.6, Basophils ( %) (Auto) 1.5, Sodium Level 137, Potassium Level 4.5, Chloride Level 100, Carbon Dioxide Level 28, Anion Gap 9, Blood Urea Nitrogen 5L, Creatinine 0.8, Estimat Glomerular Filtration Rate > 60, Glucose Level 142H, Calcium Level 9.4 Height (Feet): 5 Height (Inches): 6.00 Weight (Pounds): 136 General Appearance: alert EENT: normal ENT inspection Neck: normal alignment Cardiovascular: normal peripheral pulses, normal rate, regular rhythm Respiratory/Chest: chest wall non-tender, lungs clear, normal breath sounds Abdomen: normal bowel sounds, non tender, soft Extremities: normal inspection Edema: no edema noted Arm (L), no edema noted Arm (R), no edema noted Leg (L), no edema noted Leg (R), no edema noted Pedal (L), no edema noted Pedal (R), no edema noted Generalized Neurologic: motor weakness Skin: normal pigmentation, warm/dry PHILIPPE MONTEIRO Dec 02, 2016 09:59
--- NOTE | 2016-12-02 11:21 | Nephrology Progress Note ---
Assessment/Plan Assessment 1. Hypovolemic hyponatremia. 2. Non-anion gap acidosis. 3. Non-ST elevation myocardial infarction. 4. Proteinuria. 5. Hematuria. 6. Glucosuria. Plan plan to continue ns .9 mix all ivpb with ns replace electrolyte as need it avoid NSAID Subjective Constitutional: Reports: no symptoms HEENT: Reports: no symptoms Genitourinary: Reports: no symptoms Neurologic/Psychiatric: Reports: no symptoms Subjective alert and awake no complaints Objective Objective Last 24 Hour Vital Signs Date Time Temp Pulse Resp B/P (MAP) Pulse Ox O2 Delivery O2 Flow Rate FiO2 12/02/16 08:17 97.3 69 18 111/55 99 Room Air 12/02/16 08:12 70 124/67 12/02/16 07:51 99 Room Air 12/02/16 07:51 Room Air 12/02/16 07:50 74 18 Room Air 12/02/16 04:00 73 12/02/16 04:00 97.0 67 18 129/68 98 Room Air 2.0 28 12/02/16 00:00 97.5 71 18 131/69 98 Room Air 2.0 28 12/02/16 00:00 68 12/01/16 20:39 99 Room Air 12/01/16 20:39 Room Air 12/01/16 20:38 78 18 Room Air 12/01/16 20:17 79 135/82 12/01/16 20:00 97.5 79 18 135/82 100 Nasal Cannula 2.0 28 12/01/16 20:00 72 12/01/16 16:00 97.0 75 18 135/64 100 Nasal Cannula 2.0 12/01/16 16:00 71 12/01/16 12:00 97.0 77 18 133/68 99 Nasal Cannula 2.0 12/01/16 12:00 74 Intake and Output 12/02/16 12/03/16 19:00 07:00 Intake Total 120 ml Balance 120 ml Intake Oral 120 ml Laboratory Tests 12/02/16 06:45: White Blood Count 5.0, Red Blood Count 3.99L, Hemoglobin 10.5L, Hematocrit 31.8L , Mean Corpuscular Volume 80, Mean Corpuscular Hemoglobin 26.2L, Mean Corpuscular Hemoglobin Concent 32.9, Red Cell Distribution Width 12.6, Platelet Count 180, Mean Platelet Volume 8.0, Neutrophils (%) (Auto) 66.0, Lymphocytes (% ) (Auto) 22.2, Monocytes (%) (Auto) 7.7, Eosinophils (%) (Auto) 2.6, Basophils ( %) (Auto) 1.5, Sodium Level 137, Potassium Level 4.5, Chloride Level 100, Carbon Dioxide Level 28, Anion Gap 9, Blood Urea Nitrogen 5L, Creatinine 0.8, Estimat Glomerular Filtration Rate > 60, Glucose Level 142H, Calcium Level 9.4 Height (Feet): 5 Height (Inches): 6.00 Weight (Pounds): 136 Objective HEAD AND NECK: No JVP. No LAD. No thyromegaly. Extraocular movement intact. Pupils are reactive to light and accommodation. He has dry mucous membranes. LUNGS: Clear to auscultation. CARDIAC: Regular rate and rhythm. S1, S2. No murmur. No rub. ABDOMEN: Soft, nontender, and nondistended. EXTREMITIES: Bilateral BKA. No clubbing. No cyanosis. VERNON ANN Dec 02, 2016 11:21
[2016-12-02 11:43] VITALS: BP 136/75
[2016-12-02 15:58] VITALS: BP 133/66
--- NOTE | 2016-12-02 18:29 | Pulmonology Progress Note ---
Assessment/Plan Problems: (1) Hyponatremia (2) NSTEMI (non-ST elevated myocardial infarction) (3) Diabetes (4) Anemia Assessment/Plan troponin trending down improving sliding scale wants to go back to long term dvt prophylaxis all notes and meds reviewed. refusing cardiac cath. f/u cardiac recommendations Subjective ROS Limited/Unobtainable: Yes Constitutional: Reports: no symptoms HEENT: Repors: no symptoms Allergies: Coded Allergies: PENICILLINS (Unverified Allergy, Unknown, 08/18/14) Uncoded Allergies: PENCI (Allergy, Severe, 11/26/16) Objective Last 24 Hour Vital Signs Date Time Temp Pulse Resp B/P (MAP) Pulse Ox O2 Delivery O2 Flow Rate FiO2 12/02/16 15:58 97.9 70 18 133/66 99 Room Air 12/02/16 12:00 69 12/02/16 11:43 97.7 76 18 136/75 99 Room Air 12/02/16 08:17 97.3 69 18 111/55 99 Room Air 12/02/16 08:12 70 124/67 12/02/16 08:00 76 12/02/16 07:51 99 Room Air 12/02/16 07:51 Room Air 12/02/16 07:50 74 18 Room Air 12/02/16 04:00 73 12/02/16 04:00 97.0 67 18 129/68 98 Room Air 2.0 28 12/02/16 00:00 97.5 71 18 131/69 98 Room Air 2.0 28 12/02/16 00:00 68 12/01/16 20:39 99 Room Air 12/01/16 20:39 Room Air 12/01/16 20:38 78 18 Room Air 12/01/16 20:17 79 135/82 12/01/16 20:00 97.5 79 18 135/82 100 Nasal Cannula 2.0 28 12/01/16 20:00 72 Intake and Output 12/02/16 12/03/16 19:00 07:00 Intake Total 240 ml Output Total 1300 ml Balance -1060 ml Intake Oral 240 ml Output Urine Total 1300 ml Objective no new complains General Appearance: WD/WN HEENT: normocephalic, atraumatic Respiratory/Chest: chest wall non-tender, lungs clear Cardiovascular: normal peripheral pulses, normal rate Abdomen: normal bowel sounds, soft, non tender Genitourinary: normal external genitalia Skin: no rash, no ulcers Neurologic/Psychiatric: economic developer II-XII grossly normal, no motor/sensory deficits Laboratory Tests 12/02/16 06:45: White Blood Count 5.0, Red Blood Count 3.99L, Hemoglobin 10.5L, Hematocrit 31.8L , Mean Corpuscular Volume 80, Mean Corpuscular Hemoglobin 26.2L, Mean Corpuscular Hemoglobin Concent 32.9, Red Cell Distribution Width 12.6, Platelet Count 180, Mean Platelet Volume 8.0, Neutrophils (%) (Auto) 66.0, Lymphocytes (% ) (Auto) 22.2, Monocytes (%) (Auto) 7.7, Eosinophils (%) (Auto) 2.6, Basophils ( %) (Auto) 1.5, Sodium Level 137, Potassium Level 4.5, Chloride Level 100, Carbon Dioxide Level 28, Anion Gap 9, Blood Urea Nitrogen 5L, Creatinine 0.8, Estimat Glomerular Filtration Rate > 60, Glucose Level 142H, Calcium Level 9.4 Current Medications Medications (Trade) Dose Ordered Sig/Marsha Route PRN Reason Start Time Stop Time Status Last Admin Dose Admin Acetaminophen (Tylenol) 650 mg Q4H PRN ORAL FEVER 11/28/16 18:00 12/26/16 17:59 Aspirin (ASA) 81 mg DAILY ORAL 11/29/16 09:00 12/27/16 08:59 12/02/16 08:12 Clopidogrel Bisulfate (Plavix) 75 mg DAILY ORAL 11/29/16 09:00 12/27/16 08:59 12/02/16 08:12 Dextrose (Dextrose 50%) STAT PRN IV Hypoglycemia 11/28/16 18:00 12/26/16 17:59 Diltiazem HCl (Cardizem) 10 mg Q1H PRN IV HR > 120 11/28/16 17:00 12/26/16 17:59 Enalaprilat (Vasotec) 2.5 mg Q6H PRN IV sbp more than 160 11/28/16 17:00 12/26/16 16:59 Enoxaparin Sodium (Lovenox) 40 mg DAILY SUBQ 11/29/16 09:00 12/29/16 08:59 12/02/16 08:15 Gabapentin (Neurontin) 100 mg DAILY ORAL 11/29/16 09:00 12/27/16 08:59 12/02/16 08:12 Insulin Aspart (NovoLOG) BEFORE MEALS AND HS SUBQ 11/28/16 21:00 12/26/16 20:59 12/01/16 12:18 Lactulose (Cephulac) 20 gm TIDPRN PRN ORAL AGITATION/CONSTIPATION 11/28/16 18:00 12/26/16 17:59 11/30/16 10:42 Metoprolol Tartrate (Lopressor) 100 mg Q12HR ORAL 11/29/16 09:00 12/29/16 08:59 12/02/16 08:12 Morphine Sulfate (Morphine Sulfate) 2 mg Q4H PRN IVP severe Pain (Pain Scale 7-10) 11/29/16 16:00 12/06/16 15:59 Nitroglycerin (Ntg) 0.4 mg Every 5 Minutes PRN SL Prn Chest Pain 11/28/16 16:30 12/26/16 17:59 Ondansetron HCl (Zofran) 4 mg Q6H PRN IVP Nausea & Vomiting 11/28/16 18:00 12/26/16 17:59 Pantoprazole (Protonix) 40 mg DAILY ORAL 11/29/16 09:00 12/27/16 08:59 12/02/16 08:11 Polyethylene Glycol (Miralax) 17 gm DAILYPRN PRN ORAL Constipation 11/28/16 18:00 12/26/16 17:59 11/30/16 10:42 Sodium Chloride 1,000 ml @ 50 mls/hr Q20H IV 11/28/16 17:30 12/27/16 17:29 12/02/16 01:30 Temazepam (Restoril) 15 mg HSPRN PRN ORAL Insomnia 11/28/16 18:00 12/03/16 17:59 12/01/16 20:17 Trazodone HCl (Desyrel) 25 mg HSPRN PRN ORAL Unrelieved Insomnia 11/28/16 18:00 12/26/16 17:59 CHARLOTTE DAVISON Dec 02, 2016 18:29
[2016-12-02 20:00] VITALS: BP 148/75
--- NOTE | 2016-12-02 20:31 | Cardiology Progress Note ---
Assessment/Plan Assessment/Plan 1. Possible non-ST elevation myocardial infarction with trop I trending down, no wall motion abnormalities on the echocardiogram, refusing heart cath at this time. Trop I in am. Continue ASA, plavix and statins. 2. History of diabetes mellitus. 3. History of coronary artery disease, status post myocardial infarction in the past, the details of which is unknown. 4. History of hypertension. Subjective Subjective Sinus rhythm at 69. Denies chest pain or SOB. Objective Last 24 Hour Vital Signs Date Time Temp Pulse Resp B/P (MAP) Pulse Ox O2 Delivery O2 Flow Rate FiO2 12/02/16 16:00 68 12/02/16 15:58 97.9 70 18 133/66 99 Room Air 12/02/16 12:00 69 12/02/16 11:43 97.7 76 18 136/75 99 Room Air 12/02/16 08:17 97.3 69 18 111/55 99 Room Air 12/02/16 08:12 70 124/67 12/02/16 08:00 76 12/02/16 07:51 99 Room Air 12/02/16 07:51 Room Air 12/02/16 07:50 74 18 Room Air 12/02/16 04:00 73 12/02/16 04:00 97.0 67 18 129/68 98 Room Air 2.0 28 12/02/16 00:00 97.5 71 18 131/69 98 Room Air 2.0 28 12/02/16 00:00 68 12/01/16 20:39 99 Room Air 12/01/16 20:39 Room Air 12/01/16 20:38 78 18 Room Air Intake and Output 12/02/16 12/03/16 19:00 07:00 Intake Total 360 ml Output Total 1800 ml Balance -1440 ml Intake Oral 360 ml Output Urine Total 1800 ml 2D Echo: LVEF 60-65%, Mild LAE, Grade II LVDD Laboratory Tests Test 12/02/16 06:45 White Blood Count 5.0 K/UL (4.8-10.8) Red Blood Count 3.99 M/UL (4.70-6.10) L Hemoglobin 10.5 G/DL (14.2-18.0) L Hematocrit 31.8 % (42.0-52.0) L Mean Corpuscular Volume 80 FL (80-99) Mean Corpuscular Hemoglobin 26.2 PG (27.0-31.0) L Mean Corpuscular Hemoglobin Concent 32.9 G/DL (32.0-36.0) Red Cell Distribution Width 12.6 % (11.6-14.8) Platelet Count 180 K/UL (150-450) Mean Platelet Volume 8.0 FL (6.5-10.1) Neutrophils (%) (Auto) 66.0 % (45.0-75.0) Lymphocytes (%) (Auto) 22.2 % (20.0-45.0) Monocytes (%) (Auto) 7.7 % (1.0-10.0) Eosinophils (%) (Auto) 2.6 % (0.0-3.0) Basophils (%) (Auto) 1.5 % (0.0-2.0) Sodium Level 137 MMOL/L (136-145) Potassium Level 4.5 MMOL/L (3.5-5.1) Chloride Level 100 MMOL/L (98-107) Carbon Dioxide Level 28 MMOL/L (21-32) Anion Gap 9 mmol/L (5-15) Blood Urea Nitrogen 5 mg/dL (7-18) L Creatinine 0.8 MG/DL (0.55-1.30) Estimat Glomerular Filtration Rate > 60 mL/min (>60) Glucose Level 142 MG/DL (74-106) H Calcium Level 9.4 MG/DL (8.5-10.1) Objective HEENT: Atraumatic and normocephalic. Anicteric. Pupils are equal, round, and reactive to light and accommodation. Extraocular muscles intact. NECK: JVP is less than 5 cm. No carotid bruit. Carotid upstroke is 2+ bilaterally. CARDIOVASCULAR: Normal S1 and S2. Tachycardic. No murmurs, gallops, or rubs. PMI is at 4th intercostal space at midclavicular line. LUNGS: Clear to auscultation bilaterally. ABDOMEN: Soft, nontender, and nondistended. No hepatosplenomegaly. Positive bowel sounds. 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 JESS WHITFIELD Dec 02, 2016 20:31
[2016-12-03] VITALS: BP 116/61
[2016-12-03 04:00] VITALS: BP 111/65
[2016-12-03] MEDS: NovoLOG Insulin Flexpen SUBQ SCH ×2 (06:29→11:30)
[2016-12-03 08:12] LABS: BASOPHILS % (AUTO) 0.9 % (0.0-2.0); LYMPHOCYTES % (AUTO) 21.5 % (20.0-45.0); MEAN CORPUSCULAR HEMOGLOBIN 26.3 PG (27.0-31.0); MEAN CORPUSCULAR HGB CONC 32.8 G/DL (32.0-36.0); MEAN CORPUSCULAR VOLUME 80 FL (80-99); MEAN PLATELET VOLUME 7.2 FL (6.5-10.1); MONOCYTES % (AUTO) 7.3 % (1.0-10.0); NEUTROPHILS % (AUTO) 68.3 % (45.0-75.0); PLATELET COUNT 181 K/UL (150-450); WHITE BLOOD COUNT 4.3 K/UL (4.8-10.8)
[2016-12-03 08:36] VITALS: BP 100/61
[2016-12-03] MEDS: Aspirin Baby 81mg ORAL SCH (09:08)
[2016-12-03] MEDS: Enoxaparin 40mg Inj SUBQ SCH (09:09)
[2016-12-03 09:20] LABS: ANION GAP 13 mmol/L (5-15); CALCIUM 8.4 MG/DL (8.5-10.1); CARBON DIOXIDE 24 MMOL/L (21-32); CHLORIDE 101 MMOL/L (98-107); CREATININE 0.6 MG/DL (0.55-1.30); GLOMERULAR FILTRATION RATE > 60 mL/min (>60); POTASSIUM 3.9 MMOL/L (3.5-5.1); SODIUM 138 MMOL/L (136-145)
--- NOTE | 2016-12-03 10:31 | Consultation ---
DATE OF CONSULTATION: 12/01/2016 NOTE: POOR AUDIO QUALITY HISTORY OF PRESENT ILLNESS: The patient confusion, altered mental status, disorganized thought process. SOCIAL HISTORY: Lives in the facility. Financially supported by [employer] and Medicare. SUBSTANCE ABUSE HISTORY: He denies any drug or alcohol use. MEDICAL HISTORY: Non-ST segment AR. MENTAL STATUS EXAMINATION: This is a 66-year-old . Mood is depressed. Affect guarded and restricted. Thought process is disorganized and illogical. pretty much . PLAN: to prevent any further decline in his cognition. Chart was reviewed and discussed with staff. Monica Packer M.D. DR: DIOGO JOB#: [id number] CC:
--- NOTE | 2016-12-03 10:31 | Consultation ---
DATE OF CONSULTATION: 12/01/2016 NOTE: POOR AUDIO QUALITY HISTORY OF PRESENT ILLNESS: The patient is a 66-year-old patient with non-ST segment elevation myocardial infarction. . The patient has confusion and disorganized thought process. . ALLERGIES: SOCIAL HISTORY: SUBSTANCE ABUSE HISTORY: Denies drug and alcohol use. MENTAL STATUS EXAMINATION: The patient is 66-year-old male with psychomotor retardation. Mood depressed. Affect guarded. Thought process, disorganized and illogical. Denies current suicidal or homicidal ideation. His insight and judgement is poor DIAGNOSES: Paranoid schizophrenia, acute exacerbation. PLAN: Treat this patient with . Monica Packer M.D. DR: DIOGO JOB#: [id number] CC:
[2016-12-03 12:12] VITALS: BP 133/73
--- NOTE | 2016-12-03 13:05 | Nephrology Progress Note ---
Assessment/Plan Assessment 1. Hypovolemic hyponatremia. 2. Non-anion gap acidosis. 3. Non-ST elevation myocardial infarction. 4. Proteinuria. 5. Hematuria. 6. Glucosuria. Plan plan to continue ns .9 mix all ivpb with ns replace electrolyte as need it avoid NSAID Subjective HEENT: Reports: no symptoms Genitourinary: Reports: no symptoms Neurologic/Psychiatric: Reports: no symptoms Subjective alert and awake no complaints Objective Objective Last 24 Hour Vital Signs Date Time Temp Pulse Resp B/P (MAP) Pulse Ox O2 Delivery O2 Flow Rate FiO2 12/03/16 12:12 97.7 89 18 133/73 96 Room Air 12/03/16 09:00 83 100/61 12/03/16 08:36 98.1 83 18 100/61 97 Room Air 12/03/16 08:00 84 12/03/16 06:55 Room Air 12/03/16 06:55 69 18 Room Air 12/03/16 06:55 Room Air 12/03/16 04:03 69 12/03/16 04:00 97.3 89 18 111/65 99 Room Air 12/03/16 00:11 64 12/03/16 00:00 98.2 71 19 116/61 99 Room Air 12/02/16 23:29 Room Air 12/02/16 23:29 70 18 Room Air 12/02/16 23:29 Room Air 12/02/16 20:10 69 12/02/16 20:00 97.7 70 19 148/75 97 Room Air 12/02/16 16:00 68 12/02/16 15:58 97.9 70 18 133/66 99 Room Air Laboratory Tests 12/03/16 08:00: White Blood Count 4.3L, Red Blood Count 3.70L, Hemoglobin 9.7L, Hematocrit 29.7L , Mean Corpuscular Volume 80, Mean Corpuscular Hemoglobin 26.3L, Mean Corpuscular Hemoglobin Concent 32.8, Red Cell Distribution Width 13.0, Platelet Count 181, Mean Platelet Volume 7.2, Neutrophils (%) (Auto) 68.3, Lymphocytes (% ) (Auto) 21.5, Monocytes (%) (Auto) 7.3, Eosinophils (%) (Auto) 2.0, Basophils ( %) (Auto) 0.9, Sodium Level 138, Potassium Level 3.9, Chloride Level 101, Carbon Dioxide Level 24, Anion Gap 13, Blood Urea Nitrogen 5L, Creatinine 0.6, Estimat Glomerular Filtration Rate > 60, Glucose Level 133H, Calcium Level 8.4L , Troponin I 0.203H Height (Feet): 5 Height (Inches): 6.00 Weight (Pounds): 135 Objective HEAD AND NECK: No JVP. No LAD. No thyromegaly. Extraocular movement intact. Pupils are reactive to light and accommodation. He has dry mucous membranes. LUNGS: Clear to auscultation. CARDIAC: Regular rate and rhythm. S1, S2. No murmur. No rub. ABDOMEN: Soft, nontender, and nondistended. EXTREMITIES: Bilateral BKA. No clubbing. No cyanosis. VERNON ANN Dec 03, 2016 13:05
--- NOTE | 2016-12-03 13:34 | General Progress Note ---
Assessment/Plan Problem List: (1) NSTEMI (non-ST elevated myocardial infarction) ICD Codes: I21.4 - Non-ST elevation (NSTEMI) myocardial infarction SNOMED: 954426791 (2) CHF (congestive heart failure) ICD Codes: I50.9 - Heart failure, unspecified SNOMED: 45760083 (3) Anemia ICD Codes: D64.9 - Anemia, unspecified SNOMED: 172350266 (4) HTN (hypertension) ICD Codes: I10 - Essential (primary) hypertension SNOMED: 83724344 (5) Acute encephalopathy ICD Codes: G93.40 - Encephalopathy, unspecified SNOMED: 3013506 (6) Diabetes mellitus ICD Codes: E11.9 - Type 2 diabetes mellitus without complications SNOMED: 96251998 (7) Sepsis ICD Codes: A41.9 - Sepsis, unspecified organism SNOMED: 55869622 Status: stable, progressing, tolerating diet Assessment/Plan o2 pulm tx abx cardio f/u ot pt diet cbc bmp am dc snf if cardio clear Subjective Constitutional: Reports: weakness Allergies: Coded Allergies: PENICILLINS (Unverified Allergy, Unknown, 08/18/14) Uncoded Allergies: PENCI (Allergy, Severe, 11/26/16) All Systems: reviewed and negative except above Subjective calm in bed Objective Last 24 Hour Vital Signs Date Time Temp Pulse Resp B/P (MAP) Pulse Ox O2 Delivery O2 Flow Rate FiO2 12/03/16 12:12 97.7 89 18 133/73 96 Room Air 12/03/16 09:00 83 100/61 12/03/16 08:36 98.1 83 18 100/61 97 Room Air 12/03/16 08:00 84 12/03/16 06:55 Room Air 12/03/16 06:55 69 18 Room Air 12/03/16 06:55 Room Air 12/03/16 04:03 69 12/03/16 04:00 97.3 89 18 111/65 99 Room Air 12/03/16 00:11 64 12/03/16 00:00 98.2 71 19 116/61 99 Room Air 12/02/16 23:29 Room Air 12/02/16 23:29 70 18 Room Air 12/02/16 23:29 Room Air 12/02/16 20:10 69 10/22/17 20:00 97.7 70 19 148/75 97 Room Air 12/02/16 16:00 68 12/02/16 15:58 97.9 70 18 133/66 99 Room Air Laboratory Tests 12/03/16 08:00: White Blood Count 4.3L, Red Blood Count 3.70L, Hemoglobin 9.7L, Hematocrit 29.7L , Mean Corpuscular Volume 80, Mean Corpuscular Hemoglobin 26.3L, Mean Corpuscular Hemoglobin Concent 32.8, Red Cell Distribution Width 13.0, Platelet Count 181, Mean Platelet Volume 7.2, Neutrophils (%) (Auto) 68.3, Lymphocytes (% ) (Auto) 21.5, Monocytes (%) (Auto) 7.3, Eosinophils (%) (Auto) 2.0, Basophils ( %) (Auto) 0.9, Sodium Level 138, Potassium Level 3.9, Chloride Level 101, Carbon Dioxide Level 24, Anion Gap 13, Blood Urea Nitrogen 5L, Creatinine 0.6, Estimat Glomerular Filtration Rate > 60, Glucose Level 133H, Calcium Level 8.4L , Troponin I 0.203H Height (Feet): 5 Height (Inches): 6.00 Weight (Pounds): 135 General Appearance: alert EENT: normal ENT inspection Neck: normal alignment Cardiovascular: normal peripheral pulses, normal rate, regular rhythm Respiratory/Chest: chest wall non-tender, lungs clear, normal breath sounds Abdomen: normal bowel sounds, non tender, soft Extremities: normal inspection Edema: no edema noted Arm (L), no edema noted Arm (R), no edema noted Leg (L), no edema noted Leg (R), no edema noted Pedal (L), no edema noted Pedal (R), no edema noted Generalized Neurologic: responsive, motor weakness Skin: normal pigmentation, warm/dry PHILIPPE MONTEIRO Dec 03, 2016 13:34
--- NOTE | 2016-12-03 18:15 | Pulmonology Progress Note ---
Assessment/Plan Problems: (1) Hyponatremia (2) NSTEMI (non-ST elevated myocardial infarction) (3) Diabetes (4) Anemia Assessment/Plan troponin trending down improving sliding scale wants to go back to half-way dvt prophylaxis all notes and meds reviewed. refusing cardiac cath. dc if ok with all Subjective ROS Limited/Unobtainable: No Constitutional: Reports: no symptoms HEENT: Repors: no symptoms Respiratory: Reports: no symptoms Allergies: Coded Allergies: PENICILLINS (Unverified Allergy, Unknown, 08/18/14) Uncoded Allergies: PENCI (Allergy, Severe, 11/26/16) Objective Last 24 Hour Vital Signs Date Time Temp Pulse Resp B/P (MAP) Pulse Ox O2 Delivery O2 Flow Rate FiO2 12/03/16 12:12 97.7 89 18 133/73 96 Room Air 12/03/16 09:00 83 100/61 12/03/16 08:36 98.1 83 18 100/61 97 Room Air 12/03/16 08:00 84 12/03/16 06:55 Room Air 12/03/16 06:55 69 18 Room Air 12/03/16 06:55 Room Air 12/03/16 04:03 69 12/03/16 04:00 97.3 89 18 111/65 99 Room Air 12/03/16 00:11 64 12/03/16 00:00 98.2 71 19 116/61 99 Room Air 12/02/16 23:29 Room Air 12/02/16 23:29 70 18 Room Air 12/02/16 23:29 Room Air 12/02/16 20:10 69 12/02/16 20:00 97.7 70 19 148/75 97 Room Air Objective no new complains General Appearance: no acute distress HEENT: normocephalic Respiratory/Chest: chest wall non-tender, lungs clear Cardiovascular: normal peripheral pulses, normal rate Abdomen: normal bowel sounds, soft, non tender Extremities: no cyanosis Skin: no rash Neurologic/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: customs agent II-XII grossly normal Laboratory Tests 12/03/16 08:00: White Blood Count 4.3L, Red Blood Count 3.70L, Hemoglobin 9.7L, Hematocrit 29.7L , Mean Corpuscular Volume 80, Mean Corpuscular Hemoglobin 26.3L, Mean Corpuscular Hemoglobin Concent 32.8, Red Cell Distribution Width 13.0, Platelet Count 181, Mean Platelet Volume 7.2, Neutrophils (%) (Auto) 68.3, Lymphocytes (% ) (Auto) 21.5, Monocytes (%) (Auto) 7.3, Eosinophils (%) (Auto) 2.0, Basophils ( %) (Auto) 0.9, Sodium Level 138, Potassium Level 3.9, Chloride Level 101, Carbon Dioxide Level 24, Anion Gap 13, Blood Urea Nitrogen 5L, Creatinine 0.6, Estimat Glomerular Filtration Rate > 60, Glucose Level 133H, Calcium Level 8.4L , Troponin I 0.203H CHARLOTTE DAVISON Dec 03, 2016 18:15
--- NOTE | 2016-12-03 23:17 | Cardiology Progress Note ---
Assessment/Plan Assessment/Plan 1. Possible non-ST elevation myocardial infarction with trop I trending down, no wall motion abnormalities on the echocardiogram, discussed with him again regarding the importance of cardiac catheterization, he is still refusing heart cath at this time. Continue ASA, plavix and statins. He can be released from the hospital to lower level of care. 2. History of diabetes mellitus. 3. History of coronary artery disease, status post myocardial infarction in the past, the details of which is unknown. 4. History of hypertension. Subjective Subjective Sinus rhythm at 89. Denies chest pain or SOB. Still refusing cardiac cath. Objective Last 24 Hour Vital Signs Date Time Temp Pulse Resp B/P (MAP) Pulse Ox O2 Delivery O2 Flow Rate FiO2 12/03/16 12:12 97.7 89 18 133/73 96 Room Air 12/03/16 09:00 83 100/61 12/03/16 08:36 98.1 83 18 100/61 97 Room Air 12/03/16 08:00 84 12/03/16 06:55 Room Air 12/03/16 06:55 69 18 Room Air 12/03/16 06:55 Room Air 12/03/16 04:03 69 12/03/16 04:00 97.3 89 18 111/65 99 Room Air 12/03/16 00:11 64 12/03/16 00:00 98.2 71 19 116/61 99 Room Air 12/02/16 23:29 Room Air 12/02/16 23:29 70 18 Room Air 12/02/16 23:29 Room Air 2D Echo: LVEF 60-65%, Mild LAE, Grade II LVDD Laboratory Tests Test 12/03/16 08:00 White Blood Count 4.3 K/UL (4.8-10.8) L Red Blood Count 3.70 M/UL (4.70-6.10) L Hemoglobin 9.7 G/DL (14.2-18.0) L Hematocrit 29.7 % (42.0-52.0) L Mean Corpuscular Volume 80 FL (80-99) Mean Corpuscular Hemoglobin 26.3 PG (27.0-31.0) L Mean Corpuscular Hemoglobin Concent 32.8 G/DL (32.0-36.0) Red Cell Distribution Width 13.0 % (11.6-14.8) Platelet Count 181 K/UL (150-450) Mean Platelet Volume 7.2 FL (6.5-10.1) Neutrophils (%) (Auto) 68.3 % (45.0-75.0) Lymphocytes (%) (Auto) 21.5 % (20.0-45.0) Monocytes (%) (Auto) 7.3 % (1.0-10.0) Eosinophils (%) (Auto) 2.0 % (0.0-3.0) Basophils (%) (Auto) 0.9 % (0.0-2.0) Sodium Level 138 MMOL/L (136-145) Potassium Level 3.9 MMOL/L (3.5-5.1) Chloride Level 101 MMOL/L (98-107) Carbon Dioxide Level 24 MMOL/L (21-32) Anion Gap 13 mmol/L (5-15) Blood Urea Nitrogen 5 mg/dL (7-18) L Creatinine 0.6 MG/DL (0.55-1.30) Estimat Glomerular Filtration Rate > 60 mL/min (>60) Glucose Level 133 MG/DL (74-106) H Calcium Level 8.4 MG/DL (8.5-10.1) L Troponin I 0.203 ng/mL (0.000-0.056) Objective HEENT: Atraumatic and normocephalic. Anicteric. Pupils are equal, round, and reactive to light and accommodation. Extraocular muscles intact. NECK: JVP is less than 5 cm. No carotid bruit. Carotid upstroke is 2+ bilaterally. CARDIOVASCULAR: Normal S1 and S2. Tachycardic. No murmurs, gallops, or rubs. PMI is at 4th intercostal space at midclavicular line. LUNGS: Clear to auscultation bilaterally. ABDOMEN: Soft, nontender, and nondistended. No hepatosplenomegaly. Positive bowel sounds. 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 JESS WHITFIELD Dec 03, 2016 23:17
--- NOTE | 2016-12-04 01:30 | Progress Note ---
DATE: 12/03/2016 SUBJECTIVE: A 66-year-old male patient with non-ST segment elevation LA. The patient still has some confusion and altered mental status, irritability, and . I am going to continue treatment with medications to prevent any decline in his cognition. Chart reviewed and discussed with staff. Monica Packer M.D. DR: Lg JOB#: [id number] CC:
[2016-12-04] MEDS ORDERED: PLAVIX75 MG ORAL (13:48)
--- NOTE | 2016-12-04 14:01 | Discharge Summary ---
Discharge Summary Hospital Course Date of Admission Nov 26, 2016 at 17:55 Date of Discharge Dec 03, 2016 at 16:45 Admitting Diagnosis N-STEMI,HYPONATREMIA HPI Chente Desai is a 66 year old male who was admitted on Nov 26, 2016 at 17:55 for Nstemi Hospital Course dc summary #[id number] Discharge Medications New Medications: Clopidogrel Bisulfate* (Plavix*) 75 Mg Tablet 75 MG ORAL DAILY, #30 TAB Continued Medications: Acetaminophen (Acetaminophen) 650 Mg/20.3 Ml Soln 650 MG ORAL Q4HR PRN for Prn Headache/Temp > 101, ML 0 Refills Albuterol Sulfate* (Albuterol Sulfate Hhn*) 2.5 Mg/3 Ml Vial.neb 3 ML INH Q2HR PRN for Shortness of Breath, EA Ascorbic Acid* (Vitamin C*) 250 Mg Tablet 250 MG ORAL TWICE A DAY, #60 TAB 0 Refills Aspirin (Aspirin) 81 Mg Tab.chew 81 MG PO DAILY, TAB Atorvastatin Calcium* (Atorvastatin Calcium*) 40 Mg Tablet 40 MG ORAL BEDTIME, TAB Carvedilol* (Carvedilol*) 3.125 Mg Tablet 3.125 MG ORAL BID, TAB Donepezil Hcl* (Donepezil Hcl*) 5 Mg Tablet 5 MG ORAL QHS, TAB Gabapentin* (Gabapentin*) 100 Mg Capsule 100 MG ORAL DAILY, CAP Hydrocodone Bit/Acetaminophen 5-325* ([place] 5-325 Tablet*) 1 Each Tablet 1 TAB ORAL Q6HR PRN for Severe Pain (Pain Scale 7-10), TAB Insulin Aspart* (Novolog*) 100 Unit/1 Ml Insuln.pen 0 SUBQ BEFORE MEALS AND HS, #1 EA 0 Refills Lactulose (Lactulose*) 20 Gm/30 Ml Solution 30 ML ORAL TID PRN for PRN, ML 0 Refills Ondansetron* (Zofran*) 4 Mg/2 Ml Vial 4 MG IV Q6H PRN for Nausea & Vomiting, VIAL Pantoprazole (Pantoprazole) 20 Mg Tablet.dr 40 MG ORAL DAILY, #10 TAB 0 Refills Polyethylene Glycol 3350* (Polyethylene Glycol 3350*) 17 Gm Powd.pack 17 GM ORAL DAILY PRN for Constipation, PACKET Temazepam (Temazepam*) 15 Mg Capsule 15 MG ORAL BEDTIME PRN for Insomnia, #30 CAP 0 Refills Trazodone Hcl* (Desyrel*) 50 Mg Tablet 25 MG ORAL QHS PRN for Insomnia, TAB Discharge Discharge Disposition Patient was discharged to SNF/Subacute Facility(03) Discharge Diagnoses: Discharge Instructions Discharge Instructions Special Instructions I have been assigned to complete a D/C Summary on this account. I was not involved in the patient management Blaire Patricio NP (Vanchtein) Dec 04, 2016 14:01
--- NOTE | 2016-12-05 03:15 | Discharge Summary 2 SIG ---
DATE OF ADMISSION: 11/26/2016 DATE OF DISCHARGE: 12/03/2016 REASON FOR ADMISSION: 66-year-old male, resident of a nursing home facility with past medical history of COPD, diabetes, coronary artery disease with history of myocardial infarction, hypertension, and old CVA, presented from nursing home facility for evaluation. According to the nursing staff, the patient appeared to be more confused than usual. The patient by himself did not have any complaints and was unable to give any information. Vital signs were stable. Pulse oximetry was stable. Troponin noted to be elevated - 26.060. Lactic acid - 1.8. EKG revealed normal sinus rhythm, no ST changes, but Q-waves in V1 and V2. Chest x-ray revealed no acute cardiopulmonary pathology. 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 The patient recently had a myocardial infarction. He also was found to be profoundly hyponatremic, sodium -108, WBC -17.5, and stable hemoglobin and hematocrit. Electrolytes, low chloride- 78, CO2 -20, BUN -18, and creatinine- 1.0. Glucose 262. Urinalysis with 5-10 RBC, +2 occult blood, +1 protein, and +3 glucose. The patient was admitted for further management. HOSPITAL COURSE: The patient was admitted to telemetry floor. Cardiology, Nephrology, Infectious Disease, and Pulmonary doctor consults was requested along with psychiatric consultation. Serial troponin were monitored. Troponin trending down from initial 26 down to 20, then 15, 11, 7, 5, and the last -0.203. Pan Pusher closely followed. The patient was in need to be transferred for cardiac catheterization. The patient declined transfer. The patient was counseled few times on the importance and need for cardiac catheterization, however, the patient continued to deny transfer. The patient was placed on aspirin, Plavix, and Lovenox along with statin and beta-beverly. Lipid panel was stable. TSH was stable. According to nascar pit crew person, the patient possibly had a non-ST elevated myocardial infarction, troponin was trending down. Echocardiogram revealed no wall motion abnormality and showed preserved ejection fraction of 60% to 65%. Cardiology discussed with the patient several times regarding the importance of cardiac catheterization, however, the patient continued to refuse heart catheterization at this time. As mentioned above, the patient was on aspirin, Plavix, beta-beverly, and statin. Pan Pusher cleared the patient for discharge to lower level of care. Blood sugar was managed with sliding scale of insulin and was stable. Blood pressure was managed with beta-beverly and was stable. Supplemental oxygen provided as needed to keep saturation above 92%. Pulmonary toilet provided as needed. ID followed due to the initial leukocytosis. Blood culture were negative. Urine culture revealed mixed urogenital contaminants. The patient off antibiotics. Leukocytosis resolved next day. No fever. Urinalysis, with no evidence of UTI. Chest x-ray with no evidence of cardiopulmonary disease. Per ID doctor, the patient likely had SIRS. The patient had pyuria on urinalysis and urine culture showed mixed urogenital contaminant. Clinically, the patient appeared stable and not with UTI. The patient was monitored off antibiotics, remained stable. Housekeeping Attendant followed for acute hyponatremia. Per water plant maintenance mechanic, the patient had acute hypovolemic hyponatremia, treated with normal saline. Recommended mix all IV piggybacks with normal saline, and avoid nephrotoxics, especially nonsteroid anti-inflammatory drugs . Replace electrolytes as needed. Urine studies were done due to the proteinuria, glucosuria, hematuria, and non-anion gap acidosis. Sodium improved to normal 138. All electrolytes were stable. Housekeeping Attendant also recommended hold diuretic. TSH was within normal limits. The patient was noted to be anemic. Hemoglobin and hematocrit were closely monitored, no need for transfusion. Anemia workup as outpatient recommended. Psychiatrist seen and evaluated the patient, diagnosed him with acute exacerbation of paranoid schizophrenia. Acute encephalopathy on admission was likely secondary to acute hyponatremia as well as acute exacerbation of paranoid schizophrenia and was improving as the patient was getting clinically better. Sodium and chloride up to normal values. The patient was stable for discharge to nursing home facility. FINAL DIAGNOSES: 1. Acute toxic metabolic encephalopathy (likely due to acute hyponatremia and acute exacerbation of paranoid schizophrenia). 2. Elevated troponin. 3. Possible non-ST elevation myocardial infarction. 4. Diabetes mellitus. 5. Coronary artery disease with history of myocardial infarction. 6. Hypertension. 7. Paranoid schizophrenia, acute exacerbation. 8. Hypovolemic hyponatremia. 9. Non-anion gap acidosis. 10. Proteinuria. 11. Glucosuria. 12. Hematuria. 13. Anemia. DISCHARGE MEDICATIONS: See medication reconciliation list. DISCHARGE INSTRUCTIONS: The patient was discharged to nursing home facility. FOLLOWUP: Follow up with medical doctor at the facility. Ramirez Thorne D.O. I have been assigned to dictate discharge summary on this account and I was not involved in the patient's management. Blaire Patricio (Vanchtein) N.PSydney DR: ADEBAYO JOB#: [id number] CC: [email or web address]
== END 2016-12-03 16:45 | DRG 280 ==
LOC: EDBD 15:39 → EDBEDREQ 17:03 → EMR 17:51 → ICU 17:55 → 2E 11-28 16:35
DX: I21.4 Non-ST elevation (NSTEMI) myocardial infarction (principal); G92 Toxic encephalopathy; E87.2 Acidosis; E87.1 Hypo-osmolality and hyponatremia; I50.9 Heart failure, unspecified; R65.10 Systemic inflammatory response syndrome (SIRS) of non-infectious origin without acute organ dysfunction; J44.9 Chronic obstructive pulmonary disease, unspecified; F20.0 Paranoid schizophrenia; D64.9 Anemia, unspecified; E11.9 Type 2 diabetes mellitus without complications; Z89.512 Acquired absence of left leg below knee; Z89.611 Acquired absence of right leg above knee; I25.10 Atherosclerotic heart disease of native coronary artery without angina pectoris; I25.2 Old myocardial infarction; Z86.73 Personal history of transient ischemic attack (TIA), and cerebral infarction without residual deficits; Z88.0 Allergy status to penicillin; I73.9 Peripheral vascular disease, unspecified; R31.9 Hematuria, unspecified
CPT/HCPCS: 36415; 70450; 71010; 80048; 80053; 80061; 81003; 82043; 82044; 82248; 82550; 82553; 82570; 82962; 83605; 83880; 83930; 83935; 84300; 84443; 84484; 85025; 85610; 85730; 86140; 87040; 87081; 87086; 89050; 93005; 93306; 93970; 94664; 94760; J1815

== ENCOUNTER 2016-12-24 16:50 | Inpatient (IN) | payer MEDICARE, MEDICAID ==
[~2016-12-24] VITALS: Ht 175.3 cm; Wt 79.4 kg
[~2016-12-24 16:50] MED LIST changes: +DONEPEZIL HCL5 M2 ORAL; +FAMOTIDINE20 MG ORAL; +FUROSEMIDE20 M1 ORAL; +MIRALAX17 G2 ORAL; +PLAVIX75 MG ORAL; +POTASSIUM40 MEQ/11 PO; +VITAMIN C250 MG ORAL
[2016-12-24 16:55] VITALS: BP 134/77
--- NOTE | 2016-12-24 17:39 | Emergency Room Report ---
History of Present Illness General Chief Complaint: Abnormal Labs Source: Patient, Medical Record, EMS Present Illness HPI 58-year-old male coming from group home, history of heart failure, hypertension, chronic kidney disease, COPD, CAD, right BKA and left AKA, dementia, presenting with low sodium. Per group home charting, he had a sodium level of 118 that was received on 1113. Patient currently oriented to person and time. States that he is very nervous. However denying any abdominal pain chest pain or headache. Allergies: Coded Allergies: PENICILLINS (Unverified Allergy, Unknown, 08/18/14) Patient History Past Medical History: see triage record Past Surgical History: none Pertinent Family History: none Reviewed Nursing Documentation: PMH: Agreed, PSxH: Agreed Nursing Documentation-PMH Hx Cardiac Problems: Yes Hx COPD: Yes Hx Diabetes: Yes Hx Cancer: No Hx Gastrointestinal Problems: Yes Hx Neurological Problems: Yes - neuropathy, R BKA Hx Peripheral Neuropathy: Yes Review of Systems All Other Systems: negative except mentioned in HPI Physical Exam Vital Signs Date Time Temp Pulse Resp B/P (MAP) Pulse Ox O2 Delivery O2 Flow Rate FiO2 12/24/16 16:45 98.1 108 20 146/82 98 Room Air Sp02 EP Interpretation: reviewed, normal General Appearance: other - elderly male, appears nervous Head: normocephalic, atraumatic Eyes: bilateral eye normal inspection, bilateral eye PERRL, bilateral eye EOMI ENT: normal ENT inspection, normal pharynx, normal voice, moist mucus membranes Neck: normal inspection, full range of motion, supple Respiratory: normal inspection, lungs clear, normal breath sounds, no respiratory distress, no retraction, no wheezing, speaking full sentences, chest symmetrical Cardiovascular #1: normal inspection, regular rate, rhythm, no edema, normal capillary refill Cardiovascular #2: 2+ radial (R), 2+ radial (L) Gastrointestinal: normal inspection, non tender, soft, non-distended, no guarding Genitourinary: no CVA tenderness Musculoskeletal: other - R BKA, L aka, no tenderness Neurologic: other - oritned to person and place, moves all ext on command, EOMI , good motor strength Psychiatric: anxious Skin: normal inspection, normal color, no rash, warm/dry, well hydrated, normal turgor Procedures Critical Care Time Critical Care Time 40 minutes of CC time 66-year-old male sent in for hyponatremia, thought to be febrile and tachycardic VS: tachypneic tachycardic leukocytosis Sepsis criteria met PLAN: IV access, labs, lactate, Blood/Urine Cx, Abx Anticipate admission to Tele vs. ZO CC time also includes review of labs, review of EMR, discussion with family and paperwork from SNF, d/w hospitalist CC could include dosing of pressors, additional Abx CC time does not include procedures Medical Decision Making Diagnostic Impression: Primary Impression: Hyponatremia Additional Impression: Sepsis ER Course 58-year-old male brought in for hyponatremia DDX: Electrolyte disturbance, dehydration, hyponatremia, hypoglycemia Rule out infectious source UTI pneumonia Plan: Obtain labs, ua, EKG, CXR ER course: Patient has been monitored during ED stay, HD stable No seizure-like activity, has been awake and alert, anxious +hyponatremia at 115 +leukocytosis, tachy, tachypneic, sepsis criteria met w/ leukocytosis, unknown source - broad spectrum abx given Sepsis Re-examination Time: 6:30 PM VS: Temp 99.3 HR 114 BP 130/90 RR 20 CVS: Tachycardic, RRR Respiratory: Lungs clear bilaterally Peripheral pulses: 2+ radial Capillary refill: <2 seconds Skin exam: warm, dry, no rash, not mottled Disposition: Patient is to be admitted to telemetry unit D/W hospitalist Dr Philippe Monteiro who has accepted pt for admission Please note that this Emergency Department Report was dictated using [email or web address] display builder technology software, occasionally this can lead to erroneous entry secondary to interpretation by the dictation equipment. EKG Diagnostic Results EP Interpretation: Yes Rate: Tachycardic Rhythm: NSR ST Segments: T wave inversion in aVL ASA given to patient: no Rhythm Strip EP Interpretation: Yes Rate: 100 Rhythm: NSR, no PVCs, no ectopy Chest X-ray CXR: Ordered: Yes 1 view Indication: Chest pain EP interpretation: Yes Interpretation: No consolidation, no effusion, no PTX, no acute cardiopulmonary disease Impression: No acute disease Electronically signed by Bi Caldera MD Laboratory Tests Test 12/24/16 17:00 12/24/16 17:15 White Blood Count 14.8 K/UL (4.8-10.8) H Red Blood Count 4.54 M/UL (4.70-6.10) L Hemoglobin 11.2 G/DL (14.2-18.0) L Hematocrit 35.4 % (42.0-52.0) L Mean Corpuscular Volume 78 FL (80-99) L Mean Corpuscular Hemoglobin 24.6 PG (27.0-31.0) L Mean Corpuscular Hemoglobin Concent 31.6 G/DL (32.0-36.0) L Red Cell Distribution Width 12.0 % (11.6-14.8) Platelet Count 189 K/UL (150-450) Mean Platelet Volume 7.6 FL (6.5-10.1) Neutrophils (%) (Auto) % (45.0-75.0) Lymphocytes (%) (Auto) % (20.0-45.0) Monocytes (%) (Auto) % (1.0-10.0) Eosinophils (%) (Auto) % (0.0-3.0) Basophils (%) (Auto) % (0.0-2.0) Neutrophils % (Manual) Pending Lymphocytes % (Manual) Pending Platelet Estimate Pending Platelet Morphology Pending Sodium Level 115 MMOL/L (136-145) *L Potassium Level 4.4 MMOL/L (3.5-5.1) Chloride Level 81 MMOL/L (98-107) L Carbon Dioxide Level 25 MMOL/L (21-32) Anion Gap 9 mmol/L (5-15) Blood Urea Nitrogen 7 mg/dL (7-18) Creatinine 0.7 MG/DL (0.55-1.30) Estimate Glomerular Filtration Rate > 60 mL/min (>60) Glucose Level 163 MG/DL (74-106) H Calcium Level 9.2 MG/DL (8.5-10.1) Total Bilirubin 2.5 MG/DL (0.2-1.0) H Direct Bilirubin 0.3 MG/DL (0.0-0.3) Aspartate Amino Transferase (AST) 22 U/L (15-37) Alanine Aminotransferase (ALT) 19 U/L (12-78) Alkaline Phosphatase 86 U/L (46-116) Troponin I 0.018 ng/mL (0.000-0.056) Total Protein 7.9 G/DL (6.4-8.2) Albumin 4.0 G/DL (3.4-5.0) Globulin 3.9 g/dL Albumin/Globulin Ratio 1.0 (1.0-2.7) Urine Color Pale yellow Urine Appearance Clear Urine pH 7 (4.5-8.0) Urine Specific [place] 1.005 (1.005-1.035) Urine Protein 2+ (NEGATIVE) H Urine Glucose (UA) Negative (NEGATIVE) Urine Ketones 2+ (NEGATIVE) H Urine Occult Blood 1+ (NEGATIVE) H Urine Nitrite Negative (NEGATIVE) Urine Bilirubin Negative (NEGATIVE) Urine Urobilinogen Normal MG/DL (0.0-1.0) Urine Leukocyte Esterase 1+ (NEGATIVE) H Urine RBC 0-2 /HPF (0 - 0) H Urine WBC 2-4 /HPF (0 - 0) Urine Squamous Epithelial Cells None /LPF (NONE/OCC) Urine Amorphous Sediment Few /LPF (NONE) H Urine Bacteria Few /HPF (NONE) Lactic Acid Level 1.20 mmol/L (0.66-2.22) Last Vital Signs Date Time Temp Pulse Resp B/P (MAP) Pulse Ox O2 Delivery O2 Flow Rate FiO2 12/24/16 16:55 99.0 112 16 134/77 100 Room Air Disposition: ADMITTED INPATIENT Condition: Serious Referrals: PHILIPPE MONTEIRO (PCP) Bi Caldera M.D. Dec 24, 2016 17:39
[2016-12-24 17:41] LABS: MEAN CORPUSCULAR HEMOGLOBIN 24.6 PG (27.0-31.0); MEAN CORPUSCULAR HGB CONC 31.6 G/DL (32.0-36.0); MEAN CORPUSCULAR VOLUME 78 FL (80-99); MEAN PLATELET VOLUME 7.6 FL (6.5-10.1); PLATELET COUNT 189 K/UL (150-450); RED BLOOD COUNT 4.54 M/UL (4.70-6.10); WHITE BLOOD COUNT 14.8 K/UL (4.8-10.8)
[2016-12-24 17:52] LABS: ALANINE AMINOTRANSFERASE 19 U/L (12-78); ANION GAP 9 mmol/L (5-15); ASPARTATE AMINO TRANSFERASE 22 U/L (15-37); CALCIUM 9.2 MG/DL (8.5-10.1); CARBON DIOXIDE 25 MMOL/L (21-32); CHLORIDE 81 MMOL/L (98-107); CREATININE 0.7 MG/DL (0.55-1.30); GLOMERULAR FILTRATION RATE > 60 mL/min (>60); POTASSIUM 4.4 MMOL/L (3.5-5.1); TOTAL PROTEIN 7.9 G/DL (6.4-8.2)
[2016-12-24 17:53] LABS: APPEARANCE,URINE CLEAR; KETONES,URINE 2+ (NEGATIVE); LEUKOCYTE ESTERASE ,URINE 1+ (NEGATIVE); NITRITE,URINE NEGATIVE (NEGATIVE); PH,URINE 7 (4.5-8.0); PROTEIN,URINE 2+ (NEGATIVE); UROBILINOGEN,URINE NORMAL MG/DL (0.0-1.0)
[2016-12-24 17:58] LABS: SODIUM 115 MMOL/L (136-145)
[2016-12-24] MEDS ORDERED: Cefepime 2gm ONE (17:58)
[2016-12-24] MEDS ORDERED: Vancomycin 1.5gm/D5W 250ml 250 ML IVPB ONE (18:00)
[2016-12-24] MEDS ORDERED: Cefepime HCl 2 GM in D5W 55 ML IVPB ONE (18:00)
[2016-12-24 18:08] LABS: RBC,URINE 0-2 /HPF (0 - 0)
[2016-12-24 18:09] LABS: AMORPHOUS SEDIMENT,UR FEW /LPF; BACTERIA,URINE FEW /HPF
[2016-12-24 18:17] LABS: BILIRUBIN,DIRECT 0.3 MG/DL (0.0-0.3)
[2016-12-24] MEDS ORDERED: Miralax 17gm pkt ORAL PRN (18:45)
[2016-12-24] MEDS ORDERED: LORazepam Inj 2mg/ml 1ml IV PRN (18:45)
[2016-12-24] MEDS ORDERED: Mylanta II UD 30ml ORAL PRN (18:45)
[2016-12-24] MEDS ORDERED: Zolpidem 5mg tab ORAL PRN (18:45)
[2016-12-24] MEDS ORDERED: MELATONIN1 M2 PO (18:57)
[2016-12-24] MEDS ORDERED: dilTIAZem HCl 25mg/5ml Inj IV PRN (19:00)
[2016-12-24 19:01] VITALS: BP 149/104
[2016-12-24] MEDS ORDERED: PROSTATE PQ TA1 EACH PO (19:02)
[2016-12-24] MEDS ORDERED: NaCl 3% 500ml 500 ML IV ONE (19:15)
[2016-12-24] MEDS ORDERED: ACETAMINOPHEN325 M1 ORAL ×2 (19:16→19:17)
[2016-12-24 19:18] LABS: ANISOCYTOSIS 1+; BAND NEUTROPHILS % (MANUAL) 2 % (0-8); BASOPHILS % (MANUAL) 0 % (0-2); EOSINOPHILS % (MANUAL) 0 % (0-3); HYPOCHROMASIA 1+; LYMPHOCYTES % (MANUAL) 9 % (20-45); NEUTROPHILS % (MANUAL) 85 % (45-75); PLATELET ESTIMATE ADEQUATE; PLATELET MORPHOLOGY NORMAL; TOTAL CELLS COUNTED 100
[2016-12-24] MEDS ORDERED: NOVOLOG100 UNIT/3 SUBQ (19:20)
[2016-12-24] MEDS ORDERED: TraZODone HCl 25 mg tablet ORAL PRN (21:00)
[2016-12-24] MEDS: NovoLOG Insulin Flexpen SUBQ SCH (21:23)
[2016-12-24] MEDS: Heparin 5000 units/ml inj SUBQ SCH (21:24)
[2016-12-24 21:38] VITALS: BP 129/82
[2016-12-25] VITALS (7 sets, daily range): BP systolic 91–150; BP diastolic 52–80
[2016-12-25 06:38] LABS: MEAN CORPUSCULAR HEMOGLOBIN 27.1 PG (27.0-31.0); MEAN CORPUSCULAR HGB CONC 34.3 G/DL (32.0-36.0); MEAN CORPUSCULAR VOLUME 79 FL (80-99); MEAN PLATELET VOLUME 8.5 FL (6.5-10.1); PLATELET COUNT 176 K/UL (150-450); RED BLOOD COUNT 4.28 M/UL (4.70-6.10); RED CELL DISTRIBUTION WIDTH 12.3 % (11.6-14.8); WHITE BLOOD COUNT 12.1 K/UL (4.8-10.8)
[2016-12-25] MEDS: NovoLOG Insulin Flexpen SUBQ SCH ×4 (06:43→21:03)
[2016-12-25 07:31] LABS: ALANINE AMINOTRANSFERASE 20 U/L (12-78); ALBUMIN/GLOBULIN RATIO 0.9 (1.0-2.7); ANION GAP 12 mmol/L (5-15); ASPARTATE AMINO TRANSFERASE 20 U/L (15-37); CALCIUM 8.6 MG/DL (8.5-10.1); CARBON DIOXIDE 21 MMOL/L (21-32); CHLORIDE 85 MMOL/L (98-107); CHOLESTEROL 95 MG/DL (< 200); CHOLESTEROL/HDL RATIO 1.3 (3.3-4.4); CREATININE 0.7 MG/DL (0.55-1.30); GLOMERULAR FILTRATION RATE > 60 mL/min (>60); POTASSIUM 3.6 MMOL/L (3.5-5.1); TOTAL PROTEIN 7.5 G/DL (6.4-8.2)
[2016-12-25 07:34] LABS: SODIUM 118 MMOL/L (136-145)
[2016-12-25 07:36] LABS: BILIRUBIN,DIRECT 0.2 MG/DL (0.0-0.3)
[2016-12-25 08:07] LABS: ANISOCYTOSIS 1+; BAND NEUTROPHILS % (MANUAL) 0 % (0-8); BASOPHILS % (MANUAL) 0 % (0-2); EOSINOPHILS % (MANUAL) 0 % (0-3); HYPOCHROMASIA 1+; LYMPHOCYTES % (MANUAL) 9 % (20-45); MICROCYTES 1+; NEUTROPHILS % (MANUAL) 87 % (45-75); PLATELET ESTIMATE ADEQUATE; PLATELET MORPHOLOGY NORMAL; TOTAL CELLS COUNTED 100
--- NOTE | 2016-12-25 08:15 | General Progress Note ---
Progress Note Progress Note pt seen and examined discussed with nurse full note dictated VERNON ANN Dec 25, 2016 08:15
[2016-12-25 08:48] LABS: THYROID STIMULATING HORMONE 1.267 uiU/mL (0.360-3.740)
[2016-12-25] MEDS: Sodium Chloride 1gm Tab ORAL SCH ×3 (09:00→17:11)
[2016-12-25] MEDS: Heparin 5000 units/ml inj SUBQ SCH ×2 (09:02→21:03)
--- NOTE | 2016-12-25 10:21 | Diagnostic Imaging Report ---
Indication: PAIN Technique: One view of the chest Comparison: none Findings: Lungs and pleural spaces are clear. Heart size is normal. No significant interim change Impression: No acute process
--- NOTE | 2016-12-25 11:03 | Consultation ---
History of Present Illness General Date patient seen: Dec 24, 2016 Time patient seen: 18:00 Chief Complaint: Abnormal Labs Reason for Consultation: inpatient management Present Illness HPI 58-year-old male with PMHx of heart failure, hypertension, chronic kidney disease, COPD, CAD, right BKA and left AKA, dementia, half-way resident Daniel with CC of low sodium. Per half-way charting, he had a sodium level of 118. Patient currently oriented to person and time. He is admitted to telemetry for further treatment. Allergies: Coded Allergies: PENICILLINS (Unverified Allergy, Unknown, 08/18/14) Medication History Scheduled Ascorbic Acid* (Vitamin C*), 250 MG ORAL TWICE A DAY, (Reported) Aspirin (Aspirin), 81 MG PO DAILY, (Reported) Atorvastatin Calcium* (Atorvastatin Calcium*), 40 MG ORAL BEDTIME, (Reported) Carvedilol* (Carvedilol*), 3.125 MG ORAL BID, (Reported) Donepezil Hcl* (Donepezil Hcl*), 5 MG ORAL QHS, (Reported) Famotidine (Famotidine), 20 MG ORAL TWICE A DAY, (Reported) Furosemide* (Lasix*), 10 MG ORAL BID, (Reported) Gabapentin* (Gabapentin*), 100 MG ORAL DAILY, (Reported) Melatonin (Melatonin), 3 MG PO HS, (Reported) Scheduled PRN Acetaminophen* (Acetaminophen 325MG Tablet*), 650 MG ORAL Q4H PRN for Fever/ Headache/Mild Pain, (Reported) Albuterol Sulfate* (Albuterol Sulfate Hhn*), 3 ML INH Q6H PRN for Shortness of Breath, (Reported) Lactulose (Lactulose*), 30 ML ORAL TID PRN for PRN, (Reported) Miscellaneous Medications Insulin Aspart* (Novolog*), 0 SUBQ, (Reported) [place] Grass Extract/Quercetin (Prostate Pq Tablet), 1 EACH PO, (Reported) Discontinued Medications Cefepime Hcl (Maxipime), 2 GM IV Q12HR, (Reported) Discontinued Reason: Pt stopped taking med Clopidogrel Bisulfate* (Plavix*), 75 MG ORAL DAILY Discontinued Reason: Pt stopped taking med Diltiazem HCl (Diltiazem HCl), 10 MG IV Q1HR, (Reported) Discontinued Reason: Pt stopped taking med Furosemide In 0.9 % Nacl (Furosemide-0.9% Nacl 100MG/100), 20 MG IV Q8HR, ( Reported) Discontinued Reason: Pt stopped taking med Hydrocodone Bit/Acetaminophen 5-325* (Mason 5-325 Tablet*), 1 TAB ORAL Q6HR PRN for Severe Pain (Pain Scale 7-10), (Reported) Discontinued Reason: Pt stopped taking med Insulin Aspart (Novolog), 100 UNIT SQ QID, (Reported) Discontinued Reason: Pt stopped taking med Insulin Aspart* (Novolog*), 0 SUBQ, (Reported) Discontinued Reason: Pt stopped taking med Insulin Aspart* (Novolog*), 0 SUBQ BEFORE MEALS AND HS, (Reported) Discontinued Reason: Pt stopped taking med Insulin Detemir (Levemir Flexpen), 10 SUBQ DAILY, (Reported) Discontinued Reason: Pt stopped taking med Ipratropium/Albuterol Sulfate (DuoNeb 0.5-3(2.5)mg/3ml), 3 ML HHN Q4HR PRN for Shortness of Breath, (Reported) Discontinued Reason: Pt stopped taking med Levofloxacin-D5w 500 Mg/100 Ml* (Levofloxacin-D5w 500 Mg/100 Ml*), 500 MG IVPB Q24H, (Reported) Discontinued Reason: Pt stopped taking med Morphine Sulfate (Morphine Sulfate), 2 MG IV Q4HR PRN for Severe Pain (Pain Scale 7-10), (Reported) Discontinued Reason: Pt stopped taking med Multivitamin (Multivitamins), 1 CAP ORAL DAILY, (Reported) Discontinued Reason: Pt stopped taking med Nitroglycerin (Nitrostat), 0.4 MG SL Q5M X3 DOSES PRN for CHEST PAIN, (Reported) Discontinued Reason: Pt stopped taking med Ondansetron* (Zofran*), 4 MG ORAL Q6H PRN for Nausea & Vomiting, (Reported) Discontinued Reason: Pt stopped taking med Ondansetron* (Zofran*), 4 MG IV Q6H PRN for Nausea & Vomiting, (Reported) Discontinued Reason: Pt stopped taking med Pantoprazole (Pantoprazole), 40 MG ORAL DAILY, (Reported) Discontinued Reason: Pt stopped taking med Polyethylene Glycol 3350* (Polyethylene Glycol 3350*), 17 GM ORAL DAILY PRN for Constipation, (Reported) Discontinued Reason: Pt stopped taking med Potassium Chloride (Potassium Chloride), 40 MEQ PO, (Reported) Discontinued Reason: Pt stopped taking med Sorbitol (Sorbitol), 30 ML GT TID PRN for PRN, (Reported) Discontinued Reason: Pt stopped taking med Temazepam (Temazepam*), 15 MG ORAL BEDTIME, (Reported) Discontinued Reason: Pt stopped taking med Trazodone Hcl* (Desyrel*), 25 MG ORAL QHS PRN for Insomnia, (Reported) Discontinued Reason: Pt stopped taking med Vancomycin Hcl/D5w (Vancomycin-D5w 1 G/250 Ml), 1 GM IVPB Q24H, (Reported) Discontinued Reason: Pt stopped taking med Patient History Healthcare decision maker Resuscitation status Full Code Advanced Directive on File Yes Past Medical/Surgical History Past Medical/Surgical History: (1) Diabetes mellitus (2) Anemia (3) HTN (hypertension) Review of Systems Constitutional: Reports: no symptoms ENT: Reports: no symptoms Physical Exam General Appearance: cachetic Lines, tubes and drains: peripheral HEENT: normocephalic, atraumatic Neck: non-tender, normal alignment Respiratory/Chest: chest wall non-tender, lungs clear Breasts: no masses Cardiovascular/Chest: regular rhythm Abdomen: normal bowel sounds, non tender Genitourinary/Rectal: normal genital exam Skin Exam: normal pigmentation Last 24 Hour Vital Signs Date Time Temp Pulse Resp B/P (MAP) Pulse Ox O2 Delivery O2 Flow Rate FiO2 12/25/16 09:01 86 150/80 12/25/16 09:00 92 12/25/16 08:00 97.6 86 21 150/80 98 Room Air 12/25/16 04:22 97.7 54 18 113/52 90 Room Air 12/25/16 04:00 89 12/25/16 00:35 99.0 62 18 111/78 95 Room Air 12/25/16 00:00 108 12/24/16 21:38 97.3 89 18 129/82 99 Room Air 12/24/16 21:24 108 129/82 12/24/16 20:37 94 12/24/16 19:41 103 20 141/90 100 Room Air 12/24/16 19:01 99.5 99 21 149/104 100 Room Air 12/24/16 16:55 99.0 112 16 134/77 100 Room Air 11/13/17 16:45 98.1 108 20 146/82 98 Room Air Laboratory Tests Test 12/24/16 17:00 12/24/16 17:15 12/25/16 04:45 White Blood Count 14.8 K/UL (4.8-10.8) H 12.1 K/UL (4.8-10.8) H Red Blood Count 4.54 M/UL (4.70-6.10) L 4.28 M/UL (4.70-6.10) L Hemoglobin 11.2 G/DL (14.2-18.0) L 11.6 G/DL (14.2-18.0) L Hematocrit 35.4 % (42.0-52.0) L 33.7 % (42.0-52.0) L Mean Corpuscular Volume 78 FL (80-99) L 79 FL (80-99) L Mean Corpuscular Hemoglobin 24.6 PG (27.0-31.0) L 27.1 PG (27.0-31.0) Mean Corpuscular Hemoglobin Concent 31.6 G/DL (32.0-36.0) L 34.3 G/DL (32.0-36.0) Red Cell Distribution Width 12.0 % (11.6-14.8) 12.3 % (11.6-14.8) Platelet Count 189 K/UL (150-450) 176 K/UL (150-450) Mean Platelet Volume 7.6 FL (6.5-10.1) 8.5 FL (6.5-10.1) Neutrophils (%) (Auto) % (45.0-75.0) % (45.0-75.0) Lymphocytes (%) (Auto) % (20.0-45.0) % (20.0-45.0) Monocytes (%) (Auto) % (1.0-10.0) % (1.0-10.0) Eosinophils (%) (Auto) % (0.0-3.0) % (0.0-3.0) Basophils (%) (Auto) % (0.0-2.0) % (0.0-2.0) Differential Total Cells Counted 100 100 Neutrophils % (Manual) 85 % (45-75) H 87 % (45-75) H Lymphocytes % (Manual) 9 % (20-45) L 9 % (20-45) L Monocytes % (Manual) 4 % (1-10) 4 % (1-10) Eosinophils % (Manual) 0 % (0-3) 0 % (0-3) Basophils % (Manual) 0 % (0-2) 0 % (0-2) Band Neutrophils 2 % (0-8) 0 % (0-8) Platelet Estimate Adequate Adequate Platelet Morphology Normal Normal Hypochromasia 1+ 1+ Anisocytosis 1+ 1+ Sodium Level 115 MMOL/L (136-145) *L 118 MMOL/L (136-145) *L Potassium Level 4.4 MMOL/L (3.5-5.1) 3.6 MMOL/L (3.5-5.1) Chloride Level 81 MMOL/L (98-107) L 85 MMOL/L (98-107) L Carbon Dioxide Level 25 MMOL/L (21-32) 21 MMOL/L (21-32) Anion Gap 9 mmol/L (5-15) 12 mmol/L (5-15) Blood Urea Nitrogen 7 mg/dL (7-18) 5 mg/dL (7-18) L Creatinine 0.7 MG/DL (0.55-1.30) 0.7 MG/DL (0.55-1.30) Estimat Glomerular Filtration Rate > 60 mL/min (>60) > 60 mL/min (>60) Glucose Level 163 MG/DL (74-106) H 159 MG/DL (74-106) H Calcium Level 9.2 MG/DL (8.5-10.1) 8.6 MG/DL (8.5-10.1) Total Bilirubin 2.5 MG/DL (0.2-1.0) H 2.5 MG/DL (0.2-1.0) H Direct Bilirubin 0.3 MG/DL (0.0-0.3) 0.2 MG/DL (0.0-0.3) Aspartate Amino Transf (AST/SGOT) 22 U/L (15-37) 20 U/L (15-37) Alanine Aminotransferase (ALT/SGPT) 19 U/L (12-78) 20 U/L (12-78) Alkaline Phosphatase 86 U/L (46-116) 78 U/L (46-116) Troponin I 0.018 ng/mL (0.000-0.056) Total Protein 7.9 G/DL (6.4-8.2) 7.5 G/DL (6.4-8.2) Albumin 4.0 G/DL (3.4-5.0) 3.6 G/DL (3.4-5.0) Globulin 3.9 g/dL 3.9 g/dL Albumin/Globulin Ratio 1.0 (1.0-2.7) 0.9 (1.0-2.7) L Urine Color Pale yellow Urine Appearance Clear Urine pH 7 (4.5-8.0) Urine Specific [place] 1.005 (1.005-1.035) Urine Protein 2+ (NEGATIVE) H Urine Glucose (UA) Negative (NEGATIVE) Urine Ketones 2+ (NEGATIVE) H Urine Occult Blood 1+ (NEGATIVE) H Urine Nitrite Negative (NEGATIVE) Urine Bilirubin Negative (NEGATIVE) Urine Urobilinogen Normal MG/DL (0.0-1.0) Urine Leukocyte Esterase 1+ (NEGATIVE) H Urine RBC 0-2 /HPF (0 - 0) H Urine WBC 2-4 /HPF (0 - 0) Urine Squamous Epithelial Cells None /LPF (NONE/OCC) Urine Amorphous Sediment Few /LPF (NONE) H Urine Bacteria Few /HPF (NONE) Lactic Acid Level 1.20 mmol/L (0.66-2.22) Microcytosis 1+ Osmolality 250 mOsm/kg (297-317) L Triglycerides Level 52 MG/DL (0-200) Cholesterol Level 95 MG/DL (< 200) LDL Cholesterol 21 mg/dL (<100) HDL Cholesterol 72 MG/DL (40-60) H Cholesterol/HDL Ratio 1.3 (3.3-4.4) L Thyroid Stimulating Hormone (TSH) 1.267 uiU/mL (0.360-3.740) Height (Feet): 5 Height (Inches): 9.00 Weight (Pounds): 175 Medications Current Medications Medications (Trade) Dose Ordered Sig/Marsha Route PRN Reason Start Time Stop Time Status Last Admin Dose Admin Acetaminophen (Tylenol) 650 mg Q4H PRN ORAL fever 12/24/16 18:45 01/23/17 18:44 Al Hydroxide/Mg Hydroxide (Mylanta II) 30 ml Q6H PRN ORAL dyspepsia 12/24/16 18:45 01/23/17 18:44 Carvedilol (Coreg) 3.125 mg Q12HR ORAL 12/24/16 21:00 01/23/17 20:59 12/25/16 09:01 Clopidogrel Bisulfate (Plavix) 75 mg DAILY ORAL 12/25/16 09:00 01/24/17 08:59 12/25/16 09:01 Dextrose (Dextrose 50%) STAT PRN IV Hypoglycemia 12/24/16 18:45 01/23/17 18:44 Diltiazem HCl (Cardizem) 10 mg Q1H PRN IV HR > 100 12/24/16 19:00 01/23/17 18:59 Heparin Sodium (Porcine) (Heparin 5000 units/ml) 5,000 units EVERY 12 HOURS SUBQ 12/24/16 21:00 01/23/17 20:59 12/25/16 09:02 Insulin Aspart (NovoLOG) BEFORE MEALS AND HS SUBQ 12/24/16 21:00 01/23/17 20:59 12/25/16 06:43 Lorazepam (Ativan 2mg/ml 1ml) 0.5 mg Q4H PRN IV For Anxiety 12/24/16 18:45 12/31/16 18:44 Ondansetron HCl (Zofran) 4 mg Q6H PRN IVP Nausea & Vomiting 12/24/16 18:45 01/23/17 18:44 Polyethylene Glycol (Miralax) 17 gm HSPRN PRN ORAL Constipation 12/24/16 18:45 01/23/17 18:44 Sodium Chloride 500 ml @ 30 mls/hr ONCE ONCE IV 12/24/16 19:15 12/25/16 11:54 Sodium Chloride (NaCl) 1 gm THREE TIMES A DAY ORAL 12/25/16 09:00 01/24/17 08:59 12/25/16 09:00 Trazodone HCl (Desyrel) 25 mg QHS PRN ORAL Insomnia 12/24/16 21:00 01/23/17 20:59 Zolpidem Tartrate (Ambien) 5 mg HSPRN PRN ORAL Insomnia 12/24/16 18:45 12/31/16 18:44 11/13/17 22:13 Assessment/Plan Problem List: (1) Hyponatremia ICD Codes: E87.1 - Hypo-osmolality and hyponatremia SNOMED: 96257163 (2) HTN (hypertension) ICD Codes: I10 - Essential (primary) hypertension SNOMED: 53578583 (3) Anemia ICD Codes: D64.9 - Anemia, unspecified SNOMED: 867908940 (4) Diabetes mellitus ICD Codes: E11.9 - Type 2 diabetes mellitus without complications SNOMED: 44539627 Assessment/Plan renal evaluation Na 3% sliding scale diabetic diet dvt prophylaxis. CHARLOTTE DAVISON Dec 25, 2016 11:03
--- NOTE | 2016-12-25 11:05 | Pulmonology Progress Note ---
Assessment/Plan Problems: (1) Hyponatremia (2) HTN (hypertension) (3) Anemia (4) Diabetes mellitus Assessment/Plan Na slightly better, continue IV fluids w/u in progress all noted diabetic diet sling scale. Subjective ROS Limited/Unobtainable: No Constitutional: Reports: no symptoms Respiratory: Reports: no symptoms Allergies: Coded Allergies: PENICILLINS (Unverified Allergy, Unknown, 08/18/14) Objective Last 24 Hour Vital Signs Date Time Temp Pulse Resp B/P (MAP) Pulse Ox O2 Delivery O2 Flow Rate FiO2 12/25/16 09:01 86 150/80 12/25/16 09:00 92 12/25/16 08:00 97.6 86 21 150/80 98 Room Air 12/25/16 04:22 97.7 54 18 113/52 90 Room Air 12/25/16 04:00 89 12/25/16 00:35 99.0 62 18 111/78 95 Room Air 12/25/16 00:00 108 12/24/16 21:38 97.3 89 18 129/82 99 Room Air 12/24/16 21:24 108 129/82 12/24/16 20:37 94 12/24/16 19:41 103 20 141/90 100 Room Air 12/24/16 19:01 99.5 99 21 149/104 100 Room Air 12/24/16 16:55 99.0 112 16 134/77 100 Room Air 12/24/16 16:45 98.1 108 20 146/82 98 Room Air General Appearance: cachetic HEENT: normocephalic, atraumatic Respiratory/Chest: chest wall non-tender, lungs clear Cardiovascular: normal peripheral pulses, normal rate Abdomen: normal bowel sounds, soft, non tender Neurologic/Psychiatric: end matcher II-XII grossly normal, no motor/sensory deficits Lymphatic: no neck adenopathy Musculoskeletal: normal muscle bulk Laboratory Tests 12/24/16 17:00: White Blood Count 14.8H, Red Blood Count 4.54L, Hemoglobin 11.2L, Hematocrit 35.4L, Mean Corpuscular Volume 78L, Mean Corpuscular Hemoglobin 24.6L, Mean Corpuscular Hemoglobin Concent 31.6L, Red Cell Distribution Width 12.0, Platelet Count 189, Mean Platelet Volume 7.6, Neutrophils (%) (Auto) , Lymphocytes (%) (Auto) , Monocytes (%) (Auto) , Eosinophils (%) (Auto) , Basophils (%) (Auto) , Differential Total Cells Counted 100, Neutrophils % ( Manual) 85H, Lymphocytes % (Manual) 9L, Monocytes % (Manual) 4, Eosinophils % ( Manual) 0, Basophils % (Manual) 0, Band Neutrophils 2, Platelet Estimate Adequate, Platelet Morphology Normal, Hypochromasia 1+, Anisocytosis 1+, Sodium Level 115*L, Potassium Level 4.4, Chloride Level 81L, Carbon Dioxide Level 25, Anion Gap 9, Blood Urea Nitrogen 7, Creatinine 0.7, Estimat Glomerular Filtration Rate > 60, Glucose Level 163H, Calcium Level 9.2, Total Bilirubin 2.5H, Direct Bilirubin 0.3, Aspartate Amino Transf (AST/SGOT) 22, Alanine Aminotransferase (ALT/SGPT) 19, Alkaline Phosphatase 86, Troponin I 0.018, Total Protein 7.9, Albumin 4.0, Globulin 3.9, Albumin/Globulin Ratio 1.0 12/24/16 17:15: Urine Color Pale yellow, Urine Appearance Clear, Urine pH 7, Urine Specific [place] 1.005, Urine Protein 2+H, Urine Glucose (UA) Negative, Urine Ketones 2+H , Urine Occult Blood 1+H, Urine Nitrite Negative, Urine Bilirubin Negative, Urine Urobilinogen Normal, Urine Leukocyte Esterase 1+H, Urine RBC 0-2H, Urine WBC 2-4, Urine Squamous Epithelial Cells None, Urine Amorphous Sediment FewH, Urine Bacteria Few, Lactic Acid Level 1.20 12/25/16 04:45: White Blood Count 12.1H, Red Blood Count 4.28L, Hemoglobin 11.6L, Hematocrit 33.7L, Mean Corpuscular Volume 79L, Mean Corpuscular Hemoglobin 27.1, Mean Corpuscular Hemoglobin Concent 34.3, Red Cell Distribution Width 12.3, Platelet Count 176, Mean Platelet Volume 8.5, Neutrophils (%) (Auto) , Lymphocytes (%) ( Auto) , Monocytes (%) (Auto) , Eosinophils (%) (Auto) , Basophils (%) (Auto) , Differential Total Cells Counted 100, Neutrophils % (Manual) 87H, Lymphocytes % (Manual) 9L, Monocytes % (Manual) 4, Eosinophils % (Manual) 0, Basophils % ( Manual) 0, Band Neutrophils 0, Platelet Estimate Adequate, Platelet Morphology Normal, Hypochromasia 1+, Anisocytosis 1+, Sodium Level 118*L, Potassium Level 3.6, Chloride Level 85L, Carbon Dioxide Level 21, Anion Gap 12, Blood Urea Nitrogen 5L, Creatinine 0.7, Estimat Glomerular Filtration Rate > 60, Glucose Level 159H, Calcium Level 8.6, Total Bilirubin 2.5H, Direct Bilirubin 0.2, Aspartate Amino Transf (AST/SGOT) 20, Alanine Aminotransferase (ALT/SGPT) 20, Alkaline Phosphatase 78, Total Protein 7.5, Albumin 3.6, Globulin 3.9, Albumin/ Globulin Ratio 0.9L, Microcytosis 1+, Osmolality 250L, Triglycerides Level 52, Cholesterol Level 95, LDL Cholesterol 21, HDL Cholesterol 72H, Cholesterol/HDL Ratio 1.3L, Thyroid Stimulating Hormone (TSH) 1.267 Current Medications Medications (Trade) Dose Ordered Sig/Marsha Route PRN Reason Start Time Stop Time Status Last Admin Dose Admin Acetaminophen (Tylenol) 650 mg Q4H PRN ORAL fever 12/24/16 18:45 01/23/17 18:44 Al Hydroxide/Mg Hydroxide (Mylanta II) 30 ml Q6H PRN ORAL dyspepsia 12/24/16 18:45 01/23/17 18:44 Carvedilol (Coreg) 3.125 mg Q12HR ORAL 12/24/16 21:00 01/23/17 20:59 12/25/16 09:01 Clopidogrel Bisulfate (Plavix) 75 mg DAILY ORAL 12/25/16 09:00 01/24/17 08:59 12/25/16 09:01 Dextrose (Dextrose 50%) STAT PRN IV Hypoglycemia 12/24/16 18:45 01/23/17 18:44 Diltiazem HCl (Cardizem) 10 mg Q1H PRN IV HR > 100 12/24/16 19:00 01/23/17 18:59 Heparin Sodium (Porcine) (Heparin 5000 units/ml) 5,000 units EVERY 12 HOURS SUBQ 12/24/16 21:00 01/23/17 20:59 12/25/16 09:02 Insulin Aspart (NovoLOG) BEFORE MEALS AND HS SUBQ 12/24/16 21:00 01/23/17 20:59 12/25/16 06:43 Lorazepam (Ativan 2mg/ml 1ml) 0.5 mg Q4H PRN IV For Anxiety 12/24/16 18:45 12/31/16 18:44 Ondansetron HCl (Zofran) 4 mg Q6H PRN IVP Nausea & Vomiting 12/24/16 18:45 01/23/17 18:44 Polyethylene Glycol (Miralax) 17 gm HSPRN PRN ORAL Constipation 12/24/16 18:45 01/23/17 18:44 Sodium Chloride 500 ml @ 30 mls/hr ONCE ONCE IV 12/24/16 19:15 12/25/16 11:54 Sodium Chloride (NaCl) 1 gm THREE TIMES A DAY ORAL 12/25/16 09:00 01/24/17 08:59 12/25/16 09:00 Trazodone HCl (Desyrel) 25 mg QHS PRN ORAL Insomnia 12/24/16 21:00 01/23/17 20:59 Zolpidem Tartrate (Ambien) 5 mg HSPRN PRN ORAL Insomnia 12/24/16 18:45 12/31/16 18:44 12/24/16 22:13 CHARLOTTE DAVISON Dec 25, 2016 11:05
--- NOTE | 2016-12-25 13:13 | Wound Care Consultation ---
Wound Assessment Wound Assessment : Wound Present on Admission: Yes New Wound: No Status Change of Wound: No Wound Location Body Site Modif: right, anterior Wound Location Body Site: knee Wound Type: scab Fabby Test: Does not Fabby Wound Thickness: Full Thickness Wound Length: 1.5 Wound Width: 1.5 Wound Depth: utd Percent of Wound [place]/Red: 100 Wound Drainage Amount: None Wound Drainage Odor: None/Absent Tissue Surrounding Wound: Intact Wound General Appearance: Reddened Wound Comment #1 Right anterior knee dry scab Recommendation -Local wound care per protocol -Optimize nutrition -Keep clean and dry -Turn and reposition -Low air loss SPR mattress -Assess and f/u accordingly for any changes TIMUR WISEMAN RN Dec 25, 2016 13:13
[2016-12-25] MEDS ORDERED: dilTIAZem HCl 25mg/5ml Inj IV PRN (20:00)
[2016-12-25] MEDS ORDERED: Mylanta II UD 30ml ORAL PRN (20:30)
[2016-12-25] MEDS ORDERED: Miralax 17gm pkt ORAL PRN (20:30)
[2016-12-25] MEDS ORDERED: LORazepam Inj 2mg/ml 1ml IV PRN (20:30)
[2016-12-25] MEDS ORDERED: TraZODone HCl 25 mg tablet ORAL PRN (21:00)
[2016-12-25 21:04] LABS: ALANINE AMINOTRANSFERASE 13 U/L (12-78); ANION GAP 13 mmol/L (5-15); ASPARTATE AMINO TRANSFERASE 22 U/L (15-37); CALCIUM 8.5 MG/DL (8.5-10.1); CARBON DIOXIDE 19 MMOL/L (21-32); CHLORIDE 84 MMOL/L (98-107); CREATININE 0.7 MG/DL (0.55-1.30); GLOMERULAR FILTRATION RATE > 60 mL/min (>60); POTASSIUM 3.6 MMOL/L (3.5-5.1); SODIUM 116 MMOL/L (136-145); TOTAL PROTEIN 6.9 G/DL (6.4-8.2)
[2016-12-25 21:15] LABS: BILIRUBIN,DIRECT 0.4 MG/DL (0.0-0.3)
[2016-12-25] MEDS ORDERED: NaCl 3% 500ml 500 ML IV ONE (22:00)
--- NOTE | 2016-12-25 22:30 | Consultation ---
DATE OF CONSULTATION: 12/25/2016 NEPHROLOGY CONSULTATION CONSULTING PHYSICIAN: Rosalina Mckeon M.D. REFERRING PHYSICIAN: Ramirez Thorne D.O. REASON FOR CONSULTATION: Severe hyponatremia and electrolyte abnormality. HISTORY OF PRESENT ILLNESS: The patient is a 66-year-old male with past medical history significant for history of recent admission at [facility] on 11/26/2016. At that time, he was admitted for non-ST elevation DC and had an acute renal failure. This time, the patient was found to have a sodium of , was transferred to emergency room for evaluation. The patient although at ER denied having any symptom, any headache, any nausea, or any vomiting. The patient was started on normal saline and admitted to monitored bed. I was called for management of renal disease and electrolyte imbalance. PAST MEDICAL HISTORY: 1. History of CHF. 2. History of non-ST elevation DC. 3. History of hypertension. 4. History of diabetes. 5. History of diabetic neuropathy. PAST SURGICAL HISTORY: Right BKA and left AKA. HOME MEDICATIONS: 1. Lovenox. 2. Neurontin. 3. Protonix. 4. Aspirin. 5. Plavix. 6. Lopressor. 7. Nitroglycerin. 8. Tylenol. ALLERGIES: The patient is allergic to penicillin. SOCIAL HISTORY: [facility]. There is no history of tobacco, alcohol, or drug use. FAMILY HISTORY: Noncontributory. REVIEW OF SYSTEMS: GENERAL: He denies any weight loss, weight gain, fever, chills, or night sweats. HEAD AND NECK: Denies any dysphagia, odynophagia, blurry vision, headache, or neck stiffness. PULMONARY: No shortness of breath. No cough or sputum. CARDIOVASCULAR: Denies any chest pain or palpitations. GASTROINTESTINAL: Denies any nausea, vomiting, diarrhea, hematemesis, or hematochezia. GENITOURINARY: Denies any dysuria, frequency, or hematuria. PHYSICAL EXAMINATION: VITAL SIGNS: The patient had temperature of 98, blood pressure of 113/62, and respiratory rate of 18. HEAD AND NECK: No JVP. No LAD. No thyromegaly. Extraocular movement intact. Pupils are reactive to light and accommodation. LUNGS: Clear to auscultation. CARDIAC: Regular rate and rhythm. S1, S2. No murmur. No rub. ABDOMEN: Soft, nontender, and nondistended. EXTREMITIES: Bilateral amputee. LABORATORY VALUE: The patient has WBC count of 12.1, hemoglobin of 11.6, hematocrit of 33, and platelet count of 176,000. Chemistry revealed sodium of 115 on admission, but today, it is 118, potassium 3.6, 85 chloride, 21 bicarbonate, BUN of 5, creatinine 0.7, glucose of 159, and calcium of 8.6. Total bilirubin of 2.5. AST of 20, ALT of 20, and alkaline phosphatase of 78. Total protein of 7.5. Urine reveals specific gravity of 1.005, protein 2+, ketones 2+, blood 1+, and leukocyte esterase 1+. ASSESSMENT: 1. Hypovolemic hyponatremia. 2. Questionable malnutrition. 3. Urinary tract infection. 4. Hypertension. 5. Possible diabetes with proteinuria. PLAN: Plan for this patient is to check urine osmolality and serum osmolality. Check the TSH. Check a random urine sodium and potassium. If addition urine sodium and potassium is less than , the patient will benefit from normal saline. Mix all IV piggyback with normal saline. Free water restriction. Again, I would like to thank, Dr. Ramirez Thorne, for allowing me to participate in the care of this patient. Rosalina Mckeon M.D. DR: Miracle JOB#: [id number] CC:
--- NOTE | 2016-12-25 22:30 | History and Physical Report ---
DATE OF ADMISSION: 12/24/2016 TIME SEEN: At 3 p.m. ATTENDING PHYSICIAN: Ramirez Thorne D.O. CONSULTANTS: 1. Bonny Wilson M.D. 2. Dr. Brennan. 3. Rosalina Mckeon M.D. 4. Monica Packer M.D. CHIEF COMPLAINT: Increased lethargy, weakness, confusion, sepsis, and hyponatremia. BRIEF HISTORY: The patient is a 66-year-old male from [facility], presents to [facility] with increased weakness and confusion, diagnosed with hyponatremia and leukocytosis, possible sepsis, and , admitted to telemetry for further care. Currently, slightly confused in bed. No complaint. No chest pain. No shortness of breath. No nausea, vomiting, or diarrhea. PAST MEDICAL HISTORY: Hypertension and confusion. PAST SURGICAL HISTORY: Right BKA, left AKA. MEDICATIONS: Include Plavix, Coreg, Desyrel, NovoLog, heparin, Cardizem, Tylenol, MiraLax, Zofran, vancomycin, and cefepime given. ALLERGIES: Penicillin. SOCIAL HISTORY: No smoking. No alcohol. No intravenous drug abuse. FAMILY HISTORY: Noncontributory. PHYSICAL EXAMINATION: GENERAL: Slightly anxious in bed, oriented x2, in no acute distress. VITAL SIGNS: Temperature 97 degrees, pulse 91, respirations 21, and blood pressure 107/64. CARDIOVASCULAR: No murmur. LUNGS: Distant and clear. ABDOMEN: Bowel sounds positive. Nontender and nondistended. EXTREMITIES: No cyanosis, clubbing, or edema. NEUROLOGIC: The patient moves all extremities. Slightly weak. LABORATORY AND DIAGNOSTIC DATA: Labs at this time show white count 12, hemoglobin and hematocrit 11/33. Otherwise, CBC is normal. BMP showed sodium 118, chloride 85, glucose 159. Urinalysis show 1+ leukocyte esterase, 2+ ketones. ASSESSMENT: 1. Urinary tract infection. 2. Sepsis. 3. Hyponatremia. 4. Leukocytosis. 5. . 6. Confusion. 7. Anemia. 8. Diabetes. PLAN: 1. Antibiotics per Infectious Disease. 2. OT, PT, and dietary followup. 3. Blood pressure and blood sugar control. 4. Dietary followup. 5. Resume home medications. 6. Dr. Wilson, Dr. Brennan, Dr. Mckeon, and Dr. Packer to consult. Ramirez Thorne D.O. DR: Eleonora JOB#: [id number] CC:
--- NOTE | 2016-12-25 22:45 | Consultation ---
DATE OF CONSULTATION: 12/25/2016 INFECTIOUS DISEASE CONSULTATION CONSULTING PHYSICIAN: Kendrick Russ M.D. This consultation is for coverage of Dr. Brennan. PRIMARY ATTENDING PHYSICIAN: Ramirez Thorne D.O. REASON FOR CONSULTATION: Leukocytosis. HISTORY OF PRESENT ILLNESS: This is a 66-year-old group home resident, admitted last night because of abnormal labs. The patient had hyponatremia. It was noted that the patient had also leukocytosis of 14.8, empirically received antibiotics in the ER, that was one dose of vancomycin and cefepime. The patient has no complaints. PAST MEDICAL HISTORY: Significant for diabetes mellitus type 2, coronary artery disease, COPD, dementia, right below-knee amputation, and left above-knee amputation. MEDICATIONS: Plavix, sodium chloride that is oral, Carvedilol, insulin, trazodone, heparin, Cardizem, Tylenol, MiraLAX, Zofran, Ambien, lorazepam, and Mylanta. ALLERGIES: Allergic to penicillin. SOCIAL HISTORY: [facility]. Bedbound. No history of alcohol or drug abuse. No other history is obtainable. PHYSICAL EXAMINATION: VITAL SIGNS: Temperature 97.7, pulse 91, blood pressure 107/64, the patient is afebrile, heart rate was tachycardic at the time of admission, heart rate between 108 and 112. HEENT: [place] conjunctivae. HEART: Regular. LUNGS: Clear. ABDOMEN: Soft and nontender. EXTREMITIES: Has right below-knee amputation and left above-knee amputation. SKIN: Ulcer in the right knee that does not have any discharge. LABORATORY AND DIAGNOSTIC DATA: WBC today is 12.1, hemoglobin 11.6, hematocrit 33.7, and platelets 176,000. Sodium 118, potassium 3.6, chloride 85, carbon dioxide 21, BUN 5, and creatinine 0.7. Chest x-ray and urine were negative and the patient does not look septic. IMPRESSION: Leukocytosis, improving. The patient has hyponatremia, diabetes mellitus type 2, and dementia. RECOMMENDATIONS: We will follow up CBC. We will observe off antibiotic unless the patient develops fever or clinical condition deteriorates. At the end of my exam, I thank Dr. Ramirez Thorne for involving me in the care of this patient. Kendrick Russ M.D. DR: Sarahi JOB#: [id number] CC:
[2016-12-26 04:09] VITALS: BP 131/64
[2016-12-26] MEDS: NovoLOG Insulin Flexpen SUBQ SCH ×3 (05:48→16:30)
[2016-12-26 06:27] LABS: MEAN CORPUSCULAR VOLUME 79 FL (80-99); MEAN PLATELET VOLUME 8.6 FL (6.5-10.1); PLATELET COUNT 169 K/UL (150-450); RED BLOOD COUNT 4.32 M/UL (4.70-6.10); RED CELL DISTRIBUTION WIDTH 12.4 % (11.6-14.8); WHITE BLOOD COUNT 13.2 K/UL (4.8-10.8)
[2016-12-26] MEDS ORDERED: NovoLOG Insulin Flexpen SUBQ SCH (06:30)
[2016-12-26 07:31] LABS: ANION GAP 14 mmol/L (5-15); CALCIUM 8.7 MG/DL (8.5-10.1); CARBON DIOXIDE 19 MMOL/L (21-32); CHLORIDE 87 MMOL/L (98-107); CREATININE 0.8 MG/DL (0.55-1.30); GLOMERULAR FILTRATION RATE > 60 mL/min (>60); POTASSIUM 3.6 MMOL/L (3.5-5.1); SODIUM 120 MMOL/L (136-145)
[2016-12-26 08:00] VITALS: BP 160/80
[2016-12-26] MEDS: Sodium Chloride 1gm Tab ORAL SCH ×3 (09:05→18:05)
[2016-12-26] MEDS: Memantine 10mg tab ORAL SCH ×2 (09:07→18:05)
[2016-12-26] MEDS: Heparin 5000 units/ml inj SUBQ SCH ×2 (09:09→22:31)
--- NOTE | 2016-12-26 09:52 | Nephrology Progress Note ---
Assessment/Plan Assessment 1. Hypovolemic hyponatremia. 2. acidosis 3. Urinary tract infection. 4. Hypertension. 5. diabetes with proteinuria. Plan plan to continue 3% ns start on demeclocycline replace electrolyte as need it monitoring na level closely Subjective Constitutional: Reports: no symptoms HEENT: Reports: no symptoms Genitourinary: Reports: no symptoms Neurologic/Psychiatric: Reports: no symptoms Subjective alert and awake no complaints Objective Objective Last 24 Hour Vital Signs Date Time Temp Pulse Resp B/P (MAP) Pulse Ox O2 Delivery O2 Flow Rate FiO2 12/26/16 08:57 65 155/80 12/26/16 04:09 97.6 90 19 131/64 96 Room Air 12/25/16 23:45 97.6 92 19 132/64 96 Room Air 12/25/16 21:00 95 91/58 12/25/16 20:33 97.9 95 18 91/58 90 Room Air 12/25/16 16:00 97.8 101 20 111/56 98 Room Air 12/25/16 12:00 91 12/25/16 12:00 97.7 91 21 107/64 99 Room Air Laboratory Tests 12/25/16 15:00: Urine Eosinophils None seen, Urine Osmolality 261L, Urine Random Creatinine [ Pending], Urine Random Microalbumin [Pending], Urine Random Sodium 35, Urine Creatinine 37.3, Urine Microalbumin/Creatinine Ratio [Pending], Urine Potassium Timed 30 12/25/16 20:15: Sodium Level 116*L, Potassium Level 3.6, Chloride Level 84L, Carbon Dioxide Level 19L, Anion Gap 13, Blood Urea Nitrogen 5L, Creatinine 0.7, Estimat Glomerular Filtration Rate > 60, Glucose Level 106, Calcium Level 8.5, Total Bilirubin 2.6H, Direct Bilirubin 0.4H, Aspartate Amino Transf (AST/SGOT) 22, Alanine Aminotransferase (ALT/SGPT) 13, Alkaline Phosphatase 70, Total Protein 6.9, Albumin 3.4, Globulin 3.5, Albumin/Globulin Ratio 1.0 12/26/16 05:35: Sodium Level 120L, Potassium Level 3.6, Chloride Level 87L, Carbon Dioxide Level 19L, Anion Gap 14, Blood Urea Nitrogen 5L, Creatinine 0.8, Estimat Glomerular Filtration Rate > 60, Glucose Level 131H, Calcium Level 8.7, White Blood Count 13.2H, Red Blood Count 4.32L, Hemoglobin 11.2L, Hematocrit 34.1L, Mean Corpuscular Volume 79L, Mean Corpuscular Hemoglobin 26.0L, Mean Corpuscular Hemoglobin Concent 33.0, Red Cell Distribution Width 12.4, Platelet Count 169, Mean Platelet Volume 8.6, Neutrophils (%) (Auto) , Lymphocytes (%) ( Auto) , Monocytes (%) (Auto) , Eosinophils (%) (Auto) , Basophils (%) (Auto) , Neutrophils % (Manual) [Pending], Lymphocytes % (Manual) [Pending], Platelet Estimate [Pending], Platelet Morphology [Pending] Height (Feet): 5 Height (Inches): 9.00 Weight (Pounds): 175 Objective HEAD AND NECK: No JVP. No LAD. No thyromegaly. Extraocular movement intact. Pupils are reactive to light and accommodation. LUNGS: Clear to auscultation. CARDIAC: Regular rate and rhythm. S1, S2. No murmur. No rub. ABDOMEN: Soft, nontender, and nondistended. EXTREMITIES: Bilateral amputee. VERNON ANN Dec 26, 2016 09:52
[2016-12-26 10:47] LABS: BAND NEUTROPHILS % (MANUAL) 2 % (0-8); BASOPHILS % (MANUAL) 0 % (0-2); EOSINOPHILS % (MANUAL) 0 % (0-3); LYMPHOCYTES % (MANUAL) 6 % (20-45); NEUTROPHILS % (MANUAL) 86 % (45-75); PLATELET ESTIMATE ADEQUATE; PLATELET MORPHOLOGY NORMAL; TOTAL CELLS COUNTED 100
[2016-12-26 10:48] LABS: MICROCYTES 1+
--- NOTE | 2016-12-26 10:54 | GI Initial Consult Note ---
Argueta,Alondra Zachary N.P. 12/26/16 1054: History of Present Illness General Date patient seen: Dec 26, 2016 Time patient seen: 10:51 Reason for Hospitalization: Abnormal Labs Referring physician: PHILIPPE MONTEIRO Reason for Consultation: CONSTIPATION Present Illness HPI 58-year-old male coming from care home, history of heart failure, hypertension, chronic kidney disease, COPD, CAD, right BKA and left AKA, dementia, presenting with low sodium. Per care home charting, he had a sodium level of 118 that was received on 1113. Patient currently oriented to person and time. States that he is very nervous. However denying any abdominal pain chest pain or headache. GI consulted for constipation. HPI as noted above. Pt seen on floor, awake A& Ox4 NAD with no active s/sx of N/V/D. Per RN report, patient was recently given a suppository and had a large BM. He presents today with hyponatremia, mild leukocytosis and anemia. Unknown history of endoscopic procedures. Denies any unintentional weight loss or changes in dietary habits. Denies any abdominal pain. Home Meds Reported Medications Insulin Aspart* (NOVOLOG*) 100 Unit/1 Ml Insuln.pen, 0 SUBQ, #1 EA 0 Refills 12/24/16 Acetaminophen* (ACETAMINOPHEN 325MG TABLET*) 325 Mg Tablet, 650 MG ORAL Q4H Y for Fever/Headache/Mild Pain, TAB 12/24/16 Green[place] Grass Extract/Quercetin (Prostate Pq Tablet) 1 Each Tablet, 1 EACH PO, TAB 12/24/16 Melatonin (MELATONIN) 1 Mg Tablet.er, 3 MG PO HS, TAB 12/24/16 Ascorbic Acid* (VITAMIN C*) 250 Mg Tablet, 250 MG ORAL TWICE A DAY, #60 TAB 0 Refills 11/26/16 Furosemide* (LASIX*) 20 Mg Tablet, 10 MG ORAL BID, TAB 11/26/16 Albuterol Sulfate* (ALBUTEROL SULFATE HHN*) 2.5 Mg/3 Ml Vial.neb, 3 ML INH Q6H Y for Shortness of Breath, #30 EA 0 Refills 11/26/16 Famotidine (FAMOTIDINE) 20 Mg Tablet, 20 MG ORAL TWICE A DAY, #60 TAB 0 Refills 11/26/16 Atorvastatin Calcium* (ATORVASTATIN CALCIUM*) 40 Mg Tablet, 40 MG ORAL BEDTIME, TAB 12/14/15 Lactulose (LACTULOSE*) 20 Gm/30 Ml Solution, 30 ML ORAL TID Y for PRN, ML 0 Refills 12/09/15 Donepezil Hcl* (DONEPEZIL HCL*) 5 Mg Tablet, 5 MG ORAL QHS, TAB 12/09/15 Carvedilol* (CARVEDILOL*) 3.125 Mg Tablet, 3.125 MG ORAL BID, TAB 12/09/15 Gabapentin* (GABAPENTIN*) 100 Mg Capsule, 100 MG ORAL DAILY, CAP 05/10/15 Aspirin (Aspirin) 81 Mg Tab.chew, 81 MG PO DAILY, TAB 05/10/15 Discontinued Reported Medications Potassium Chloride (POTASSIUM CHLORIDE) 40 Meq/15 Ml Liquid, 40 MEQ PO, ML 11/26/16 Diltiazem HCl (Diltiazem HCl) 5 Mg/1 Ml Vial, 10 MG IV Q1HR, MG 12/14/15 Vancomycin Hcl/D5w (VANCOMYCIN-D5W 1 G/250 ML) 1 Gm/250 Ml Plast..bag, 1 GM IVPB Q24H, BAG 12/14/15 Temazepam (TEMAZEPAM*) 15 Mg Capsule, 15 MG ORAL BEDTIME for Insomnia, #30 CAP 0 Refills 12/14/15 Polyethylene Glycol 3350* (POLYETHYLENE GLYCOL 3350*) 17 Gm Powd.pack, 17 GM ORAL DAILY Y for Constipation, PACKET 12/14/15 Pantoprazole (PANTOPRAZOLE) 20 Mg Tablet.dr, 40 MG ORAL DAILY, #10 TAB 0 Refills 12/14/15 Ondansetron* (ZOFRAN*) 4 Mg/2 Ml Vial, 4 MG IV Q6H Y for Nausea & Vomiting, VIAL 12/14/15 Nitroglycerin (NITROSTAT) 0.4 Mg Tab.subl, 0.4 MG SL Q5M X3 DOSES Y for CHEST PAIN, #25 TAB 0 Refills 12/14/15 Morphine Sulfate (Morphine Sulfate) 2 Mg/1 Ml Syringe, 2 MG IV Q4HR Y for Severe Pain (Pain Scale 7-10) 12/14/15 Ipratropium/Albuterol Sulfate (DuoNeb 0.5-3(2.5)mg/3ml) 3 Ml Ampul.neb, 3 ML HHN Q4HR Y for Shortness of Breath, EA 12/14/15 Insulin Aspart* (NOVOLOG*) 100 Unit/1 Ml Insuln.pen, 0 SUBQ BEFORE MEALS AND HS , #1 EA 0 Refills 12/14/15 Cefepime Hcl (MAXIPIME) 2 Gm Vial.port, 2 GM IV Q12HR, VIAL 12/14/15 Hydrocodone Bit/Acetaminophen 5-325* (NORCO 5-325 TABLET*) 1 Each Tablet, 1 TAB ORAL Q6HR Y for Severe Pain (Pain Scale 7-10), TAB 12/09/15 Trazodone Hcl* (DESYREL*) 50 Mg Tablet, 25 MG ORAL QHS Y for Insomnia, TAB 12/09/15 Sorbitol (Sorbitol) 30 Ml Solution, 30 ML GT TID Y for PRN, ML 12/09/15 Ondansetron* (ZOFRAN*) 4 Mg Tablet, 4 MG ORAL Q6H Y for Nausea & Vomiting, TAB 12/09/15 Furosemide In 0.9 % Nacl (FUROSEMIDE-0.9% NACL 100MG/100) 100 Mg/100 Ml Piggyback, 20 MG IV Q8HR, BAG 12/09/15 Levofloxacin-D5w 500 Mg/100 Ml* (LEVOFLOXACIN-D5W 500 MG/100 ML*) 500 Mg/100 Ml Piggyback, 500 MG IVPB Q24H, BAG 12/09/15 Insulin Aspart* (NOVOLOG*) 100 Unit/1 Ml Insuln.pen, 0 SUBQ, #1 EA 0 Refills 06/30/15 Insulin Aspart (NOVOLOG) 100 Unit/1 Ml Cartridge, 100 UNIT SQ QID 05/10/15 Insulin Detemir (LEVEMIR FLEXPEN) 100 Unit/1 Ml Insuln.pen, 10 SUBQ DAILY, #300 UNITS 0 Refills 05/10/15 Multivitamin (MULTIVITAMINS) 1 Each Capsule, 1 CAP ORAL DAILY, CAP 05/10/15 Discontinued Scripts Clopidogrel Bisulfate* (PLAVIX*) 75 Mg Tablet, 75 MG ORAL DAILY, #30 TAB Prov:Sheng (Erwin)Blaire NP 12/04/16 Med list reviewed/reconciled: Yes Allergies: Coded Allergies: PENICILLINS (Unverified Allergy, Unknown, 08/18/14) Patient History History Provided By: Patient, Medical Record H Narrative Past Medical History: see triage record Past Surgical History: none Pertinent Family History: none Reviewed Nursing Documentation: PMH: Agreed, PSxH: Agreed Nursing Documentation-PMH Hx Cardiac Problems: Yes Hx COPD: Yes Hx Diabetes: Yes Hx Cancer: No Hx Gastrointestinal Problems: Yes Hx Neurological Problems: Yes - neuropathy, R BKA Hx Peripheral Neuropathy: Yes Review of Systems All Other Systems: negative except mentioned in HPI Physical Exam Vital Signs Date Time Temp Pulse Resp B/P (MAP) Pulse Ox O2 Delivery O2 Flow Rate FiO2 12/24/16 16:45 98.1 108 20 146/82 98 Room Air Sp02 EP Interpretation: reviewed, normal Labs Laboratory Tests Test 12/25/16 15:00 12/25/16 20:15 12/26/16 05:35 Urine Eosinophils None seen Urine Osmolality 261 mOsm/kg (429-449) L Urine Random Creatinine Pending Urine Random Microalbumin Pending Urine Random Sodium 35 MEQ/L (20-110) Urine Creatinine 37.3 MG/DL (30.0-125.0) Urine Microalbumin/Creatinine Ratio Pending Urine Potassium Timed 30 mmol/L (12-62) Sodium Level 116 MMOL/L (136-145) *L 120 MMOL/L (136-145) L Potassium Level 3.6 MMOL/L (3.5-5.1) 3.6 MMOL/L (3.5-5.1) Chloride Level 84 MMOL/L (98-107) L 87 MMOL/L (98-107) L Carbon Dioxide Level 19 MMOL/L (21-32) L 19 MMOL/L (21-32) L Anion Gap 13 mmol/L (5-15) 14 mmol/L (5-15) Blood Urea Nitrogen 5 mg/dL (7-18) L 5 mg/dL (7-18) L Creatinine 0.7 MG/DL (0.55-1.30) 0.8 MG/DL (0.55-1.30) Estimat Glomerular Filtration Rate > 60 mL/min (>60) > 60 mL/min (>60) Glucose Level 106 MG/DL (74-106) 131 MG/DL (74-106) H Calcium Level 8.5 MG/DL (8.5-10.1) 8.7 MG/DL (8.5-10.1) Total Bilirubin 2.6 MG/DL (0.2-1.0) H Direct Bilirubin 0.4 MG/DL (0.0-0.3) H Aspartate Amino Transf (AST/SGOT) 22 U/L (15-37) Alanine Aminotransferase (ALT/SGPT) 13 U/L (12-78) Alkaline Phosphatase 70 U/L (46-116) Total Protein 6.9 G/DL (6.4-8.2) Albumin 3.4 G/DL (3.4-5.0) Globulin 3.5 g/dL Albumin/Globulin Ratio 1.0 (1.0-2.7) White Blood Count 13.2 K/UL (4.8-10.8) H Red Blood Count 4.32 M/UL (4.70-6.10) L Hemoglobin 11.2 G/DL (14.2-18.0) L Hematocrit 34.1 % (42.0-52.0) L Mean Corpuscular Volume 79 FL (80-99) L Mean Corpuscular Hemoglobin 26.0 PG (27.0-31.0) L Mean Corpuscular Hemoglobin Concent 33.0 G/DL (32.0-36.0) Red Cell Distribution Width 12.4 % (11.6-14.8) Platelet Count 169 K/UL (150-450) Mean Platelet Volume 8.6 FL (6.5-10.1) Neutrophils (%) (Auto) % (45.0-75.0) Lymphocytes (%) (Auto) % (20.0-45.0) Monocytes (%) (Auto) % (1.0-10.0) Eosinophils (%) (Auto) % (0.0-3.0) Basophils (%) (Auto) % (0.0-2.0) Differential Total Cells Counted 100 Neutrophils % (Manual) 86 % (45-75) H Lymphocytes % (Manual) 6 % (20-45) L Monocytes % (Manual) 6 % (1-10) Eosinophils % (Manual) 0 % (0-3) Basophils % (Manual) 0 % (0-2) Band Neutrophils 2 % (0-8) Platelet Estimate Adequate Platelet Morphology Normal Microcytosis 1+ General Appearance: well appearing, no apparent distress, alert, thin Head: normocephalic EENT: PERRL/EOMI, normal ENT inspection Neck: supple Respiratory: normal breath sounds, no respiratory distress Cardiovascular: normal rate Gastrointestinal: normal inspection, non tender, soft, normal bowel sounds, non -distended Rectal: deferred Genitourinary: deferred Musculoskeletal: normal inspection, back normal Neurologic: normal inspection, alert, oriented x3, responsive Psychiatric: normal inspection, judgement/insight normal, memory normal Skin: normal inspection, normal color, no rash, warm/dry, palpation normal, well hydrated Current Medications Current Medications Medications (Trade) Dose Ordered Sig/Marsha Route PRN Reason Start Time Stop Time Status Last Admin Dose Admin Acetaminophen (Tylenol) 650 mg Q4H PRN ORAL fever 12/25/16 20:30 01/23/17 20:29 Al Hydroxide/Mg Hydroxide (Mylanta II) 30 ml Q6H PRN ORAL dyspepsia 12/25/16 20:30 01/24/17 20:29 Bisacodyl (Dulcolax) 10 mg BID PRN RECTAL Constipation 12/26/16 09:30 01/25/17 09:29 Carvedilol (Coreg) 3.125 mg Q12HR ORAL 12/25/16 21:00 01/23/17 20:59 12/26/16 08:57 Clopidogrel Bisulfate (Plavix) 75 mg DAILY ORAL 12/26/16 09:00 01/24/17 08:59 12/26/16 09:01 Demeclocycline HCl (Declomycin) 150 mg FOUR TIMES A DAY ORAL 12/26/16 13:00 01/02/17 12:59 Dextrose (Dextrose 50%) STAT PRN IV Hypoglycemia 12/25/16 20:30 01/24/17 20:29 Diltiazem HCl (Cardizem) 10 mg Q1H PRN IV HR > 100 12/25/16 20:00 01/23/17 18:59 Heparin Sodium (Porcine) (Heparin 5000 units/ml) 5,000 units EVERY 12 HOURS SUBQ 12/25/16 21:00 01/23/17 20:59 12/26/16 09:09 Insulin Aspart (NovoLOG) BEFORE MEALS AND HS SUBQ 12/25/16 21:30 01/23/17 21:29 12/26/16 05:48 Lorazepam (Ativan 2mg/ml 1ml) 0.5 mg Q4H PRN IV For Anxiety 12/25/16 20:30 12/31/16 20:29 Memantine (Namenda) 5 mg BID ORAL 12/26/16 09:00 01/25/17 08:59 12/26/16 09:07 Ondansetron HCl (Zofran) 4 mg Q6H PRN IVP Nausea & Vomiting 12/25/16 20:30 01/24/17 20:29 Polyethylene Glycol (Miralax) 17 gm HSPRN PRN ORAL Constipation 12/25/16 20:30 01/24/17 20:29 12/26/16 09:04 Sodium Chloride 500 ml @ 30 mls/hr ONCE ONCE IV 12/25/16 22:00 12/26/16 14:39 12/25/16 21:54 Sodium Chloride (NaCl) 1 gm THREE TIMES A DAY ORAL 12/26/16 09:00 01/24/17 08:59 12/26/16 09:05 Trazodone HCl (Desyrel) 25 mg HSPRN PRN ORAL Insomnia 12/25/16 21:00 01/24/17 20:59 Zolpidem Tartrate (Ambien) 5 mg HSPRN PRN ORAL Unrelieved Insomnia by Trazodo 12/26/16 18:45 12/31/16 18:44 GI: Plan Problems: (1) Constipated (2) Anemia (3) Diabetes mellitus Plan microcytic hypochromic anemia hyponatremia symptomatic treatment fu iron panel start bowel regime >> colace + miralax ATC, dulcolax prn prn transfusions H2B GI prophylaxis electrolyte correction fu labs Discussed with Dr. Butler. Thank you for this patient referral, we will follow. MUMTAZ BUTLER 12/28/16 0738: History of Present Illness General Reason for Hospitalization: Abnormal Labs Present Illness Home Meds Reported Medications Insulin Aspart* (NOVOLOG*) 100 Unit/1 Ml Insuln.pen, 0 SUBQ, #1 EA 0 Refills 12/24/16 Acetaminophen* (ACETAMINOPHEN 325MG TABLET*) 325 Mg Tablet, 650 MG ORAL Q4H Y for Fever/Headache/Mild Pain, TAB 12/24/16 [place] Grass Extract/Quercetin (Prostate Pq Tablet) 1 Each Tablet, 1 EACH PO, TAB 12/24/16 Melatonin (MELATONIN) 1 Mg Tablet.er, 3 MG PO HS, TAB 12/24/16 Ascorbic Acid* (VITAMIN C*) 250 Mg Tablet, 250 MG ORAL TWICE A DAY, #60 TAB 0 Refills 11/26/16 Furosemide* (LASIX*) 20 Mg Tablet, 10 MG ORAL BID, TAB 11/26/16 Albuterol Sulfate* (ALBUTEROL SULFATE HHN*) 2.5 Mg/3 Ml Vial.neb, 3 ML INH Q6H Y for Shortness of Breath, #30 EA 0 Refills 11/26/16 Famotidine (FAMOTIDINE) 20 Mg Tablet, 20 MG ORAL TWICE A DAY, #60 TAB 0 Refills 11/26/16 Atorvastatin Calcium* (ATORVASTATIN CALCIUM*) 40 Mg Tablet, 40 MG ORAL BEDTIME, TAB 12/14/15 Lactulose (LACTULOSE*) 20 Gm/30 Ml Solution, 30 ML ORAL TID Y for PRN, ML 0 Refills 12/09/15 Donepezil Hcl* (DONEPEZIL HCL*) 5 Mg Tablet, 5 MG ORAL QHS, TAB 12/09/15 Carvedilol* (CARVEDILOL*) 3.125 Mg Tablet, 3.125 MG ORAL BID, TAB 12/09/15 Gabapentin* (GABAPENTIN*) 100 Mg Capsule, 100 MG ORAL DAILY, CAP 05/10/15 Aspirin (Aspirin) 81 Mg Tab.chew, 81 MG PO DAILY, TAB 05/10/15 Discontinued Reported Medications Potassium Chloride (POTASSIUM CHLORIDE) 40 Meq/15 Ml Liquid, 40 MEQ PO, ML 11/26/16 Diltiazem HCl (Diltiazem HCl) 5 Mg/1 Ml Vial, 10 MG IV Q1HR, MG 12/14/15 Vancomycin Hcl/D5w (VANCOMYCIN-D5W 1 G/250 ML) 1 Gm/250 Ml Plast..bag, 1 GM IVPB Q24H, BAG 12/14/15 Temazepam (TEMAZEPAM*) 15 Mg Capsule, 15 MG ORAL BEDTIME for Insomnia, #30 CAP 0 Refills 12/14/15 Polyethylene Glycol 3350* (POLYETHYLENE GLYCOL 3350*) 17 Gm Powd.pack, 17 GM ORAL DAILY Y for Constipation, PACKET 12/14/15 Pantoprazole (PANTOPRAZOLE) 20 Mg Tablet.dr, 40 MG ORAL DAILY, #10 TAB 0 Refills 12/14/15 Ondansetron* (ZOFRAN*) 4 Mg/2 Ml Vial, 4 MG IV Q6H Y for Nausea & Vomiting, VIAL 12/14/15 Nitroglycerin (NITROSTAT) 0.4 Mg Tab.subl, 0.4 MG SL Q5M X3 DOSES Y for CHEST PAIN, #25 TAB 0 Refills 12/14/15 Morphine Sulfate (Morphine Sulfate) 2 Mg/1 Ml Syringe, 2 MG IV Q4HR Y for Severe Pain (Pain Scale 7-10) 12/14/15 Ipratropium/Albuterol Sulfate (DuoNeb 0.5-3(2.5)mg/3ml) 3 Ml Ampul.neb, 3 ML HHN Q4HR Y for Shortness of Breath, EA 12/14/15 Insulin Aspart* (NOVOLOG*) 100 Unit/1 Ml Insuln.pen, 0 SUBQ BEFORE MEALS AND HS , #1 EA 0 Refills 12/14/15 Cefepime Hcl (MAXIPIME) 2 Gm Vial.port, 2 GM IV Q12HR, VIAL 12/14/15 Hydrocodone Bit/Acetaminophen 5-325* (NORCO 5-325 TABLET*) 1 Each Tablet, 1 TAB ORAL Q6HR Y for Severe Pain (Pain Scale 7-10), TAB 12/09/15 Trazodone Hcl* (DESYREL*) 50 Mg Tablet, 25 MG ORAL QHS Y for Insomnia, TAB 12/09/15 Sorbitol (Sorbitol) 30 Ml Solution, 30 ML GT TID Y for PRN, ML 12/09/15 Ondansetron* (ZOFRAN*) 4 Mg Tablet, 4 MG ORAL Q6H Y for Nausea & Vomiting, TAB 12/09/15 Furosemide In 0.9 % Nacl (FUROSEMIDE-0.9% NACL 100MG/100) 100 Mg/100 Ml Piggyback, 20 MG IV Q8HR, BAG 12/09/15 Levofloxacin-D5w 500 Mg/100 Ml* (LEVOFLOXACIN-D5W 500 MG/100 ML*) 500 Mg/100 Ml Piggyback, 500 MG IVPB Q24H, BAG 12/09/15 Insulin Aspart* (NOVOLOG*) 100 Unit/1 Ml Insuln.pen, 0 SUBQ, #1 EA 0 Refills 06/30/15 Insulin Aspart (NOVOLOG) 100 Unit/1 Ml Cartridge, 100 UNIT SQ QID 05/10/15 Insulin Detemir (LEVEMIR FLEXPEN) 100 Unit/1 Ml Insuln.pen, 10 SUBQ DAILY, #300 UNITS 0 Refills 05/10/15 Multivitamin (MULTIVITAMINS) 1 Each Capsule, 1 CAP ORAL DAILY, CAP 05/10/15 Discontinued Scripts Clopidogrel Bisulfate* (PLAVIX*) 75 Mg Tablet, 75 MG ORAL DAILY, #30 TAB Prov:Sheng (Erwin)Blaire JEWELRY POLISHER 12/04/16 Allergies: Coded Allergies: PENICILLINS (Unverified Allergy, Unknown, 08/18/14) GI: Plan Plan The patient was seen and examined at bedside and all new and available data was reviewed in the patients chart. I agree with the above findings, impression and plan. (Patient seen earlier today. Signature stamp does not reflect patient encounter time.). - MD Ellie [facility]Tem[facility] Zachary N.PSydney Dec 26, 2016 10:54 MUMTAZ BUTLER Dec 28, 2016 07:38
--- NOTE | 2016-12-26 11:22 | Infectious Diseases Prog Note ---
Assessment/Plan Assessment/Plan antibiotics : none A 1. leucocytosis 2. hyponatremia 3. DM 4. COPD P 1. continue off antibiotics Subjective Constitutional: Denies: fever, chills Respiratory: Denies: shortness of breath, dry cough Gastrointestinal/Abdominal: Denies: nausea, vomiting, diarrhea Musculoskeletal: Denies: pain Allergies: Coded Allergies: PENICILLINS (Unverified Allergy, Unknown, 08/18/14) Objective Vital Signs Last 24 Hour Vital Signs Date Time Temp Pulse Resp B/P (MAP) Pulse Ox O2 Delivery O2 Flow Rate FiO2 12/26/16 08:57 65 155/80 12/26/16 08:00 96.2 75 20 160/80 98 Room Air 12/26/16 04:09 97.6 90 19 131/64 96 Room Air 12/25/16 23:45 97.6 92 19 132/64 96 Room Air 12/25/16 21:00 95 91/58 12/25/16 20:33 97.9 95 18 91/58 90 Room Air 12/25/16 16:00 97.8 101 20 111/56 98 Room Air 12/25/16 12:00 91 12/25/16 12:00 97.7 91 21 107/64 99 Room Air Height (Feet): 5 Height (Inches): 9.00 Weight (Pounds): 175 Respiratory/Chest: lungs clear Cardiovascular: normal rate, regular rhythm, no gallop/murmur Abdomen: soft, non tender Extremities: no edema, other - stumps clean Microbiology Date/Time Source Procedure Growth Status 12/24/16 17:15 Blood Blood Culture - Preliminary NO GROWTH AFTER 24 HOURS Resulted 12/24/16 17:15 Blood Blood Culture - Preliminary NO GROWTH AFTER 24 HOURS Resulted 12/25/16 02:00 Wound Gram Stain - Final Resulted 12/25/16 02:00 Wound Wound Culture Pending Resulted Laboratory Tests Test 12/25/16 15:00 12/25/16 20:15 12/26/16 05:35 Urine Eosinophils None seen Urine Osmolality 261 mOsm/kg (429-449) L Urine Random Creatinine Pending Urine Random Microalbumin Pending Urine Random Sodium 35 MEQ/L (20-110) Urine Creatinine 37.3 MG/DL (30.0-125.0) Urine Microalbumin/Creatinine Ratio Pending Urine Potassium Timed 30 mmol/L (12-62) Sodium Level 116 MMOL/L (136-145) *L 120 MMOL/L (136-145) L Potassium Level 3.6 MMOL/L (3.5-5.1) 3.6 MMOL/L (3.5-5.1) Chloride Level 84 MMOL/L (98-107) L 87 MMOL/L (98-107) L Carbon Dioxide Level 19 MMOL/L (21-32) L 19 MMOL/L (21-32) L Anion Gap 13 mmol/L (5-15) 14 mmol/L (5-15) Blood Urea Nitrogen 5 mg/dL (7-18) L 5 mg/dL (7-18) L Creatinine 0.7 MG/DL (0.55-1.30) 0.8 MG/DL (0.55-1.30) Estimat Glomerular Filtration Rate > 60 mL/min (>60) > 60 mL/min (>60) Glucose Level 106 MG/DL (74-106) 131 MG/DL (74-106) H Calcium Level 8.5 MG/DL (8.5-10.1) 8.7 MG/DL (8.5-10.1) Total Bilirubin 2.6 MG/DL (0.2-1.0) H Direct Bilirubin 0.4 MG/DL (0.0-0.3) H Aspartate Amino Transf (AST/SGOT) 22 U/L (15-37) Alanine Aminotransferase (ALT/SGPT) 13 U/L (12-78) Alkaline Phosphatase 70 U/L (46-116) Total Protein 6.9 G/DL (6.4-8.2) Albumin 3.4 G/DL (3.4-5.0) Globulin 3.5 g/dL Albumin/Globulin Ratio 1.0 (1.0-2.7) White Blood Count 13.2 K/UL (4.8-10.8) H Red Blood Count 4.32 M/UL (4.70-6.10) L Hemoglobin 11.2 G/DL (14.2-18.0) L Hematocrit 34.1 % (42.0-52.0) L Mean Corpuscular Volume 79 FL (80-99) L Mean Corpuscular Hemoglobin 26.0 PG (27.0-31.0) L Mean Corpuscular Hemoglobin Concent 33.0 G/DL (32.0-36.0) Red Cell Distribution Width 12.4 % (11.6-14.8) Platelet Count 169 K/UL (150-450) Mean Platelet Volume 8.6 FL (6.5-10.1) Neutrophils (%) (Auto) % (45.0-75.0) Lymphocytes (%) (Auto) % (20.0-45.0) Monocytes (%) (Auto) % (1.0-10.0) Eosinophils (%) (Auto) % (0.0-3.0) Basophils (%) (Auto) % (0.0-2.0) Differential Total Cells Counted 100 Neutrophils % (Manual) 86 % (45-75) H Lymphocytes % (Manual) 6 % (20-45) L Monocytes % (Manual) 6 % (1-10) Eosinophils % (Manual) 0 % (0-3) Basophils % (Manual) 0 % (0-2) Band Neutrophils 2 % (0-8) Platelet Estimate Adequate Platelet Morphology Normal Microcytosis 1+ TOM CARY Dec 26, 2016 11:22
[2016-12-26 12:00] VITALS: BP 138/60
[2016-12-26] MEDS ORDERED: Bisacodyl EC 5mg tab ORAL PRN (12:00)
--- NOTE | 2016-12-26 13:11 | Pulmonology Progress Note ---
Assessment/Plan Problems: (1) Hyponatremia (2) HTN (hypertension) (3) Anemia (4) Diabetes mellitus Assessment/Plan Na continues to increase continue IV fluids, on 3% sailing wbc remains high all noted diabetic diet sling scale. Subjective ROS Limited/Unobtainable: No Constitutional: Reports: no symptoms HEENT: Repors: no symptoms Respiratory: Reports: no symptoms Allergies: Coded Allergies: PENICILLINS (Unverified Allergy, Unknown, 08/18/14) Objective Last 24 Hour Vital Signs Date Time Temp Pulse Resp B/P (MAP) Pulse Ox O2 Delivery O2 Flow Rate FiO2 12/26/16 08:57 65 155/80 12/26/16 08:00 96.2 75 20 160/80 98 Room Air 12/26/16 04:09 97.6 90 19 131/64 96 Room Air 12/25/16 23:45 97.6 92 19 132/64 96 Room Air 12/25/16 21:00 95 91/58 12/25/16 20:33 97.9 95 18 91/58 90 Room Air 12/25/16 16:00 97.8 101 20 111/56 98 Room Air General Appearance: WD/WN HEENT: normocephalic Respiratory/Chest: chest wall non-tender, lungs clear Cardiovascular: normal peripheral pulses, normal rate Abdomen: normal bowel sounds, soft, non tender Genitourinary: normal external genitalia Extremities: no cyanosis Lymphatic: no neck adenopathy Musculoskeletal: no effusion Microbiology Date/Time Source Procedure Growth Status 12/24/16 17:15 Blood Blood Culture - Preliminary NO GROWTH AFTER 24 HOURS Resulted 12/24/16 17:15 Blood Blood Culture - Preliminary NO GROWTH AFTER 24 HOURS Resulted 12/25/16 02:00 Wound Gram Stain - Final Resulted 12/25/16 02:00 Wound Wound Culture Pending Resulted Laboratory Tests 12/25/16 15:00: Urine Eosinophils None seen, Urine Osmolality 261L, Urine Random Creatinine [ Pending], Urine Random Microalbumin [Pending], Urine Random Sodium 35, Urine Creatinine 37.3, Urine Microalbumin/Creatinine Ratio [Pending], Urine Potassium Timed 30 12/25/16 20:15: Sodium Level 116*L, Potassium Level 3.6, Chloride Level 84L, Carbon Dioxide Level 19L, Anion Gap 13, Blood Urea Nitrogen 5L, Creatinine 0.7, Estimat Glomerular Filtration Rate > 60, Glucose Level 106, Calcium Level 8.5, Total Bilirubin 2.6H, Direct Bilirubin 0.4H, Aspartate Amino Transf (AST/SGOT) 22, Alanine Aminotransferase (ALT/SGPT) 13, Alkaline Phosphatase 70, Total Protein 6.9, Albumin 3.4, Globulin 3.5, Albumin/Globulin Ratio 1.0 12/26/16 05:35: Sodium Level 120L, Potassium Level 3.6, Chloride Level 87L, Carbon Dioxide Level 19L, Anion Gap 14, Blood Urea Nitrogen 5L, Creatinine 0.8, Estimat Glomerular Filtration Rate > 60, Glucose Level 131H, Calcium Level 8.7, White Blood Count 13.2H, Red Blood Count 4.32L, Hemoglobin 11.2L, Hematocrit 34.1L, Mean Corpuscular Volume 79L, Mean Corpuscular Hemoglobin 26.0L, Mean Corpuscular Hemoglobin Concent 33.0, Red Cell Distribution Width 12.4, Platelet Count 169, Mean Platelet Volume 8.6, Neutrophils (%) (Auto) , Lymphocytes (%) ( Auto) , Monocytes (%) (Auto) , Eosinophils (%) (Auto) , Basophils (%) (Auto) , Differential Total Cells Counted 100, Neutrophils % (Manual) 86H, Lymphocytes % (Manual) 6L, Monocytes % (Manual) 6, Eosinophils % (Manual) 0, Basophils % ( Manual) 0, Band Neutrophils 2, Platelet Estimate Adequate, Platelet Morphology Normal, Microcytosis 1+ Current Medications Medications (Trade) Dose Ordered Sig/Marsha Route PRN Reason Start Time Stop Time Status Last Admin Dose Admin Acetaminophen (Tylenol) 650 mg Q4H PRN ORAL fever 12/25/16 20:30 01/23/17 20:29 Al Hydroxide/Mg Hydroxide (Mylanta II) 30 ml Q6H PRN ORAL dyspepsia 12/25/16 20:30 01/24/17 20:29 Bisacodyl (Dulcolax) 5 mg DAILYPRN PRN ORAL Constipation 12/26/16 12:00 01/25/17 11:59 UNV Bisacodyl (Dulcolax) 10 mg BID PRN RECTAL Constipation 12/26/16 09:30 01/25/17 09:29 Carvedilol (Coreg) 3.125 mg Q12HR ORAL 12/25/16 21:00 01/23/17 20:59 12/26/16 08:57 Clopidogrel Bisulfate (Plavix) 75 mg DAILY ORAL 12/26/16 09:00 01/24/17 08:59 12/26/16 09:01 Demeclocycline HCl (Declomycin) 150 mg FOUR TIMES A DAY ORAL 12/26/16 13:00 01/02/17 12:59 Dextrose (Dextrose 50%) STAT PRN IV Hypoglycemia 12/25/16 20:30 01/24/17 20:29 Diltiazem HCl (Cardizem) 10 mg Q1H PRN IV HR > 100 12/25/16 20:00 01/23/17 18:59 Docusate Sodium (Colace) 100 mg THREE TIMES A DAY ORAL 12/26/16 13:00 01/25/17 12:59 UNV Heparin Sodium (Porcine) (Heparin 5000 units/ml) 5,000 units EVERY 12 HOURS SUBQ 12/25/16 21:00 01/23/17 20:59 12/26/16 09:09 Insulin Aspart (NovoLOG) BEFORE MEALS AND HS SUBQ 12/25/16 21:30 01/23/17 21:29 12/26/16 12:40 Lorazepam (Ativan 2mg/ml 1ml) 0.5 mg Q4H PRN IV For Anxiety 12/25/16 20:30 12/31/16 20:29 Memantine (Namenda) 5 mg BID ORAL 12/26/16 09:00 01/25/17 08:59 12/26/16 09:07 Ondansetron HCl (Zofran) 4 mg Q6H PRN IVP Nausea & Vomiting 12/25/16 20:30 01/24/17 20:29 Polyethylene Glycol (Miralax) 17 gm BEDTIME ORAL 12/26/16 21:00 01/25/17 20:59 UNV Polyethylene Glycol (Miralax) 17 gm HSPRN PRN ORAL Constipation 12/25/16 20:30 01/24/17 20:29 12/26/16 09:04 Sodium Chloride 500 ml @ 30 mls/hr ONCE ONCE IV 12/25/16 22:00 12/26/16 14:39 12/25/16 21:54 Sodium Chloride (NaCl) 1 gm THREE TIMES A DAY ORAL 12/26/16 09:00 12/14/17 08:59 12/26/16 09:05 Trazodone HCl (Desyrel) 25 mg HSPRN PRN ORAL Insomnia 12/25/16 21:00 01/24/17 20:59 Zolpidem Tartrate (Ambien) 5 mg HSPRN PRN ORAL Unrelieved Insomnia by Trazodo 12/26/16 18:45 12/31/16 18:44 CHARLOTTE DAVISON Dec 26, 2016 13:11
[2016-12-26] MEDS: Demeclocycline 150mg tab ORAL SCH ×3 (14:49→22:30)
--- NOTE | 2016-12-26 15:26 | General Progress Note ---
Assessment/Plan Problem List: (1) SOB (shortness of breath) ICD Codes: R06.02 - Shortness of breath SNOMED: 040875981 (2) Diabetes ICD Codes: E11.9 - Type 2 diabetes mellitus without complications SNOMED: 60309291 (3) Pyuria ICD Codes: N39.0 - Urinary tract infection, site not specified SNOMED: 4507300, 820957904, 305895385 (4) HTN (hypertension) ICD Codes: I10 - Essential (primary) hypertension SNOMED: 27755870 (5) Anemia ICD Codes: D64.9 - Anemia, unspecified SNOMED: 923471905 Status: stable, progressing, tolerating diet Assessment/Plan ot pt diet abx psyc f/u cbc bmp am Subjective Constitutional: Reports: weakness Allergies: Coded Allergies: PENICILLINS (Unverified Allergy, Unknown, 08/18/14) All Systems: reviewed and negative except above Subjective sl anxious in bed Objective Last 24 Hour Vital Signs Date Time Temp Pulse Resp B/P (MAP) Pulse Ox O2 Delivery O2 Flow Rate FiO2 12/26/16 08:57 65 155/80 12/26/16 08:00 96.2 75 20 160/80 98 Room Air 12/26/16 04:09 97.6 90 19 131/64 96 Room Air 12/25/16 23:45 97.6 92 19 132/64 96 Room Air 12/25/16 21:00 95 91/58 12/25/16 20:33 97.9 95 18 91/58 90 Room Air 12/25/16 16:00 97.8 101 20 111/56 98 Room Air Laboratory Tests 12/25/16 20:15: Sodium Level 116*L, Potassium Level 3.6, Chloride Level 84L, Carbon Dioxide Level 19L, Anion Gap 13, Blood Urea Nitrogen 5L, Creatinine 0.7, Estimat Glomerular Filtration Rate > 60, Glucose Level 106, Calcium Level 8.5, Total Bilirubin 2.6H, Direct Bilirubin 0.4H, Aspartate Amino Transf (AST/SGOT) 22, Alanine Aminotransferase (ALT/SGPT) 13, Alkaline Phosphatase 70, Total Protein 6.9, Albumin 3.4, Globulin 3.5, Albumin/Globulin Ratio 1.0 12/26/16 05:35: Sodium Level 120L, Potassium Level 3.6, Chloride Level 87L, Carbon Dioxide Level 19L, Anion Gap 14, Blood Urea Nitrogen 5L, Creatinine 0.8, Estimat Glomerular Filtration Rate > 60, Glucose Level 131H, Calcium Level 8.7, White Blood Count 13.2H, Red Blood Count 4.32L, Hemoglobin 11.2L, Hematocrit 34.1L, Mean Corpuscular Volume 79L, Mean Corpuscular Hemoglobin 26.0L, Mean Corpuscular Hemoglobin Concent 33.0, Red Cell Distribution Width 12.4, Platelet Count 169, Mean Platelet Volume 8.6, Neutrophils (%) (Auto) , Lymphocytes (%) ( Auto) , Monocytes (%) (Auto) , Eosinophils (%) (Auto) , Basophils (%) (Auto) , Differential Total Cells Counted 100, Neutrophils % (Manual) 86H, Lymphocytes % (Manual) 6L, Monocytes % (Manual) 6, Eosinophils % (Manual) 0, Basophils % ( Manual) 0, Band Neutrophils 2, Platelet Estimate Adequate, Platelet Morphology Normal, Microcytosis 1+ Height (Feet): 5 Height (Inches): 9.00 Weight (Pounds): 175 General Appearance: lethargic, confused EENT: normal ENT inspection Neck: normal alignment Cardiovascular: normal peripheral pulses, normal rate, regular rhythm Respiratory/Chest: chest wall non-tender, lungs clear, normal breath sounds Abdomen: normal bowel sounds, non tender, soft Extremities: normal inspection Edema: no edema noted Arm (L), no edema noted Arm (R), no edema noted Leg (L), no edema noted Leg (R), no edema noted Pedal (L), no edema noted Pedal (R), no edema noted Generalized Neurologic: responsive, motor weakness Skin: normal pigmentation, warm/dry PHILIPPE MONTEIRO Dec 26, 2016 15:26
[2016-12-26 16:00] VITALS: BP 89/54
--- NOTE | 2016-12-26 16:56 | Cardiology Report ---
APPROVED REPORT EKG Measurement Heart [id number] Sinus tachycardia Abnormal ECG
[2016-12-26] MEDS ORDERED: Docusate 100mg cap ORAL SCH (18:00)
[2016-12-26] MEDS ORDERED: Zolpidem 5mg tab ORAL PRN (18:45)
[2016-12-26 20:00] VITALS: BP 80/46
[2016-12-26] MEDS ORDERED: Sodium Chloride 500ML 500 ML IVPB ONE ×2 (20:30→21:30)
[2016-12-26] MEDS ORDERED: Miralax 17gm pkt ORAL SCH (21:00)
[2016-12-26 22:30] VITALS: BP 88/52
--- NOTE | 2016-12-26 23:29 | Consultation ---
History of Present Illness General Chief Complaint: Abnormal Labs Referring physician: PHILIPPE MONTEIRO Reason for Consultation: CONSTIPATION Present Illness HPI 66-year-old [facility] resident, admitted last night because of abnormal labs. The patient had hyponatremia. the pt has hx of anxiety and insomnia. the pt has been refusing some care and ot/ during eval the pt was irritable and anxiety. the pt stated that he didnt get his medication last night. Allergies: Coded Allergies: PENICILLINS (Unverified Allergy, Unknown, 08/18/14) Medication History Scheduled Ascorbic Acid* (Vitamin C*), 250 MG ORAL TWICE A DAY, (Reported) Aspirin (Aspirin), 81 MG PO DAILY, (Reported) Atorvastatin Calcium* (Atorvastatin Calcium*), 40 MG ORAL BEDTIME, (Reported) Carvedilol* (Carvedilol*), 3.125 MG ORAL BID, (Reported) Donepezil Hcl* (Donepezil Hcl*), 5 MG ORAL QHS, (Reported) Famotidine (Famotidine), 20 MG ORAL TWICE A DAY, (Reported) Furosemide* (Lasix*), 10 MG ORAL BID, (Reported) Gabapentin* (Gabapentin*), 100 MG ORAL DAILY, (Reported) Melatonin (Melatonin), 3 MG PO HS, (Reported) Scheduled PRN Acetaminophen* (Acetaminophen 325MG Tablet*), 650 MG ORAL Q4H PRN for Fever/ Headache/Mild Pain, (Reported) Albuterol Sulfate* (Albuterol Sulfate Hhn*), 3 ML INH Q6H PRN for Shortness of Breath, (Reported) Lactulose (Lactulose*), 30 ML ORAL TID PRN for PRN, (Reported) Miscellaneous Medications Insulin Aspart* (Novolog*), 0 SUBQ, (Reported) [place] Extract/Quercetin (Prostate Pq Tablet), 1 EACH PO, (Reported) Discontinued Medications Cefepime Hcl (Maxipime), 2 GM IV Q12HR, (Reported) Discontinued Reason: Pt stopped taking med Clopidogrel Bisulfate* (Plavix*), 75 MG ORAL DAILY Discontinued Reason: Pt stopped taking med Diltiazem HCl (Diltiazem HCl), 10 MG IV Q1HR, (Reported) Discontinued Reason: Pt stopped taking med Furosemide In 0.9 % Nacl (Furosemide-0.9% Nacl 100MG/100), 20 MG IV Q8HR, ( Reported) Discontinued Reason: Pt stopped taking med Hydrocodone Bit/Acetaminophen 5-325* (Brohard 5-325 Tablet*), 1 TAB ORAL Q6HR PRN for Severe Pain (Pain Scale 7-10), (Reported) Discontinued Reason: Pt stopped taking med Insulin Aspart (Novolog), 100 UNIT SQ QID, (Reported) Discontinued Reason: Pt stopped taking med Insulin Aspart* (Novolog*), 0 SUBQ, (Reported) Discontinued Reason: Pt stopped taking med Insulin Aspart* (Novolog*), 0 SUBQ BEFORE MEALS AND HS, (Reported) Discontinued Reason: Pt stopped taking med Insulin Detemir (Levemir Flexpen), 10 SUBQ DAILY, (Reported) Discontinued Reason: Pt stopped taking med Ipratropium/Albuterol Sulfate (DuoNeb 0.5-3(2.5)mg/3ml), 3 ML HHN Q4HR PRN for Shortness of Breath, (Reported) Discontinued Reason: Pt stopped taking med Levofloxacin-D5w 500 Mg/100 Ml* (Levofloxacin-D5w 500 Mg/100 Ml*), 500 MG IVPB Q24H, (Reported) Discontinued Reason: Pt stopped taking med Morphine Sulfate (Morphine Sulfate), 2 MG IV Q4HR PRN for Severe Pain (Pain Scale 7-10), (Reported) Discontinued Reason: Pt stopped taking med Multivitamin (Multivitamins), 1 CAP ORAL DAILY, (Reported) Discontinued Reason: Pt stopped taking med Nitroglycerin (Nitrostat), 0.4 MG SL Q5M X3 DOSES PRN for CHEST PAIN, (Reported) Discontinued Reason: Pt stopped taking med Ondansetron* (Zofran*), 4 MG ORAL Q6H PRN for Nausea & Vomiting, (Reported) Discontinued Reason: Pt stopped taking med Ondansetron* (Zofran*), 4 MG IV Q6H PRN for Nausea & Vomiting, (Reported) Discontinued Reason: Pt stopped taking med Pantoprazole (Pantoprazole), 40 MG ORAL DAILY, (Reported) Discontinued Reason: Pt stopped taking med Polyethylene Glycol 3350* (Polyethylene Glycol 3350*), 17 GM ORAL DAILY PRN for Constipation, (Reported) Discontinued Reason: Pt stopped taking med Potassium Chloride (Potassium Chloride), 40 MEQ PO, (Reported) Discontinued Reason: Pt stopped taking med Sorbitol (Sorbitol), 30 ML GT TID PRN for PRN, (Reported) Discontinued Reason: Pt stopped taking med Temazepam (Temazepam*), 15 MG ORAL BEDTIME, (Reported) Discontinued Reason: Pt stopped taking med Trazodone Hcl* (Desyrel*), 25 MG ORAL QHS PRN for Insomnia, (Reported) Discontinued Reason: Pt stopped taking med Vancomycin Hcl/D5w (Vancomycin-D5w 1 G/250 Ml), 1 GM IVPB Q24H, (Reported) Discontinued Reason: Pt stopped taking med Patient History Limited by: medical condition History Provided By: Patient, Medical Record, PMD Healthcare decision maker Resuscitation status Full Code Advanced Directive on File Yes Past Medical/Surgical History Past Medical/Surgical History: (1) Abnormal urogenital findings (2) Abnormal urogenital findings (3) Inguinal hernia (4) Acute head injury (5) Fall from wheelchair (6) Scalp laceration (7) Bacteremia (8) Pulmonary edema (9) Shock (10) Acute non-ST segment elevation myocardial infarction (11) Pneumonia (12) Dyspnea (13) Elevated troponin (14) CHF (congestive heart failure) (15) Acute encephalopathy (16) SIRS (systemic inflammatory response syndrome) (17) Hyponatremia (18) Sepsis (19) Diabetes mellitus (20) Anemia (21) HTN (hypertension) (22) Constipated (23) Pyuria (24) Diabetes (25) SOB (shortness of breath) Review of Systems Psychiatric: Reports: prior hx, anxiety, depressed feelings, emotional problems Physical Exam General Appearance: no apparent distress, alert Neurologic: alert, oriented x 3, responsive, depressed affect Last 24 Hour Vital Signs Date Time Temp Pulse Resp B/P (MAP) Pulse Ox O2 Delivery O2 Flow Rate FiO2 12/26/16 22:30 88/52 12/26/16 20:00 98.1 72 20 80/46 99 Room Air 12/26/16 16:00 98.1 81 18 89/54 98 Room Air 12/26/16 12:00 98.2 57 14 138/60 95 Room Air 12/26/16 08:57 65 155/80 12/26/16 08:00 96.2 75 20 160/80 98 Room Air 12/26/16 04:09 97.6 90 19 131/64 96 Room Air 12/25/16 23:45 97.6 92 19 132/64 96 Room Air Intake and Output 12/26/16 12/27/16 19:00 07:00 Intake Total 500 ml Output Total 850 ml Balance -350 ml Intake Oral 500 ml Output Urine Total 850 ml # Voids 3 # Bowel Movements 6 Laboratory Tests Test 12/26/16 05:35 White Blood Count 13.2 K/UL (4.8-10.8) H Red Blood Count 4.32 M/UL (4.70-6.10) L Hemoglobin 11.2 G/DL (14.2-18.0) L Hematocrit 34.1 % (42.0-52.0) L Mean Corpuscular Volume 79 FL (80-99) L Mean Corpuscular Hemoglobin 26.0 PG (27.0-31.0) L Mean Corpuscular Hemoglobin Concent 33.0 G/DL (32.0-36.0) Red Cell Distribution Width 12.4 % (11.6-14.8) Platelet Count 169 K/UL (150-450) Mean Platelet Volume 8.6 FL (6.5-10.1) Neutrophils (%) (Auto) % (45.0-75.0) Lymphocytes (%) (Auto) % (20.0-45.0) Monocytes (%) (Auto) % (1.0-10.0) Eosinophils (%) (Auto) % (0.0-3.0) Basophils (%) (Auto) % (0.0-2.0) Differential Total Cells Counted 100 Neutrophils % (Manual) 86 % (45-75) H Lymphocytes % (Manual) 6 % (20-45) L Monocytes % (Manual) 6 % (1-10) Eosinophils % (Manual) 0 % (0-3) Basophils % (Manual) 0 % (0-2) Band Neutrophils 2 % (0-8) Platelet Estimate Adequate Platelet Morphology Normal Microcytosis 1+ Sodium Level 120 MMOL/L (136-145) L Potassium Level 3.6 MMOL/L (3.5-5.1) Chloride Level 87 MMOL/L (98-107) L Carbon Dioxide Level 19 MMOL/L (21-32) L Anion Gap 14 mmol/L (5-15) Blood Urea Nitrogen 5 mg/dL (7-18) L Creatinine 0.8 MG/DL (0.55-1.30) Estimat Glomerular Filtration Rate > 60 mL/min (>60) Glucose Level 131 MG/DL (74-106) H Calcium Level 8.7 MG/DL (8.5-10.1) Height (Feet): 5 Height (Inches): 9.00 Weight (Pounds): 175 Medications Current Medications Medications (Trade) Dose Ordered Sig/Marsha Route PRN Reason Start Time Stop Time Status Last Admin Dose Admin Acetaminophen (Tylenol) 650 mg Q4H PRN ORAL fever 12/27/16 00:30 01/23/17 20:29 Al Hydroxide/Mg Hydroxide (Mylanta II) 30 ml Q6H PRN ORAL dyspepsia 12/27/16 02:30 01/24/17 20:29 Bisacodyl (Dulcolax) 5 mg DAILYPRN PRN ORAL Unrelieved Constipation 12/27/16 12:00 01/25/17 11:59 Bisacodyl (Dulcolax) 10 mg BID PRN RECTAL Constipation 12/27/16 09:00 01/25/17 09:29 Carvedilol (Coreg) 3.125 mg Q12HR ORAL 12/27/16 09:00 01/23/17 20:59 Clopidogrel Bisulfate (Plavix) 75 mg DAILY ORAL 12/27/16 09:00 01/24/17 08:59 Demeclocycline HCl (Declomycin) 150 mg FOUR TIMES A DAY ORAL 12/26/16 22:00 01/02/17 12:59 12/26/16 22:30 Dextrose (Dextrose 50%) STAT PRN IV Hypoglycemia 12/26/16 22:03 01/25/17 22:02 Docusate Sodium (Colace) 100 mg THREE TIMES A DAY ORAL 12/27/16 09:00 01/25/17 17:59 Heparin Sodium (Porcine) (Heparin 5000 units/ml) 5,000 units EVERY 12 HOURS SUBQ 12/26/16 22:00 01/23/17 20:59 12/26/16 22:31 Insulin Aspart (NovoLOG) BEFORE MEALS AND HS SUBQ 12/27/16 06:30 01/26/17 06:29 Lorazepam (Ativan 2mg/ml 1ml) 0.5 mg Q4H PRN IV For Anxiety 12/27/16 00:30 12/31/16 20:29 Memantine (Namenda) 5 mg BID ORAL 12/27/16 09:00 01/25/17 08:59 Ondansetron HCl (Zofran) 4 mg Q6H PRN IVP Nausea & Vomiting 12/27/16 02:30 01/24/17 20:29 Polyethylene Glycol (Miralax) 17 gm BEDTIME ORAL 12/27/16 21:00 01/25/17 20:59 Polyethylene Glycol (Miralax) 17 gm HSPRN PRN ORAL Constipation 12/27/16 20:30 01/24/17 20:29 Sodium Chloride (NaCl) 1 gm THREE TIMES A DAY ORAL 12/27/16 09:00 01/24/17 08:59 Trazodone HCl (Desyrel) 25 mg HSPRN PRN ORAL Insomnia 12/27/16 21:00 01/24/17 20:59 Zolpidem Tartrate (Ambien) 5 mg HSPRN PRN ORAL Unrelieved Insomnia by Trazodo 12/27/16 18:45 12/31/16 18:44 Assessment/Plan Status: stable, progressing Assessment/Plan anxiety d/o -trazodone 25mg qhs -ativan prn Ricardo Aguero M.D. Dec 26, 2016 23:29
--- NOTE | 2016-12-26 23:38 | Cardiology Progress Note ---
Assessment/Plan Assessment/Plan The patient is seen and examined, full consult note will be dictated. Objective Last 24 Hour Vital Signs Date Time Temp Pulse Resp B/P (MAP) Pulse Ox O2 Delivery O2 Flow Rate FiO2 12/26/16 22:30 88/52 12/26/16 20:00 98.1 72 20 80/46 99 Room Air 12/26/16 16:00 98.1 81 18 89/54 98 Room Air 12/26/16 12:00 98.2 57 14 138/60 95 Room Air 12/26/16 08:57 65 155/80 12/26/16 08:00 96.2 75 20 160/80 98 Room Air 12/26/16 04:09 97.6 90 19 131/64 96 Room Air 12/25/16 23:45 97.6 92 19 132/64 96 Room Air Intake and Output 12/26/16 12/27/16 19:00 07:00 Intake Total 500 ml Output Total 850 ml Balance -350 ml Intake Oral 500 ml Output Urine Total 850 ml # Voids 3 # Bowel Movements 6 Laboratory Tests Test 12/26/16 05:35 White Blood Count 13.2 K/UL (4.8-10.8) H Red Blood Count 4.32 M/UL (4.70-6.10) L Hemoglobin 11.2 G/DL (14.2-18.0) L Hematocrit 34.1 % (42.0-52.0) L Mean Corpuscular Volume 79 FL (80-99) L Mean Corpuscular Hemoglobin 26.0 PG (27.0-31.0) L Mean Corpuscular Hemoglobin Concent 33.0 G/DL (32.0-36.0) Red Cell Distribution Width 12.4 % (11.6-14.8) Platelet Count 169 K/UL (150-450) Mean Platelet Volume 8.6 FL (6.5-10.1) Neutrophils (%) (Auto) % (45.0-75.0) Lymphocytes (%) (Auto) % (20.0-45.0) Monocytes (%) (Auto) % (1.0-10.0) Eosinophils (%) (Auto) % (0.0-3.0) Basophils (%) (Auto) % (0.0-2.0) Differential Total Cells Counted 100 Neutrophils % (Manual) 86 % (45-75) H Lymphocytes % (Manual) 6 % (20-45) L Monocytes % (Manual) 6 % (1-10) Eosinophils % (Manual) 0 % (0-3) Basophils % (Manual) 0 % (0-2) Band Neutrophils 2 % (0-8) Platelet Estimate Adequate Platelet Morphology Normal Microcytosis 1+ Sodium Level 120 MMOL/L (136-145) L Potassium Level 3.6 MMOL/L (3.5-5.1) Chloride Level 87 MMOL/L (98-107) L Carbon Dioxide Level 19 MMOL/L (21-32) L Anion Gap 14 mmol/L (5-15) Blood Urea Nitrogen 5 mg/dL (7-18) L Creatinine 0.8 MG/DL (0.55-1.30) Estimat Glomerular Filtration Rate > 60 mL/min (>60) Glucose Level 131 MG/DL (74-106) H Calcium Level 8.7 MG/DL (8.5-10.1) Microbiology Date/Time Source Procedure Growth Status 12/24/16 17:15 Blood Blood Culture - Preliminary NO GROWTH AFTER 24 HOURS Resulted 12/24/16 17:15 Blood Blood Culture - Preliminary NO GROWTH AFTER 24 HOURS Resulted 12/25/16 02:00 Wound Gram Stain - Final Resulted 12/25/16 02:00 Wound Wound Culture Pending Resulted JESS WHITFIELD Dec 26, 2016 23:38
[2016-12-27] VITALS (8 sets, daily range): BP systolic 73–99; BP diastolic 42–55
[2016-12-27] MEDS ORDERED: LORazepam Inj 2mg/ml 1ml IV PRN (00:30)
[2016-12-27] MEDS ORDERED: Mylanta II UD 30ml ORAL PRN (02:30)
[2016-12-27] MEDS: NovoLOG Insulin Flexpen SUBQ SCH ×4 (06:13→20:51)
[2016-12-27 07:42] LABS: BASOPHILS % (AUTO) 0.9 % (0.0-2.0); EOSINOPHILS % (AUTO) 0.5 % (0.0-3.0); LYMPHOCYTES % (AUTO) 14.7 % (20.0-45.0); MEAN CORPUSCULAR HEMOGLOBIN 26.4 PG (27.0-31.0); MEAN CORPUSCULAR HGB CONC 33.4 G/DL (32.0-36.0); MEAN CORPUSCULAR VOLUME 79 FL (80-99); MONOCYTES % (AUTO) 5.6 % (1.0-10.0); NEUTROPHILS % (AUTO) 78.3 % (45.0-75.0); PLATELET COUNT 127 K/UL (150-450); RED BLOOD COUNT 3.46 M/UL (4.70-6.10); RED CELL DISTRIBUTION WIDTH 12.7 % (11.6-14.8); WHITE BLOOD COUNT 7.2 K/UL (4.8-10.8)
[2016-12-27 08:11] LABS: ALANINE AMINOTRANSFERASE 14 U/L (12-78); ALBUMIN/GLOBULIN RATIO 0.8 (1.0-2.7); ANION GAP 9 mmol/L (5-15); ASPARTATE AMINO TRANSFERASE 20 U/L (15-37); CALCIUM 8.2 MG/DL (8.5-10.1); CARBON DIOXIDE 22 MMOL/L (21-32); CHLORIDE 101 MMOL/L (98-107); CREATININE 0.7 MG/DL (0.55-1.30); GLOMERULAR FILTRATION RATE > 60 mL/min (>60); POTASSIUM 3.1 MMOL/L (3.5-5.1); SODIUM 132 MMOL/L (136-145); TOTAL PROTEIN 5.9 G/DL (6.4-8.2)
--- NOTE | 2016-12-27 08:15 | Consultation ---
DATE OF CONSULTATION: 12/26/2016 REASON FOR CONSULTATION: Severe hyponatremia . HISTORY OF PRESENT ILLNESS: This is a 66-year-old male patient, who is confused and disorganized, mood labile. The patient was transferred from [facility]. hypoxemia . He also had . He was admitted to [facility] for that reason. The patient is confused and disorganized. Cognition has declined below his baseline. SOCIAL HISTORY: He lives in [facility]. Financially supported by [facility] and Medicare. SUBSTANCE ABUSE HISTORY: Denies drug or alcohol abuse. PSYCHIATRIC HISTORY: Paranoid schizophrenia. ALLERGIES: No known drug allergies. MENTAL STATUS EXAMINATION: This is a 66-year-old male with psychomotor retardation. Mood is depressed. Affect guarded and restricted. Thought process, disorganized and illogical. Denies any suicidal or homicidal thoughts. His insight and judgment is poor. DIAGNOSIS: Paranoid schizophrenia. PLAN: I am going to treat this patient with a regimen of Namenda 5 mg twice a day to prevent any decline in his cognition. The patient will continue to be followed throughout his hospital course. Chart reviewed and discussed with staff. The patient was seen and assessed in his room. Monica Packer M.D. DR: JAZMINE JOB#: [id number] CC:
[2016-12-27] MEDS: Docusate 100mg cap ORAL SCH ×3 (08:43→17:27)
[2016-12-27] MEDS: Demeclocycline 150mg tab ORAL SCH ×4 (08:44→20:49)
[2016-12-27] MEDS: Sodium Chloride 1gm Tab ORAL SCH ×3 (08:44→17:23)
[2016-12-27] MEDS: Memantine 10mg tab ORAL SCH ×2 (08:45→17:24)
[2016-12-27] MEDS: Heparin 5000 units/ml inj SUBQ SCH ×2 (08:50→20:51)
[2016-12-27 09:13] LABS: IRON 14 ug/dL (50-175); TOTAL IRON BINDING CAPACITY 212 ug/dL (250-450)
--- NOTE | 2016-12-27 09:14 | Nephrology Progress Note ---
Assessment/Plan Assessment 1. Hypovolemic hyponatremia. 2. acidosis 3. Urinary tract infection. 4. Hypertension. 5. diabetes with proteinuria. Plan plan free water restriction continue on demeclocycline replace electrolyte as need it monitoring na level closely Subjective Constitutional: Reports: no symptoms HEENT: Reports: no symptoms Genitourinary: Reports: no symptoms Neurologic/Psychiatric: Reports: no symptoms Subjective alert and awake no complaints Objective Objective Last 24 Hour Vital Signs Date Time Temp Pulse Resp B/P (MAP) Pulse Ox O2 Delivery O2 Flow Rate FiO2 12/27/16 08:02 97 73/46 12/27/16 08:00 94 12/27/16 08:00 97.8 97 20 73/46 99 Room Air 12/27/16 06:00 78 87/51 12/27/16 04:00 84 12/27/16 04:00 98.1 20 81/50 98 Room Air 12/27/16 00:00 97.3 64 20 82/48 100 Room Air 12/27/16 00:00 83 12/26/16 22:30 88/52 12/26/16 20:00 98.1 72 20 80/46 99 Room Air 12/26/16 16:00 98.1 81 18 89/54 98 Room Air 12/26/16 12:00 98.2 57 14 138/60 95 Room Air Intake and Output 12/27/16 12/28/16 19:00 07:00 Intake Total 100 ml Balance 100 ml Intake Oral 100 ml Laboratory Tests 12/27/16 06:55: White Blood Count 7.2, Red Blood Count 3.46L, Hemoglobin 9.1L, Hematocrit 27.4L , Mean Corpuscular Volume 79L, Mean Corpuscular Hemoglobin 26.4L, Mean Corpuscular Hemoglobin Concent 33.4, Red Cell Distribution Width 12.7, Platelet Count 127L, Mean Platelet Volume 8.0, Neutrophils (%) (Auto) 78.3H, Lymphocytes (%) (Auto) 14.7L, Monocytes (%) (Auto) 5.6, Eosinophils (%) (Auto) 0.5, Basophils (%) (Auto) 0.9, Sodium Level [Pending], Potassium Level [Pending], Chloride Level [Pending], Carbon Dioxide Level [Pending], Anion Gap 9, Blood Urea Nitrogen [Pending], Creatinine [Pending], Estimat Glomerular Filtration Rate [Pending], Glucose Level [Pending], Calcium Level [Pending], Phosphorus Level [Pending], Magnesium Level [Pending], Iron Level [Pending], Unsaturated Iron Binding [Pending], Total Bilirubin 1.0, Aspartate Amino Transf (AST/SGOT) 20, Alanine Aminotransferase (ALT/SGPT) 14, Alkaline Phosphatase 58, Total Protein 5.9L, Albumin 2.6L, Globulin 3.3, Albumin/Globulin Ratio 0.8L Height (Feet): 5 Height (Inches): 9.00 Weight (Pounds): 175 Objective HEAD AND NECK: No JVP. No LAD. No thyromegaly. Extraocular movement intact. Pupils are reactive to light and accommodation. LUNGS: Clear to auscultation. CARDIAC: Regular rate and rhythm. S1, S2. No murmur. No rub. ABDOMEN: Soft, nontender, and nondistended. EXTREMITIES: Bilateral amputee. VERNON ANN Dec 27, 2016 09:14
[2016-12-27 09:26] LABS: ANION GAP 10 mmol/L (5-15); CALCIUM 8.2 MG/DL (8.5-10.1); CARBON DIOXIDE 22 MMOL/L (21-32); CHLORIDE 101 MMOL/L (98-107); CREATININE 0.6 MG/DL (0.55-1.30); GLOMERULAR FILTRATION RATE > 60 mL/min (>60); MAGNESIUM 1.5 MG/DL (1.8-2.4); PHOSPHORUS 2.5 MG/DL (2.5-4.9); POTASSIUM 3.2 MMOL/L (3.5-5.1); SODIUM 133 MMOL/L (136-145)
[2016-12-27] MEDS ORDERED: KCl 10% 40mEq/30ml liquid NG ONE (09:30)
--- NOTE | 2016-12-27 10:58 | GI Progress Note ---
Assessment/Plan Problems: (1) Iron deficiency ICD Codes: E61.1 - Iron deficiency SNOMED: 33871181 (2) Hyponatremia ICD Codes: E87.1 - Hypo-osmolality and hyponatremia SNOMED: 63380653 (3) Diabetes mellitus ICD Codes: E11.9 - Type 2 diabetes mellitus without complications SNOMED: 00719942 (4) Anemia ICD Codes: D64.9 - Anemia, unspecified SNOMED: 574089836 Status: unchanged Status Narrative Discussed with Dr. Jeffries. Assessment/Plan microcytic hypochromic anemia hyponatremia iron deficiency >> venofer symptomatic treatment start bowel regime >> colace + miralax ATC, dulcolax prn prn transfusions H2B GI prophylaxis electrolyte correction fu labs Subjective Gastrointestinal/Abdominal: Reports: no symptoms Objective Last 24 Hour Vital Signs Date Time Temp Pulse Resp B/P (MAP) Pulse Ox O2 Delivery O2 Flow Rate FiO2 12/27/16 09:57 92 84/42 12/27/16 08:02 97 73/46 12/27/16 08:00 94 12/27/16 08:00 97.8 97 20 73/46 99 Room Air 12/27/16 06:00 78 87/51 12/27/16 04:00 84 12/27/16 04:00 98.1 20 81/50 98 Room Air 12/27/16 00:00 97.3 64 20 82/48 100 Room Air 12/27/16 00:00 83 12/26/16 22:30 88/52 12/26/16 20:00 98.1 72 20 80/46 99 Room Air 12/26/16 16:00 98.1 81 18 89/54 98 Room Air 12/26/16 12:00 98.2 57 14 138/60 95 Room Air Intake and Output 12/27/16 12/28/16 19:00 07:00 Intake Total 100 ml Balance 100 ml Intake Oral 100 ml Laboratory Tests Test 12/27/16 06:55 White Blood Count 7.2 K/UL (4.8-10.8) Red Blood Count 3.46 M/UL (4.70-6.10) L Hemoglobin 9.1 G/DL (14.2-18.0) L Hematocrit 27.4 % (42.0-52.0) L Mean Corpuscular Volume 79 FL (80-99) L Mean Corpuscular Hemoglobin 26.4 PG (27.0-31.0) L Mean Corpuscular Hemoglobin Concent 33.4 G/DL (32.0-36.0) Red Cell Distribution Width 12.7 % (11.6-14.8) Platelet Count 127 K/UL (150-450) L Mean Platelet Volume 8.0 FL (6.5-10.1) Neutrophils (%) (Auto) 78.3 % (45.0-75.0) H Lymphocytes (%) (Auto) 14.7 % (20.0-45.0) L Monocytes (%) (Auto) 5.6 % (1.0-10.0) Eosinophils (%) (Auto) 0.5 % (0.0-3.0) Basophils (%) (Auto) 0.9 % (0.0-2.0) Sodium Level 133 MMOL/L (136-145) L Potassium Level 3.2 MMOL/L (3.5-5.1) L Chloride Level 101 MMOL/L (98-107) Carbon Dioxide Level 22 MMOL/L (21-32) Anion Gap 10 mmol/L (5-15) Blood Urea Nitrogen 4 mg/dL (7-18) L Creatinine 0.6 MG/DL (0.55-1.30) Estimat Glomerular Filtration Rate > 60 mL/min (>60) Glucose Level 107 MG/DL (74-106) H Calcium Level 8.2 MG/DL (8.5-10.1) L Phosphorus Level 2.5 MG/DL (2.5-4.9) Magnesium Level 1.5 MG/DL (1.8-2.4) L Iron Level 14 ug/dL (50-175) L Total Iron Binding Capacity 212 ug/dL (250-450) L Percent Iron Saturation 7 % (15-50) L Unsaturated Iron Binding 198 ug/dL (112-346) Total Bilirubin 1.0 MG/DL (0.2-1.0) Aspartate Amino Transf (AST/SGOT) 20 U/L (15-37) Alanine Aminotransferase (ALT/SGPT) 14 U/L (12-78) Alkaline Phosphatase 58 U/L (46-116) Total Protein 5.9 G/DL (6.4-8.2) L Albumin 2.6 G/DL (3.4-5.0) L Globulin 3.3 g/dL Albumin/Globulin Ratio 0.8 (1.0-2.7) L Height (Feet): 5 Height (Inches): 9.00 Weight (Pounds): 175 General Appearance: WD/WN, no apparent distress, alert, thin Cardiovascular: normal rate Respiratory/Chest: normal breath sounds, no respiratory distress Abdominal Exam: normal bowel sounds, non tender, soft Extremities: non-tender Alondra Argueta N.P. Dec 27, 2016 10:58
[2016-12-27] MEDS ORDERED: Bisacodyl EC 5mg tab ORAL PRN (12:00)
--- NOTE | 2016-12-27 12:05 | Infectious Diseases Prog Note ---
Assessment/Plan Assessment/Plan A 1. leucocytosis resolved 2. hyponatremia improving 3. DM 4. COPD P 1. continue off antibiotics Subjective ROS Limited/Unobtainable: No Constitutional: Reports: no symptoms Respiratory: Reports: no symptoms Genitourinary: Reports: no symptoms Allergies: Coded Allergies: PENICILLINS (Unverified Allergy, Unknown, 08/18/14) Objective Vital Signs Last 24 Hour Vital Signs Date Time Temp Pulse Resp B/P (MAP) Pulse Ox O2 Delivery O2 Flow Rate FiO2 12/27/16 11:22 97.6 91 20 98/48 100 Room Air 12/27/16 09:57 92 84/42 12/27/16 08:02 97 73/46 12/27/16 08:00 94 12/27/16 08:00 97.8 97 20 73/46 99 Room Air 12/27/16 06:00 78 87/51 12/27/16 04:00 84 12/27/16 04:00 98.1 20 81/50 98 Room Air 12/27/16 00:00 97.3 64 20 82/48 100 Room Air 12/27/16 00:00 83 12/26/16 22:30 88/52 12/26/16 20:00 98.1 72 20 80/46 99 Room Air 12/26/16 16:00 98.1 81 18 89/54 98 Room Air Height (Feet): 5 Height (Inches): 9.00 Weight (Pounds): 175 General Appearance: no acute distress HEENT: mucous membranes moist Respiratory/Chest: lungs clear Cardiovascular: normal rate Abdomen: soft, non tender Extremities: other - left AKA, R BKA Neurologic/Psychiatric: alert, responsive Microbiology Date/Time Source Procedure Growth Status 12/24/16 17:15 Blood Blood Culture - Preliminary NO GROWTH AFTER 48 HOURS Resulted 12/24/16 17:15 Blood Blood Culture - Preliminary NO GROWTH AFTER 48 HOURS Resulted 12/25/16 02:00 Wound Gram Stain - Final Resulted 12/25/16 02:00 Wound Culture - Preliminary Gram Positive Cocci YEAST Resulted 12/24/16 18:11 Nasal Nares MRSA Culture - Final NO METHICILLIN RESISTANT STAPH AUREUS... Complete 12/24/16 18:11 Rectum VRE Culture - Final NO VANCOMYCIN RESISTANT ENTEROCOCCUS ... Complete Laboratory Tests Test 12/27/16 06:55 White Blood Count 7.2 K/UL (4.8-10.8) Red Blood Count 3.46 M/UL (4.70-6.10) L Hemoglobin 9.1 G/DL (14.2-18.0) L Hematocrit 27.4 % (42.0-52.0) L Mean Corpuscular Volume 79 FL (80-99) L Mean Corpuscular Hemoglobin 26.4 PG (27.0-31.0) L Mean Corpuscular Hemoglobin Concent 33.4 G/DL (32.0-36.0) Red Cell Distribution Width 12.7 % (11.6-14.8) Platelet Count 127 K/UL (150-450) L Mean Platelet Volume 8.0 FL (6.5-10.1) Neutrophils (%) (Auto) 78.3 % (45.0-75.0) H Lymphocytes (%) (Auto) 14.7 % (20.0-45.0) L Monocytes (%) (Auto) 5.6 % (1.0-10.0) Eosinophils (%) (Auto) 0.5 % (0.0-3.0) Basophils (%) (Auto) 0.9 % (0.0-2.0) Sodium Level 133 MMOL/L (136-145) L Potassium Level 3.2 MMOL/L (3.5-5.1) L Chloride Level 101 MMOL/L (98-107) Carbon Dioxide Level 22 MMOL/L (21-32) Anion Gap 10 mmol/L (5-15) Blood Urea Nitrogen 4 mg/dL (7-18) L Creatinine 0.6 MG/DL (0.55-1.30) Estimat Glomerular Filtration Rate > 60 mL/min (>60) Glucose Level 107 MG/DL (74-106) H Calcium Level 8.2 MG/DL (8.5-10.1) L Phosphorus Level 2.5 MG/DL (2.5-4.9) Magnesium Level 1.5 MG/DL (1.8-2.4) L Iron Level 14 ug/dL (50-175) L Total Iron Binding Capacity 212 ug/dL (250-450) L Percent Iron Saturation 7 % (15-50) L Unsaturated Iron Binding 198 ug/dL (112-346) Total Bilirubin 1.0 MG/DL (0.2-1.0) Aspartate Amino Transf (AST/SGOT) 20 U/L (15-37) Alanine Aminotransferase (ALT/SGPT) 14 U/L (12-78) Alkaline Phosphatase 58 U/L (46-116) Total Protein 5.9 G/DL (6.4-8.2) L Albumin 2.6 G/DL (3.4-5.0) L Globulin 3.3 g/dL Albumin/Globulin Ratio 0.8 (1.0-2.7) L Current Medications Medications (Trade) Dose Ordered Sig/Marsha Route PRN Reason Start Time Stop Time Status Last Admin Dose Admin Acetaminophen (Tylenol) 650 mg Q4H PRN ORAL fever 12/27/16 00:30 01/23/17 20:29 Al Hydroxide/Mg Hydroxide (Mylanta II) 30 ml Q6H PRN ORAL dyspepsia 12/27/16 02:30 01/24/17 20:29 Bisacodyl (Dulcolax) 5 mg DAILYPRN PRN ORAL Unrelieved Constipation 12/27/16 12:00 01/25/17 11:59 Bisacodyl (Dulcolax) 10 mg BID PRN RECTAL Constipation 12/27/16 09:00 01/25/17 09:29 Carvedilol (Coreg) 3.125 mg Q12HR ORAL 12/27/16 09:00 01/23/17 20:59 Clopidogrel Bisulfate (Plavix) 75 mg DAILY ORAL 12/27/16 09:00 01/24/17 08:59 12/27/16 08:44 Demeclocycline HCl (Declomycin) 150 mg FOUR TIMES A DAY ORAL 12/26/16 22:00 01/02/17 12:59 12/27/16 08:44 Dextrose (Dextrose 50%) STAT PRN IV Hypoglycemia 12/26/16 22:03 01/25/17 22:02 Docusate Sodium (Colace) 100 mg THREE TIMES A DAY ORAL 12/27/16 09:00 01/25/17 17:59 12/27/16 08:43 Heparin Sodium (Porcine) (Heparin 5000 units/ml) 5,000 units EVERY 12 HOURS SUBQ 12/26/16 22:00 01/23/17 20:59 12/26/16 22:31 Insulin Aspart (NovoLOG) BEFORE MEALS AND HS SUBQ 12/27/16 06:30 01/26/17 06:29 12/27/16 11:47 Iron Sucrose 100 mg/Sodium Chloride 60 ml @ 240 mls/hr BEDTIME IV 12/27/16 21:00 12/29/16 21:14 Lorazepam (Ativan 2mg/ml 1ml) 0.5 mg Q4H PRN IV For Anxiety 12/27/16 00:30 12/31/16 20:29 Magnesium Sulfate 100 ml @ 100 mls/hr Q1H IVPB 12/27/16 11:30 12/27/16 13:29 12/27/16 11:22 Memantine (Namenda) 5 mg BID ORAL 12/27/16 09:00 01/25/17 08:59 12/27/16 08:45 Ondansetron HCl (Zofran) 4 mg Q6H PRN IVP Nausea & Vomiting 12/27/16 02:30 01/24/17 20:29 Polyethylene Glycol (Miralax) 17 gm BEDTIME ORAL 12/27/16 21:00 01/25/17 20:59 Polyethylene Glycol (Miralax) 17 gm HSPRN PRN ORAL Constipation 12/27/16 20:30 01/24/17 20:29 Sodium Chloride (NaCl) 1 gm THREE TIMES A DAY ORAL 12/27/16 09:00 01/24/17 08:59 12/27/16 08:44 Trazodone HCl (Desyrel) 25 mg HSPRN PRN ORAL Insomnia 12/27/16 21:00 01/24/17 20:59 Zolpidem Tartrate (Ambien) 5 mg HSPRN PRN ORAL Unrelieved Insomnia by Trazodo 12/27/16 18:45 12/31/16 18:44 WILLY GILBERT Dec 27, 2016 12:05
--- NOTE | 2016-12-27 13:01 | Pulmonology Progress Note ---
Assessment/Plan Problems: (1) Hyponatremia (2) HTN (hypertension) (3) Anemia (4) Diabetes mellitus Assessment/Plan Na continues to increase wbc remains high all noted diabetic diet sling scale. lots of PVC's on monitor borderline hypotension Keep in teli Subjective ROS Limited/Unobtainable: No Constitutional: Reports: no symptoms HEENT: Repors: no symptoms Respiratory: Reports: no symptoms Allergies: Coded Allergies: PENICILLINS (Unverified Allergy, Unknown, 08/18/14) Objective Last 24 Hour Vital Signs Date Time Temp Pulse Resp B/P (MAP) Pulse Ox O2 Delivery O2 Flow Rate FiO2 12/27/16 11:22 97.6 91 20 98/48 100 Room Air 12/27/16 09:57 92 84/42 12/27/16 08:02 97 73/46 12/27/16 08:00 94 12/27/16 08:00 97.8 97 20 73/46 99 Room Air 12/27/16 06:00 78 87/51 12/27/16 04:00 84 12/27/16 04:00 98.1 20 81/50 98 Room Air 12/27/16 00:00 97.3 64 20 82/48 100 Room Air 12/27/16 00:00 83 12/26/16 22:30 88/52 12/26/16 20:00 98.1 72 20 80/46 99 Room Air 12/26/16 16:00 98.1 81 18 89/54 98 Room Air Intake and Output 12/27/16 12/28/16 19:00 07:00 Intake Total 100 ml Output Total 100 ml Balance 0 ml Intake Oral 100 ml Output Urine Total 100 ml General Appearance: WD/WN HEENT: normocephalic, anicteric Respiratory/Chest: chest wall non-tender, normal breath sounds Cardiovascular: normal rate Abdomen: normal bowel sounds, no organomegaly Genitourinary: normal external genitalia Extremities: no clubbing Skin: no lesions Microbiology Date/Time Source Procedure Growth Status 12/24/16 17:15 Blood Blood Culture - Preliminary NO GROWTH AFTER 48 HOURS Resulted 12/24/16 17:15 Blood Blood Culture - Preliminary NO GROWTH AFTER 48 HOURS Resulted 12/25/16 02:00 Wound Gram Stain - Final Resulted 12/25/16 02:00 Wound Culture - Preliminary Gram Positive Cocci YEAST Resulted 12/24/16 18:11 Nasal Nares MRSA Culture - Final NO METHICILLIN RESISTANT STAPH AUREUS... Complete 12/24/16 18:11 Rectum VRE Culture - Final NO VANCOMYCIN RESISTANT ENTEROCOCCUS ... Complete Laboratory Tests 12/27/16 06:55: White Blood Count 7.2, Red Blood Count 3.46L, Hemoglobin 9.1L, Hematocrit 27.4L , Mean Corpuscular Volume 79L, Mean Corpuscular Hemoglobin 26.4L, Mean Corpuscular Hemoglobin Concent 33.4, Red Cell Distribution Width 12.7, Platelet Count 127L, Mean Platelet Volume 8.0, Neutrophils (%) (Auto) 78.3H, Lymphocytes (%) (Auto) 14.7L, Monocytes (%) (Auto) 5.6, Eosinophils (%) (Auto) 0.5, Basophils (%) (Auto) 0.9, Sodium Level 133L, Potassium Level 3.2L, Chloride Level 101, Carbon Dioxide Level 22, Anion Gap 10, Blood Urea Nitrogen 4L, Creatinine 0.6, Estimat Glomerular Filtration Rate > 60, Glucose Level 107H, Calcium Level 8.2L, Phosphorus Level 2.5, Magnesium Level 1.5L, Iron Level 14L, Total Iron Binding Capacity 212L, Percent Iron Saturation 7L, Unsaturated Iron Binding 198, Total Bilirubin 1.0, Aspartate Amino Transf (AST/SGOT) 20, Alanine Aminotransferase (ALT/SGPT) 14, Alkaline Phosphatase 58, Total Protein 5.9L, Albumin 2.6L, Globulin 3.3, Albumin/Globulin Ratio 0.8L Current Medications Medications (Trade) Dose Ordered Sig/Marsha Route PRN Reason Start Time Stop Time Status Last Admin Dose Admin Acetaminophen (Tylenol) 650 mg Q4H PRN ORAL fever 12/27/16 00:30 01/23/17 20:29 Al Hydroxide/Mg Hydroxide (Mylanta II) 30 ml Q6H PRN ORAL dyspepsia 12/27/16 02:30 01/24/17 20:29 Bisacodyl (Dulcolax) 5 mg DAILYPRN PRN ORAL Unrelieved Constipation 12/27/16 12:00 01/25/17 11:59 Bisacodyl (Dulcolax) 10 mg BID PRN RECTAL Constipation 12/27/16 09:00 01/25/17 09:29 Carvedilol (Coreg) 3.125 mg Q12HR ORAL 12/27/16 09:00 01/23/17 20:59 Clopidogrel Bisulfate (Plavix) 75 mg DAILY ORAL 12/27/16 09:00 01/24/17 08:59 12/27/16 08:44 Demeclocycline HCl (Declomycin) 150 mg FOUR TIMES A DAY ORAL 12/26/16 22:00 01/02/17 12:59 12/27/16 12:21 Dextrose (Dextrose 50%) STAT PRN IV Hypoglycemia 12/26/16 22:03 01/25/17 22:02 Docusate Sodium (Colace) 100 mg THREE TIMES A DAY ORAL 12/27/16 09:00 01/25/17 17:59 12/27/16 12:21 Heparin Sodium (Porcine) (Heparin 5000 units/ml) 5,000 units EVERY 12 HOURS SUBQ 12/26/16 22:00 01/23/17 20:59 12/26/16 22:31 Insulin Aspart (NovoLOG) BEFORE MEALS AND HS SUBQ 12/27/16 06:30 01/26/17 06:29 12/27/16 11:47 Iron Sucrose 100 mg/Sodium Chloride 60 ml @ 240 mls/hr BEDTIME IV 12/27/16 21:00 12/29/16 21:14 Lorazepam (Ativan 2mg/ml 1ml) 0.5 mg Q4H PRN IV For Anxiety 12/27/16 00:30 12/31/16 20:29 Magnesium Sulfate 100 ml @ 100 mls/hr Q1H IVPB 12/27/16 11:30 12/27/16 13:29 12/27/16 12:22 Memantine (Namenda) 5 mg BID ORAL 12/27/16 09:00 01/25/17 08:59 12/27/16 08:45 Ondansetron HCl (Zofran) 4 mg Q6H PRN IVP Nausea & Vomiting 12/27/16 02:30 01/24/17 20:29 Polyethylene Glycol (Miralax) 17 gm BEDTIME ORAL 12/27/16 21:00 01/25/17 20:59 Polyethylene Glycol (Miralax) 17 gm HSPRN PRN ORAL Constipation 12/27/16 20:30 01/24/17 20:29 Sodium Chloride (NaCl) 1 gm THREE TIMES A DAY ORAL 12/27/16 09:00 01/24/17 08:59 12/27/16 12:21 Trazodone HCl (Desyrel) 25 mg HSPRN PRN ORAL Insomnia 12/27/16 21:00 01/24/17 20:59 Zolpidem Tartrate (Ambien) 5 mg HSPRN PRN ORAL Unrelieved Insomnia by Trazodo 12/27/16 18:45 12/31/16 18:44 CHARLOTTE DAVISON Dec 27, 2016 13:01
--- NOTE | 2016-12-27 14:19 | General Progress Note ---
Assessment/Plan Problem List: (1) SOB (shortness of breath) ICD Codes: R06.02 - Shortness of breath SNOMED: 692418662 (2) Diabetes ICD Codes: E11.9 - Type 2 diabetes mellitus without complications SNOMED: 65556075 (3) Pyuria ICD Codes: N39.0 - Urinary tract infection, site not specified SNOMED: 0045882, 603177520, 072331788 (4) HTN (hypertension) ICD Codes: I10 - Essential (primary) hypertension SNOMED: 06782089 (5) Anemia ICD Codes: D64.9 - Anemia, unspecified SNOMED: 454215618 (6) Shock ICD Codes: R57.9 - Shock, unspecified SNOMED: 90933501 Status: stable, progressing, tolerating diet Assessment/Plan ot pt diet abx psyc f/u bp control cbc bmp am Subjective Constitutional: Reports: weakness Allergies: Coded Allergies: PENICILLINS (Unverified Allergy, Unknown, 08/18/14) All Systems: reviewed and negative except above Subjective sl anxious in bed Objective Last 24 Hour Vital Signs Date Time Temp Pulse Resp B/P (MAP) Pulse Ox O2 Delivery O2 Flow Rate FiO2 12/27/16 12:00 87 12/27/16 11:22 97.6 91 20 98/48 100 Room Air 12/27/16 09:57 92 84/42 12/27/16 08:02 97 73/46 12/27/16 08:00 94 12/27/16 08:00 97.8 97 20 73/46 99 Room Air 12/27/16 06:00 78 87/51 12/27/16 04:00 84 12/27/16 04:00 98.1 20 81/50 98 Room Air 12/27/16 00:00 97.3 64 20 82/48 100 Room Air 12/27/16 00:00 83 12/26/16 22:30 88/52 12/26/16 20:00 98.1 72 20 80/46 99 Room Air 12/26/16 16:00 98.1 81 18 89/54 98 Room Air Intake and Output 12/27/16 12/28/16 19:00 07:00 Intake Total 200 ml Output Total 100 ml Balance 100 ml Intake Oral 100 ml IV Total 100 ml Output Urine Total 100 ml Laboratory Tests 12/27/16 06:55: White Blood Count 7.2, Red Blood Count 3.46L, Hemoglobin 9.1L, Hematocrit 27.4L , Mean Corpuscular Volume 79L, Mean Corpuscular Hemoglobin 26.4L, Mean Corpuscular Hemoglobin Concent 33.4, Red Cell Distribution Width 12.7, Platelet Count 127L, Mean Platelet Volume 8.0, Neutrophils (%) (Auto) 78.3H, Lymphocytes (%) (Auto) 14.7L, Monocytes (%) (Auto) 5.6, Eosinophils (%) (Auto) 0.5, Basophils (%) (Auto) 0.9, Sodium Level 133L, Potassium Level 3.2L, Chloride Level 101, Carbon Dioxide Level 22, Anion Gap 10, Blood Urea Nitrogen 4L, Creatinine 0.6, Estimat Glomerular Filtration Rate > 60, Glucose Level 107H, Calcium Level 8.2L, Phosphorus Level 2.5, Magnesium Level 1.5L, Iron Level 14L, Total Iron Binding Capacity 212L, Percent Iron Saturation 7L, Unsaturated Iron Binding 198, Total Bilirubin 1.0, Aspartate Amino Transf (AST/SGOT) 20, Alanine Aminotransferase (ALT/SGPT) 14, Alkaline Phosphatase 58, Total Protein 5.9L, Albumin 2.6L, Globulin 3.3, Albumin/Globulin Ratio 0.8L Height (Feet): 5 Height (Inches): 9.00 Weight (Pounds): 175 General Appearance: lethargic EENT: normal ENT inspection Neck: normal alignment Cardiovascular: normal peripheral pulses, normal rate, regular rhythm Respiratory/Chest: chest wall non-tender, lungs clear, normal breath sounds Abdomen: normal bowel sounds, non tender, soft Extremities: normal inspection Edema: no edema noted Arm (L), no edema noted Arm (R), no edema noted Leg (L), no edema noted Leg (R), no edema noted Pedal (L), no edema noted Pedal (R), no edema noted Generalized Neurologic: motor weakness Skin: normal pigmentation, warm/dry PHILIPPE MONTEIRO Dec 27, 2016 14:19
[2016-12-27] MEDS ORDERED: Zolpidem 5mg tab ORAL PRN (18:45)
[2016-12-27] MEDS ORDERED: Miralax 17gm pkt ORAL PRN (20:30)
[2016-12-27] MEDS ORDERED: TraZODone HCl 25 mg tablet ORAL PRN (21:00)
[2016-12-27] MEDS ORDERED: Iron Sucrose 100 MG in NS 55 ML IV SCH (21:00)
[2016-12-27] MEDS ORDERED: Miralax 17gm pkt ORAL SCH (21:00)
[2016-12-27] MEDS ORDERED: Sodium Chloride 500ML 500 ML IVPB ONE (21:30)
[2016-12-27] MEDS ORDERED: NovoLOG Insulin Flexpen SUBQ SCH (22:30)
--- NOTE | 2016-12-27 23:27 | Cardiology Progress Note ---
Assessment/Plan Assessment/Plan 1. Sinus tachycardia likely due to hypovolemia, will discontinue furosemide the patient was on in the nursing facility. Will continue coreg. 2. Hx of NSTEMI last admission, was on medical therapy as he refused cardiac cath, Normal LVEF per recent echocardiogram. 3. PAD, s/p leg amputation. 4. DM 5. HTN Subjective Subjective Sinus rhythm at 91. Denies chest pain or SOB. Objective Last 24 Hour Vital Signs Date Time Temp Pulse Resp B/P (MAP) Pulse Ox O2 Delivery O2 Flow Rate FiO2 12/27/16 21:00 76 99/50 12/27/16 20:07 98.0 82 20 91/55 98 Room Air 12/27/16 20:00 80 12/27/16 16:00 85 12/27/16 16:00 97.5 84 21 99/52 97 Room Air 12/27/16 12:00 87 12/27/16 11:22 97.6 91 20 98/48 100 Room Air 12/27/16 09:57 92 84/42 12/27/16 08:02 97 73/46 12/27/16 08:00 94 12/27/16 08:00 97.8 97 20 73/46 99 Room Air 12/27/16 06:00 78 87/51 12/27/16 04:00 84 12/27/16 04:00 98.1 20 81/50 98 Room Air 12/27/16 00:00 97.3 64 20 82/48 100 Room Air 12/27/16 00:00 83 Intake and Output 12/27/16 12/28/16 19:00 07:00 Intake Total 200 ml Output Total 100 ml Balance 100 ml Intake Oral 100 ml IV Total 100 ml Output Urine Total 100 ml # Voids 1 # Bowel Movements 2 CXR: reviewed 2D Echo: LVEF 60-65%, Mild LAE, Grade II LVDD Laboratory Tests Test 12/27/16 06:55 White Blood Count 7.2 K/UL (4.8-10.8) Red Blood Count 3.46 M/UL (4.70-6.10) L Hemoglobin 9.1 G/DL (14.2-18.0) L Hematocrit 27.4 % (42.0-52.0) L Mean Corpuscular Volume 79 FL (80-99) L Mean Corpuscular Hemoglobin 26.4 PG (27.0-31.0) L Mean Corpuscular Hemoglobin Concent 33.4 G/DL (32.0-36.0) Red Cell Distribution Width 12.7 % (11.6-14.8) Platelet Count 127 K/UL (150-450) L Mean Platelet Volume 8.0 FL (6.5-10.1) Neutrophils (%) (Auto) 78.3 % (45.0-75.0) H Lymphocytes (%) (Auto) 14.7 % (20.0-45.0) L Monocytes (%) (Auto) 5.6 % (1.0-10.0) Eosinophils (%) (Auto) 0.5 % (0.0-3.0) Basophils (%) (Auto) 0.9 % (0.0-2.0) Sodium Level 133 MMOL/L (136-145) L Potassium Level 3.2 MMOL/L (3.5-5.1) L Chloride Level 101 MMOL/L (98-107) Carbon Dioxide Level 22 MMOL/L (21-32) Anion Gap 10 mmol/L (5-15) Blood Urea Nitrogen 4 mg/dL (7-18) L Creatinine 0.6 MG/DL (0.55-1.30) Estimat Glomerular Filtration Rate > 60 mL/min (>60) Glucose Level 107 MG/DL (74-106) H Calcium Level 8.2 MG/DL (8.5-10.1) L Phosphorus Level 2.5 MG/DL (2.5-4.9) Magnesium Level 1.5 MG/DL (1.8-2.4) L Iron Level 14 ug/dL (50-175) L Total Iron Binding Capacity 212 ug/dL (250-450) L Percent Iron Saturation 7 % (15-50) L Unsaturated Iron Binding 198 ug/dL (112-346) Total Bilirubin 1.0 MG/DL (0.2-1.0) Aspartate Amino Transf (AST/SGOT) 20 U/L (15-37) Alanine Aminotransferase (ALT/SGPT) 14 U/L (12-78) Alkaline Phosphatase 58 U/L (46-116) Total Protein 5.9 G/DL (6.4-8.2) L Albumin 2.6 G/DL (3.4-5.0) L Globulin 3.3 g/dL Albumin/Globulin Ratio 0.8 (1.0-2.7) L Microbiology Date/Time Source Procedure Growth Status 12/25/16 02:00 Wound Gram Stain - Final Resulted 12/25/16 02:00 Wound Culture - Preliminary Gram Positive Cocci YEAST Resulted Objective HEENT: Atraumatic and normocephalic. Anicteric. Pupils are equal, round, and reactive to light and accommodation. Extraocular muscles intact. NECK: JVP is less than 5 cm. No carotid bruit. Carotid upstroke is 2+ bilaterally. CARDIOVASCULAR: Normal S1 and S2. Tachycardic. No murmurs, gallops, or rubs. PMI is at 4th intercostal space at midclavicular line. LUNGS: Clear to auscultation bilaterally. ABDOMEN: Soft, nontender, and nondistended. No hepatosplenomegaly. Positive bowel sounds. 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 JESS WHITFIELD Dec 27, 2016 23:27
[2016-12-28] VITALS: BP 86/49
[2016-12-28 04:00] VITALS: BP 77/49
[2016-12-28] MEDS: NovoLOG Insulin Flexpen SUBQ SCH ×3 (06:30→16:09)
[2016-12-28 08:00] VITALS: BP 113/54
[2016-12-28] MEDS: Heparin 5000 units/ml inj SUBQ SCH (09:00)
--- NOTE | 2016-12-28 09:09 | Pulmonology Progress Note ---
Assessment/Plan Assessment/Plan ASSESSMENT Acute hypo Na hypotension-improving anemia DM Hx of NSTEMI COPD PVD with R BKA and L AKA diabetic neuropathy e/lyte abnormality ( hypo K, hypo Mg) Anxiety paranoid schizophrenia PLAN OF CARE tele cardio follows continue Plavix off lasix, BP better this am BB with holding parameters elevated troponin, possible NSTEMI last admission at that time patient declined cardiac cath on medical management with Plavix, and BB, hypo Na w/up noted, nephro follows on free water restriction and Demeclocycline, Na better, but no labs for this am BS management with SS of insulin , stable monitor HH, anemia w/up noted, on Venofer, transfuse prn e/lytes replacement as needed DVT prophylaxis ID follows, keep off abx, no clinical evidence of infection, leukocytosis initially, resolved, no fever PT/OT Bowel regimen psych eval noted, psych med regimen optimized stat BMP if stable Na, cleared for dc from pulmonary standpoint if BP remains stable case discussed and evaluated by supervising physician Subjective Allergies: Coded Allergies: PENICILLINS (Unverified Allergy, Unknown, 08/18/14) Subjective BP better labs pending for this am Objective Last 24 Hour Vital Signs Date Time Temp Pulse Resp B/P (MAP) Pulse Ox O2 Delivery O2 Flow Rate FiO2 12/28/16 08:17 91 113/54 12/28/16 08:00 99.5 91 19 113/54 99 Room Air 12/28/16 04:00 99.2 85 19 77/49 100 Room Air 12/28/16 04:00 85 12/28/16 00:00 80 12/28/16 00:00 98.3 80 18 86/49 98 Room Air 12/27/16 21:00 76 99/50 12/27/16 20:07 98.0 82 20 91/55 98 Room Air 12/27/16 20:00 80 12/27/16 16:00 85 12/27/16 16:00 97.5 84 21 99/52 97 Room Air 12/27/16 12:00 87 12/27/16 11:22 97.6 91 20 98/48 100 Room Air 12/27/16 09:57 92 84/42 General Appearance: no acute distress HEENT: normocephalic, atraumatic, anicteric, mucous membranes moist Respiratory/Chest: lungs clear, no respiratory distress, no accessory muscle use Cardiovascular: normal rate - SR on tele Abdomen: normal bowel sounds, soft, non tender Extremities: other - R BKA, L AKA, Neurologic/Psychiatric: abnormal gait, alert, responsive Current Medications Medications (Trade) Dose Ordered Sig/Marsha Route PRN Reason Start Time Stop Time Status Last Admin Dose Admin Acetaminophen (Tylenol) 650 mg Q4H PRN ORAL fever 12/27/16 00:30 01/23/17 20:29 Al Hydroxide/Mg Hydroxide (Mylanta II) 30 ml Q6H PRN ORAL dyspepsia 12/27/16 02:30 01/24/17 20:29 Bisacodyl (Dulcolax) 5 mg DAILYPRN PRN ORAL Unrelieved Constipation 12/27/16 12:00 01/25/17 11:59 Bisacodyl (Dulcolax) 10 mg BID PRN RECTAL Constipation 12/27/16 09:00 01/25/17 09:29 Carvedilol (Coreg) 3.125 mg Q12HR ORAL 12/27/16 09:00 01/23/17 20:59 Clopidogrel Bisulfate (Plavix) 75 mg DAILY ORAL 12/27/16 09:00 01/24/17 08:59 12/27/16 08:44 Demeclocycline HCl (Declomycin) 150 mg FOUR TIMES A DAY ORAL 12/26/16 22:00 01/02/17 12:59 12/27/16 20:49 Dextrose (Dextrose 50%) STAT PRN IV Hypoglycemia 12/26/16 22:03 01/25/17 22:02 Docusate Sodium (Colace) 100 mg THREE TIMES A DAY ORAL 12/27/16 09:00 01/25/17 17:59 12/27/16 17:27 Heparin Sodium (Porcine) (Heparin 5000 units/ml) 5,000 units EVERY 12 HOURS SUBQ 12/26/16 22:00 01/23/17 20:59 12/27/16 20:51 Insulin Aspart (NovoLOG) BEFORE MEALS AND HS SUBQ 12/27/16 06:30 01/26/17 06:29 12/27/16 20:51 Iron Sucrose 100 mg/Sodium Chloride 60 ml @ 240 mls/hr BEDTIME IV 12/27/16 21:00 12/29/16 21:14 12/27/16 20:52 Lorazepam (Ativan 2mg/ml 1ml) 0.5 mg Q4H PRN IV For Anxiety 12/27/16 00:30 12/31/16 20:29 Memantine (Namenda) 5 mg BID ORAL 12/27/16 09:00 01/25/17 08:59 12/27/16 17:24 Ondansetron HCl (Zofran) 4 mg Q6H PRN IVP Nausea & Vomiting 12/27/16 02:30 01/24/17 20:29 Polyethylene Glycol (Miralax) 17 gm BEDTIME ORAL 12/27/16 21:00 01/25/17 20:59 12/27/16 20:52 Polyethylene Glycol (Miralax) 17 gm HSPRN PRN ORAL Constipation 12/27/16 20:30 01/24/17 20:29 Sodium Chloride (NaCl) 1 gm THREE TIMES A DAY ORAL 12/27/16 09:00 01/24/17 08:59 12/27/16 17:23 Trazodone HCl (Desyrel) 25 mg HSPRN PRN ORAL Insomnia 12/27/16 21:00 01/24/17 20:59 Zolpidem Tartrate (Ambien) 5 mg HSPRN PRN ORAL Unrelieved Insomnia by Trazodo 12/27/16 18:45 12/31/16 18:44 S[facility] NP Dec 28, 2016 09:09
[2016-12-28] MEDS: Docusate 100mg cap ORAL SCH ×3 (09:29→18:08)
[2016-12-28] MEDS: Memantine 10mg tab ORAL SCH ×2 (09:29→18:08)
[2016-12-28] MEDS: Demeclocycline 150mg tab ORAL SCH ×3 (09:29→18:08)
[2016-12-28] MEDS: Sodium Chloride 1gm Tab ORAL SCH ×3 (09:29→18:08)
--- NOTE | 2016-12-28 10:29 | GI Progress Note ---
Assessment/Plan Problems: (1) Iron deficiency ICD Codes: E61.1 - Iron deficiency SNOMED: 70406402 (2) Hyponatremia ICD Codes: E87.1 - Hypo-osmolality and hyponatremia SNOMED: 26624823 (3) Diabetes mellitus ICD Codes: E11.9 - Type 2 diabetes mellitus without complications SNOMED: 65945498 (4) Anemia ICD Codes: D64.9 - Anemia, unspecified SNOMED: 835331451 Status: stable Status Narrative Discussed with Dr. Jeffries. Assessment/Plan microcytic hypochromic anemia hyponatremia iron deficiency >> venofer symptomatic treatment start bowel regime >> colace + miralax ATC, dulcolax prn prn transfusions H2B GI prophylaxis electrolyte correction fu labs Subjective Subjective no symptoms refused am labs Objective Last 24 Hour Vital Signs Date Time Temp Pulse Resp B/P (MAP) Pulse Ox O2 Delivery O2 Flow Rate FiO2 12/28/16 08:17 91 113/54 12/28/16 08:00 99.5 91 19 113/54 99 Room Air 12/28/16 08:00 80 12/28/16 04:00 99.2 85 19 77/49 100 Room Air 12/28/16 04:00 85 12/28/16 00:00 80 12/28/16 00:00 98.3 80 18 86/49 98 Room Air 12/27/16 21:00 76 99/50 12/27/16 20:07 98.0 82 20 91/55 98 Room Air 12/27/16 20:00 80 12/27/16 16:00 85 12/27/16 16:00 97.5 84 21 99/52 97 Room Air 12/27/16 12:00 87 12/27/16 11:22 97.6 91 20 98/48 100 Room Air Height (Feet): 5 Height (Inches): 9.00 Weight (Pounds): 175 General Appearance: no apparent distress, alert Cardiovascular: normal rate Respiratory/Chest: normal breath sounds, no respiratory distress Abdominal Exam: normal bowel sounds, non tender, soft Extremities: non-tender Alondra Argueta N.P. Dec 28, 2016 10:29
--- NOTE | 2016-12-28 11:09 | Infectious Diseases Prog Note ---
Assessment/Plan Assessment/Plan A 1. leucocytosis resolved 2. hyponatremia improving 3. DM 4. COPD P 1. continue off antibiotics Subjective ROS Limited/Unobtainable: No Constitutional: Reports: no symptoms Respiratory: Reports: no symptoms Cardiovascular: Reports: no symptoms Gastrointestinal/Abdominal: Reports: no symptoms Genitourinary: Reports: no symptoms Allergies: Coded Allergies: PENICILLINS (Unverified Allergy, Unknown, 08/18/14) Objective Vital Signs Last 24 Hour Vital Signs Date Time Temp Pulse Resp B/P (MAP) Pulse Ox O2 Delivery O2 Flow Rate FiO2 12/28/16 08:17 91 113/54 12/28/16 08:00 99.5 91 19 113/54 99 Room Air 12/28/16 08:00 80 12/28/16 04:00 99.2 85 19 77/49 100 Room Air 12/28/16 04:00 85 12/28/16 00:00 80 12/28/16 00:00 98.3 80 18 86/49 98 Room Air 12/27/16 21:00 76 99/50 12/27/16 20:07 98.0 82 20 91/55 98 Room Air 12/27/16 20:00 80 12/27/16 16:00 85 12/27/16 16:00 97.5 84 21 99/52 97 Room Air 12/27/16 12:00 87 12/27/16 11:22 97.6 91 20 98/48 100 Room Air Height (Feet): 5 Height (Inches): 9.00 Weight (Pounds): 175 General Appearance: no acute distress HEENT: mucous membranes moist Respiratory/Chest: lungs clear Cardiovascular: normal rate Abdomen: soft, non tender Extremities: no edema, other - Left AKA, R BKA Neurologic/Psychiatric: alert, responsive Current Medications Medications (Trade) Dose Ordered Sig/Marsha Route PRN Reason Start Time Stop Time Status Last Admin Dose Admin Acetaminophen (Tylenol) 650 mg Q4H PRN ORAL fever 12/27/16 00:30 01/23/17 20:29 Al Hydroxide/Mg Hydroxide (Mylanta II) 30 ml Q6H PRN ORAL dyspepsia 12/27/16 02:30 01/24/17 20:29 Bisacodyl (Dulcolax) 5 mg DAILYPRN PRN ORAL Unrelieved Constipation 12/27/16 12:00 01/25/17 11:59 Bisacodyl (Dulcolax) 10 mg BID PRN RECTAL Constipation 12/27/16 09:00 01/25/17 09:29 Carvedilol (Coreg) 3.125 mg Q12HR ORAL 12/27/16 09:00 01/23/17 20:59 Clopidogrel Bisulfate (Plavix) 75 mg DAILY ORAL 12/27/16 09:00 01/24/17 08:59 12/28/16 09:29 Demeclocycline HCl (Declomycin) 150 mg FOUR TIMES A DAY ORAL 12/26/16 22:00 01/02/17 12:59 12/28/16 09:29 Dextrose (Dextrose 50%) STAT PRN IV Hypoglycemia 12/26/16 22:03 01/25/17 22:02 Docusate Sodium (Colace) 100 mg THREE TIMES A DAY ORAL 12/27/16 09:00 01/25/17 17:59 12/28/16 09:29 Heparin Sodium (Porcine) (Heparin 5000 units/ml) 5,000 units EVERY 12 HOURS SUBQ 12/26/16 22:00 01/23/17 20:59 12/27/16 20:51 Insulin Aspart (NovoLOG) BEFORE MEALS AND HS SUBQ 12/27/16 06:30 01/26/17 06:29 12/27/16 20:51 Iron Sucrose 100 mg/Sodium Chloride 60 ml @ 240 mls/hr BEDTIME IV 12/27/16 21:00 12/29/16 21:14 12/27/16 20:52 Lorazepam (Ativan 2mg/ml 1ml) 0.5 mg Q4H PRN IV For Anxiety 12/27/16 00:30 12/31/16 20:29 Memantine (Namenda) 5 mg BID ORAL 12/27/16 09:00 01/25/17 08:59 12/28/16 09:29 Ondansetron HCl (Zofran) 4 mg Q6H PRN IVP Nausea & Vomiting 12/27/16 02:30 01/24/17 20:29 Polyethylene Glycol (Miralax) 17 gm BEDTIME ORAL 12/27/16 21:00 01/25/17 20:59 12/27/16 20:52 Polyethylene Glycol (Miralax) 17 gm HSPRN PRN ORAL Constipation 12/27/16 20:30 01/24/17 20:29 Sodium Chloride (NaCl) 1 gm THREE TIMES A DAY ORAL 12/27/16 09:00 01/24/17 08:59 12/28/16 09:29 Trazodone HCl (Desyrel) 25 mg HSPRN PRN ORAL Insomnia 12/27/16 21:00 01/24/17 20:59 Zolpidem Tartrate (Ambien) 5 mg HSPRN PRN ORAL Unrelieved Insomnia by Trazodo 12/27/16 18:45 12/31/16 18:44 WILLY GILBERT Dec 28, 2016 11:09
[2016-12-28 12:00] VITALS: BP 111/56
--- NOTE | 2016-12-28 15:12 | General Progress Note ---
Assessment/Plan Problem List: (1) SOB (shortness of breath) ICD Codes: R06.02 - Shortness of breath SNOMED: 228577974 (2) Diabetes ICD Codes: E11.9 - Type 2 diabetes mellitus without complications SNOMED: 73782175 (3) Pyuria ICD Codes: N39.0 - Urinary tract infection, site not specified SNOMED: 0278834, 329837923, 502611538 (4) HTN (hypertension) ICD Codes: I10 - Essential (primary) hypertension SNOMED: 82015883 (5) Anemia ICD Codes: D64.9 - Anemia, unspecified SNOMED: 596941590 (6) Shock ICD Codes: R57.9 - Shock, unspecified SNOMED: 71523793 Status: stable, progressing, tolerating diet Assessment/Plan ot pt diet abx psyc f/u bp control cbc bmp amc plan Subjective Constitutional: Reports: weakness Allergies: Coded Allergies: PENICILLINS (Unverified Allergy, Unknown, 08/18/14) All Systems: reviewed and negative except above Subjective sl anxious in bed Objective Last 24 Hour Vital Signs Date Time Temp Pulse Resp B/P (MAP) Pulse Ox O2 Delivery O2 Flow Rate FiO2 12/28/16 12:00 98.0 83 17 111/56 95 Room Air 12/28/16 12:00 75 12/28/16 12:00 98.0 83 17 111/56 95 Room Air 12/28/16 08:17 91 113/54 12/28/16 08:00 99.5 91 19 113/54 99 Room Air 12/28/16 08:00 80 12/28/16 04:00 99.2 85 19 77/49 100 Room Air 12/28/16 04:00 85 12/28/16 00:00 80 12/28/16 00:00 98.3 80 18 86/49 98 Room Air 12/27/16 21:00 76 99/50 12/27/16 20:07 98.0 82 20 91/55 98 Room Air 12/27/16 20:00 80 12/27/16 16:00 85 12/27/16 16:00 97.5 84 21 99/52 97 Room Air Intake and Output 12/28/16 12/29/16 19:00 07:00 Intake Total 200 ml Output Total 300 ml Balance -100 ml Intake Oral 200 ml Output Urine Total 300 ml Height (Feet): 5 Height (Inches): 9.00 Weight (Pounds): 175 General Appearance: confused EENT: normal ENT inspection Neck: normal alignment Cardiovascular: normal peripheral pulses, normal rate, regular rhythm Respiratory/Chest: chest wall non-tender, lungs clear, normal breath sounds Abdomen: normal bowel sounds, non tender, soft Extremities: normal inspection Edema: no edema noted Arm (L), no edema noted Arm (R), no edema noted Leg (L), no edema noted Leg (R), no edema noted Pedal (L), no edema noted Pedal (R), no edema noted Generalized Neurologic: responsive, motor weakness Skin: normal pigmentation, warm/dry PHILIPPE MONTEIRO Dec 28, 2016 15:12
[2016-12-28 16:00] VITALS: BP 101/58
--- NOTE | 2016-12-28 17:37 | Cardiology Progress Note ---
Assessment/Plan Assessment/Plan 1. Sinus tachycardia likely due to hypovolemia, coreg on hold due to hypotension. Clear to be discharged to SNF. 2. Hx of NSTEMI last admission, was on medical therapy as he refused cardiac cath, Normal LVEF per recent echocardiogram. 3. PAD, s/p leg amputation. 4. DM, ASA and atorvastatin. 5. HTN, was on coreg at SNF, currently hypotensive. Subjective Subjective Sinus rhythm at 79.. Denies chest pain or SOB. Objective Last 24 Hour Vital Signs Date Time Temp Pulse Resp B/P (MAP) Pulse Ox O2 Delivery O2 Flow Rate FiO2 12/28/16 16:00 98.0 78 18 101/58 96 Room Air 12/28/16 12:00 98.0 83 17 111/56 95 Room Air 12/28/16 12:00 75 12/28/16 12:00 98.0 83 17 111/56 95 Room Air 12/28/16 08:17 91 113/54 12/28/16 08:00 99.5 91 19 113/54 99 Room Air 12/28/16 08:00 80 12/28/16 04:00 99.2 85 19 77/49 100 Room Air 12/28/16 04:00 85 12/28/16 00:00 80 12/28/16 00:00 98.3 80 18 86/49 98 Room Air 12/27/16 21:00 76 99/50 12/27/16 20:07 98.0 82 20 91/55 98 Room Air 12/27/16 20:00 80 Intake and Output 12/28/16 12/29/16 19:00 07:00 Intake Total 200 ml Output Total 300 ml Balance -100 ml Intake Oral 200 ml Output Urine Total 300 ml 2D Echo: LVEF 60-65%, Mild LAE, Grade II LVDD Laboratory Tests Test 12/28/16 15:03 Stool Occult Blood Pending Objective HEENT: Atraumatic and normocephalic. Anicteric. Pupils are equal, round, and reactive to light and accommodation. Extraocular muscles intact. NECK: JVP is less than 5 cm. No carotid bruit. Carotid upstroke is 2+ bilaterally. CARDIOVASCULAR: Normal S1 and S2. Tachycardic. No murmurs, gallops, or rubs. PMI is at 4th intercostal space at midclavicular line. LUNGS: Clear to auscultation bilaterally. ABDOMEN: Soft, nontender, and nondistended. No hepatosplenomegaly. Positive bowel sounds. 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 JESS WHITFIELD Dec 28, 2016 17:37
[2016-12-28] MEDS ORDERED: Aspirin EC 81mg tab ORAL SCH (18:00)
--- NOTE | 2016-12-28 18:15 | General Progress Note ---
Assessment/Plan Status: stable Assessment/Plan mdd agitation cognitive impairment Subjective Neurologic/Psychiatric: Reports: anxiety, depressed, emotional problems Allergies: Coded Allergies: PENICILLINS (Unverified Allergy, Unknown, 08/18/14) Subjective the pt is angry and easily agitated Objective Last 24 Hour Vital Signs Date Time Temp Pulse Resp B/P (MAP) Pulse Ox O2 Delivery O2 Flow Rate FiO2 12/28/16 16:00 98.0 78 18 101/58 96 Room Air 12/28/16 12:00 98.0 83 111/56 95 Room Air 12/28/16 12:00 75 12/28/16 12:00 98.0 83 17 111/56 95 Room Air 12/28/16 08:17 91 113/54 12/28/16 08:00 99.5 91 19 113/54 99 Room Air 12/28/16 08:00 80 12/28/16 04:00 99.2 85 19 77/49 100 Room Air 12/28/16 04:00 85 12/28/16 00:00 80 12/28/16 00:00 98.3 80 18 86/49 98 Room Air 12/27/16 21:00 76 99/50 12/27/16 20:07 98.0 82 20 91/55 98 Room Air 12/27/16 20:00 80 Intake and Output 12/28/16 12/29/16 19:00 07:00 Intake Total 200 ml Output Total 300 ml Balance -100 ml Intake Oral 200 ml Output Urine Total 300 ml Laboratory Tests 12/28/16 15:03: Stool Occult Blood [Pending] Height (Feet): 5 Height (Inches): 9.00 Weight (Pounds): 175 General Appearance: no apparent distress, alert, agitated Neurologic: alert, responsive, depressed affect Ricardo Aguero M.D. Dec 28, 2016 18:15
[2016-12-28 20:00] VITALS: BP 118/68
[2016-12-28] MEDS ORDERED: Atorvastatin 20mg tab ORAL SCH (21:00)
[2016-12-28] MEDS ORDERED: NS 275ml ONE (21:24)
[2016-12-28] MEDS ORDERED: Tubing IV Secondary IV ONE (21:24)
--- NOTE | 2016-12-29 05:16 | Consultation ---
DATE OF CONSULTATION: 12/26/2016 CARDIOLOGY CONSULTATION CONSULTING PHYSICIAN: Manolo Meza M.D. REFERRING PHYSICIAN: Ramirez Thorne M.D. REASON FOR CONSULTATION: Management of tachycardia. HISTORY OF PRESENT ILLNESS: The patient is a very unfortunate 66-year-old gentleman, who is known to me, transferred from nursing facility for management of sodium level of 118. The patient apparently was very nervous and otherwise, he did not have any chest pain, shortness of breath, abdominal pain, or headaches. At the time of arrival to the hospital to emergency department, blood pressure was 146/82 mmHg and heart rate was 108. Cardiology consultation was made at the request of Dr. Thorne for management of tachycardia. The patient is known to me from previous hospitalization, where he was admitted for non-ST elevation myocardial infarction with elevated troponin level. At the time of that presentation, he had full cardiac workup including 2D echocardiography, which showed normal LV systolic function with no wall motion abnormalities. LVEF over 60 to 65%. Mild left atrial enlargement and grade 2 LV diastolic dysfunction consistent with moderately elevated left atrial pressure. He was offered cardiac catheterization on admission, however he refused. He was continued on medical management and was discharged to a nursing facility. PAST MEDICAL HISTORY: Diabetes mellitus, hypertension, history of non-ST elevation myocardial infarction on last admission to this hospital, history of congestive heart failure, history of gastroesophageal reflux disease, history of CVA/TIA, history of PAD, status post right AKA and left BKA, and history of COPD. PAST SURGICAL HISTORY: Right qdzix-qkd-hjxa amputation and left mwzru-jdu-wwth amputation. ALLERGIES: Penicillin. MEDICATIONS: The list of medications from nursing facility, acetaminophen 650 mg q.4 h. p.r.n. fever, headache, and mild pain, albuterol 3 mL inhaler q.6 h. p.r.n. shortness of breath, vitamin C 250 mg twice daily, aspirin 81 mg p.o. daily, atorvastatin 40 mg p.o. daily at bedtime, carvedilol 3.125 mg twice daily, donepezil 5 mg p.o. daily at bedtime, famotidine 20 mg p.o. twice daily, Lasix 10 mg p.o. twice daily, gabapentin 100 mg p.o. daily, NovoLog insulin, lactulose 30 mL three times daily, melatonin 3 mg p.o. daily at bedtime, p.o. tablet one tablet daily. FAMILY HISTORY: No premature coronary artery disease or arrhythmogenic in the first-degree relatives. REVIEW OF SYSTEMS: HEENT: Denies any headache, diplopia, or blurred vision. CONSTITUTIONAL: Denies any fever, chills, night sweats, or weight loss. CARDIOVASCULAR: Denies any chest pain, shortness of breath, PND, orthopnea, palpitations, or syncope. PULMONARY: Denies any cough, hemoptysis, or wheezing. GASTROINTESTINAL: Complains of constipation, but no diarrhea, no abdominal pain, and no GI bleed. GENITOURINARY: Denies any hematuria, dysuria, or incontinence. NEUROLOGY: Denies any motor dysfunction, sensory deficit, or altered speech. MUSCULOSKELETAL: He is wheelchair bound due to amputation of both legs. PHYSICAL EXAMINATION: VITAL SIGNS: Blood pressure at the time of arrival to the hospital was 146/82, respirations of 20, pulse of 108, and temperature 98.1 degrees Fahrenheit. GENERAL: The patient is a very unfortunate somewhat anxious 66-year-old gentleman, who is in no apparent respiratory distress, awake and alert. HEENT: Atraumatic and normocephalic. ENT, pupils are equal, round, and reactive to light and accommodation. Extraocular muscles are intact. Conjunctiva pallor. NECK: JVP less than 5 cm. No carotid bruit. Carotid upstrokes 2+ bilaterally. CVS: Normal S1 and S2. Regular rate and rhythm. No murmurs, gallops, or rubs. PMI is at fourth intercostal space in the midclavicular line. LUNGS: Clear to auscultation bilaterally. ABDOMEN: Soft, nontender, and nondistended. No hepatosplenomegaly. Positive bowel sounds. LOWER EXTREMITIES: There is right ekmxn-fxe-wwrv amputation and left umlyu-twy-zrhp amputation. LABORATORY FINDINGS: WBC is 14.8, hemoglobin 11.2, hematocrit 35.4, and platelet count is 189,000. Chemistry showed sodium 115, potassium 4.4, chloride 81, bicarbonate 25, BUN of 7, creatinine 0.7, glucose is 163, and calcium is 9.2. Troponin I is 0.018. Lipid panel shows triglyceride 52, total cholesterol 95, LDL 21, and HDL of 72. DIAGNOSTIC DATA: A 12-lead electrocardiogram at the time of arrival to the hospital showed sinus tachycardia at 104 with normal axis. There is some nonspecific ST and T-wave abnormalities, especially in the lateral leads. ASSESSMENT AND PLAN: The patient is a very unfortunate 66-year-old gentleman, who was seen in Cardiology consultation at the request of Dr. Ramirez Thorne. 1. Sinus tachycardia, most likely secondary to hypovolemia as the patient's reason for admission with associated hyponatremia. I would like to place a hold on furosemide as the patient was receiving this in the nursing facility. We will continue with carvedilol. 2. Prior history of non-ST elevation myocardial infarction, although 2D echocardiography did not reveal any wall motion abnormalities with normal left ventricular systolic function. The patient was offered left heart catheterization and coronary angiography, however he refused. 3. We will continue medical management with the beta-blockers, ideally aspirin and statins. 4. History of peripheral arterial disease, status post bilateral leg amputation. 5. History of diabetes mellitus, type 2. The patient will benefit from continuation of aspirin and statin in long-term. 6. History of hypertension. In the nursing facility, was on Coreg. 7. We will continue carvedilol, and if needed with this medication, we will add second agent. I would like to thank, Dr. Thorne, for allowing me to participate in the care of this patient. Manolo Meza M.D. DR: [place] JOB#: [id number] CC:
--- NOTE | 2016-12-31 09:03 | Discharge Summary ---
Discharge Summary Hospital Course Date of Admission Dec 24, 2016 at 17:32 Date of Discharge Dec 28, 2016 at 21:25 Admitting Diagnosis HYPONATREMIA MEGAN Desai is a 66 year old male who was admitted on Dec 24, 2016 at 17:32 for Hyponatremia Hospital Course dc summary #[id number] Discharge Condition Upon Discharge: stable Discharge Disposition Patient was discharged to SNF/Subacute Facility(03) Discharge Diagnoses: Discharge Instructions Discharge Instructions Special Instructions I have been assigned to complete a D/C Summary on this account. I was not involved in the patient management Blaire Patricio NP ([place]) Dec 31, 2016 09:03
--- NOTE | 2016-12-31 18:30 | Discharge Summary 2 SIG ---
DATE OF ADMISSION: 12/24/2016 DATE OF DISCHARGE: 12/28/2016 REASON FOR ADMISSION: 66-year-old male with history of diabetes, peripheral vascular disease, hyperlipidemia, right BKA, left AKA, COPD, and congestive heart failure, presented to the emergency department from a [facility] facility with low sodium. Upon admission, sodium -115. The patient denied abdominal pain, chest pain, headache. Workup in the emergency room revealed at that time stable blood pressure, tachycardia - 108. EKG revealed normal sinus rhythm. No acute ischemic changes. No PVC. No ectopy. Chest x-ray revealed no acute cardiopulmonary disease. Urinalysis was negative. The patient with leukocytosis -14.8, anemic hemoglobin -11.2, hematocrit- 35.4. Blood cultures were drawn and patient was started on broad-spectrum antibiotics. Patient was admitted for possible sepsis, leukocytosis, hyponatremia, anemia. HOSPITAL COURSE: The patient was admitted to telemetry floor. Initially, Nephrology, Pulmonology, and GI consults along with a psychiatric consult were requested. Lasix was stopped. The patient was initially on IV fluid for hydration and then on fluid restriction. Hyponatremia workup was done. Facility Sales And Admin closely followed. The patient was on free water restriction and demeclocycline. Sodium up to 133 on discharge. Not to resume Lasix at the [facility] facility for now. Infectious Disease specialist closely followed for leukocytosis, however, no evidence of infection. Urinalysis negative. Chest x-ray negative. Blood culture came back negative. Infectious Disease recommended to keep the patient off antibiotics. Leukocytosis resolved. GI followed for anemia. Anemia workup revealed iron deficiency anemia. The patient was on Venofer. Hemoglobin and hematocrit were closely monitored. Stool OB was negative. GI prophylaxis provided. The patient developed low blood pressure and was transferred to telemetry floor. Data Network Architect closely followed. On previous admission patient had elevated troponin and possible non-STEMI. However, at that time, the patient declined cardiac catheterization. The patient was on medical management with Plavix and beta-beverly. At this time, when the blood pressure was low, beta-beverly was stopped. The patient was closely monitored. Blood pressure normalized after fluid boluses. The patient had evidence of hypokalemia and hypomagnesemia. Electrolytes were replaced as needed. DVT prophylaxis provided. The patient was working with physical and occupational therapists. Bowel regimen instituted. Psychiatric evaluation done, The patient diagnosed with anxiety disorder, and paranoid schizophrenia. Psychiatric medication regimen was optimized. According to forest management teacher, the patient had a sinus tachycardia initially likely secondary to hypovolemia. Tachycardia resolved. Leukocytosis resolved. Sodium up to 133. Blood pressure- 118/68. Beta-beverly resumed with holding parameters. Pulse oximetry was stable on room air. Blood sugar was managed with sliding scale of insulin and was stable. Statin was continued. All consultants cleared the patient for discharge. The patient was stable for discharge. FINAL DIAGNOSES: 1. Acute hypovolemic hyponatremia. 2. Hypotension, resolved. 3. Iron-deficiency anemia. 4. Leukocytosis, resolved. 5. Diabetes mellitus. 6. History of non-ST elevation myocardial infarction. 7. Chronic obstructive pulmonary disease. 8. Peripheral vascular disease with right below-knee amputation and left above-knee amputation. 9. Diabetic neuropathy. 10. Electrolyte abnormalities (hypokalemia, hypomagnesemia). 11. Anxiety. 12. Paranoid schizophrenia. 13. Sinus tachycardia, likely secondary to hypovolemia, resolved. DISCHARGE MEDICATIONS: List of medications was sent to admitting facility. DISCHARGE INSTRUCTIONS: The patient was discharged to [facility] facility. Follow up with medical doctor at the facility. Ramirez Thorne D.O. I have been assigned to dictate discharge summary on this account and I was not involved in the patient's management. Blaire Beltránaziza N.P. DR: [place] JOB#: [id number] CC: [email or web address]
== END 2016-12-28 21:25 | DRG 641 ==
LOC: EDBD 16:50 → EMR 17:20 → 2E 17:32 → EDBEDREQ 17:53 → 4W 12-25 21:00 → 2E 12-26 21:56
DX: E87.1 Hypo-osmolality and hyponatremia (principal); E86.1 Hypovolemia; E87.2 Acidosis; I95.9 Hypotension, unspecified; E11.42 Type 2 diabetes mellitus with diabetic polyneuropathy; I50.9 Heart failure, unspecified; J44.9 Chronic obstructive pulmonary disease, unspecified; Z89.612 Acquired absence of left leg above knee; F20.0 Paranoid schizophrenia; E83.42 Hypomagnesemia; I10 Essential (primary) hypertension; D50.9 Iron deficiency anemia, unspecified; D72.829 Elevated white blood cell count, unspecified; I25.2 Old myocardial infarction; I73.9 Peripheral vascular disease, unspecified; Z89.511 Acquired absence of right leg below knee; E87.6 Hypokalemia; R00.0 Tachycardia, unspecified; I25.10 Atherosclerotic heart disease of native coronary artery without angina pectoris; Z79.02 Long term (current) use of antithrombotics/antiplatelets; Z88.0 Allergy status to penicillin; Z79.4 Long term (current) use of insulin; K59.00 Constipation, unspecified; K21.9 Gastro-esophageal reflux disease without esophagitis; Z86.73 Personal history of transient ischemic attack (TIA), and cerebral infarction without residual deficits; F41.9 Anxiety disorder, unspecified; F32.9 Major depressive disorder, single episode, unspecified
CPT/HCPCS: 36415; 71010; 80048; 80053; 80061; 81003; 82043; 82248; 82270; 82570; 82962; 83540; 83550; 83605; 83735; 83930; 83935; 84100; 84133; 84300; 84443; 84484; 85007; 85025; 87040; 87070; 87081; 87181; 87205; 89050; 93005; J1815